=== PATIENT | female | born 1945 | race Caucasian/White ===

== ENCOUNTER 2018-01-10 09:17 | Emergency (ER) | payer MEDICARE, SELFPAY ==
[2018-01-10 09:27] VITALS: BP 146/83; PULSE 63; RESP 10; TEMP 36.9; O2SAT 99
--- NOTE | 2018-01-10 09:51 | ED_ITS ---
HPI - Dizziness General Chief Complaint: Dizziness Stated Complaint: PAIN/NUMBNESS IN HEAD AND PAIN IN [place] Time Seen by Provider: 01/10/18 09:25 Source: patient Mode of arrival: ambulatory Limitations: no limitations History of Present Illness HPI Narrative: 72-year-old female with a history of rheumatoid arthritis, insomnia, and depression presents with left-sided facial laceration after a syncopal episode this morning. She had had 2 glasses of wine last night and was in the hot tub and later went to bed. She woke up around 6 and had to use the bathroom, but felt dizzy, sweaty, and then had a syncopal episode which was unwitnessed. She woke up and noted some pain on the side of her head. At this time she denies feeling dizzy, weak, nauseous, fevers, chills, having dysuria,, cough or any other symptoms. She went to the urgent care to have her laceration sutured and was sent here for further workup Related Data Home Medications Medication Instructions Recorded Confirmed Fish Oil (#FISH OIL) 1 iu PO QDAY #0 08/08/11 VITAMIN D (GROVE VITAMIN D) 2,000 iu PO Q DAY #0 08/08/11 [magnesium ] #0 05/14/17 Previous Rx's Medication Instructions Recorded estradiol [Estrace] 0 VAGINAL SEE INSTRUCTIONS #45 gm 03/21/16 fluticasone 0 INTRANASAL QDAY #16 gm 01/17/17 oxybutynin chloride [Ditropan XL] 10 mg PO QDAY #90 tab 05/14/17 trazodone 100 mg PO HS #90 tab 05/14/17 venlafaxine [Effexor XR] 0 PO QDAY #90 cap 05/14/17 omeprazole 40 mg PO QAM #90 cap 09/16/17 acyclovir 1 tab PO BID #180 tab 10/09/17 albuterol sulfate [Ventolin HFA] 2 puff INH Q4H PRN #1 ea 10/31/17 Allergies Allergy/AdvReac Type Severity Reaction Status Date / Time hydrocodone AdvReac Mild DIDN'T Verified 01/10/18 09:57 WORK WELL AND KEPT ME AWAKE Review of Systems Review of Systems All systems reviewed & are unremarkable except as noted in HPI and below Constitutional Denies chills, Denies fever(s), Denies lethargy and Denies weakness Eyes Denies change in vision, Denies eye discharge, Denies irritation and Denies loss of vision ENT Ears, Nose, Mouth, and Throat: Denies change in voice, Denies neck pain and Denies sore throat Cardiovascular Denies chest pain, Denies irregular heart rhythm, Denies lightheadedness, Denies palpitations, Denies dyspnea, Denies dyspnea on exertion and Denies orthopnea Respiratory Denies cough, Denies dyspnea, Denies dyspnea on exertion and Denies wheezing Gastrointestinal Gastrointestinal: Denies abdominal pain, Denies change in bowel habits, Denies diarrhea, Denies nausea and Denies vomiting Genitourinary Denies hematuria, Denies flank pain, Denies urinary incontinence and Denies urinary urgency Musculoskeletal Denies neck pain Integumentary/Breasts Denies pruritus, Denies erythema, Denies rash and Denies wounds Comments: Laceration over L eye Neurologic Denies confusion, Denies loss of vision and Denies weakness Psychiatric Denies anxiety, Denies confusion, Denies depression, Denies homicidal ideation and Denies suicidal ideation Endocrine Denies palpitations Hematologic/Lymphatic Denies easy bruising Allergic/Immunologic Denies wheezing PFSH Family History Father CAD (coronary artery disease) Grandfather Lung cancer Grandmother CAD (coronary artery disease) Mother CAD (coronary artery disease) Diabetes mellitus Parkinsons Grandfather CAD (coronary artery disease) Social History Smoking Status: Never smoker Exam Initial Vital Signs Initial Vital Signs: Vital Signs Temperature 98.5 F 01/10/18 09:27 Pulse Rate 63 01/10/18 09:27 Respiratory Rate 10 L 01/10/18 09:27 Blood Pressure 146/83 H 01/10/18 09:27 Pulse Oximetry 99 01/10/18 09:27 Const General: cooperative and well developed Nutritional Appearance: well nourished Orientation: alert, awake, oriented x3 and not confused HENMT Head: normocephalic and atraumatic Ears: external ears normal and TM's normal bilaterally Nose: external nose normal and No nasal discharge Face and sinus: sinuses nontender, face symmetric, no sinus tenderness and No dry mucous membranes Mouth: oral mucosae normal and moist mucous membranes Teeth and gingiva: dentition normal Throat: tonsils normal and uvula midline Eyes General: appearance normal, both eyes and all related structures Eyelids: eyelids normal Conjunctivae: conjunctivae normal Sclera: sclerae normal Pupils: PERRL EOM: EOM intact bilaterally Neck Neck: normal visual inspection, trachea midline, No lymphadenopathy, No midline deformity and No JVD Lymphatic: No lymphedema Chest Chest: normal inspection of the chest Resp Effort & Inspection: normal respiratory effort, able to speak in complete sentences, no respiratory distress and no use of accessory muscles Auscultation: clear to auscultation bilaterally, no rales, no rhonchi and no wheezes Cardio Rate: regular rate Rhythm: regular rhythm Heart Sounds: no click, no gallops, no murmurs and no rubs Pulses: normal peripheral pulses GI Inspection: non-distended Palpation: soft, no hepatosplenomegaly, No guarding, No pulsatile mass and No tender Auscultation: normal bowel sounds Back/Spine/Pelvis Back: No CVA tenderness Cervical Spine: cervical ROM normal and No pain with cervical ROM Thoracic/Lumbar Spine: thoracic and lumbar spine normal to inspection Skin General: no rashes or lesions noted, No jaundice and No petechiae Other: 2 cm laceration overlying left eyebrow, full-thickness. No periocular bruising. Neuro General: alert, oriented x3, gait normal and no focal motor deficits Cranial Nerves: CN's II-XI intact bilaterally Speech: speech normal Motor: strength 5/5 throughout Sensory Exam: no sensory deficits noted Extrem General: full ROM, no clubbing, cyanosis or edema, no pedal edema and no calf tenderness Psych Appearance: well kempt Mental Status: mental status grossly normal Attitude: cooperative Thought Content: normal and suicidality Judgment: judgment good Procedures Joint Aspiration/Injection Laceration 1: Site: face Side (If applicable): left Size (cm): 2 Description: linear Depth: simple, single layer Local Anesthetic: lidocaine 1% and with epi Amount of anesthesia used (mL): 2 Pre-repair: wound explored, irrigated extensively and deep structures intact Skin layer closed with: nylon Size (cm): 5-0 Number of sutures: 8 Technique: running Course Orders Ordered: ED Orders 01/10/18 09:26 EKG-12 Lead Routine 01/10/18 10:00 Complete Blood Count AUTO DIFF Stat Comprehensive Metabolic Panel Stat Ethanol (ETOH) Stat Magnesium Stat 01/10/18 10:13 CT head/brain wo con Stat Discontinued Medications Sodium Chloride (Normal Saline 0.9%) 1,000 mls @ 1,000 mls/hr IV BOLUS ONE Stop: 01/10/18 10:43 Last Infusion: 01/10/18 10:59 Dose: 0 mls/hr Admin: 01/10/18 09:57 Dose: 1,000 mls/hr Tetanus/Diphtheria Toxoids (Td) 0.5 ml IM .ONCE ONE Stop: 01/10/18 09:45 Last Admin: 01/10/18 09:58 Dose: 0.5 ml Vital Signs - 8 hr 01/10/18 09:27 01/10/18 10:50 Temperature 98.5 F Pulse Rate 63 62 Respiratory Rate 10 L 12 Blood Pressure 146/83 H Blood Pressure [Left Arm] 146/82 H Pulse Oximetry 99 98 MDM - Dizziness Differential Diagnosis Likely orthostatic hypotension Lab Data Result diagrams: 01/10/18 10:00 01/10/18 10:00 Lab Results 01/10/18 01/10/18 01/10/18 Range/Units 10:00 10:00 10:00 WBC 8.0 (4.5-11.0) X10^3/uL RBC 4.36 (4.0-5.2) X10^6/uL Hgb 13.7 (12.0-16.0) g/dL Hct 39.3 (36-46) % MCV 90.1 (80-100) fL MCH 31.5 (26-34) PG MCHC 34.9 (30-36) % RDW 13.5 (11.6-14.8) % Plt Count 261 (150-400) X10^3/uL Neut % (Auto) 60.8 (50-75) % Lymph % (Auto) 24.2 L (25-40) % [place] % (Auto) 11.6 (3-14) % Eos % (Auto) 2.4 (2-4) % Baso % (Auto) 1.0 (0-2) % Neut # (Auto) 4900 (9899-5780) /uL Sodium 138 (137-145) mmol/L Potassium 3.9 (3.4-5.1) mmol/L Chloride 102.0 (98-107) mmol/L Carbon Dioxide 28.0 (22-32) mmol/L BUN 20.0 H (7-17) mg/dL Creatinine 0.60 (0.52-1.04) mg/dL Estimated GFR > 60.0 (>60) mL/min BUN/Creatinine Ratio 33.3 H (6-22) Glucose 100 (80-110) mg/dL Calcium 9.2 (8.4-10.2) mg/dL Magnesium 2.0 (1.6-2.3) mg/dL Total Bilirubin 0.5 (0.2-1.3) mg/dL AST 35 (14-36) IU/L ALT 33 (9-52) IU/L Alkaline Phosphatase 93 (38-126) U/L Total Protein 7.1 (6.3-8.2) g/dL Albumin 4.0 (3.5-5.0) g/dL Globulin 3.1 (1.7-4.1) g/dL Albumin/Globulin Ratio 1.3 (1.0-2.8) Ethyl Alcohol < 10 mg/dL Imaging Data CT scan - head: Radiologist's impression: PROCEDURE: CT HEAD/BRAIN WO CON INDICATIONS: syncope, head injury, etoh TECHNIQUE: Noncontrast 4.5 mm thick angled axial sections acquired from the foramen magnum to the vertex, with coronal and sagittal reformats. For radiation dose reduction, the following was used: automated exposure control, adjustment of mA and/or kV according to patient size. COMPARISON: None. FINDINGS: Image quality: Excellent. CSF spaces: Basal cisterns are patent. No extra-axial fluid collections. The ventricles are symmetric in size and shape. Brain: No intracranial bleeds or masses. There is cerebral volume loss for age , with resultant ventricular and sulcal prominence. There are periventricular and deep white matter chronic small vessel ischemic changes. There is intracranial internal carotid artery atherosclerosis. Skull and face: Calvarium and visualized facial bones appear intact, without suspicious lesions. Sinuses: Visualized sinuses and mastoids are clear. IMPRESSION: No acute intracranial abnormality. Dictated by: Neda Otoole M.D. on 01/10/2018 at 10:39 Approved by: Neda Otoole M.D. on 01/10/2018 at 10:40 ECG Data Attestation: I personally reviewed and interpreted this ECG as follows: Prior ECG tracings: available for review Interpretation: EKG performed at 9:26 a.m. shows sinus rhythm with a rate of 61. Possible right atrial enlargement. Right bundle branch block. No acute ischemia. When compared with 06/21/2013 EKG is unchanged MDM Narrative Medical decision making narrative: 72-year-old female with a history of rheumatoid arthritis and depression presenting with syncopal episode this morning after drinking and spending part of the evening in the hot tub. Her EKG shows no acute abnormalities including ischemia or arrhythmias. Her gambling monitor has been unremarkable here. Her head CT shows no acute injury or abnormality. She had a laceration that was repaired as documented above. Advised to follow up in 5 days for suture removal. Lab work shows no acute abnormalities. Alcohol level is 0 this morning. Advised her to follow up with her primary care provider within 1 week for recheck. Return precautions given. Discharge Plan Departure Patient Disposition: Home, Self-Care Clinical Impression: Syncope, Facial laceration, Head injury Instructions: DI for Syncope in Adults (Fainting), DI for Closed Head Injury Activity Restrictions/Additional Instructions: Thank you for trusting is with your care today. No dangerous findings were identified in your workup. Please follow-up with your primary care provider within 1 week for re-evaluation. Return to the ER for new or worsening symptoms. Have your sutures removed in 5 days. Prescriptions: No Action Fish Oil (#FISH OIL) 1 iu PO QDAY Qty: 0 RF: 0 VITAMIN D (GROVE VITAMIN D) 2,000 iu PO Q DAY Qty: 0 RF: 0 estradiol [Estrace] 0.01 % cream Vaginal SEE INSTRUCTIONS Qty: 45 RF: 3 fluticasone 16 GM spray,suspension Intranasal QDAY Qty: 16 RF: 3 [magnesium ] Qty: 0 RF: 0 venlafaxine [Effexor XR] 75 MG capsule,extended release 24hr PO QDAY Qty: 90 RF: 3 oxybutynin chloride [Ditropan XL] 10 MG tablet extended release 24hr 10 mg PO QDAY Qty: 90 RF: 3 trazodone 100 MG tablet 100 mg PO HS Qty: 90 RF: 3 omeprazole 40 MG capsule,delayed release(DR/EC) 40 mg PO QAM Qty: 90 RF: 1 acyclovir 400 MG tablet 1 tab PO BID Qty: 180 RF: 0 albuterol sulfate [Ventolin HFA] 90 MCG/PUFF HFA aerosol inhaler 2 puff INH Q4H PRNQty: 1 RF: 2 Referrals: Susie Hayes ARNP [Primary Care Provider] -
[2018-01-10] MEDS: SODIUM CHLORIDE 0.9% 1,000 ML 1000 ML IV (09:57)
[2018-01-10] MEDS: TETANUS DIPHTHERIA TOXOIDS 0.5 ML VIAL IM (09:58)
[2018-01-10 10:09] LABS: Add Manual Diff / Slide Review NO; Eosinophils Percent Auto 2.4 % (2-4); Hematocrit 39.3 % (36-46); Hemoglobin 13.7 g/dL (12.0-16.0); Lymphocytes Percent Auto 24.2 % (25-40); Mean Corpuscular HGB Conc 34.9 % (30-36); Mean Corpuscular Hemoglobin 31.5 PG (26-34); Mean Corpuscular Volume 90.1 fL (80-100); Monocytes Percent Auto 11.6 % (3-14); Neutrophils Absolute Auto 4900 /uL (3000-5900); Neutrophils Percent Auto 60.8 % (50-75); Platelet Count 261 X10^3/uL (150-400); Red Blood Cell Count 4.36 X10^6/uL (4.0-5.2); Red Cell Distribution Width 13.5 % (11.6-14.8)
--- NOTE | 2018-01-10 10:13 | DI.CT.S_ITS ---
PROCEDURE: CT HEAD/BRAIN WO CON INDICATIONS: syncope, head injury, etoh TECHNIQUE: Noncontrast 4.5 mm thick angled axial sections acquired from the foramen magnum to the vertex, with coronal and sagittal reformats. For radiation dose reduction, the following was used: automated exposure control, adjustment of mA and/or kV according to patient size. COMPARISON: None. FINDINGS: Image quality: Excellent. CSF spaces: Basal cisterns are patent. No extra-axial fluid collections. The ventricles are symmetric in size and shape. Brain: No intracranial bleeds or masses. There is cerebral volume loss for age, with resultant ventricular and sulcal prominence. There are periventricular and deep white matter chronic small vessel ischemic changes. There is intracranial internal carotid artery atherosclerosis. Skull and face: Calvarium and visualized facial bones appear intact, without suspicious lesions. Sinuses: Visualized sinuses and mastoids are clear. IMPRESSION: No acute intracranial abnormality. Dictated by: Neda Otoole M.D. on 01/10/2018 at 10:39 Approved by: Neda Otoole M.D. on 01/10/2018 at 10:40
[2018-01-10 10:21] LABS: Alanine Aminotransferase 33 IU/L (9-52); Albumin Globulin Ratio 1.3 (1.0-2.8); Alkaline Phosphatase 93 U/L (38-126); Aspartate Aminotransferase 35 IU/L (14-36); BUN Creatinine Ratio 33.3 (6-22); Bilirubin Total 0.5 mg/dL (0.2-1.3); Calcium 9.2 mg/dL (8.4-10.2); Estimated Glomerular Filt Rate > 60.0 mL/min (>60); Ethanol (ETOH) < 10 mg/dL; Globulin 3.1 g/dL (1.7-4.1); Glucose 100 mg/dL (80-110); HEMOLYSIS < 15 (0-50); Potassium 3.9 mmol/L (3.4-5.1); Sodium 138 mmol/L (137-145); Total Protein 7.1 g/dL (6.3-8.2)
--- NOTE | 2018-01-10 10:25 | PC.NURSE ---
bacitracin applied to left eye brow.
[2018-01-10 10:50] VITALS: BP 146/82; PULSE 62; RESP 12; O2SAT 98
[2018-01-10 11:51] VITALS: BP 172/80; PULSE 67; RESP 18; O2SAT 98
== END 2018-01-10 11:50 | disposition home or self-care (01) ==
PROVIDERS: Emergency Provider Emergency Medicine; Family Provider Internal Medicine; PCP Internal Medicine
DX: R55 Syncope and collapse (principal); S09.90XA Unspecified injury of head, initial encounter; S01.81XA Laceration without foreign body of other part of head, initial encounter; W19.XXXA Unspecified fall, initial encounter
CPT/HCPCS: 12011; 36591; 70450; 80053; 80320; 83735; 85025; 90471; 90714; 93005; 96360; 99283; 99285

== ENCOUNTER → 2018-08-06 07:38 | Outpatient (CLI) | payer MEDICARE, SELFPAY ==
--- NOTE | 2018-08-06 | DI.MG.S_ITS ---
BILATERAL DIGITAL SCREENING MAMMOGRAM 3D/2D WITH CAD: 08/06/2018 CLINICAL: Routine screening. Comparison is made to exams dated: 06/23/2017 mammogram - [facility], 12/26/2015 mammogram, 12/29/2014 mammogram - [facility], 02/26/2013 mammogram, 03/29/2011 mammogram, and 02/20/2007 mammogram - [facility]. There are scattered fibroglandular elements in both breasts. Current study was also evaluated with a Computer Aided Detection (CAD) system. There are benign vascular calcifications in both breasts. No significant masses, calcifications, or other findings are seen in either breast. There has been no significant interval change. IMPRESSION: There is no mammographic evidence of malignancy. A 1 year screening mammogram is recommended. This exam was interpreted at Station ID: [id number]. NOTE: For mammograms, a report in lay terms will be sent to the patient. Approximately 15% of breast malignancies will not be visualized mammographically. In the management of a palpable breast mass, a negative mammogram must not discourage biopsy of a clinically suspicious lesion. Electronically Signed By: Melo nur/indira:08/06/2018 08:48:58 letter sent: Normal Exam ACR BI-RADS Category 2: Benign Finding(s) 3342F
== END ==
PROVIDERS: PCP Internal Medicine; Visit Provider Internal Medicine
DX: Z12.31 Encounter for screening mammogram for malignant neoplasm of breast (principal)
CPT/HCPCS: 77063; 77067

== ENCOUNTER → 2018-10-22 10:39 | Outpatient (CLI) | payer MEDICARE, SELFPAY ==
[2018-10-22 11:40] LABS: Erythrocyte Sedimentation Rate 5 MM/HR (0-20)
[2018-10-22 11:46] LABS: C-Reactive Protein Quant < 0.5 mg/dL (<1.0); Rheumatoid Factor < 8.6 IU/mL (<12.0)
[2018-10-22 12:16] LABS: Vitamin D 25 Hydroxy (D3) 34.5 ng/mL (30.0-100.0)
== END ==
PROVIDERS: PCP Student in an Organized Health Care Education/Training Program; Visit Provider Student in an Organized Health Care Education/Training Program
DX: M06.9 Rheumatoid arthritis, unspecified (principal); E55.9 Vitamin D deficiency, unspecified
CPT/HCPCS: 36415; 82306; 85651; 86140; 86430

== ENCOUNTER → 2019-01-14 10:04 | Outpatient (CLI) | payer MEDICARE, SELFPAY | PROVIDERS: PCP Student in an Organized Health Care Education/Training Program; Visit Provider Student in an Organized Health Care Education/Training Program | DX: Z13.820 Encounter for screening for osteoporosis (principal); Z78.0 Asymptomatic menopausal state; R29.890 Loss of height; Z87.891 Personal history of nicotine dependence | CPT/HCPCS: 77080 ==

== ENCOUNTER → 2020-04-28 10:22 | Outpatient (CLI) | payer MEDICARE, SELFPAY ==
--- NOTE | 2020-04-28 10:24 | DI.RAD.S_ITS ---
PROCEDURE: XR FOOT LT MIN 3V INDICATIONS: left foot pain/injury TECHNIQUE: 3 views of the foot were acquired. COMPARISON: [facility], CR, XR TOE LT MIN 2V, 04/28/2020, 10:20. FINDINGS: Bones: No jennyfer, acute fractures are seen. There is advanced prominent degenerative change seen involving the 1st metatarsophalangeal joint. Milder degenerative changes are seen elsewhere. Soft tissues: No tibiotalar joint effusion. Achilles tendon appears normal. IMPRESSION: Advanced focal degenerative changes seen of the 1st metatarsophalangeal joint, without an acute fracture identified. If there is point tenderness (or other clinical suspicion for a fracture not seen on these images) then a dedicated CT or a short-term followup plain film series could be considered for further evaluation, as clinically appropriate. Dictated by: Magno Rolon M.D. on 04/28/2020 at 9:56 Approved by: Magno Rolon M.D. on 04/28/2020 at 9:57
--- NOTE | 2020-04-28 10:24 | DI.RAD.S_ITS ---
PROCEDURE: XR TOE LT MIN 2V INDICATIONS: left foot pain/injury TECHNIQUE: 3 views of the left 2nd toe(s) acquired. COMPARISON: [facility], , XR FOOT LT MIN 3V, 04/28/2020, 10:20. FINDINGS: Bones: In this patient with this given history, scrutiny is given to 2nd toe. No fractures or dislocations are seen. Degenerative changes are seen of the 2nd toe, yet there are more prominent degenerative changes seen involving 1st metatarsophalangeal joint. Soft tissues: No suspicious soft tissue densities. IMPRESSION: No displaced 2nd toe fracture is seen. Dictated by: Magno Rolon M.D. on 04/28/2020 at 9:58 Approved by: Magno Rolon M.D. on 04/28/2020 at 9:59
== END ==
PROVIDERS: PCP Student in an Organized Health Care Education/Training Program; Referring Provider Registered Nurse; Visit Provider Registered Nurse
DX: S99.922A Unspecified injury of left foot, initial encounter (principal); M79.672 Pain in left foot; X58.XXXA Exposure to other specified factors, initial encounter
CPT/HCPCS: 73630; 73660

== ENCOUNTER → 2020-09-22 08:14 | Outpatient (CLI) | payer MEDICARE, SELFPAY ==
[2020-09-22] MEDS: COVID-19 VACC #1, MRNA(MOD) 100 MCG/0.5 ML VIAL IM (08:21)
== END ==
PROVIDERS: PCP Student in an Organized Health Care Education/Training Program; Visit Provider Internal Medicine
DX: Z23 Encounter for immunization (principal)
CPT/HCPCS: 0011A; 91301

== ENCOUNTER → 2020-10-20 08:02 | Outpatient (CLI) | payer MEDICARE, SELFPAY ==
[2020-10-20] MEDS: COVID-19 VACC #2, MRNA(MOD) 100 MCG/0.5 ML VIAL IM (08:08)
== END ==
PROVIDERS: PCP Student in an Organized Health Care Education/Training Program; Visit Provider Internal Medicine
DX: Z23 Encounter for immunization (principal)
CPT/HCPCS: 0012A; 91301

== ENCOUNTER → 2021-02-13 14:55 | Outpatient (CLI) | payer MEDICARE, SELFPAY ==
--- NOTE | 2021-02-13 | DI.MG.S_ITS ---
BILATERAL DIGITAL SCREENING MAMMOGRAM 3D/2D WITH CAD: 02/13/2021 CLINICAL: Routine screening. Comparison is made to exams dated: 08/06/2018 mammogram, 06/23/2017 mammogram - [facility], and 12/29/2014 mammogram - [facility]. There are scattered fibroglandular elements in both breasts. Current study was also evaluated with a Computer Aided Detection (CAD) system. There are benign vascular calcifications in both breasts. No significant masses, calcifications, or other findings are seen in either breast. There has been no significant interval change. IMPRESSION: BENIGN There is no mammographic evidence of malignancy. A 1 year screening mammogram is recommended. This exam was interpreted at Station ID: [id number]. NOTE: For mammograms, a report in lay terms will be sent to the patient. Approximately 15% of breast malignancies will not be visualized mammographically. In the management of a palpable breast mass, a negative mammogram must not discourage biopsy of a clinically suspicious lesion. Electronically Signed By: Zackery mayorga/indira:02/13/2021 15:40:07 letter sent: Normal Exam ACR BI-RADS Category 2: Benign Finding(s) 3342F
== END ==
PROVIDERS: PCP Student in an Organized Health Care Education/Training Program; Referring Provider Student in an Organized Health Care Education/Training Program; Visit Provider Student in an Organized Health Care Education/Training Program
DX: Z13.820 Encounter for screening for osteoporosis; Z12.31 Encounter for screening mammogram for malignant neoplasm of breast; Z78.0 Asymptomatic menopausal state; Z87.891 Personal history of nicotine dependence
CPT/HCPCS: 77063; 77067; 77080

== ENCOUNTER → 2021-07-11 12:17 | Outpatient (CLI) | payer MEDICARE, SELFPAY | PROVIDERS: PCP Student in an Organized Health Care Education/Training Program; Referring Provider Orthopaedic Surgery; Visit Provider Orthopaedic Surgery | DX: Z78.0 Asymptomatic menopausal state (principal); Z87.891 Personal history of nicotine dependence | CPT/HCPCS: 77080 ==

== ENCOUNTER → 2021-08-27 09:45 | Outpatient (CLI) | payer MEDICARE, SELFPAY ==
[2021-08-27 11:37] LABS: Add Manual Diff / Slide Review NO; Basophils Absolute Auto 100 /uL (0-100); Basophils Percent Auto 0.9 % (0-2); Eosinophils Absolute Auto 200 /uL (0-450); Eosinophils Percent Auto 2.3 % (2-4); Hematocrit 40.6 % (36-46); Hemoglobin 14.1 g/dL (12.0-16.0); Lymphocytes Absolute Auto 1400 /uL (1100-4500); Lymphocytes Percent Auto 20.4 % (25-40); Mean Corpuscular HGB Conc 34.8 % (30-36); Mean Corpuscular Hemoglobin 31.6 PG (26-34); Mean Corpuscular Volume 90.8 fL (80-100); Monocytes Absolute Auto 700 /uL (0-900); Monocytes Percent Auto 11.1 % (3-14); Neutrophils Absolute Auto 4300 /uL (1500-7000); Neutrophils Percent Auto 65.3 % (50-75); Platelet Count 278 X10^3/uL (150-400); Red Blood Cell Count 4.47 X10^6/uL (4.0-5.2); Red Cell Distribution Width 12.9 % (11.6-14.8); White Blood Cell Count 6.6 X10^3/uL (4.5-11.0)
[2021-08-27 12:00] LABS: Alanine Aminotransferase 30 IU/L (<35); Albumin 4.1 g/dL (3.5-5.0); Albumin Globulin Ratio 1.3 (1.0-2.8); Alkaline Phosphatase 87 U/L (38-126); Aspartate Aminotransferase 43 IU/L (14-36); BUN Creatinine Ratio 28.6 (6-22); Bilirubin Total 0.5 mg/dL (0.2-1.3); Blood Urea Nitrogen 16 mg/dL (7-17); Calcium 9.4 mg/dL (8.4-10.2); Carbon Dioxide 29 mmol/L (22-32); Chloride 105 mmol/L (98-107); Estimated Glomerular Filt Rate > 60.0 mL/min (>60); Globulin 3.2 g/dL (1.7-4.1); Glucose 92 mg/dL (80-110); HEMOLYSIS < 15 (0-50); Potassium 4.3 mmol/L (3.4-5.1); Sodium 136 mmol/L (137-145); Total Protein 7.3 g/dL (6.3-8.2)
== END ==
PROVIDERS: PCP Student in an Organized Health Care Education/Training Program; Referring Provider Student in an Organized Health Care Education/Training Program; Visit Provider Student in an Organized Health Care Education/Training Program
DX: Z01.810 Encounter for preprocedural cardiovascular examination (principal)
CPT/HCPCS: 36415; 80053; 85025

== ENCOUNTER → 2021-10-22 13:09 | Outpatient (CLI) | payer MEDICARE, SELFPAY ==
[2021-10-22 15:09] LABS: Add Manual Diff / Slide Review NO; Basophils Absolute Auto 100 /uL (0-100); Basophils Percent Auto 0.8 % (0-2); Eosinophils Absolute Auto 200 /uL (0-450); Hemoglobin 13.6 g/dL (12.0-16.0); Lymphocytes Absolute Auto 1800 /uL (1100-4500); Lymphocytes Percent Auto 21.7 % (25-40); Mean Corpuscular HGB Conc 33.9 % (30-36); Mean Corpuscular Volume 91.3 fL (80-100); Monocytes Absolute Auto 900 /uL (0-900); Monocytes Percent Auto 10.5 % (3-14); Neutrophils Absolute Auto 5200 /uL (1500-7000); Platelet Count 282 X10^3/uL (150-400); Red Blood Cell Count 4.38 X10^6/uL (4.0-5.2); Red Cell Distribution Width 13.1 % (11.6-14.8); White Blood Cell Count 8.1 X10^3/uL (4.5-11.0)
[2021-10-22 15:22] LABS: Hemoglobin A1C% w Est Avg Glu 5.2 % (4.0-6.0)
[2021-10-22 15:33] LABS: Prothrombin Time 11.8 SECONDS (10.1-12.7)
[2021-10-22 15:35] LABS: PTT Partial Thromboplastin Tim 30 SECONDS (26.4-36.2)
[2021-10-22 15:41] LABS: BUN Creatinine Ratio 25.4 (6-22); Blood Urea Nitrogen 15 mg/dL (7-17); Calcium 9.4 mg/dL (8.4-10.2); Carbon Dioxide 33 mmol/L (22-32); Chloride 102 mmol/L (98-107); Estimated Glomerular Filt Rate > 60.0 mL/min (>60); Glucose 84 mg/dL (80-110); HEMOLYSIS < 15 (0-50); Potassium 4.1 mmol/L (3.4-5.1); Sodium 139 mmol/L (137-145)
== END ==
PROVIDERS: PCP Student in an Organized Health Care Education/Training Program; Referring Provider Student in an Organized Health Care Education/Training Program; Visit Provider Student in an Organized Health Care Education/Training Program
DX: I45.10 Unspecified right bundle-branch block (principal); Z01.810 Encounter for preprocedural cardiovascular examination; R73.9 Hyperglycemia, unspecified
CPT/HCPCS: 36415; 80048; 83036; 85025; 85610; 85730

== ENCOUNTER 2022-03-15 14:22 | Inpatient (IN) | payer MEDICARE, SELFPAY ==
[2022-03-15] VITALS (96 sets, daily range): BP systolic 119–244; BP diastolic 58–131; PULSE 73–101; RESP 8–48; TEMP 36.7–37.2; O2SAT 91–99
--- NOTE | 2022-03-15 14:38 | ED_ITS ---
HPI - Nausea/Vomiting/Diarrhea <Ana Newberry [facility] - Last Filed: 03/16/22 21:02> General Chief complaint: Nausea/Vomiting/Diarrhea Stated complaint: throwing up all day, dry heaves, chills, sweats Time Seen by Provider: 03/15/22 14:29 History of Present Illness HPI Narrative: This is a 76-year-old female with history of GERD, asthma and lumbar spinal surgery with an anterior and posterior approach on November [address] Benitez from [facility]. Patient endorses history of multiple musculoskeletal surgeries including bilateral knee replacements. She presents to the emergency department today for nausea, vomiting, and diarrhea which started this morning at 0600 hours. She denies any fever but reports that she has not measured it, she reports that she has been dry heaving since she stopped vomiting. Patient denies any shortness of breath, chest pain, difficulty breathing, she endorses feeling shaky, and having urinary urgency with frequency. She reports having chills and sweats at home and all started today. She denies taking any medic ations prior to arrival because she was unable to keep them down. States that she is allergic to hydrocodone, denies any other medication allergies. She is not on any anticoagulants, denies any flank pain, denies any headache, vision changes, neck pain or weakness. She denies any blood in her stool, emesis, or her urine. She denies any other abdominal surgeries other than her spinal surgery which had an anterior approach as well as a posterior approach. She endorses still having all of her abdominal and reproductive organs. Related Data Home Medications Medication Instructions Recorded Confirmed VITAMIN D (GROVE VITAMIN D) 2,000 iu PO Q DAY ##0 08/08/11 03/19/22 [magnesium ] ##0 05/14/17 03/19/22 amlodipine 5 mg tablet 5 mg PO DAILY 03/19/22 03/19/22 aspirin 81 mg tablet,delayed 81 mg PO DAILY 03/19/22 03/19/22 release atorvastatin 80 mg tablet 80 mg PO BEDTIME 03/19/22 03/19/22 carvedilol 3.125 mg tablet 6.25 mg PO BID 03/19/22 03/19/22 Previous Rx's Medication Instructions Recorded omeprazole 40 mg capsule,delayed 40 mg PO QAM PRN Reflux #30 caps 10/22/18 release albuterol sulfate 90 mcg/actuation 2 puff inhalation Q4H PRN 08/09/19 aerosol inhaler (Ventolin HFA) shortness of breath or wheezing #18 grams oxybutynin chloride 10 mg 10 mg PO QDAY #90 tabs 03/14/21 tablet,extended release 24 hr (Ditropan XL) venlafaxine 75 mg tablet 75 mg PO DAILY #90 tabs 10/30/21 gabapentin 300 mg capsule 300 mg PO BID #180 caps 02/18/22 acyclovir 400 mg tablet 400 mg PO BID #60 tabs 03/26/22 trazodone 100 mg tablet 100 mg PO HS #90 tabs 03/26/22 Allergies Allergy/AdvReac Type Severity Reaction Status Date / Time hydrocodone AdvReac Mild DIDN'T Verified 03/19/22 08:44 WORK WELL AND KEPT ME AWAKE seasonal allergies Allergy Mild watery Uncoded 03/19/22 08:44 eyes, clear mucous, rarely inhaler Review of Systems <JENNIFER Hirsch - Last Filed: 03/16/22 21:02> Review of Systems Narrative: General: denies fever, endorses having chills, sweats, fatigue Head/Neck: denies headache, neck pain, dizziness Eyes: denies visual changes, eye pain Cardio: denies chest pain, palpitations, edema Respiratory: denies dyspnea, cough, orthopnea GI: Endorses generalized abdominal pain, with nausea, vomiting, and diarrhea : denies dysuria, hematuria, urinary retention, but endorses having frequency and urgency MSK: denies joint pain, muscle weakness Skin: denies rash, itching, skin lesions or other Neuro: denies numbness, tingling Patient History <JENNIFER Hirsch - Last Filed: 03/16/22 21:02> Medical History (Updated 03/19/22 @ 09:09 by Chepe Poon MD) Allergic rhinitis Anxiety GERD (gastroesophageal reflux disease) Hx of right bundle branch block Insomnia Postmenopausal Surgical History (Updated 03/19/22 @ 09:09 by Chepe Poon MD) History of arthroscopic knee surgery (2004) History of bilateral tubal ligation 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) Hx of spinal surgery Status post open reduction with internal fixation (ORIF) of fracture of ankle (01/2001) 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 General: cooperative, comfortable, in no acute distress, well groomed Head: atraumatic, symmetrical facial expressions Neck: supple Eyes: equal round and reactive, EOMI, conjunctiva normal Nose: nares patent, no rhinorrhea Mouth/Throat: moist mucus membranes Cardiovascular: regular rate and rhythm, no peripheral edema, warm extremities Respiratory: normal effort, able to speak in complete sentences, no audible wheezing, stridor, or rales. No retractions or tachypnea. GI: abdomen soft, vertical scar from cora umbilicus over suprapubic region fully healed without any erythema, masses, her abdomen is nontender to palpation, nondistended, no masses, no exquisite tenderness with exam, without guarding or rebound. MSK: moves all extremities, neurovascularly intact, no weakness, normal tone Skin: brisk capillary refill, no rash, no erythema Neuro: normal speech and cognition, A&O x3 Psych: mental status is grossly normal, congruent mood, normal affect, pleasant and cooperative Initial Vital Signs Initial Vital Signs: Vital Signs Temperature 98.1 F 03/15/22 14:22 Pulse Rate 98 H 03/15/22 14:22 Respiratory Rate 18 03/15/22 14:22 Blood Pressure 228/107 H 03/15/22 14:22 Pulse Oximetry 98 03/15/22 14:22 Oxygen Delivery Method 03/15/22 14:22 <Jaleel Worley MD - Last Filed: 03/31/22 07:02> Initial Vital Signs Initial Vital Signs: Vital Signs Temperature 98.1 F 03/15/22 14:22 Pulse Rate 98 H 03/15/22 14:22 Respiratory Rate 18 03/15/22 14:22 Blood Pressure 228/107 H 03/15/22 14:22 Pulse Oximetry 98 03/15/22 14:22 Oxygen Delivery Method 03/15/22 14:22 Course <JENNIFER Hirsch - Last Filed: 03/16/22 21:02> Orders Ordered: Discontinued Medications Acetaminophen (Acetaminophen 325 Mg Tablet) 650 mg PO Q6HR PRN PRN Reason: Fever/Mild Pain (1-3) Aspirin (Aspirin Ec 325 Mg Tablet) 325 mg PO NOW ONE Stop: 03/15/22 16:25 Last Admin: 03/15/22 21:04 Dose: Not Given Documented By: AMILCAR Atorvastatin Calcium (Atorvastatin 20 Mg Tablet) 40 mg PO BEDTIME [place] Last Admin: 03/15/22 23:16 Dose: 40 mg Documented By: AMILCAR Heparin Sodium (Porcine) (Heparin 5,000 Unit/Ml Vial) 4,000 unit IV NOW ONE Stop: 03/15/22 23:38 Last Admin: 03/15/22 23:50 Dose: 4,000 unit Documented By: AMILCAR Hydromorphone HCl (Hydromorphone 0.5 Mg Inj) 0.5 mg IV NOW ONE Stop: 03/15/22 15:45 Last Admin: 03/15/22 16:00 Dose: 0.5 mg Documented By: RAINA Hydromorphone HCl (Hydromorphone 0.5 Mg Inj) 0.5 mg IV Q1H PRN PRN Reason: pain Sodium Chloride (Normal Saline 0.9%) 1,000 mls @ 1,000 mls/hr IV BOLUS ONE Stop: 03/15/22 15:43 Last Infusion: 03/15/22 17:11 Dose: 0 mls/hr Documented By: Admin: 03/15/22 15:31 Dose: 1,000 mls/hr Documented By: RIANA Ceftriaxone Sodium 1,000 mg/ (Sodium Chloride) 100 mls @ 200 mls/hr IV NOW ONE Stop: 03/15/22 16:06 Last Infusion: 03/15/22 17:11 Dose: 0 mls/hr Documented By: Admin: 03/15/22 16:16 Dose: 200 mls/hr Documented By: RAINA Nicardipine HCl 25 mg/ Sodium (Chloride) 250 mls @ 50 mls/hr IV TITRATE [place]; Protocol Last Titration: 03/15/22 23:35 Dose: 0 mg/hr, 0 mls/hr Documented By: Titration: 03/15/22 19:45 Dose: 3 mg/hr, 30 mls/hr Documented By: RAINA(2) Titration: 03/15/22 19:07 Dose: 3 mg/hr, 30 mls/hr Documented By: RAINA(2) Titration: 03/15/22 18:44 Dose: 10 mg/hr, 100 mls/hr Documented By: RAINA(2) Titration: 03/15/22 18:23 Dose: 7.5 mg/hr, 75 mls/hr Documented By: RAINA(2) Admin: 03/15/22 17:57 Dose: 5 mg/hr, 50 mls/hr Documented By: RAINA(2) Magnesium Sulfate (Magnesium Sulfate) 2 gm in 50 mls @ 25 mls/hr IV NOW ONE Stop: 03/15/22 19:35 Last Infusion: 03/15/22 19:14 Dose: 0 mls/hr Documented By: RAINA(2) Co-signed By: LEONOR Admin: 03/15/22 17:58 Dose: 25 mls/hr Documented By: RAINA(2) Co-signed By: TRIPP Heparin Sodium/Dextrose (Heparin Drip) 25,000 unit in 500 mls @ 13.56 mls/hr IV CONT [place]; Protocol Last Admin: 03/15/22 23:50 Dose: 12 units/kg/hr, 13.56 mls/hr Documented By: AMILCAR Lorazepam (Lorazepam 2 Mg/Ml Inj) 0.5 mg IV NOW ONE Stop: 03/15/22 16:05 Last Admin: 03/15/22 16:18 Dose: Not Given Documented By: RAINA Lorazepam (Lorazepam 0.5 Mg Tablet) 1 mg PO NOW ONE Stop: 03/15/22 16:20 Last Admin: 03/15/22 16:25 Dose: Not Given Documented By: RAINA Lorazepam (Lorazepam 0.5 Mg Tablet) 0.5 mg PO NOW ONE Stop: 03/15/22 16:48 Last Admin: 03/15/22 16:49 Dose: 0.5 mg Documented By: RAINA Metoprolol Succinate (Metoprolol Er 25 Mg Tablet) 25 mg PO BID [facility] Last Admin: 03/15/22 23:17 Dose: 25 mg Documented By: AMILCAR Metoprolol Tartrate (Metoprolol Tartrate 5 Mg/5 Ml Inj) 5 mg IV NOW ONE Stop: 03/15/22 15:18 Last Admin: 03/15/22 15:30 Dose: 5 mg Documented By: RAINA Metoprolol Tartrate (Metoprolol Tartrate 5 Mg/5 Ml Inj) 5 mg IV NOW ONE Stop: 03/15/22 16:28 Last Admin: 03/15/22 16:53 Dose: 5 mg Documented By: RAINA Metoprolol Tartrate (Metoprolol Tartrate 5 Mg/5 Ml Inj) 5 mg IV NOW ONE Stop: 03/15/22 17:24 Last Admin: 03/15/22 17:30 Dose: 5 mg Documented By: RAINA(2) Ondansetron HCl (Ondansetron 4 Mg/2 Ml Inj) 4 mg IV NOW ONE Stop: 03/15/22 14:32 Last Admin: 03/15/22 15:00 Dose: 4 mg Documented By: RAINA Ondansetron HCl (Ondansetron 4 Mg/2 Ml Inj) 4 mg IV Q4HR PRN PRN Reason: Nausea And Vomiting Last Admin: 03/15/22 16:00 Dose: 4 mg Documented By: RAINA Pantoprazole Sodium (Pantoprazole 40 Mg Vial) 20 mg IV NOW ONE Stop: 03/15/22 16:49 Last Admin: 03/15/22 16:53 Dose: 20 mg Documented By: RAINA Pantoprazole Sodium (Pantoprazole 40 Mg Vial) 40 mg IV DAILY [facility] Last Admin: 03/15/22 21:22 Dose: Not Given Documented By: AMILCAR Prochlorperazine (Prochlorperazine 10 Mg/2 Ml Vial) 5 mg IV Q6HR PRN PRN Reason: Nausea Vital Signs Vital signs: Vital Signs - 8 hr 03/15/22 14:22 03/15/22 14:30 03/15/22 14:30 Temperature 98.1 F Pulse Rate 98 H 89 Respiratory Rate 18 Blood Pressure 228/107 H 228/107 H Pulse Oximetry 98 97 Oxygen Delivery Method Room Air 03/15/22 15:00 03/15/22 15:00 03/15/22 15:36 Temperature Pulse Rate 84 98 H Respiratory Rate 11 L Blood Pressure 204/131 H Pulse Oximetry 97 97 Oxygen Delivery Method 03/15/22 15:38 03/15/22 15:38 03/15/22 15:41 Temperature Pulse Rate 86 85 Respiratory Rate 14 8 L Blood Pressure 226/106 H Pulse Oximetry 97 98 Oxygen Delivery Method 03/15/22 15:41 03/15/22 16:00 03/15/22 16:00 Temperature Pulse Rate 79 Respiratory Rate 20 Blood Pressure 244/110 H 219/109 H Pulse Oximetry 97 Oxygen Delivery Method 03/15/22 16:20 03/15/22 16:20 03/15/22 16:40 Temperature Pulse Rate 78 90 Respiratory Rate 20 20 Blood Pressure 230/108 H Pulse Oximetry 98 98 Oxygen Delivery Method 03/15/22 16:44 03/15/22 16:44 03/15/22 17:00 Temperature Pulse Rate 82 79 Respiratory Rate 20 Blood Pressure 233/102 H Pulse Oximetry 99 Oxygen Delivery Method 03/15/22 17:01 03/15/22 17:01 03/15/22 17:20 Temperature Pulse Rate 79 Respiratory Rate 20 Blood Pressure 223/108 H 220/105 H Pulse Oximetry 98 Oxygen Delivery Method 03/15/22 17:20 Temperature Pulse Rate 75 Respiratory Rate Blood Pressure Pulse Oximetry 96 Oxygen Delivery Method <Jaleel Worley MD - Last Filed: 03/31/22 07:02> Orders Ordered: Discontinued Medications Acetaminophen (Acetaminophen 325 Mg Tablet) 650 mg PO Q6HR PRN PRN Reason: Fever/Mild Pain (1-3) Aspirin (Aspirin Ec 325 Mg Tablet) 325 mg PO NOW ONE Stop: 03/15/22 16:25 Last Admin: 03/15/22 21:04 Dose: Not Given Documented By: AMILCAR Atorvastatin Calcium (Atorvastatin 20 Mg Tablet) 40 mg PO BEDTIME [place] Last Admin: 03/15/22 23:16 Dose: 40 mg Documented By: AMILCAR Heparin Sodium (Porcine) (Heparin 5,000 Unit/Ml Vial) 4,000 unit IV NOW ONE Stop: 03/15/22 23:38 Last Admin: 03/15/22 23:50 Dose: 4,000 unit Documented By: AMILCAR Hydromorphone HCl (Hydromorphone 0.5 Mg Inj) 0.5 mg IV NOW ONE Stop: 03/15/22 15:45 Last Admin: 03/15/22 16:00 Dose: 0.5 mg Documented By: RAINA Hydromorphone HCl (Hydromorphone 0.5 Mg Inj) 0.5 mg IV Q1H PRN PRN Reason: pain Sodium Chloride (Normal Saline 0.9%) 1,000 mls @ 1,000 mls/hr IV BOLUS ONE Stop: 03/15/22 15:43 Last Infusion: 03/15/22 17:11 Dose: 0 mls/hr Documented By: Admin: 03/15/22 15:31 Dose: 1,000 mls/hr Documented By: RAINA Ceftriaxone Sodium 1,000 mg/ (Sodium Chloride) 100 mls @ 200 mls/hr IV NOW ONE Stop: 03/15/22 16:06 Last Infusion: 03/15/22 17:11 Dose: 0 mls/hr Documented By: Admin: 03/15/22 16:16 Dose: 200 mls/hr Documented By: RAINA Nicardipine HCl 25 mg/ Sodium (Chloride) 250 mls @ 50 mls/hr IV TITRATE [place]; Protocol Last Titration: 03/15/22 23:35 Dose: 0 mg/hr, 0 mls/hr Documented By: Titration: 03/15/22 19:45 Dose: 3 mg/hr, 30 mls/hr Documented By: RAINA(2) Titration: 03/15/22 19:07 Dose: 3 mg/hr, 30 mls/hr Documented By: RAINA(2) Titration: 03/15/22 18:44 Dose: 10 mg/hr, 100 mls/hr Documented By: RAINA(2) Titration: 03/15/22 18:23 Dose: 7.5 mg/hr, 75 mls/hr Documented By: RAINA(2) Admin: 03/15/22 17:57 Dose: 5 mg/hr, 50 mls/hr Documented By: RAINA(2) Magnesium Sulfate (Magnesium Sulfate) 2 gm in 50 mls @ 25 mls/hr IV NOW ONE Stop: 03/15/22 19:35 Last Infusion: 03/15/22 19:14 Dose: 0 mls/hr Documented By: RAINA(2) Co-signed By: LEONOR Admin: 03/15/22 17:58 Dose: 25 mls/hr Documented By: RAINA(2) Co-signed By: TRIPP Heparin Sodium/Dextrose (Heparin Drip) 25,000 unit in 500 mls @ 13.56 mls/hr IV CONT [facility]; Protocol Last Admin: 03/15/22 23:50 Dose: 12 units/kg/hr, 13.56 mls/hr Documented By: AMILCAR Lorazepam (Lorazepam 2 Mg/Ml Inj) 0.5 mg IV NOW ONE Stop: 03/15/22 16:05 Last Admin: 03/15/22 16:18 Dose: Not Given Documented By: RAINA Lorazepam (Lorazepam 0.5 Mg Tablet) 1 mg PO NOW ONE Stop: 03/15/22 16:20 Last Admin: 03/15/22 16:25 Dose: Not Given Documented By: RAINA Lorazepam (Lorazepam 0.5 Mg Tablet) 0.5 mg PO NOW ONE Stop: 03/15/22 16:48 Last Admin: 03/15/22 16:49 Dose: 0.5 mg Documented By: RAINA Metoprolol Succinate (Metoprolol Er 25 Mg Tablet) 25 mg PO BID [facility] Last Admin: 03/15/22 23:17 Dose: 25 mg Documented By: AMILCAR Metoprolol Tartrate (Metoprolol Tartrate 5 Mg/5 Ml Inj) 5 mg IV NOW ONE Stop: 03/15/22 15:18 Last Admin: 03/15/22 15:30 Dose: 5 mg Documented By: RAINA Metoprolol Tartrate (Metoprolol Tartrate 5 Mg/5 Ml Inj) 5 mg IV NOW ONE Stop: 03/15/22 16:28 Last Admin: 03/15/22 16:53 Dose: 5 mg Documented By: RAINA Metoprolol Tartrate (Metoprolol Tartrate 5 Mg/5 Ml Inj) 5 mg IV NOW ONE Stop: 03/15/22 17:24 Last Admin: 03/15/22 17:30 Dose: 5 mg Documented By: RAINA(2) Ondansetron HCl (Ondansetron 4 Mg/2 Ml Inj) 4 mg IV NOW ONE Stop: 03/15/22 14:32 Last Admin: 03/15/22 15:00 Dose: 4 mg Documented By: RAINA Ondansetron HCl (Ondansetron 4 Mg/2 Ml Inj) 4 mg IV Q4HR PRN PRN Reason: Nausea And Vomiting Last Admin: 03/15/22 16:00 Dose: 4 mg Documented By: RAINA Pantoprazole Sodium (Pantoprazole 40 Mg Vial) 20 mg IV NOW ONE Stop: 03/15/22 16:49 Last Admin: 03/15/22 16:53 Dose: 20 mg Documented By: RAINA Pantoprazole Sodium (Pantoprazole 40 Mg Vial) 40 mg IV DAILY [place] Last Admin: 03/15/22 21:22 Dose: Not Given Documented By: AMILCAR Prochlorperazine (Prochlorperazine 10 Mg/2 Ml Vial) 5 mg IV Q6HR PRN PRN Reason: Nausea Vital Signs Vital signs: Vital Signs - 8 hr 03/15/22 14:22 03/15/22 14:30 03/15/22 14:30 Temperature 98.1 F Pulse Rate 98 H 89 Respiratory Rate 18 Blood Pressure 228/107 H 228/107 H Pulse Oximetry 98 97 Oxygen Delivery Method Room Air 03/15/22 15:00 03/15/22 15:00 03/15/22 15:36 Temperature Pulse Rate 84 98 H Respiratory Rate 11 L Blood Pressure 204/131 H Pulse Oximetry 97 97 Oxygen Delivery Method 03/15/22 15:38 03/15/22 15:38 03/15/22 15:41 Temperature Pulse Rate 86 85 Respiratory Rate 14 8 L Blood Pressure 226/106 H Pulse Oximetry 97 98 Oxygen Delivery Method 03/15/22 15:41 03/15/22 16:00 03/15/22 16:00 Temperature Pulse Rate 79 Respiratory Rate 20 Blood Pressure 244/110 H 219/109 H Pulse Oximetry 97 Oxygen Delivery Method 03/15/22 16:20 03/15/22 16:20 03/15/22 16:40 Temperature Pulse Rate 78 90 Respiratory Rate 20 20 Blood Pressure 230/108 H Pulse Oximetry 98 98 Oxygen Delivery Method 03/15/22 16:44 03/15/22 16:44 03/15/22 17:00 Temperature Pulse Rate 82 79 Respiratory Rate 20 Blood Pressure 233/102 H Pulse Oximetry 99 Oxygen Delivery Method 03/15/22 17:01 03/15/22 17:01 03/15/22 17:20 Temperature Pulse Rate 79 Respiratory Rate 20 Blood Pressure 223/108 H 220/105 H Pulse Oximetry 98 Oxygen Delivery Method 03/15/22 17:20 Temperature Pulse Rate 75 Respiratory Rate Blood Pressure Pulse Oximetry 96 Oxygen Delivery Method MDM - Nausea/Vomiting/Diarrhea <BRAEDEN HirschP - Last Filed: 03/16/22 21:02> Lab Data Result diagrams: 03/15/22 14:30 03/15/22 14:30 Labs: Lab Results 03/15/22 03/15/22 03/15/22 Range/Units 14:30 14:30 14:30 WBC 12.1 H (4.5-11.0) X10^3/uL RBC 5.42 H (4.0-5.2) X10^6/uL Hgb 15.3 (12.0-16.0) g/dL Hct 45.7 (36-46) % MCV 84.4 (80-100) fL MCH 28.3 (26-34) PG MCHC 33.6 (30-36) % RDW 15.0 H (11.6-14.8) % Plt Count 329 (150-400) X10^3/uL Neut % (Auto) 88.7 H (50-75) % Lymph % (Auto) 6.3 L (25-40) % Mccracken % (Auto) 4.4 (3-14) % Eos % (Auto) 0.0 L (2-4) % Baso % (Auto) 0.6 (0-2) % Neut # (Auto) 82898 H (4942-6201) /uL Lymph # (Auto) 800 L (0286-3186) /uL M[place]racken # (Auto) 500 (0-900) /uL Eos # (Auto) 0 (0-450) /uL Baso # (Auto) 100 (0-100) /uL PT (10.1-12.7) SECONDS INR (0.9-1.3) Sodium 137 (137-145) mmol/L Potassium 3.4 (3.4-5.1) mmol/L Chloride 98 (98-107) mmol/L Carbon Dioxide 27 (22-32) mmol/L BUN 10 (7-17) mg/dL Creatinine 0.49 L (0.52-1.04) mg/dL Estimated GFR > 60 (>60) mL/min BUN/Creatinine Ratio 20.4 (6-22) Glucose 157 H (80-110) mg/dL Hemoglobin A1c (4.0-6.0) % Lactate (0.7-2.1) mmol/L Calcium 9.8 (8.4-10.2) mg/dL Magnesium 1.6 (1.6-2.3) mg/dL Total Bilirubin 0.6 (0.2-1.3) mg/dL AST 53 H (14-36) IU/L ALT 31 (<35) IU/L Alkaline Phosphatase 154 H (38-126) U/L Total Creatine Kinase (30-135) U/L CK-MB (CK-2) (<2.37) ng/mL CK-MB (CK-2) Rel Index (1.5-5.0) % Troponin I (0.01-0.034) ng/mL C-Reactive Protein (<1.0) mg/dL Total Protein 8.8 H (6.3-8.2) g/dL Albumin 5.1 H (3.5-5.0) g/dL Globulin 3.7 (1.7-4.1) g/dL Albumin/Globulin Ratio 1.4 (1.0-2.8) Lipase 95 (23-300) U/L Procalcitonin (<0.5) ng/mL TSH (0.47-4.68) uIU/mL Urine RBC (0-5/HPF) Urine WBC (0-5/HPF) Ur Squamous Epith Cells (0-5/HPF) Urine Bacteria (None) Ur Culture Indicated? SARS-CoV-2 (PCR) Negative (Negative) Influenza A (RT-PCR) Flu a negative (NEGATIVE) Influenza B (RT-PCR) Flu b negative (NEGATIVE) 03/15/22 03/15/22 03/15/22 Range/Units 14:30 14:30 14:30 WBC (4.5-11.0) X10^3/uL RBC (4.0-5.2) X10^6/uL Hgb (12.0-16.0) g/dL Hct (36-46) % MCV (80-100) fL MCH (26-34) PG MCHC (30-36) % RDW (11.6-14.8) % Plt Count (150-400) X10^3/uL Neut % (Auto) (50-75) % Lymph % (Auto) (25-40) % Mccracken % (Auto) (3-14) % Eos % (Auto) (2-4) % Baso % (Auto) (0-2) % Neut # (Auto) (2886-9639) /uL Lymph # (Auto) (6480-9539) /uL Mccracken # (Auto) (0-900) /uL Eos # (Auto) (0-450) /uL Baso # (Auto) (0-100) /uL PT (10.1-12.7) SECONDS INR (0.9-1.3) Sodium (137-145) mmol/L Potassium (3.4-5.1) mmol/L Chloride (98-107) mmol/L Carbon Dioxide (22-32) mmol/L BUN (7-17) mg/dL Creatinine (0.52-1.04) mg/dL Estimated GFR (>60) mL/min BUN/Creatinine Ratio (6-22) Glucose (80-110) mg/dL Hemoglobin A1c (4.0-6.0) % Lactate 2.0 (0.7-2.1) mmol/L Calcium (8.4-10.2) mg/dL Magnesium (1.6-2.3) mg/dL Total Bilirubin (0.2-1.3) mg/dL AST (14-36) IU/L ALT (<35) IU/L Alkaline Phosphatase (38-126) U/L Total Creatine Kinase 496 H (30-135) U/L CK-MB (CK-2) 37.30 H (<2.37) ng/mL CK-MB (CK-2) Rel Index 7.5 H* (1.5-5.0) % Troponin I 0.888 H* (0.01-0.034) ng/mL C-Reactive Protein < 0.5 (<1.0) mg/dL Total Protein (6.3-8.2) g/dL Albumin (3.5-5.0) g/dL Globulin (1.7-4.1) g/dL Albumin/Globulin Ratio (1.0-2.8) Lipase (23-300) U/L Procalcitonin 0.05 (<0.5) ng/mL TSH (0.47-4.68) uIU/mL Urine RBC (0-5/HPF) Urine WBC (0-5/HPF) Ur Squamous Epith Cells (0-5/HPF) Urine Bacteria (None) Ur Culture Indicated? SARS-CoV-2 (PCR) (Negative) Influenza A (RT-PCR) (NEGATIVE) Influenza B (RT-PCR) (NEGATIVE) 03/15/22 03/15/22 03/15/22 Range/Units 14:30 14:30 15:58 WBC (4.5-11.0) X10^3/uL RBC (4.0-5.2) X10^6/uL Hgb (12.0-16.0) g/dL Hct (36-46) % MCV (80-100) fL MCH (26-34) PG MCHC (30-36) % RDW (11.6-14.8) % Plt Count (150-400) X10^3/uL Neut % (Auto) (50-75) % Lymph % (Auto) (25-40) % Mccracken % (Auto) (3-14) % Eos % (Auto) (2-4) % Baso % (Auto) (0-2) % Neut # (Auto) (3143-6162) /uL Lymph # (Auto) (8120-8829) /uL Mccracken # (Auto) (0-900) /uL Eos # (Auto) (0-450) /uL Baso # (Auto) (0-100) /uL PT 12.1 (10.1-12.7) SECONDS INR 1.1 (0.9-1.3) Sodium (137-145) mmol/L Potassium (3.4-5.1) mmol/L Chloride (98-107) mmol/L Carbon Dioxide (22-32) mmol/L BUN (7-17) mg/dL Creatinine (0.52-1.04) mg/dL Estimated GFR (>60) mL/min BUN/Creatinine Ratio (6-22) Glucose (80-110) mg/dL Hemoglobin A1c 5.5 (4.0-6.0) % Lactate (0.7-2.1) mmol/L Calcium (8.4-10.2) mg/dL Magnesium (1.6-2.3) mg/dL Total Bilirubin (0.2-1.3) mg/dL AST (14-36) IU/L ALT (<35) IU/L Alkaline Phosphatase (38-126) U/L Total Creatine Kinase (30-135) U/L CK-MB (CK-2) (<2.37) ng/mL CK-MB (CK-2) Rel Index (1.5-5.0) % Troponin I (0.01-0.034) ng/mL C-Reactive Protein (<1.0) mg/dL Total Protein (6.3-8.2) g/dL Albumin (3.5-5.0) g/dL Globulin (1.7-4.1) g/dL Albumin/Globulin Ratio (1.0-2.8) Lipase (23-300) U/L Procalcitonin (<0.5) ng/mL TSH (0.47-4.68) uIU/mL Urine RBC 1-5/hpf (0-5/HPF) Urine WBC 1-5/hpf (0-5/HPF) Ur Squamous Epith Cells 0-1 /hpf (0-5/HPF) Urine Bacteria None seen (None) Ur Culture Indicated? Culture not indicate SARS-CoV-2 (PCR) (Negative) Influenza A (RT-PCR) (NEGATIVE) Influenza B (RT-PCR) (NEGATIVE) 03/15/22 03/15/22 Range/Units 16:33 16:33 WBC (4.5-11.0) X10^3/uL RBC (4.0-5.2) X10^6/uL Hgb (12.0-16.0) g/dL Hct (36-46) % MCV (80-100) fL MCH (26-34) PG MCHC (30-36) % RDW (11.6-14.8) % Plt Count (150-400) X10^3/uL Neut % (Auto) (50-75) % Lymph % (Auto) (25-40) % [place] % (Auto) (3-14) % Eos % (Auto) (2-4) % Baso % (Auto) (0-2) % Neut # (Auto) (6305-5176) /uL Lymph # (Auto) (5112-8998) /uL [place] # (Auto) (0-900) /uL Eos # (Auto) (0-450) /uL Baso # (Auto) (0-100) /uL PT (10.1-12.7) SECONDS INR (0.9-1.3) Sodium (137-145) mmol/L Potassium (3.4-5.1) mmol/L Chloride (98-107) mmol/L Carbon Dioxide (22-32) mmol/L BUN (7-17) mg/dL Creatinine (0.52-1.04) mg/dL Estimated GFR (>60) mL/min BUN/Creatinine Ratio (6-22) Glucose (80-110) mg/dL Hemoglobin A1c (4.0-6.0) % Lactate (0.7-2.1) mmol/L Calcium (8.4-10.2) mg/dL Magnesium (1.6-2.3) mg/dL Total Bilirubin (0.2-1.3) mg/dL AST (14-36) IU/L ALT (<35) IU/L Alkaline Phosphatase (38-126) U/L Total Creatine Kinase (30-135) U/L CK-MB (CK-2) (<2.37) ng/mL CK-MB (CK-2) Rel Index (1.5-5.0) % Troponin I 1.340 H* (0.01-0.034) ng/mL C-Reactive Protein (<1.0) mg/dL Total Protein (6.3-8.2) g/dL Albumin (3.5-5.0) g/dL Globulin (1.7-4.1) g/dL Albumin/Globulin Ratio (1.0-2.8) Lipase (23-300) U/L Procalcitonin (<0.5) ng/mL TSH 3.35 (0.47-4.68) uIU/mL Urine RBC (0-5/HPF) Urine WBC (0-5/HPF) Ur Squamous Epith Cells (0-5/HPF) Urine Bacteria (None) Ur Culture Indicated? SARS-CoV-2 (PCR) (Negative) Influenza A (RT-PCR) (NEGATIVE) Influenza B (RT-PCR) (NEGATIVE) Urine Dip Bedside Urine Glucose Negative Bedside Urine Bilirubin - Negative Bedside Urine Ketone + 15 Urine Specific [place] 1.010 Bedside Urine Occult Blood ++ Bedside Urine pH 7.5 Bedside Urine Protein ++ 100 Bedside Urine Urobilinogen - Negative Bedside Urine Nitrite - Negative Bedside Urine Leukocytes - Negative Esterase Imaging Data CT scan - abdomen/pelvis: Radiologist's Impression: PROCEDURE:? CT ABDOMEN PELVIS W CON ? INDICATIONS:? abd pain, vomiting/diarrhea ? TECHNIQUE:? After the administration of intravenous contrast, axial sections acquired from the lung bases to the pubic symphysis.? Coronal and sagittal reformats were performed.? For radiation dose reduction, the following was used:? automated exposure control, adjustment of mA and/or kV according to patient size.? ? COMPARISON:? [facility], CT, CT LUMBAR SPINE WITHOUT CONTRAST, 06/28/2021, 13:56.? [facility], CT, ABDOMEN/PELVIS WITH CONTRAST, 06/28/2010, 14:19. ? FINDINGS:? Image quality:? Study limited by significant beam hardening and streak artifact from surgical hardware thoracolumbar fusion.? ? Lung bases:? Redemonstration of medial right lower lobe pulmonary cysts.? Lung bases are otherwise clear.? Small hiatal hernia. Heart:? No significant findings. ? ABDOMEN: Liver:? Unremarkable.? ? Gallbladder:? Gallbladder is mildly distended. Biliary ducts: No intrahepatic or extrahepatic biliary ductal dilatation identified. ? Pancreas: Homogeneous enhancement without focal lesions or pancreatic ductal dilatation.? No peripancreatic inflammation or organized fluid collections. Spleen: The spleen is normal in size and appearance. Adrenal Glands:? Unremarkable.? ? Kidneys and Ureters: Kidneys are symmetric in size and enhancement, and there is no obstructive uropathy.? No perinephric inflammatory changes. Ureters are normal in course and caliber.? ? Stomach and Bowel:? Stomach, small bowel loops, and colon are unremarkable.? Scattered colonic diverticulosis without evidence for acute diverticulitis.? Multiple flu id-filled loops of small bowel seen throughout the abdomen.? No evidence for obstruction.? No pneumatosis. Peritoneum:? No abnormal intraperitoneal fluid.? No free air.? ? Ventral Wall: ? No hernias.? Abdominal Nodes:? No retroperitoneal or mesenteric adenopathy by size criteria.? Vessels:? Scattered atherosclerotic calcifications of the abdominal aorta and iliac vessels without aneurysmal dilatation.? The inferior vena cava appears patent. ? PELVIS: Pelvic Organs:? Unremarkable.? ? Bladder: There is mild circumferential urinary bladder wall thickening which may be related to incomplete distention; however, cystitis may have a similiar appearance.? Pelvic Nodes: No enlarged lymph nodes.? Miscellaneous: No hernias are seen. ? ? ? Bones:? Interval long segment posterior spinal fusion visualized from T10 through S1.? The more proximal aspect of the fusion hardware excluded off the [id number].? No evidence for acute hardware failure. ? ? IMPRESSION:? ? 1. Circumferential urinary bladder wall thickening greater than expected for degree of distension.? Findings may represent sequela of cystitis.? Recommend clinical and laboratory correlation. ? 2. Multiple nondilated loops of fluid-filled small bowel without acute inflammatory changes.? Findings are nonspecific but may represent infectious/inflammatory enteritis. ? 3. Scattered colonic diverticulosis without evidence for acute diverticulitis. ? 4. Postsurgical changes from interval long segment posterior spinal fusion of the thoracic and lumbar spine.? No gross abnormalities identified.? Significant beam hardening and streak artifact of fusion hardware limits evaluation of surrounding structures. ? 5. Small hiatal hernia. ? 6. Atherosclerosis.? ? ? Dictated by: Andrew Castillo M.D. on 03/15/2022 at 15:51 ? ? Approved by: Andrew Castillo M.D. on 03/15/2022 at 16:05 ? CT scan - head: Radiologist's Impression: PROCEDURE:? CT HEAD/BRAIN WO CON ? INDICATIONS:? hypertensive emergency ? TECHNIQUE:? Noncontrast 4.5 mm thick angled axial sections acquired from the foramen magnum to the vertex, with coronal and sagittal reformats.? For radiation dose reduction, the following was used:? automated exposure control, adjustment of mA and/or kV according to patient size.? ? COMPARISON:? [facility], CT, CT HEAD/BRAIN WO CON, 01/10/2018, 10:15. ? FINDINGS:? Image quality:? Excellent.? ? CSF spaces:? Basal cisterns are patent.? No extra-axial fluid collections.? The ventricles are symmetric in size and shape.? ? Brain:? No intracranial bleeds or masses.? There is cerebral volume loss for age, with resultant ventricular and sulcal prominence.? There are periventricular and deep white matter chronic small vessel ischemic changes.? There is intracranial internal carotid artery atherosclerosis.? ? Skull and face:? Calvarium and visualized facial bones appear intact, without suspicious lesions.? ? Sinuses:? Visualized sinuses and mastoids are clear.? ? IMPRESSION:? ? 1. No CT evidence of acute intracranial process.? ? 2. Age-appropriate exam.? ? ? Dictated by: Jen Werner M.D. on 03/15/2022 at 18:01 ? ? Approved by: Jen Werner M.D. on 03/15/2022 at 18:03 ? ECG Data Interpretation: EKG independently reviewed by Dr. Worley at 1516 and reveals sinus rhythm at 72 bpm with leftward axis and right bundle-branch block, normal WI interval and QT interval with QRS of 124 milliseconds. No STEMI, ST segment changes, arrhythmia, or acute ischemic changes. EKG independently reviewed by Dr. Worley at 1628 reveals sinus rhythm at 78 bpm with leftward axis and right bundle-branch block without any changes compared with prior. No STEMI, ST segment changes, arrhythmia, or acute isch emic changes. MDM Narrative Medical decision making narrative: This is a 76-year-old female with history of Shukla rods placed in her lumbar spine November 08, 2021 who presents to the emergency department with nausea, vomiting, and diarrhea which started this morning associated with chills and dry heaving. Patient's COVID PCR is negative, as well as her influenza a and B today, her procalcitonin is 0.05, lipase is 95, total CK is elevated at 496, alkaline phosphatase is elevated at 154 with an AST of 53 up from 43 at her last visit. Total bilirubin is 0.6, glucose is 157, creatinine is 0.49, potassium is 3.4, magnesium is 1.6, and sodium is normal at 137. Mild leukocytosis of 12.1 without anemia, suspect hemo concentration and mild dehydration due to vomiting today. She was given 1 L of normal saline, 4 mg of Zofran IV and reported improvement from her nausea and vomiting but reported still feeling nauseated afterwards so she was given an additional 4 mg of Zofran IV. Urine dip shows blood and protein, sent to lab for microscopy and urine culture was ordered. Microscopy shows occasional white blood cell without bacteria or RBCs. CT abdomen pelvis obtained due to significant abdominal history, elevated blood pressure with systolic over 200 and concern for aneurysm. CT imaging was obscured due to Shukla rods, CT imaging shows bladder distention with bladder wall thickening, might represent sequela of cystitis, multiple nondilated loops of fluid-filled small bowel without acute inflammatory changes, radiologist reports that there nonspecific but may represent infectious/inflammatory enteritis. Scattered colonic diverticulosis without evidence for acute diverticulitis. Postsurgical changes from the interval long segment posterior spinal fusion of the thoracic and lumbar spine without gross abnormalities. Small hiatal hernia, atherosclerosis. No obstructive uropathy or perinephric inflammatory stranding, no intraperitoneal free fluid or air. Patient had a distended bladder and complaint of urinary frequency, she had voided 3 times in the emergency department, postvoid residual was measured to assess for urinary retention: With less than 10 mL. Patient denies any history of hypertension, denies taking any antihypertensives in the past. She was given 5 mg of metoprolol IV with decrease of her blood pressure from 240/100s down to 230 low 100s. She was given anxiolytics and pain medication which helped as well but then her blood pressure was back up into the 230s to 240 systolic range. She was given an additional 5 mg of IV metoprolol, consultation with Dr. Meyers from cardiology regarding patient's NSTEMI with hypertension who recommends admit via hospitalist, treat hypertension, patient is without any chest pain currently so no need for current anticoagulation. She was given 325 mg of aspirin, pain was treated with hydromorphone IV and patient reports that she feels much better about her abdominal pain. Initial troponin at 1430 came back at 0.888, CK-MB relative index is 7.5. Total CK initially was 496 with a CK-MB of 37.3. Repeat troponin and EKG after 2 hours were completed, repeat troponin was: 1.34 this was communicated to the hospitalist as well. Repeat EKG without any interval changes. Patient's pain is improved after her Dilaudid, her nausea is improved after two doses of Zofran, consultation with Dr. Joseph/hospitalist for admission. Dr. Joseph understands the patient has now had three IV doses of 5 mg of Lopressor without significant improvement in her hypertension, 5 minutes after latest dose, patient has a systolic blood pressure of 220/110. She does not have any chest pain at this time (1740), no shortness of breath, no weakness, no mental status changes, no bradycardia or any other change. Patient was accepted by Dr. Joseph for admission to the ICU for hypertensive crisis with end-organ damage and NSTEMI. <Jaleel Worley MD - Last Filed: 03/31/22 07:02> Lab Data Labs: Lab Results 03/15/22 03/15/22 03/15/22 Range/Units 14:30 14:30 14:30 WBC 12.1 H (4.5-11.0) X10^3/uL RBC 5.42 H (4.0-5.2) X10^6/uL Hgb 15.3 (12.0-16.0) g/dL Hct 45.7 (36-46) % MCV 84.4 (80-100) fL MCH 28.3 (26-34) PG MCHC 33.6 (30-36) % RDW 15.0 H (11.6-14.8) % Plt Count 329 (150-400) X10^3/uL Neut % (Auto) 88.7 H (50-75) % Lymph % (Auto) 6.3 L (25-40) % Mccracken % (Auto) 4.4 (3-14) % Eos % (Auto) 0.0 L (2-4) % Baso % (Auto) 0.6 (0-2) % Neut # (Auto) 35406 H (4987-7060) /uL Lymph # (Auto) 800 L (9412-5762) /uL [place]rack[place] # (Auto) 500 (0-900) /uL Eos # (Auto) 0 (0-450) /uL Baso # (Auto) 100 (0-100) /uL PT (10.1-12.7) SECONDS INR (0.9-1.3) Sodium 137 (137-145) mmol/L Potassium 3.4 (3.4-5.1) mmol/L Chloride 98 (98-107) mmol/L Carbon Dioxide 27 (22-32) mmol/L BUN 10 (7-17) mg/dL Creatinine 0.49 L (0.52-1.04) mg/dL Estimated GFR > 60 (>60) mL/min BUN/Creatinine Ratio 20.4 (6-22) Glucose 157 H (80-110) mg/dL Hemoglobin A1c (4.0-6.0) % Lactate (0.7-2.1) mmol/L Calcium 9.8 (8.4-10.2) mg/dL Magnesium 1.6 (1.6-2.3) mg/dL Total Bilirubin 0.6 (0.2-1.3) mg/dL AST 53 H (14-36) IU/L ALT 31 (<35) IU/L Alkaline Phosphatase 154 H (38-126) U/L Total Creatine Kinase (30-135) U/L CK-MB (CK-2) (<2.37) ng/mL CK-MB (CK-2) Rel Index (1.5-5.0) % Troponin I (0.01-0.034) ng/mL C-Reactive Protein (<1.0) mg/dL Total Protein 8.8 H (6.3-8.2) g/dL Albumin 5.1 H (3.5-5.0) g/dL Globulin 3.7 (1.7-4.1) g/dL Albumin/Globulin Ratio 1.4 (1.0-2.8) Lipase 95 (23-300) U/L Procalcitonin (<0.5) ng/mL TSH (0.47-4.68) uIU/mL Urine RBC (0-5/HPF) Urine WBC (0-5/HPF) Ur Squamous Epith Cells (0-5/HPF) Urine Bacteria (None) Ur Culture Indicated? SARS-CoV-2 (PCR) Negative (Negative) Influenza A (RT-PCR) Flu a negative (NEGATIVE) Influenza B (RT-PCR) Flu b negative (NEGATIVE) 03/15/22 03/15/22 03/15/22 Range/Units 14:30 14:30 14:30 WBC (4.5-11.0) X10^3/uL RBC (4.0-5.2) X10^6/uL Hgb (12.0-16.0) g/dL Hct (36-46) % MCV (80-100) fL MCH (26-34) PG MCHC (30-36) % RDW (11.6-14.8) % Plt Count (150-400) X10^3/uL Neut % (Auto) (50-75) % Lymph % (Auto) (25-40) % Mccracken % (Auto) (3-14) % Eos % (Auto) (2-4) % Baso % (Auto) (0-2) % Neut # (Auto) (9707-8880) /uL Lymph # (Auto) (8709-3587) /uL M[place]racken # (Auto) (0-900) /uL Eos # (Auto) (0-450) /uL Baso # (Auto) (0-100) /uL PT (10.1-12.7) SECONDS INR (0.9-1.3) Sodium (137-145) mmol/L Potassium (3.4-5.1) mmol/L Chloride (98-107) mmol/L Carbon Dioxide (22-32) mmol/L BUN (7-17) mg/dL Creatinine (0.52-1.04) mg/dL Estimated GFR (>60) mL/min BUN/Creatinine Ratio (6-22) Glucose (80-110) mg/dL Hemoglobin A1c (4.0-6.0) % Lactate 2.0 (0.7-2.1) mmol/L Calcium (8.4-10.2) mg/dL Magnesium (1.6-2.3) mg/dL Total Bilirubin (0.2-1.3) mg/dL AST (14-36) IU/L ALT (<35) IU/L Alkaline Phosphatase (38-126) U/L Total Creatine Kinase 496 H (30-135) U/L CK-MB (CK-2) 37.30 H (<2.37) ng/mL CK-MB (CK-2) Rel Index 7.5 H* (1.5-5.0) % Troponin I 0.888 H* (0.01-0.034) ng/mL C-Reactive Protein < 0.5 (<1.0) mg/dL Total Protein (6.3-8.2) g/dL Albumin (3.5-5.0) g/dL Globulin (1.7-4.1) g/dL Albumin/Globulin Ratio (1.0-2.8) Lipase (23-300) U/L Procalcitonin 0.05 (<0.5) ng/mL TSH (0.47-4.68) uIU/mL Urine RBC (0-5/HPF) Urine WBC (0-5/HPF) Ur Squamous Epith Cells (0-5/HPF) Urine Bacteria (None) Ur Culture Indicated? SARS-CoV-2 (PCR) (Negative) Influenza A (RT-PCR) (NEGATIVE) Influenza B (RT-PCR) (NEGATIVE) 03/15/22 03/15/22 03/15/22 Range/Units 14:30 14:30 15:58 WBC (4.5-11.0) X10^3/uL RBC (4.0-5.2) X10^6/uL Hgb (12.0-16.0) g/dL Hct (36-46) % MCV (80-100) fL MCH (26-34) PG MCHC (30-36) % RDW (11.6-14.8) % Plt Count (150-400) X10^3/uL Neut % (Auto) (50-75) % Lymph % (Auto) (25-40) % Mccracken % (Auto) (3-14) % Eos % (Auto) (2-4) % Baso % (Auto) (0-2) % Neut # (Auto) (7260-6802) /uL Lymph # (Auto) (7770-5417) /uL M[place]racken # (Auto) (0-900) /uL Eos # (Auto) (0-450) /uL Baso # (Auto) (0-100) /uL PT 12.1 (10.1-12.7) SECONDS INR 1.1 (0.9-1.3) Sodium (137-145) mmol/L Potassium (3.4-5.1) mmol/L Chloride (98-107) mmol/L Carbon Dioxide (22-32) mmol/L BUN (7-17) mg/dL Creatinine (0.52-1.04) mg/dL Estimated GFR (>60) mL/min BUN/Creatinine Ratio (6-22) Glucose (80-110) mg/dL Hemoglobin A1c 5.5 (4.0-6.0) % Lactate (0.7-2.1) mmol/L Calcium (8.4-10.2) mg/dL Magnesium (1.6-2.3) mg/dL Total Bilirubin (0.2-1.3) mg/dL AST (14-36) IU/L ALT (<35) IU/L Alkaline Phosphatase (38-126) U/L Total Creatine Kinase (30-135) U/L CK-MB (CK-2) (<2.37) ng/mL CK-MB (CK-2) Rel Index (1.5-5.0) % Troponin I (0.01-0.034) ng/mL C-Reactive Protein (<1.0) mg/dL Total Protein (6.3-8.2) g/dL Albumin (3.5-5.0) g/dL Globulin (1.7-4.1) g/dL Albumin/Globulin Ratio (1.0-2.8) Lipase (23-300) U/L Procalcitonin (<0.5) ng/mL TSH (0.47-4.68) uIU/mL Urine RBC 1-5/hpf (0-5/HPF) Urine WBC 1-5/hpf (0-5/HPF) Ur Squamous Epith Cells 0-1 /hpf (0-5/HPF) Urine Bacteria None seen (None) Ur Culture Indicated? Culture not indicate SARS-CoV-2 (PCR) (Negative) Influenza A (RT-PCR) (NEGATIVE) Influenza B (RT-PCR) (NEGATIVE) 03/15/22 03/15/22 Range/Units 16:33 16:33 WBC (4.5-11.0) X10^3/uL RBC (4.0-5.2) X10^6/uL Hgb (12.0-16.0) g/dL Hct (36-46) % MCV (80-100) fL MCH (26-34) PG MCHC (30-36) % RDW (11.6-14.8) % Plt Count (150-400) X10^3/uL Neut % (Auto) (50-75) % Lymph % (Auto) (25-40) % Mccracken % (Auto) (3-14) % Eos % (Auto) (2-4) % Baso % (Auto) (0-2) % Neut # (Auto) (5844-2446) /uL Lymph # (Auto) (8020-4329) /uL M[place]racken # (Auto) (0-900) /uL Eos # (Auto) (0-450) /uL Baso # (Auto) (0-100) /uL PT (10.1-12.7) SECONDS INR (0.9-1.3) Sodium (137-145) mmol/L Potassium (3.4-5.1) mmol/L Chloride (98-107) mmol/L Carbon Dioxide (22-32) mmol/L BUN (7-17) mg/dL Creatinine (0.52-1.04) mg/dL Estimated GFR (>60) mL/min BUN/Creatinine Ratio (6-22) Glucose (80-110) mg/dL Hemoglobin A1c (4.0-6.0) % Lactate (0.7-2.1) mmol/L Calcium (8.4-10.2) mg/dL Magnesium (1.6-2.3) mg/dL Total Bilirubin (0.2-1.3) mg/dL AST (14-36) IU/L ALT (<35) IU/L Alkaline Phosphatase (38-126) U/L Total Creatine Kinase (30-135) U/L CK-MB (CK-2) (<2.37) ng/mL CK-MB (CK-2) Rel Index (1.5-5.0) % Troponin I 1.340 H* (0.01-0.034) ng/mL C-Reactive Protein (<1.0) mg/dL Total Protein (6.3-8.2) g/dL Albumin (3.5-5.0) g/dL Globulin (1.7-4.1) g/dL Albumin/Globulin Ratio (1.0-2.8) Lipase (23-300) U/L Procalcitonin (<0.5) ng/mL TSH 3.35 (0.47-4.68) uIU/mL Urine RBC (0-5/HPF) Urine WBC (0-5/HPF) Ur Squamous Epith Cells (0-5/HPF) Urine Bacteria (None) Ur Culture Indicated? SARS-CoV-2 (PCR) (Negative) Influenza A (RT-PCR) (NEGATIVE) Influenza B (RT-PCR) (NEGATIVE) Urine Dip Bedside Urine Glucose Negative Bedside Urine Bilirubin - Negative Bedside Urine Ketone + 15 Urine Specific [place] 1.010 Bedside Urine Occult Blood ++ Bedside Urine pH 7.5 Bedside Urine Protein ++ 100 Bedside Urine Urobilinogen - Negative Bedside Urine Nitrite - Negative Bedside Urine Leukocytes - Negative Esterase Discharge Plan Departure Patient Disposition: Admitted As Inpatient Clinical Impression: Hypertensive crisis, Non-ST elevation AR (NSTEMI), Abdominal pain, vomiting, and diarrhea, Gastroenteritis Admit Date/Time: 03/15/22 17:34 Admit Provider: Jamie Joseph <Jaleel Worley MD - Last Filed: 03/31/22 07:02> Cosign ED Attending Cosignature Attestation: I was immediately available for consultation of this patient was seen and evaluated by the APC in the department.
[2022-03-15] MEDS: ONDANSETRON 4 MG/2 ML INJ IV ×2 (15:00→16:00)
[2022-03-15 15:05] LABS: Add Manual Diff / Slide Review NO; Basophils Absolute Auto 100 /uL (0-100); Basophils Percent Auto 0.6 % (0-2); Eosinophils Absolute Auto 0 /uL (0-450); Hematocrit 45.7 % (36-46); Hemoglobin 15.3 g/dL (12.0-16.0); Lymphocytes Absolute Auto 800 /uL (1100-4500); Lymphocytes Percent Auto 6.3 % (25-40); Mean Corpuscular HGB Conc 33.6 % (30-36); Mean Corpuscular Hemoglobin 28.3 PG (26-34); Mean Corpuscular Volume 84.4 fL (80-100); Monocytes Absolute Auto 500 /uL (0-900); Monocytes Percent Auto 4.4 % (3-14); Neutrophils Absolute Auto 10700 /uL (1500-7000); Neutrophils Percent Auto 88.7 % (50-75); Platelet Count 329 X10^3/uL (150-400); Red Blood Cell Count 5.42 X10^6/uL (4.0-5.2); White Blood Cell Count 12.1 X10^3/uL (4.5-11.0)
[2022-03-15 15:10] LABS: Alanine Aminotransferase 31 IU/L (<35); Albumin 5.1 g/dL (3.5-5.0); Albumin Globulin Ratio 1.4 (1.0-2.8); Alkaline Phosphatase 154 U/L (38-126); Aspartate Aminotransferase 53 IU/L (14-36); BUN Creatinine Ratio 20.4 (6-22); Bilirubin Total 0.6 mg/dL (0.2-1.3); Blood Urea Nitrogen 10 mg/dL (7-17); Calcium 9.8 mg/dL (8.4-10.2); Carbon Dioxide 27 mmol/L (22-32); Chloride 98 mmol/L (98-107); Estimated Glomerular Filt Rate > 60 mL/min (>60); Globulin 3.7 g/dL (1.7-4.1); Glucose 157 mg/dL (80-110); HEMOLYSIS < 15 (0-50); Lipase 95 U/L (23-300); Magnesium 1.6 mg/dL (1.6-2.3); Potassium 3.4 mmol/L (3.4-5.1); Sodium 137 mmol/L (137-145); Total Protein 8.8 g/dL (6.3-8.2)
[2022-03-15 15:12] LABS: C-Reactive Protein Quant < 0.5 mg/dL (<1.0)
--- NOTE | 2022-03-15 15:18 | DI.CT.S_ITS ---
PROCEDURE: CT ABDOMEN PELVIS W CON INDICATIONS: abd pain, vomiting/diarrhea TECHNIQUE: After the administration of intravenous contrast, axial sections acquired from the lung bases to the pubic symphysis. Coronal and sagittal reformats were performed. For radiation dose reduction, the following was used: automated exposure control, adjustment of mA and/or kV according to patient size. COMPARISON: [facility], CT, CT LUMBAR SPINE WITHOUT CONTRAST, 06/28/2021, 13:56. [facility], CT, ABDOMEN/PELVIS WITH CONTRAST, 06/28/2010, 14:19. FINDINGS: Image quality: Study limited by significant beam hardening and streak artifact from surgical hardware thoracolumbar fusion. Lung bases: Redemonstration of medial right lower lobe pulmonary cysts. Lung bases are otherwise clear. Small hiatal hernia. Heart: No significant findings. ABDOMEN: Liver: Unremarkable. Gallbladder: Gallbladder is mildly distended. Biliary ducts: No intrahepatic or extrahepatic biliary ductal dilatation identified. Pancreas: Homogeneous enhancement without focal lesions or pancreatic ductal dilatation. No peripancreatic inflammation or organized fluid collections. Spleen: The spleen is normal in size and appearance. Adrenal Glands: Unremarkable. Kidneys and Ureters: Kidneys are symmetric in size and enhancement, and there is no obstructive uropathy. No perinephric inflammatory changes. Ureters are normal in course and caliber. Stomach and Bowel: Stomach, small bowel loops, and colon are unremarkable. Scattered colonic diverticulosis without evidence for acute diverticulitis. Multiple fluid-filled loops of small bowel seen throughout the abdomen. No evidence for obstruction. No pneumatosis. Peritoneum: No abnormal intraperitoneal fluid. No free air. Ventral Wall: No hernias. Abdominal Nodes: No retroperitoneal or mesenteric adenopathy by size criteria. Vessels: Scattered atherosclerotic calcifications of the abdominal aorta and iliac vessels without aneurysmal dilatation. The inferior vena cava appears patent. PELVIS: Pelvic Organs: Unremarkable. Bladder: There is mild circumferential urinary bladder wall thickening which may be related to incomplete distention; however, cystitis may have a similiar appearance. Pelvic Nodes: No enlarged lymph nodes. Miscellaneous: No hernias are seen. Bones: Interval long segment posterior spinal fusion visualized from T10 through S1. The more proximal aspect of the fusion hardware excluded off the [id number]. No evidence for acute hardware failure. IMPRESSION: 1. Circumferential urinary bladder wall thickening greater than expected for degree of distension. Findings may represent sequela of cystitis. Recommend clinical and laboratory correlation. 2. Multiple nondilated loops of fluid-filled small bowel without acute inflammatory changes. Findings are nonspecific but may represent infectious/inflammatory enteritis. 3. Scattered colonic diverticulosis without evidence for acute diverticulitis. 4. Postsurgical changes from interval long segment posterior spinal fusion of the thoracic and lumbar spine. No gross abnormalities identified. Significant beam hardening and streak artifact of fusion hardware limits evaluation of surrounding structures. 5. Small hiatal hernia. 6. Atherosclerosis. Dictated by: Andrew Castillo M.D. on 03/15/2022 at 15:51 Approved by: Andrew Castillo M.D. on 03/15/2022 at 16:05
[2022-03-15 15:26] LABS: Procalcitonin 0.05 ng/mL (<0.5)
[2022-03-15 15:28] LABS: Influenza A - CEPHEID Flu A NEGATIVE (NEGATIVE); Influenza B - CEPHEID Flu B NEGATIVE (NEGATIVE)
[2022-03-15 15:30] LABS: COVID-19 CEPHEID PCR (VTM/NP) Negative (Negative)
[2022-03-15] MEDS: METOPROLOL TARTRATE 5 MG/5 ML INJ IV ×3 (15:30→17:30)
[2022-03-15] MEDS: SODIUM CHLORIDE 0.9% 1,000 ML 1000 ML IV (15:31)
[2022-03-15 15:38] LABS: Creatine Kinase 496 U/L (30-135)
[2022-03-15] MEDS: HYDROMORPHONE 0.5 MG INJ IV (16:00)
[2022-03-15 16:06] LABS: INR 1.1 (0.9-1.3); Prothrombin Time 12.1 SECONDS (10.1-12.7)
[2022-03-15] MEDS: cefTRIAXone 1,000 MG in SODIUM CHLORIDE 0.9% 100 ML 200 MG IV (16:16)
[2022-03-15 16:21] LABS: Troponin I 0.888 ng/mL (0.01-0.034)
[2022-03-15 16:22] LABS: CKMB % Relative Index 7.5 % (1.5-5.0)
[2022-03-15 16:26] LABS: Bacteria Urine None Seen; RBC Urine 1-5/HPF (0-5/HPF); Squamous Epithelial Cell Urine 0-1 /HPF (0-5/HPF); WBC Urine 1-5/HPF (0-5/HPF)
[2022-03-15] MEDS: LORazepam 0.5 MG TABLET PO (16:49)
[2022-03-15] MEDS: PANTOPRAZOLE 40 MG VIAL 20 MG IV (16:53)
--- NOTE | 2022-03-15 17:30 | DI.CT.S_ITS ---
PROCEDURE: CT HEAD/BRAIN WO CON INDICATIONS: hypertensive emergency TECHNIQUE: Noncontrast 4.5 mm thick angled axial sections acquired from the foramen magnum to the vertex, with coronal and sagittal reformats. For radiation dose reduction, the following was used: automated exposure control, adjustment of mA and/or kV according to patient size. COMPARISON: [facility], CT, CT HEAD/BRAIN WO CON, 01/10/2018, 10:15. FINDINGS: Image quality: Excellent. CSF spaces: Basal cisterns are patent. No extra-axial fluid collections. The ventricles are symmetric in size and shape. Brain: No intracranial bleeds or masses. There is cerebral volume loss for age, with resultant ventricular and sulcal prominence. There are periventricular and deep white matter chronic small vessel ischemic changes. There is intracranial internal carotid artery atherosclerosis. Skull and face: Calvarium and visualized facial bones appear intact, without suspicious lesions. Sinuses: Visualized sinuses and mastoids are clear. IMPRESSION: 1. No CT evidence of acute intracranial process. 2. Age-appropriate exam. Dictated by: Jen Werner M.D. on 03/15/2022 at 18:01 Approved by: Jen Werner M.D. on 03/15/2022 at 18:03
[2022-03-15] MEDS: NICARDIPINE 25 MG in SODIUM CHLORIDE 0.9% 240 ML 50 MG IV (17:57)
[2022-03-15] MEDS: MAGNESIUM SULFATE 2 GM/50 ML PIGGYBACK IV (17:58)
--- NOTE | 2022-03-15 19:13 | PC.NURSE ---
Pts bp has decreased to 150/80. Decreased nicardipine to 30ml/hr. Karely Guardado aware of bp. No new orders at this time.
--- NOTE | 2022-03-15 20:19 | P.TELICUCN_ITS ---
History of Present Illness Consult details Chief complaint: throwing up all day, dry heaves, chills, sweats Narrative: Patient is a 76 year old female with history of asthma, GERD, and lumbar spinal surgery who presenta with intractable N/V and diarrhea. Symptoms started earlier this morning. Associated with epigastric region. Denies fever/chills, chest pain, sick contact, or new onset weakness. In ER, CT head negative for acute abnormality. She was found ot be hypertensive and started on cardene infusion. O ther labs notable for troponin 1.34. 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) Status post right knee replacement (10/09/12) Family History Father CAD (coronary artery disease) Grandfather Lung cancer Grandmother CAD (coronary artery disease) Mother CAD (coronary artery disease) Diabetes mellitus Parkinson's disease Grandfather CAD (coronary artery disease) Social History Smoking Status: Former smoker Current Medications Current Medications Medications: Home Medications VITAMIN D (GROVE VITAMIN D) 2,000 iu PO Q DAY ##0 08/08/11 [History Confirmed 10/22/21] estradiol 0.01% (0.1 mg/gram) vaginal cream (Estrace) 0 vaginal SEE INSTRUCTIONS ##45 03/21/16 [Rx Confirmed 10/22/21] [magnesium ] ##0 05/14/17 [History Confirmed 10/22/21] fluticasone propionate 50 mcg/actuation nasal spray,suspension 0 intranasal QDAY ##16 09/21/18 [Rx Confirmed 10/22/21] omeprazole 40 mg capsule,delayed release 40 mg PO QAM PRN Reflux #30 caps 10/22/18 [Rx Confirmed 10/22/21] albuterol sulfate 90 mcg/actuation aerosol inhaler (Ventolin HFA) 2 puff inhalation Q4H PRN shortness of breath or wheezing #18 grams 08/09/19 [Rx Conf irmed 10/22/21] acyclovir 400 mg tablet 400 mg PO BID #60 tabs 11/02/20 [Rx Confirmed 10/22/21] oxybutynin chloride 10 mg tablet,extended release 24 hr (Ditropan XL) 10 mg PO QDAY #90 tabs 03/14/21 [Rx Confirmed 10/22/21] trazodone 100 mg tablet 100 mg PO HS #90 tabs 10/22/21 [Rx] venlafaxine 75 mg tablet 75 mg PO DAILY #90 tabs 10/30/21 [Rx] oxycodone 5 mg tablet 5 mg PO Q6H PRN 11/15/21 [History] gabapentin 300 mg capsule 300 mg PO BID #180 caps 02/18/22 [Rx] ondansetron 4 mg disintegrating tablet 4 mg PO Q8H #14 tabs 03/15/22 [Rx] Visit Medications (administered) Generic Name Dose Route Start Last Admin Trade Name Freq PRN Reason Stop Dose Admin Nicardipine HCl 25 mg/ Sodium 250 mls @ 50 mls/hr 03/15/22 17:45 03/15/22 19:45 Chloride IV 3 mg/hr TITRATE [place] 30 mls/hr Titration Protocol 5 MG/HR Exam Vital Signs (past 8 hours): - 03/15/22 14:22 03/15/22 14:30 03/15/22 14:30 Temperature 98.1 F Pulse Rate 98 H 89 Respiratory Rate 18 Blood Pressure 228/107 H 228/107 H Pulse Oximetry 98 97 Oxygen Delivery Method Room Air 03/15/22 15:00 03/15/22 15:00 03/15/22 15:36 Temperature Pulse Rate 84 98 H Respiratory Rate 11 L Blood Pressure 204/131 H Pulse Oximetry 97 97 Oxygen Delivery Method 03/15/22 15:38 03/15/22 15:38 03/15/22 15:41 Temperature Pulse Rate 86 85 Respiratory Rate 14 8 L Blood Pressure 226/106 H Pulse Oximetry 97 98 Oxygen Delivery Method 03/15/22 15:41 03/15/22 16:00 03/15/22 16:00 Temperature Pulse Rate 79 Respiratory Rate 20 Blood Pressure 244/110 H 219/109 H Pulse Oximetry 97 Oxygen Delivery Method 03/15/22 16:20 03/15/22 16:20 03/15/22 16:40 Temperature Pulse Rate 78 90 Respiratory Rate 20 20 Blood Pressure 230/108 H Pulse Oximetry 98 98 Oxygen Delivery Method 03/15/22 16:44 03/15/22 16:44 03/15/22 17:00 Temperature Pulse Rate 82 79 Respiratory Rate 20 Blood Pressure 233/102 H Pulse Oximetry 99 Oxygen Delivery Method 03/15/22 17:01 03/15/22 17:01 03/15/22 17:20 Temperature Pulse Rate 79 Respiratory Rate 20 Blood Pressure 223/108 H 220/105 H Pulse Oximetry 98 Oxygen Delivery Method 03/15/22 17:20 03/15/22 17:38 03/15/22 17:38 Temperature Pulse Rate 75 75 Respiratory Rate Blood Pressure 207/98 H Pulse Oximetry 96 98 Oxygen Delivery Method 03/15/22 17:49 03/15/22 17:53 03/15/22 17:53 Temperature Pulse Rate 76 73 Respiratory Rate 18 Blood Pressure 214/102 H Pulse Oximetry 98 98 Oxygen Delivery Method 03/15/22 17:57 03/15/22 17:57 03/15/22 17:58 Temperature Pulse Rate 75 74 Respiratory Rate 15 10 L Blood Pressure 205/104 H Pulse Oximetry 98 98 Oxygen Delivery Method 03/15/22 18:00 03/15/22 18:00 03/15/22 18:02 Temperature Pulse Rate 76 75 Respiratory Rate 8 L 9 L Blood Pressure 215/116 H Pulse Oximetry 97 99 Oxygen Delivery Method 03/15/22 18:03 03/15/22 18:03 03/15/22 18:04 Temperature Pulse Rate 75 74 Respiratory Rate 8 L 12 Blood Pressure 219/97 H Pulse Oximetry 98 98 Oxygen Delivery Method 03/15/22 18:06 03/15/22 18:06 03/15/22 18:08 Temperature Pulse Rate 76 Respiratory Rate 24 Blood Pressure 197/95 H 207/96 H Pulse Oximetry 98 Oxygen Delivery Method 03/15/22 18:08 03/15/22 18:10 03/15/22 18:10 Temperature Pulse Rate 77 79 Respiratory Rate 26 H 32 H Blood Pressure 216/102 H Pulse Oximetry 98 98 Oxygen Delivery Method 03/15/22 18:12 03/15/22 18:13 03/15/22 18:13 Temperature Pulse Rate 79 80 Respiratory Rate 31 H 25 H Blood Pressure 208/92 H Pulse Oximetry 98 98 Oxygen Delivery Method 03/15/22 18:14 03/15/22 18:15 03/15/22 18:15 Temperature Pulse Rate 82 80 Respiratory Rate 28 H 27 H Blood Pressure 187/94 H Pulse Oximetry 98 98 Oxygen Delivery Method 03/15/22 18:16 03/15/22 18:18 03/15/22 18:18 Temperature Pulse Rate 83 87 Respiratory Rate 36 H Blood Pressure 193/95 H Pulse Oximetry 98 92 Oxygen Delivery Method 03/15/22 18:20 03/15/22 18:20 03/15/22 18:22 Temperature Pulse Rate 89 85 Respiratory Rate 18 Blood Pressure 210/98 H Pulse Oximetry 98 Oxygen Delivery Method 03/15/22 18:23 03/15/22 18:23 03/15/22 18:24 Temperature Pulse Rate 84 83 Respiratory Rate 17 15 Blood Pressure 192/92 H Pulse Oximetry 99 99 Oxygen Delivery Method 03/15/22 18:25 03/15/22 18:25 03/15/22 18:26 Temperature Pulse Rate 81 83 Respiratory Rate 21 Blood Pressure 187/92 H Pulse Oximetry 98 98 Oxygen Delivery Method 03/15/22 18:28 03/15/22 18:28 03/15/22 18:30 Temperature Pulse Rate 85 Respiratory Rate Blood Pressure 198/92 H 186/91 H Pulse Oximetry 98 Oxygen Delivery Method 03/15/22 18:30 03/15/22 18:32 03/15/22 18:33 Temperature Pulse Rate 83 84 83 Respiratory Rate Blood Pressure Pulse Oximetry 97 98 97 Oxygen Delivery Method 03/15/22 18:33 03/15/22 18:34 03/15/22 18:35 Temperature Pulse Rate 83 83 Respiratory Rate Blood Pressure 199/92 H Pulse Oximetry 96 95 Oxygen Delivery Method 03/15/22 18:35 03/15/22 18:36 03/15/22 18:38 Temperature Pulse Rate 82 Respiratory Rate Blood Pressure 189/95 H 184/94 H Pulse Oximetry 95 Oxygen Delivery Method 03/15/22 18:38 03/15/22 18:40 03/15/22 18:40 Temperature Pulse Rate 81 82 Respiratory Rate Blood Pressure 191/95 H Pulse Oximetry 94 93 Oxygen Delivery Method 03/15/22 18:42 03/15/22 18:43 03/15/22 18:43 Temperature Pulse Rate 81 80 Respiratory Rate Blood Pressure 185/95 H Pulse Oximetry 94 94 Oxygen Delivery Method 03/15/22 18:44 03/15/22 18:45 03/15/22 18:45 Temperature Pulse Rate 81 82 Respiratory Rate Blood Pressure 187/99 H Pulse Oximetry 93 96 Oxygen Delivery Method 03/15/22 18:46 03/15/22 18:48 03/15/22 18:48 Temperature Pulse Rate 82 84 Respiratory Rate Blood Pressure 171/89 H Pulse Oximetry 95 95 Oxygen Delivery Method 03/15/22 18:50 03/15/22 18:50 03/15/22 18:52 Temperature Pulse Rate 85 87 Respiratory Rate Blood Pressure 166/84 H Pulse Oximetry 93 92 Oxygen Delivery Method 03/15/22 18:53 03/15/22 18:53 03/15/22 18:54 Temperature Pulse Rate 86 87 Respiratory Rate Blood Pressure 164/81 H Pulse Oximetry 94 93 Oxygen Delivery Method 03/15/22 18:55 03/15/22 18:55 03/15/22 18:56 Temperature Pulse Rate 87 87 Respiratory Rate Blood Pressure 160/75 H Pulse Oximetry 94 94 Oxygen Delivery Method 03/15/22 18:58 03/15/22 18:58 03/15/22 19:00 Temperature Pulse Rate 86 88 Respiratory Rate Blood Pressure 169/79 H Pulse Oximetry 94 93 Oxygen Delivery Method 03/15/22 19:00 03/15/22 19:02 03/15/22 19:03 Temperature Pulse Rate 85 84 Respiratory Rate 27 H 29 H Blood Pressure 153/59 H Pulse Oximetry 97 97 Oxygen Delivery Method 03/15/22 19:03 03/15/22 19:04 03/15/22 19:05 Temperature Pulse Rate 85 Respiratory Rate 34 H Blood Pressure 150/69 H 147/69 H Pulse Oximetry 97 Oxygen Delivery Method 03/15/22 19:05 03/15/22 19:06 03/15/22 19:08 Temperature Pulse Rate 84 85 93 H Respiratory Rate 48 H 39 H 34 H Blood Pressure Pulse Oximetry 96 96 96 Oxygen Delivery Method 03/15/22 19:08 03/15/22 19:10 03/15/22 19:10 Temperature Pulse Rate 90 Respiratory Rate 26 H Blood Pressure 126/61 138/62 Pulse Oximetry 96 Oxygen Delivery Method 03/15/22 19:12 03/15/22 19:13 03/15/22 19:13 Temperature Pulse Rate 94 H 89 Respiratory Rate 37 H 30 H Blood Pressure 150/80 H Pulse Oximetry 97 97 Oxygen Delivery Method 03/15/22 19:14 03/15/22 19:16 03/15/22 19:18 Temperature Pulse Rate 91 H 89 91 H Respiratory Rate 35 H 20 21 Blood Pressure Pulse Oximetry 96 97 97 Oxygen Delivery Method 03/15/22 19:20 03/15/22 19:20 03/15/22 19:22 Temperature Pulse Rate 91 H 97 H Respiratory Rate 29 H 42 H Blood Pressure 152/89 H Pulse Oximetry 97 96 Oxygen Delivery Method 03/15/22 19:24 03/15/22 19:26 03/15/22 19:28 Temperature Pulse Rate 99 H 101 H 90 Respiratory Rate Blood Pressure Pulse Oximetry 97 97 96 Oxygen Delivery Method 03/15/22 19:30 03/15/22 19:30 03/15/22 19:32 Temperature Pulse Rate 85 87 Respiratory Rate 9 L 11 L Blood Pressure 171/81 H Pulse Oximetry 97 98 Oxygen Delivery Method 03/15/22 19:34 03/15/22 20:00 Temperature 99.0 F Pulse Rate 85 89 Respiratory Rate 14 16 Blood Pressure 180/87 H Pulse Oximetry 97 96 Oxygen Delivery Method Oxygen Delivery Method Room Air Objective Labs Result Diagrams: 03/15/22 14:30 03/15/22 14:30 Labs: Laboratory Results - last 24 hr 03/15/22 03/15/22 03/15/22 14:30 14:30 14:30 WBC 12.1 H RBC 5.42 H Hgb 15.3 Hct 45.7 MCV 84.4 MCH 28.3 MCHC 33.6 RDW 15.0 H Plt Count 329 Neut % (Auto) 88.7 H Lymph % (Auto) 6.3 L [place] % (Auto) 4.4 Eos % (Auto) 0.0 L Baso % (Auto) 0.6 Neut # (Auto) 06785 H Lymph # (Auto) 800 L [place] # (Auto) 500 Eos # (Auto) 0 Baso # (Auto) 100 PT INR Sodium 137 Potassium 3.4 Chloride 98 Carbon Dioxide 27 BUN 10 Creatinine 0.49 L Estimated GFR > 60 BUN/Creatinine Ratio 20.4 Glucose 157 H Lactate Calcium 9.8 Magnesium 1.6 Total Bilirubin 0.6 AST 53 H ALT 31 Alkaline Phosphatase 154 H Total Creatine Kinase CK-MB (CK-2) CK-MB (CK-2) Rel Index Troponin I C-Reactive Protein Total Protein 8.8 H Albumin 5.1 H Globulin 3.7 Albumin/Globulin Ratio 1.4 Lipase 95 Procalcitonin Urine RBC Urine WBC Ur Squamous Epith Cells Urine Bacteria Ur Culture Indicated? SARS-CoV-2 (PCR) Negative Influenza A (RT-PCR) Flu a negative Influenza B (RT-PCR) Flu b negative 03/15/22 03/15/22 03/15/22 14:30 14:30 14:30 WBC RBC Hgb Hct MCV MCH MCHC RDW Plt Count Neut % (Auto) Lymph % (Auto) [place] % (Auto) Eos % (Auto) Baso % (Auto) Neut # (Auto) Lymph # (Auto) [place] # (Auto) Eos # (Auto) Baso # (Auto) PT INR Sodium Potassium Chloride Carbon Dioxide BUN Creatinine Estimated GFR BUN/Creatinine Ratio Glucose Lactate 2.0 Calcium Magnesium Total Bilirubin AST ALT Alkaline Phosphatase Total Creatine Kinase 496 H CK-MB (CK-2) 37.30 H CK-MB (CK-2) Rel Index 7.5 H* Troponin I 0.888 H* C-Reactive Protein < 0.5 Total Protein Albumin Globulin Albumin/Globulin Ratio Lipase Procalcitonin 0.05 Urine RBC Urine WBC Ur Squamous Epith Cells Urine Bacteria Ur Culture Indicated? SARS-CoV-2 (PCR) Influenza A (RT-PCR) Influenza B (RT-PCR) 03/15/22 03/15/22 03/15/22 14:30 15:58 16:33 WBC RBC Hgb Hct MCV MCH MCHC RDW Plt Count Neut % (Auto) Lymph % (Auto) [place] % (Auto) Eos % (Auto) Baso % (Auto) Neut # (Auto) Lymph # (Auto) [place] # (Auto) Eos # (Auto) Baso # (Auto) PT 12.1 INR 1.1 Sodium Potassium Chloride Carbon Dioxide BUN Creatinine Estimated GFR BUN/Creatinine Ratio Glucose Lactate Calcium Magnesium Total Bilirubin AST ALT Alkaline Phosphatase Total Creatine Kinase CK-MB (CK-2) CK-MB (CK-2) Rel Index Troponin I 1.340 H* C-Reactive Protein Total Protein Albumin Globulin Albumin/Globulin Ratio Lipase Procalcitonin Urine RBC 1-5/hpf Urine WBC 1-5/hpf Ur Squamous Epith Cells 0-1 /hpf Urine Bacteria None seen Ur Culture Indicated? Culture not indicate SARS-CoV-2 (PCR) Influenza A (RT-PCR) Influenza B (RT-PCR) Assessment & Plan Assessment & Plan narrative: # Decondition -- Seek early mobility -- Recommend PT/OT consultation # Hypertensive crisis -- On cardene infusion -- Goal SBP <160 -- Recommend restarting home BP meds # Elevated troponin -- Secondary to demand ischemia -- Trend troponin X 3 -- Recommend ASA and lipitor -- If troponin continues to rise then recommend starting heparin infusion per ACS protocol -- Pending TTE # Enteritis -- Cont IVF -- Zofran as needed for N/V -- Recommend checking viral panel ENDO: -- Goal BS < 180 D/w [employer], RN, and patient at bedside. Time Spent With Patient Critical Care time: I spent a total of [] minutes of critical care time on this patient's care today; this time is exclusive of procedural time.
--- NOTE | 2022-03-15 20:40 | P.HP_ITS ---
History of Present Illness History of Present Illness Date Patient Seen: 03/15/22 Time Patient Seen: 20:40 Chief complaint: throwing up all day, dry heaves, chills, sweats Narrative: Jodie Rodriguez is a 76-year-old female with a history of complex spinal surgery L5 3rd S1, neurogenic claudication presented today after being awoken at 3:00 a.m. feeling nauseous and then vomiting she stated that she was very sweaty but did not have a fever. Then she started vomiting bile Um and finally ending with dry heaving. She stated that she was coughing and had diarrhea as a result has abdominal tenderness she believes from vomiting. She had spinal surgery at [facility] 4 months ago and is been recovering from that in attending physical therapy twice a week. She states since the surgery she has lost 40 lb. She has chronic right leg weakness and apparently previously had a right foot drop per the notes that are in her chart. In the emergency department she was found to have a very elevated blood pressure of 228/107, elevated troponins initially 0.888 followed by an increased to 1.340 in a 2 hour troponin, ST segment changes on EKG reported to us by the emergency department provider. They started her on a nicardipine drip. Head CT was negative for a acute intracranial process, CT of the chest and abdomen noted medial right lower lobe pulmonary cysts, fluid-filled small bowel without inflammatory changes concerning for infectious versus inflammatory enteritis, small hiatal hernia, atherosclerosis, and postsurgical changes from ?interval long segment posterior spinal fusion of the thoracic and lumbar spine ?. She is mildly febrile at 99, blood pressure 180/87, heart rate 89, respiratory rate 16, oxygen saturation 96% on room air she weighs 56.5 kg. She has a mildly elevated white count of 12.1, with a mild left shift of 10,700, creatinine is 0.049, glucose 157, A1c is pending, her lactate was normal at 2.0, AST 53, alk-phos 154, total creatinine kinase was 496, CK-MB was 37.3, CK MB relative index was 7.5 and troponin was 1.340 3rd troponin is pending at 10:00 p.m., albumin was 5.1, procalcitonin normal, TSH is pending, UA is negative for UTI and COVID-19 and influenza A and B PCRs are negative. Patient's medical and social history have been reviewed and noted below. 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) Hx of spinal surgery Status post open reduction with internal fixation (ORIF) of fracture of ankle (01/2001) 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) Status post right knee replacement (10/09/12) Family & Social History Family History Father CAD (coronary artery disease) Grandfather Lung cancer Grandmother CAD (coronary artery disease) Mother CAD (coronary artery disease) Diabetes mellitus Parkinson's disease Grandfather CAD (coronary artery disease) Tobacco & Substance use: Smoking Status Former smoker alcohol intake frequency 3 or more drinks per day Substance Use Type marijuana Meds Home Medications and Allergies Home Medications Medication Instructions Recorded Confirmed Type VITAMIN D (GROVE VITAMIN D) 2,000 iu PO Q DAY ##0 08/08/11 10/22/21 History estradiol 0.01% (0.1 mg/gram) 0 vaginal SEE INSTRUCTIONS ##45 03/21/16 10/22/21 Rx vaginal cream (Estrace) [magnesium ] ##0 05/14/17 10/22/21 History fluticasone propionate 50 0 intranasal QDAY ##16 09/21/18 10/22/21 Rx mcg/actuation nasal spray,suspension omeprazole 40 mg capsule,delayed 40 mg PO QAM PRN Reflux #30 caps 10/22/18 10/22/21 Rx release albuterol sulfate 90 mcg/actuation 2 puff inhalation Q4H PRN 08/09/19 10/22/21 Rx aerosol inhaler (Ventolin HFA) shortness of breath or wheezing #18 grams acyclovir 400 mg tablet 400 mg PO BID #60 tabs 11/02/20 10/22/21 Rx oxybutynin chloride 10 mg 10 mg PO QDAY #90 tabs 03/14/21 10/22/21 Rx tablet,extended release 24 hr (Ditropan XL) trazodone 100 mg tablet 100 mg PO HS #90 tabs 10/22/21 Rx venlafaxine 75 mg tablet 75 mg PO DAILY #90 tabs 10/30/21 Rx oxycodone 5 mg tablet 5 mg PO Q6H PRN 11/15/21 History gabapentin 300 mg capsule 300 mg PO BID #180 caps 02/18/22 Rx ondansetron 4 mg disintegrating 4 mg PO Q8H #14 tabs 03/15/22 Rx tablet Allergies Allergy/AdvReac Type Severity Reaction Status Date / Time hydrocodone AdvReac Mild DIDN'T Verified 10/22/21 11:02 WORK WELL AND KEPT ME AWAKE seasonal allergies Allergy Mild watery Uncoded 10/22/21 11:02 eyes, clear mucous, rarely inhaler Review of Systems Review of Systems ROS: Yes All systems reviewed with the patient and are negative except as otherwise documented Exam Vital Signs (past 8 hours): - 03/15/22 14:22 03/15/22 14:30 03/15/22 14:30 Temperature 98.1 F Pulse Rate 98 H 89 Respiratory Rate 18 Blood Pressure 228/107 H 228/107 H Pulse Oximetry 98 97 Oxygen Delivery Method Room Air 03/15/22 15:00 03/15/22 15:00 03/15/22 15:36 Temperature Pulse Rate 84 98 H Respiratory Rate 11 L Blood Pressure 204/131 H Pulse Oximetry 97 97 Oxygen Delivery Method 03/15/22 15:38 03/15/22 15:38 03/15/22 15:41 Temperature Pulse Rate 86 85 Respiratory Rate 14 8 L Blood Pressure 226/106 H Pulse Oximetry 97 98 Oxygen Delivery Method 03/15/22 15:41 03/15/22 16:00 03/15/22 16:00 Temperature Pulse Rate 79 Respiratory Rate 20 Blood Pressure 244/110 H 219/109 H Pulse Oximetry 97 Oxygen Delivery Method 03/15/22 16:20 03/15/22 16:20 03/15/22 16:40 Temperature Pulse Rate 78 90 Respiratory Rate 20 20 Blood Pressure 230/108 H Pulse Oximetry 98 98 Oxygen Delivery Method 03/15/22 16:44 03/15/22 16:44 03/15/22 17:00 Temperature Pulse Rate 82 79 Respiratory Rate 20 Blood Pressure 233/102 H Pulse Oximetry 99 Oxygen Delivery Method 03/15/22 17:01 03/15/22 17:01 03/15/22 17:20 Temperature Pulse Rate 79 Respiratory Rate 20 Blood Pressure 223/108 H 220/105 H Pulse Oximetry 98 Oxygen Delivery Method 03/15/22 17:20 03/15/22 17:38 03/15/22 17:38 Temperature Pulse Rate 75 75 Respiratory Rate Blood Pressure 207/98 H Pulse Oximetry 96 98 Oxygen Delivery Method 03/15/22 17:49 03/15/22 17:53 03/15/22 17:53 Temperature Pulse Rate 76 73 Respiratory Rate 18 Blood Pressure 214/102 H Pulse Oximetry 98 98 Oxygen Delivery Method 03/15/22 17:57 03/15/22 17:57 03/15/22 17:58 Temperature Pulse Rate 75 74 Respiratory Rate 15 10 L Blood Pressure 205/104 H Pulse Oximetry 98 98 Oxygen Delivery Method 03/15/22 18:00 03/15/22 18:00 03/15/22 18:02 Temperature Pulse Rate 76 75 Respiratory Rate 8 L 9 L Blood Pressure 215/116 H Pulse Oximetry 97 99 Oxygen Delivery Method 03/15/22 18:03 03/15/22 18:03 03/15/22 18:04 Temperature Pulse Rate 75 74 Respiratory Rate 8 L 12 Blood Pressure 219/97 H Pulse Oximetry 98 98 Oxygen Delivery Method 03/15/22 18:06 03/15/22 18:06 03/15/22 18:08 Temperature Pulse Rate 76 Respiratory Rate 24 Blood Pressure 197/95 H 207/96 H Pulse Oximetry 98 Oxygen Delivery Method 03/15/22 18:08 03/15/22 18:10 03/15/22 18:10 Temperature Pulse Rate 77 79 Respiratory Rate 26 H 32 H Blood Pressure 216/102 H Pulse Oximetry 98 98 Oxygen Delivery Method 03/15/22 18:12 03/15/22 18:13 03/15/22 18:13 Temperature Pulse Rate 79 80 Respiratory Rate 31 H 25 H Blood Pressure 208/92 H Pulse Oximetry 98 98 Oxygen Delivery Method 03/15/22 18:14 03/15/22 18:15 03/15/22 18:15 Temperature Pulse Rate 82 80 Respiratory Rate 28 H 27 H Blood Pressure 187/94 H Pulse Oximetry 98 98 Oxygen Delivery Method 03/15/22 18:16 03/15/22 18:18 03/15/22 18:18 Temperature Pulse Rate 83 87 Respiratory Rate 36 H Blood Pressure 193/95 H Pulse Oximetry 98 92 Oxygen Delivery Method 03/15/22 18:20 03/15/22 18:20 03/15/22 18:22 Temperature Pulse Rate 89 85 Respiratory Rate 18 Blood Pressure 210/98 H Pulse Oximetry 98 Oxygen Delivery Method 03/15/22 18:23 03/15/22 18:23 03/15/22 18:24 Temperature Pulse Rate 84 83 Respiratory Rate 17 15 Blood Pressure 192/92 H Pulse Oximetry 99 99 Oxygen Delivery Method 03/15/22 18:25 03/15/22 18:25 03/15/22 18:26 Temperature Pulse Rate 81 83 Respiratory Rate 21 Blood Pressure 187/92 H Pulse Oximetry 98 98 Oxygen Delivery Method 03/15/22 18:28 03/15/22 18:28 03/15/22 18:30 Temperature Pulse Rate 85 Respiratory Rate Blood Pressure 198/92 H 186/91 H Pulse Oximetry 98 Oxygen Delivery Method 03/15/22 18:30 03/15/22 18:32 03/15/22 18:33 Temperature Pulse Rate 83 84 83 Respiratory Rate Blood Pressure Pulse Oximetry 97 98 97 Oxygen Delivery Method 03/15/22 18:33 03/15/22 18:34 03/15/22 18:35 Temperature Pulse Rate 83 83 Respiratory Rate Blood Pressure 199/92 H Pulse Oximetry 96 95 Oxygen Delivery Method 03/15/22 18:35 03/15/22 18:36 03/15/22 18:38 Temperature Pulse Rate 82 Respiratory Rate Blood Pressure 189/95 H 184/94 H Pulse Oximetry 95 Oxygen Delivery Method 03/15/22 18:38 03/15/22 18:40 03/15/22 18:40 Temperature Pulse Rate 81 82 Respiratory Rate Blood Pressure 191/95 H Pulse Oximetry 94 93 Oxygen Delivery Method 03/15/22 18:42 03/15/22 18:43 03/15/22 18:43 Temperature Pulse Rate 81 80 Respiratory Rate Blood Pressure 185/95 H Pulse Oximetry 94 94 Oxygen Delivery Method 03/15/22 18:44 03/15/22 18:45 03/15/22 18:45 Temperature Pulse Rate 81 82 Respiratory Rate Blood Pressure 187/99 H Pulse Oximetry 93 96 Oxygen Delivery Method 03/15/22 18:46 03/15/22 18:48 03/15/22 18:48 Temperature Pulse Rate 82 84 Respiratory Rate Blood Pressure 171/89 H Pulse Oximetry 95 95 Oxygen Delivery Method 03/15/22 18:50 03/15/22 18:50 03/15/22 18:52 Temperature Pulse Rate 85 87 Respiratory Rate Blood Pressure 166/84 H Pulse Oximetry 93 92 Oxygen Delivery Method 03/15/22 18:53 03/15/22 18:53 03/15/22 18:54 Temperature Pulse Rate 86 87 Respiratory Rate Blood Pressure 164/81 H Pulse Oximetry 94 93 Oxygen Delivery Method 03/15/22 18:55 03/15/22 18:55 03/15/22 18:56 Temperature Pulse Rate 87 87 Respiratory Rate Blood Pressure 160/75 H Pulse Oximetry 94 94 Oxygen Delivery Method 03/15/22 18:58 03/15/22 18:58 03/15/22 19:00 Temperature Pulse Rate 86 88 Respiratory Rate Blood Pressure 169/79 H Pulse Oximetry 94 93 Oxygen Delivery Method 03/15/22 19:00 03/15/22 19:02 03/15/22 19:03 Temperature Pulse Rate 85 84 Respiratory Rate 27 H 29 H Blood Pressure 153/59 H Pulse Oximetry 97 97 Oxygen Delivery Method 03/15/22 19:03 03/15/22 19:04 03/15/22 19:05 Temperature Pulse Rate 85 Respiratory Rate 34 H Blood Pressure 150/69 H 147/69 H Pulse Oximetry 97 Oxygen Delivery Method 03/15/22 19:05 03/15/22 19:06 03/15/22 19:08 Temperature Pulse Rate 84 85 93 H Respiratory Rate 48 H 39 H 34 H Blood Pressure Pulse Oximetry 96 96 96 Oxygen Delivery Method 03/15/22 19:08 03/15/22 19:10 03/15/22 19:10 Temperature Pulse Rate 90 Respiratory Rate 26 H Blood Pressure 126/61 138/62 Pulse Oximetry 96 Oxygen Delivery Method 03/15/22 19:12 03/15/22 19:13 03/15/22 19:13 Temperature Pulse Rate 94 H 89 Respiratory Rate 37 H 30 H Blood Pressure 150/80 H Pulse Oximetry 97 97 Oxygen Delivery Method 03/15/22 19:14 03/15/22 19:16 03/15/22 19:18 Temperature Pulse Rate 91 H 89 91 H Respiratory Rate 35 H 20 21 Blood Pressure Pulse Oximetry 96 97 97 Oxygen Delivery Method 03/15/22 19:20 03/15/22 19:20 03/15/22 19:22 Temperature Pulse Rate 91 H 97 H Respiratory Rate 29 H 42 H Blood Pressure 152/89 H Pulse Oximetry 97 96 Oxygen Delivery Method 03/15/22 19:24 03/15/22 19:26 03/15/22 19:28 Temperature Pulse Rate 99 H 101 H 90 Respiratory Rate Blood Pressure Pulse Oximetry 97 97 96 Oxygen Delivery Method 03/15/22 19:30 03/15/22 19:30 03/15/22 19:32 Temperature Pulse Rate 85 87 Respiratory Rate 9 L 11 L Blood Pressure 171/81 H Pulse Oximetry 97 98 Oxygen Delivery Method 03/15/22 19:34 03/15/22 20:00 03/15/22 19:36 Temperature 99.0 F Pulse Rate 85 89 86 Respiratory Rate 14 16 11 L Blood Pressure 180/87 H Pulse Oximetry 97 96 96 Oxygen Delivery Method 03/15/22 19:38 03/15/22 19:40 03/15/22 19:40 Temperature Pulse Rate 85 85 Respiratory Rate 21 24 Blood Pressure 168/85 H Pulse Oximetry 97 96 Oxygen Delivery Method 03/15/22 19:42 Temperature Pulse Rate 87 Respiratory Rate 37 H Blood Pressure Pulse Oximetry 98 Oxygen Delivery Method Oxygen Delivery Method Room Air Narrative Exam Narrative: Gen: Alert, oriented, thin 76 y.o. female, states feeling much better HEENT: normocephalic, atraumatic, conjunctiva clear, sclera non-icteric, oral mucosa dry Neck: supple, full ROM, no JVD, trachea is midline Resp: Lungs CTA, non-labored breathing CV: hypertensive, RRR, no murmur or rubs Abd: soft, non-tender, normoactive BTs Skin: no lesions or rashes, dry and intact Neuro: Alert and oriented X 4 w/no focal deficits. Speech clear and coherent. Extremities: moves all 4 extremities, is ambulatory, negative Alana?s sign Psyche: normal mood and affect. Objective ECG Impression: Right bundle branch block seen in 3 leads and prior. Labs Result Diagrams: 03/15/22 14:30 03/15/22 14:30 Labs: Laboratory Results - last 24 hr 03/15/22 03/15/22 03/15/22 14:30 14:30 14:30 WBC 12.1 H RBC 5.42 H Hgb 15.3 Hct 45.7 MCV 84.4 MCH 28.3 MCHC 33.6 RDW 15.0 H Plt Count 329 Neut % (Auto) 88.7 H Lymph % (Auto) 6.3 L [place] % (Auto) 4.4 Eos % (Auto) 0.0 L Baso % (Auto) 0.6 Neut # (Auto) 10438 H Lymph # (Auto) 800 L [place] # (Auto) 500 Eos # (Auto) 0 Baso # (Auto) 100 PT INR Sodium 137 Potassium 3.4 Chloride 98 Carbon Dioxide 27 BUN 10 Creatinine 0.49 L Estimated GFR > 60 BUN/Creatinine Ratio 20.4 Glucose 157 H Lactate Calcium 9.8 Magnesium 1.6 Total Bilirubin 0.6 AST 53 H ALT 31 Alkaline Phosphatase 154 H Total Creatine Kinase CK-MB (CK-2) CK-MB (CK-2) Rel Index Troponin I C-Reactive Protein Total Protein 8.8 H Albumin 5.1 H Globulin 3.7 Albumin/Globulin Ratio 1.4 Lipase 95 Procalcitonin Urine RBC Urine WBC Ur Squamous Epith Cells Urine Bacteria Ur Culture Indicated? SARS-CoV-2 (PCR) Negative Influenza A (RT-PCR) Flu a negative Influenza B (RT-PCR) Flu b negative 03/15/22 03/15/22 03/15/22 14:30 14:30 14:30 WBC RBC Hgb Hct MCV MCH MCHC RDW Plt Count Neut % (Auto) Lymph % (Auto) [place] % (Auto) Eos % (Auto) Baso % (Auto) Neut # (Auto) Lymph # (Auto) [place] # (Auto) Eos # (Auto) Baso # (Auto) PT INR Sodium Potassium Chloride Carbon Dioxide BUN Creatinine Estimated GFR BUN/Creatinine Ratio Glucose Lactate 2.0 Calcium Magnesium Total Bilirubin AST ALT Alkaline Phosphatase Total Creatine Kinase 496 H CK-MB (CK-2) 37.30 H CK-MB (CK-2) Rel Index 7.5 H* Troponin I 0.888 H* C-Reactive Protein < 0.5 Total Protein Albumin Globulin Albumin/Globulin Ratio Lipase Procalcitonin 0.05 Urine RBC Urine WBC Ur Squamous Epith Cells Urine Bacteria Ur Culture Indicated? SARS-CoV-2 (PCR) Influenza A (RT-PCR) Influenza B (RT-PCR) 03/15/22 03/15/22 03/15/22 14:30 15:58 16:33 WBC RBC Hgb Hct MCV MCH MCHC RDW Plt Count Neut % (Auto) Lymph % (Auto) [place] % (Auto) Eos % (Auto) Baso % (Auto) Neut # (Auto) Lymph # (Auto) [place] # (Auto) Eos # (Auto) Baso # (Auto) PT 12.1 INR 1.1 Sodium Potassium Chloride Carbon Dioxide BUN Creatinine Estimated GFR BUN/Creatinine Ratio Glucose Lactate Calcium Magnesium Total Bilirubin AST ALT Alkaline Phosphatase Total Creatine Kinase CK-MB (CK-2) CK-MB (CK-2) Rel Index Troponin I 1.340 H* C-Reactive Protein Total Protein Albumin Globulin Albumin/Globulin Ratio Lipase Procalcitonin Urine RBC 1-5/hpf Urine WBC 1-5/hpf Ur Squamous Epith Cells 0-1 /hpf Urine Bacteria None seen Ur Culture Indicated? Culture not indicate SARS-CoV-2 (PCR) Influenza A (RT-PCR) Influenza B (RT-PCR) Assessment & Plan Assessment & Plan narrative: Deb Rodriguez is admitted to the ICU for a hypertensive urgency initially thought to be a NSTEMI based on her elevated troponin. She is admitted for management of the hypertension and will be risk stratified. Hypertensive urgency, acute, present on admission * Initial BP on admission was 228/107 and trended as high as 244/110. * She was started on a nicardipine drip which will be titrated to keep her blood pressure goal to between a systolic of 140-150. * Echo in the am * Continue trending troponins until they downtrend, if doubles will contact cardiology Risk stratification * Lipid panel in the morning * Her A1c is 5.5 she had so she is not diabetic Chronic continuous opioid use likely secondary to her back pain * Her oral medications have been held and will provide IV pain medications as needed VTE Prophylaxis: Wells risk score Enoxaparin 40 mg subQ once daily Bilateral SCDs Patient is admitted to the inpatient intensive care service due to the severity of disease, risks of further disease progression and this stay is expected to exceed 2 midnights. FEN: IV fluids: nicardipine drip, diet: advance as tolerated to heart healthy, labs: CBC, C/BMP, liver enzymes, Mag, PT/INR Consultants Intercept ICU, assistance and care appreciated. Dispo: unknown at this time Code status: Full code as discussed with the patient who identifies her Arnaldo Rodríguez her surrogate and POA. [X] I have utilized all available immediate resources to obtain, update, or review of the patient's current medications COVID-19 COVID-19 status: Negative Result date/Date tested (Pos, Neg/Pending): 03/15/22 Scores Wells' Criteria for PE Clinical signs and symptoms of DVT: No PE is #1 Dx or equally likely: No Heart rate > 100: No Immobilization at least 3 days or surg in previous 4 weeks: No History of PE or DVT: No Hemoptysis: No Malignancy w/Treatment within 6 months or palliative: No Wells' PE Score total: 0 Quality VTE Deep Vein Thrombosis/Pulmonary Embolism Present on Admission: No MIPS - Admit I confirm the patient?s Advance Care Plan is present, Code status is documented, Surrogate decision maker is in patient?s record [If Yes, STOP here]: Yes MIPS - DC The patient has current or prior documentation of left ventricular ejection f raction (LVEF) less than 40%, or moderate or severely depressed left ventricular systolic function.: No
[2022-03-15 20:59] LABS: Hemoglobin A1C% w Est Avg Glu 5.5 % (4.0-6.0)
--- NOTE | 2022-03-15 22:46 | PC.NURSE ---
Addendum entered by Francesca Holloway R.N. 03/16/22 03:52: 0330- Patient discharged to higher level of care. Evolving IA. Patient vitals stable at time of discharge. Heparin continued with transport team. Report called to Jennifer LUNA at [facility]. DI CD sent with patient in transfer packet. Addendum entered by Francesca Holloway R.N. 03/16/22 02:43: 0230- Patient to transfer to [facility]. Patient called and room number given to him with an explanation of the plan. Patient will transport on Heparin. No chest pain or hemodynamic compromise. Patient off Nicardipine gtt since 0. Stable. Addendum entered by Francesca Holloway R.N. 03/16/22 00:09: 0000- Heparin gtt started per coronary protocol. Patient remains pain free. Nicardipine gtt on hold as BP is at target. Next Ptt at 0600. Original Note: 0- Third triponin report shows 2.070 an increase from 1.3. Patient is asymptomatic. Nicardipine infusion going at 50ml/hr BP at target. Patient is not c/o chest pain, nausea or vomiting. Will monitor.
[2022-03-15 22:49] LABS: TSH w/ Reflex to FT4 3.35 uIU/mL (0.47-4.68)
[2022-03-15] MEDS: ATORVASTATIN 20 MG TABLET 40 MG PO (23:16)
[2022-03-15] MEDS: METOPROLOL ER 25 MG TABLET PO (23:17)
[2022-03-15 23:31] LABS: PTT Partial Thromboplastin Tim 30 SECONDS (26.4-36.2)
[2022-03-15] MEDS: HEPARIN DRIP 25,000 UNIT/500 ML IV.SOLN 13.56 UNIT IV (23:50)
[2022-03-15] MEDS: HEPARIN 5,000 UNIT/ML VIAL 4000 UNIT IV (23:50)
[2022-03-16] VITALS (8 sets, daily range): BP systolic 120–162; BP diastolic 58–79; PULSE 77–96; RESP 11–25; O2SAT 93–97
--- NOTE | 2022-03-16 01:16 | P.DS_ITS ---
History of Present Illness History of Present Illness Date Patient Seen: 03/16/22 Time Patient Seen: 00:05 Chief complaint: throwing up all day, dry heaves, chills, sweats Narrative: Jodie Rodriguez is a 76-year-old female with a history of complex spinal surgery L5 3rd S1, neurogenic claudication presented today after being awoken at 3:00 a.m. feeling nauseous and then vomiting she stated that she was very sweaty but did not have a fever. Then she started vomiting bile Um and finally ending with dry heaving. She stated that she was coughing and had diarrhea as a result has abdominal tenderness she believes from vomiting. She had spinal surgery at [facility] 4 months ago and is been recovering from that in attending physical therapy twice a week. She states since the surgery she has lost 40 lb. She has chronic right leg weakness and apparently previously had a right foot drop per the notes that are in her chart. In the emergency department she was found to have a very elevated blood pressure of 228/107, elevated troponins initially 0.888 followed by an increased to 1.340 in a 2 hour troponin, ST segment changes on EKG reported to us by the emergency department provider. They started her on a nicardipine drip. Head CT was negative for a acute intracranial process, CT of the chest and abdomen noted medial right lower lobe pulmonary cysts, fluid-filled small bowel without inflammatory changes concerning for infectious versus inflammatory enteritis, small hiatal hernia, atherosclerosis, and postsurgical changes from ?interval long segment posterior spinal fusion of the thoracic and lumbar spine ?. She is mildly febrile at 99, blood pressure 180/87, heart rate 89, respiratory rate 16, oxygen saturation 96% on room air she weighs 56.5 kg. She has a mildly elevated white count of 12.1, with a mild left shift of 10,700, creatinine is 0.049, glucose 157, A1c is pending, her lactate was normal at 2.0, AST 53, alk-phos 154, total creatinine kinase was 496, CK-MB was 37.3, CK MB relative index was 7.5 and troponin was 1.340 3rd troponin is pending at 10:00 p.m., albumin was 5.1, procalcitonin normal, TSH is pending, UA is negative for UTI and COVID-19 and influenza A and B PCRs are negative. Patient's medical and social history have been reviewed and noted below. Discharge Providers Provider Date of admission: 03/15/22 17:34 Discharge Date: 03/16/22 Primary care physician: Chepe Poon MD Consults: 03/15/22 16:24 Consult to Cardiology Stat Comment: Consulting Provider: Prisca Meyers Reason for consultation: NSTEMI Has provider been notified: Yes 03/15/22 21:57 Consult to Dietitian, Adult Routine Comment: Reason For Exam: weight loss Discharge provider: JENNIFER Blunt Summary Hospital Course Discharge Diagnosis: NSTEMI Hospital Course: Jodie Rodriguez is a 76 y.o. female with no chronic cardiac medications but with a remote history of a right bundle branch block, was admitted for treatment of a hypertensive urgency, initially thought to be triggered by nausea and vomiting. She was admitted due to a high troponin, also thought to be demand ischemia. Initial troponin was 0.888 and she was started on a nicardipine drip. Her 2 hour troponin was 1.34 and a 6 hour troponin is 2.070. Discussion was held with cardiology who agreed with plan to start a heparin drip and who felt the patient should be transferred for a cardiac catheterization. Patient was administered full strength aspirin, started on metoprolol and atorvastatin, plan was initially to have her have an echocardiogram. Patient is stable and the nicardipine drip was stopped. Discussed case with Dr. Shaw, Structural Designer at [facility] and he recommended transfer to their cardiac stepdown floor. Dr. Albaro Lowe,, hospitalist accepting. Patient has been informed of need for transfer and is agreeable to such. Status at Discharge Cognitive/behavioral status at discharge: at baseline, oriented Functional status at discharge: independent ambulation Overall status at discharge: patient is progressing back to baseline Time Spent with Patient Time spent discussing smoking cessation with patient: more than 10 minutes Exam Vital Signs (past 8 hours): - 03/15/22 17:20 03/15/22 17:20 03/15/22 17:38 Temperature Pulse Rate 75 75 Respiratory Rate Blood Pressure 220/105 H Pulse Oximetry 96 98 Oxygen Delivery Method 03/15/22 17:38 03/15/22 17:49 03/15/22 17:53 Temperature Pulse Rate 76 Respiratory Rate 18 Blood Pressure 207/98 H 214/102 H Pulse Oximetry 98 Oxygen Delivery Method 03/15/22 17:53 03/15/22 17:57 03/15/22 17:57 Temperature Pulse Rate 73 75 Respiratory Rate 15 Blood Pressure 205/104 H Pulse Oximetry 98 98 Oxygen Delivery Method 03/15/22 17:58 03/15/22 18:00 03/15/22 18:00 Temperature Pulse Rate 74 76 Respiratory Rate 10 L 8 L Blood Pressure 215/116 H Pulse Oximetry 98 97 Oxygen Delivery Method 03/15/22 18:02 03/15/22 18:03 03/15/22 18:03 Temperature Pulse Rate 75 75 Respiratory Rate 9 L 8 L Blood Pressure 219/97 H Pulse Oximetry 99 98 Oxygen Delivery Method 03/15/22 18:04 03/15/22 18:06 03/15/22 18:06 Temperature Pulse Rate 74 76 Respiratory Rate 12 24 Blood Pressure 197/95 H Pulse Oximetry 98 98 Oxygen Delivery Method 03/15/22 18:08 03/15/22 18:08 03/15/22 18:10 Temperature Pulse Rate 77 Respiratory Rate 26 H Blood Pressure 207/96 H 216/102 H Pulse Oximetry 98 Oxygen Delivery Method 03/15/22 18:10 03/15/22 18:12 03/15/22 18:13 Temperature Pulse Rate 79 79 80 Respiratory Rate 32 H 31 H 25 H Blood Pressure Pulse Oximetry 98 98 98 Oxygen Delivery Method 03/15/22 18:13 03/15/22 18:14 03/15/22 18:15 Temperature Pulse Rate 82 Respiratory Rate 28 H Blood Pressure 208/92 H 187/94 H Pulse Oximetry 98 Oxygen Delivery Method 03/15/22 18:15 03/15/22 18:16 03/15/22 18:18 Temperature Pulse Rate 80 83 Respiratory Rate 27 H 36 H Blood Pressure 193/95 H Pulse Oximetry 98 98 Oxygen Delivery Method 03/15/22 18:18 03/15/22 18:20 03/15/22 18:20 Temperature Pulse Rate 87 89 Respiratory Rate Blood Pressure 210/98 H Pulse Oximetry 92 Oxygen Delivery Method 03/15/22 18:22 03/15/22 18:23 03/15/22 18:23 Temperature Pulse Rate 85 84 Respiratory Rate 18 17 Blood Pressure 192/92 H Pulse Oximetry 98 99 Oxygen Delivery Method 03/15/22 18:24 03/15/22 18:25 07/22/22 18:25 Temperature Pulse Rate 83 81 Respiratory Rate 15 Blood Pressure 187/92 H Pulse Oximetry 99 98 Oxygen Delivery Method 03/15/22 18:26 03/15/22 18:28 03/15/22 18:28 Temperature Pulse Rate 83 85 Respiratory Rate 21 Blood Pressure 198/92 H Pulse Oximetry 98 98 Oxygen Delivery Method 03/15/22 18:30 03/15/22 18:30 03/15/22 18:32 Temperature Pulse Rate 83 84 Respiratory Rate Blood Pressure 186/91 H Pulse Oximetry 97 98 Oxygen Delivery Method 03/15/22 18:33 03/15/22 18:33 03/15/22 18:34 Temperature Pulse Rate 83 83 Respiratory Rate Blood Pressure 199/92 H Pulse Oximetry 97 96 Oxygen Delivery Method 03/15/22 18:35 03/15/22 18:35 03/15/22 18:36 Temperature Pulse Rate 83 82 Respiratory Rate Blood Pressure 189/95 H Pulse Oximetry 95 95 Oxygen Delivery Method 03/15/22 18:38 03/15/22 18:38 03/15/22 18:40 Temperature Pulse Rate 81 Respiratory Rate Blood Pressure 184/94 H 191/95 H Pulse Oximetry 94 Oxygen Delivery Method 03/15/22 18:40 03/15/22 18:42 03/15/22 18:43 Temperature Pulse Rate 82 81 80 Respiratory Rate Blood Pressure Pulse Oximetry 93 94 94 Oxygen Delivery Method 03/15/22 18:43 03/15/22 18:44 03/15/22 18:45 Temperature Pulse Rate 81 Respiratory Rate Blood Pressure 185/95 H 187/99 H Pulse Oximetry 93 Oxygen Delivery Method 03/15/22 18:45 03/15/22 18:46 03/15/22 18:48 Temperature Pulse Rate 82 82 Respiratory Rate Blood Pressure 171/89 H Pulse Oximetry 96 95 Oxygen Delivery Method 03/15/22 18:48 03/15/22 18:50 03/15/22 18:50 Temperature Pulse Rate 84 85 Respiratory Rate Blood Pressure 166/84 H Pulse Oximetry 95 93 Oxygen Delivery Method 03/15/22 18:52 03/15/22 18:53 03/15/22 18:53 Temperature Pulse Rate 87 86 Respiratory Rate Blood Pressure 164/81 H Pulse Oximetry 92 94 Oxygen Delivery Method 03/15/22 18:54 03/15/22 18:55 03/15/22 18:55 Temperature Pulse Rate 87 87 Respiratory Rate Blood Pressure 160/75 H Pulse Oximetry 93 94 Oxygen Delivery Method 03/15/22 18:56 03/15/22 18:58 03/15/22 18:58 Temperature Pulse Rate 87 86 Respiratory Rate Blood Pressure 169/79 H Pulse Oximetry 94 94 Oxygen Delivery Method 03/15/22 19:00 03/15/22 19:00 03/15/22 19:02 Temperature Pulse Rate 88 85 Respiratory Rate 27 H Blood Pressure 153/59 H Pulse Oximetry 93 97 Oxygen Delivery Method 03/15/22 19:03 03/15/22 19:03 03/15/22 19:04 Temperature Pulse Rate 84 85 Respiratory Rate 29 H 34 H Blood Pressure 150/69 H Pulse Oximetry 97 97 Oxygen Delivery Method 03/15/22 19:05 03/15/22 19:05 03/15/22 19:06 Temperature Pulse Rate 84 85 Respiratory Rate 48 H 39 H Blood Pressure 147/69 H Pulse Oximetry 96 96 Oxygen Delivery Method 03/15/22 19:08 03/15/22 19:08 03/15/22 19:10 Temperature Pulse Rate 93 H Respiratory Rate 34 H Blood Pressure 126/61 138/62 Pulse Oximetry 96 Oxygen Delivery Method 03/15/22 19:10 03/15/22 19:12 03/15/22 19:13 Temperature Pulse Rate 90 94 H 89 Respiratory Rate 26 H 37 H 30 H Blood Pressure Pulse Oximetry 96 97 97 Oxygen Delivery Method 03/15/22 19:13 03/15/22 19:14 03/15/22 19:16 Temperature Pulse Rate 91 H 89 Respiratory Rate 35 H 20 Blood Pressure 150/80 H Pulse Oximetry 96 97 Oxygen Delivery Method 03/15/22 19:18 03/15/22 19:20 03/15/22 19:20 Temperature Pulse Rate 91 H 91 H Respiratory Rate 21 29 H Blood Pressure 152/89 H Pulse Oximetry 97 97 Oxygen Delivery Method 03/15/22 19:22 03/15/22 19:24 03/15/22 19:26 Temperature Pulse Rate 97 H 99 H 101 H Respiratory Rate 42 H Blood Pressure Pulse Oximetry 96 97 97 Oxygen Delivery Method 03/15/22 19:28 03/15/22 19:30 03/15/22 19:30 Temperature Pulse Rate 90 85 Respiratory Rate 9 L Blood Pressure 171/81 H Pulse Oximetry 96 97 Oxygen Delivery Method 03/15/22 19:32 03/15/22 19:34 03/15/22 20:00 Temperature 99.0 F Pulse Rate 87 85 89 Respiratory Rate 11 L 14 16 Blood Pressure 180/87 H Pulse Oximetry 98 97 96 Oxygen Delivery Method 03/15/22 19:36 03/15/22 19:38 03/15/22 19:40 Temperature Pulse Rate 86 85 Respiratory Rate 11 L 21 Blood Pressure 168/85 H Pulse Oximetry 96 97 Oxygen Delivery Method 03/15/22 19:40 03/15/22 19:42 03/15/22 21:16 Temperature Pulse Rate 85 87 88 Respiratory Rate 24 37 H 12 Blood Pressure Pulse Oximetry 96 98 91 Oxygen Delivery Method 03/15/22 21:18 03/15/22 21:58 03/15/22 21:30 Temperature Pulse Rate 87 Respiratory Rate 15 Blood Pressure 165/75 H Pulse Oximetry 92 Oxygen Delivery Method Room Air 03/15/22 21:30 03/15/22 22:00 03/15/22 22:00 Temperature Pulse Rate 90 99 H Respiratory Rate 18 21 Blood Pressure 148/73 H Pulse Oximetry 96 97 Oxygen Delivery Method 03/15/22 22:30 03/15/22 22:30 03/15/22 22:59 Temperature Pulse Rate 98 H 90 Respiratory Rate 20 15 Blood Pressure 156/77 H Pulse Oximetry 94 92 Oxygen Delivery Method 03/15/22 23:00 03/15/22 23:17 03/15/22 23:00 Temperature Pulse Rate 90 Respiratory Rate 16 Blood Pressure 119/58 L 119/58 L Pulse Oximetry 92 Oxygen Delivery Method 03/15/22 23:30 03/15/22 23:34 03/15/22 23:34 Temperature Pulse Rate 87 87 Respiratory Rate 16 17 Blood Pressure 130/67 Pulse Oximetry 94 96 Oxygen Delivery Method 03/15/22 23:52 03/15/22 23:52 03/16/22 00:00 Temperature Pulse Rate 94 H Respiratory Rate 18 Blood Pressure 162/79 H 141/63 H Pulse Oximetry 97 Oxygen Delivery Method 03/16/22 00:00 03/16/22 00:08 03/16/22 00:30 Temperature Pulse Rate 96 H Respiratory Rate 18 Blood Pressure 162/79 H 121/60 Pulse Oximetry 97 Oxygen Delivery Method 03/16/22 00:30 03/16/22 01:00 03/16/22 01:00 Temperature Pulse Rate 82 78 Respiratory Rate 12 17 Blood Pressure 123/58 L Pulse Oximetry 95 93 Oxygen Delivery Method Oxygen Delivery Method Room Air Narrative Exam Narrative: See exam in today's H and P Objective Labs Result Diagrams: 03/15/22 14:30 03/15/22 14:30 Labs: Laboratory Results - last 24 hr 03/15/22 03/15/22 03/15/22 14:30 14:30 14:30 WBC 12.1 H RBC 5.42 H Hgb 15.3 Hct 45.7 MCV 84.4 MCH 28.3 MCHC 33.6 RDW 15.0 H Plt Count 329 Neut % (Auto) 88.7 H Lymph % (Auto) 6.3 L [place] % (Auto) 4.4 Eos % (Auto) 0.0 L Baso % (Auto) 0.6 Neut # (Auto) 46006 H Lymph # (Auto) 800 L [place] # (Auto) 500 Eos # (Auto) 0 Baso # (Auto) 100 PT INR APTT Sodium 137 Potassium 3.4 Chloride 98 Carbon Dioxide 27 BUN 10 Creatinine 0.49 L Estimated GFR > 60 BUN/Creatinine Ratio 20.4 Glucose 157 H Hemoglobin A1c Lactate Calcium 9.8 Magnesium 1.6 Total Bilirubin 0.6 AST 53 H ALT 31 Alkaline Phosphatase 154 H Total Creatine Kinase CK-MB (CK-2) CK-MB (CK-2) Rel Index Troponin I C-Reactive Protein Total Protein 8.8 H Albumin 5.1 H Globulin 3.7 Albumin/Globulin Ratio 1.4 Lipase 95 Procalcitonin TSH Urine RBC Urine WBC Ur Squamous Epith Cells Urine Bacteria Ur Culture Indicated? SARS-CoV-2 (PCR) Negative Influenza A (RT-PCR) Flu a negative Influenza B (RT-PCR) Flu b negative 03/15/22 03/15/22 03/15/22 14:30 14:30 14:30 WBC RBC Hgb Hct MCV MCH MCHC RDW Plt Count Neut % (Auto) Lymph % (Auto) [place] % (Auto) Eos % (Auto) Baso % (Auto) Neut # (Auto) Lymph # (Auto) [place] # (Auto) Eos # (Auto) Baso # (Auto) PT INR APTT Sodium Potassium Chloride Carbon Dioxide BUN Creatinine Estimated GFR BUN/Creatinine Ratio Glucose Hemoglobin A1c Lactate 2.0 Calcium Magnesium Total Bilirubin AST ALT Alkaline Phosphatase Total Creatine Kinase 496 H CK-MB (CK-2) 37.30 H CK-MB (CK-2) Rel Index 7.5 H* Troponin I 0.888 H* C-Reactive Protein < 0.5 Total Protein Albumin Globulin Albumin/Globulin Ratio Lipase Procalcitonin 0.05 TSH Urine RBC Urine WBC Ur Squamous Epith Cells Urine Bacteria Ur Culture Indicated? SARS-CoV-2 (PCR) Influenza A (RT-PCR) Influenza B (RT-PCR) 03/15/22 03/15/22 03/15/22 14:30 14:30 15:58 WBC RBC Hgb Hct MCV MCH MCHC RDW Plt Count Neut % (Auto) Lymph % (Auto) [place] % (Auto) Eos % (Auto) Baso % (Auto) Neut # (Auto) Lymph # (Auto) [place] # (Auto) Eos # (Auto) Baso # (Auto) PT 12.1 INR 1.1 APTT Sodium Potassium Chloride Carbon Dioxide BUN Creatinine Estimated GFR BUN/Creatinine Ratio Glucose Hemoglobin A1c 5.5 Lactate Calcium Magnesium Total Bilirubin AST ALT Alkaline Phosphatase Total Creatine Kinase CK-MB (CK-2) CK-MB (CK-2) Rel Index Troponin I C-Reactive Protein Total Protein Albumin Globulin Albumin/Globulin Ratio Lipase Procalcitonin TSH Urine RBC 1-5/hpf Urine WBC 1-5/hpf Ur Squamous Epith Cells 0-1 /hpf Urine Bacteria None seen Ur Culture Indicated? Culture not indicate SARS-CoV-2 (PCR) Influenza A (RT-PCR) Influenza B (RT-PCR) 03/15/22 03/15/22 03/15/22 16:33 16:33 22:10 WBC RBC Hgb Hct MCV MCH MCHC RDW Plt Count Neut % (Auto) Lymph % (Auto) [place] % (Auto) Eos % (Auto) Baso % (Auto) Neut # (Auto) Lymph # (Auto) [place] # (Auto) Eos # (Auto) Baso # (Auto) PT INR APTT Sodium Potassium Chloride Carbon Dioxide BUN Creatinine Estimated GFR BUN/Creatinine Ratio Glucose Hemoglobin A1c Lactate Calcium Magnesium Total Bilirubin AST ALT Alkaline Phosphatase Total Creatine Kinase CK-MB (CK-2) CK-MB (CK-2) Rel Index Troponin I 1.340 H* 2.070 H* C-Reactive Protein Total Protein Albumin Globulin Albumin/Globulin Ratio Lipase Procalcitonin TSH 3.35 Urine RBC Urine WBC Ur Squamous Epith Cells Urine Bacteria Ur Culture Indicated? SARS-CoV-2 (PCR) Influenza A (RT-PCR) Influenza B (RT-PCR) 03/15/22 23:15 WBC RBC Hgb Hct MCV MCH MCHC RDW Plt Count Neut % (Auto) Lymph % (Auto) [place] % (Auto) Eos % (Auto) Baso % (Auto) Neut # (Auto) Lymph # (Auto) [place] # (Auto) Eos # (Auto) Baso # (Auto) PT INR APTT 30 Sodium Potassium Chloride Carbon Dioxide BUN Creatinine Estimated GFR BUN/Creatinine Ratio Glucose Hemoglobin A1c Lactate Calcium Magnesium Total Bilirubin AST ALT Alkaline Phosphatase Total Creatine Kinase CK-MB (CK-2) CK-MB (CK-2) Rel Index Troponin I C-Reactive Protein Total Protein Albumin Globulin Albumin/Globulin Ratio Lipase Procalcitonin TSH Urine RBC Urine WBC Ur Squamous Epith Cells Urine Bacteria Ur Culture Indicated? 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) Hx of spinal surgery Status post open reduction with internal fixation (ORIF) of fracture of ankle (01/2001) 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) Status post right knee replacement (10/09/12) Family History Father CAD (coronary artery disease) Grandfather Lung cancer Grandmother CAD (coronary artery disease) Mother CAD (coronary artery disease) Diabetes mellitus Parkinson's disease Grandfather CAD (coronary artery disease) Social History household members: spouse Smoking Status: Former smoker alcohol intake: current Discharge Assessment & Plan Assessment and Plan Assessment: NSTEMI Plan of Treatment: Transfer to tertiary facility for cardiac catheterization. Discharge Plan Discharge Plan Disposition: [facility] Discharge orders & Medications Medication counseling provided by Pharmacist: No Discharge Health Status Multidrug resistant organism: No MDRO Diet/Activity/Treatments Diet: Nothing by Mouth Visit Report/Discharge Packet Instructions: DI for Dehydration -- Adult, DI for Urinary Tract Infection (UTI), DI for Vomiting -- Adult Discharge Data Primary Care Provider: Chepe Poon VTE Deep Vein Thrombosis/Pulmonary Embolism Present on Admission: No MIPS - Admit I confirm the patient?s Advance Care Plan is present, Code status is documented, Surrogate decision maker is in patient?s record [If Yes, STOP here]: Yes MIPS - DC The patient has current or prior documentation of left ventricular ejection fraction (LVEF) less than 40%, or moderate or severely depressed left ventricular systolic function.: No
== END 2022-03-16 03:30 | disposition short-term general hospital (02) | DRG 281 ==
LOC: ED 16:54 → AC 17:35 → ICU 03-16 01:30
PROVIDERS: Nurse Practitioner Family; Admitting Provider Student in an Organized Health Care Education/Training Program; Emergency Provider Nurse Practitioner Critical Care Medicine; PCP Student in an Organized Health Care Education/Training Program; Referring Provider Nurse Practitioner Critical Care Medicine; Visit Provider Student in an Organized Health Care Education/Training Program
DX: I21.4 Non-ST elevation (NSTEMI) myocardial infarction (principal); I16.9 Hypertensive crisis, unspecified; F41.9 Anxiety disorder, unspecified; K21.9 Gastro-esophageal reflux disease without esophagitis; J45.909 Unspecified asthma, uncomplicated; Z87.891 Personal history of nicotine dependence; Z20.822 Contact with and (suspected) exposure to COVID-19
CPT/HCPCS: 36415; 51798; 70450; 74177; 80053; 81003; 81015; 82550; 82553; 83036; 83605; 83690; 83735; 84145; 84443; 84484; 85025; 85610; 85730; 86140; 87086; 87635; 93005; 93010; 96361; 96365; 96366; 96367; 96375; 96376; 99284; C9803; C9113; J0696; J1170; J1644; J2405; J3475; Q9967

== ENCOUNTER → 2022-03-22 16:27 | Outpatient (CLI) | payer MEDICARE, SELFPAY ==
--- NOTE | 2022-03-22 16:29 | DI.RAD.S_ITS ---
PROCEDURE: XR FOOT LT MIN 3V INDICATIONS: Left foot pain TECHNIQUE: 3 views of the foot were acquired. COMPARISON: [facility], , XR FOOT LT MIN 3V, 04/28/2020, 10:20. FINDINGS: Bones: No fractures or dislocations. No suspicious bony lesions. Mild hallux valgus metatarsus prima varus alignment and medial bunion. Severe 1st MTP and mild diffuse interphalangeal joint space narrowing with periarticular osteophyte formation. Calcaneal enthesopathy. Soft tissues: No tibiotalar joint effusion. Achilles tendon appears normal. IMPRESSION: 1. Hallux valgus alignment and medial bunion. 2. 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 3. Calcaneal enthesopathy. Dictated by: Eric Anthony [facility] Interpreted: Mae Alonso MD on 03/22/2022 at 16:56 Transcribed by: STEPHANIE on 03/22/2022 at 16:56 Approved by: Mae Alonso M.D. on 03/22/2022 at 17:28
== END ==
PROVIDERS: PCP Student in an Organized Health Care Education/Training Program; Referring Provider Nurse Practitioner Family; Visit Provider Nurse Practitioner Family
DX: M20.12 Hallux valgus (acquired), left foot (principal); M21.612 Bunion of left foot; M19.072 Primary osteoarthritis, left ankle and foot; M79.672 Pain in left foot; M77.32 Calcaneal spur, left foot
CPT/HCPCS: 73630

== ENCOUNTER 2022-06-10 08:46 | Inpatient (IN) | payer MEDICARE, SELFPAY ==
[2022-06-10] VITALS (52 sets, daily range): BP systolic 115–231; BP diastolic 59–113; PULSE 63–106; RESP 7–66; TEMP 36.4–37.7; O2SAT 90–99; BMI 21.6; BMI 21.7
--- NOTE | 2022-06-10 08:54 | DI.RAD.S_ITS ---
PROCEDURE: XR CHEST 1V INDICATIONS: chest pain TECHNIQUE: One view of the chest was acquired. COMPARISON: [facility], , CHEST 2 VIEW, 10/31/2017, 10:02. FINDINGS: Surgical changes and devices: Right shoulder arthroplasty. Thoracolumbar Shukla rods in the spine. Lungs and pleura: Lungs are clear. No pleural effusions or pneumothorax. Mediastinum: Mediastinal contours appear normal. Heart size is normal. Bones and chest wall: No suspicious bony lesions. Degenerative changes in the left glenohumeral joint. Overlying soft tissues appear unremarkable. IMPRESSION: 1. No acute cardiopulmonary disease. 2. Surgical hardware in the spine and right shoulder as described. Dictated by: Jen Werner M.D. on 06/10/2022 at 9:30 Approved by: Jen Werner M.D. on 06/10/2022 at 9:31
[2022-06-10 09:09] LABS: Add Manual Diff / Slide Review NO; Basophils Absolute Auto 100 /uL (0-100); Basophils Percent Auto 0.7 % (0-2); Eosinophils Absolute Auto 300 /uL (0-450); Eosinophils Percent Auto 2.9 % (2-4); Hematocrit 43.2 % (36-46); Hemoglobin 14.6 g/dL (12.0-16.0); Lymphocytes Absolute Auto 1400 /uL (1100-4500); Lymphocytes Percent Auto 14.2 % (25-40); Mean Corpuscular HGB Conc 33.8 % (30-36); Mean Corpuscular Hemoglobin 30.1 PG (26-34); Mean Corpuscular Volume 89.3 fL (80-100); Monocytes Absolute Auto 1000 /uL (0-900); Monocytes Percent Auto 10.5 % (3-14); Neutrophils Absolute Auto 6900 /uL (1500-7000); Neutrophils Percent Auto 71.7 % (50-75); Platelet Count 305 X10^3/uL (150-400); Red Blood Cell Count 4.84 X10^6/uL (4.0-5.2); White Blood Cell Count 9.6 X10^3/uL (4.5-11.0)
--- NOTE | 2022-06-10 09:11 | ED_ITS ---
HPI - Chest Pain General Chief Complaint: Chest Pain Stated Complaint: bp is high xtory of hear attack vomiting Time Seen by Provider: 06/10/22 09:11 Source: patient Mode of arrival: Family Vehicle Limitations: no limitations History of Present Illness HPI narrative: This is 76-year-old female with history of spinal surgery T1 through L1, neurogenic claudication and hypertensive emergency with NSTEMI in March patient states she was admitted and then later transferred she states she had a heart catheterization but no stents placed and was told medical management for her lesion in her heart. Patient states she started having nausea and vomiting after drinking her coffee this 40 she states she took her blood pressure medications but after she started vomiting and vomited afterwards. She denies chest pain or pressure, no shortness of breath. She denies headache, no vision changes. Denies any constipation she states she started having diarrhea when she started having vomiting. She states that happened last time as well. She denies any urinary symptoms. No new back or flank pain. She states she is been averaging 130/80 for her blood pressure is but has been quite high in the systolics greater than 200 before. Patient states she is on Coreg 6.25 mg twice daily but is told to double that amount if her blood pressures greater than 140, atorvastatin, magnesium and baby aspirin. She states she is had spinal surgery at [facility] T1 through L1 in October of 2021, she had reported heart cath eterization but no stents placed or angioplasty. She states she is allergic to pain color, no tobacco drinks 2 beers daily, no illicit other than marijuana. Dr. Davis is her primary care she seeing in [facility] [place] [facility]. Patient states symptoms feel similar to when she had her heart attack last time. Related Data Home Medications Medication Instructions Recorded Confirmed amlodipine 5 mg tablet 2.5 mg PO DAILY 03/19/22 06/10/22 aspirin 81 mg tablet,delayed 81 mg PO DAILY 03/19/22 06/10/22 release atorvastatin 80 mg tablet 80 mg PO BEDTIME 03/19/22 06/10/22 carvedilol 3.125 mg tablet 6.25 mg PO BID 03/19/22 06/10/22 magnesium oxide 400 mg PO DAILY 06/10/22 06/10/22 Previous Rx's Medication Instructions Recorded omeprazole 40 mg capsule,delayed 40 mg PO QAM PRN Reflux #30 caps 10/22/18 release venlafaxine 75 mg tablet 75 mg PO DAILY #90 tabs 10/30/21 gabapentin 300 mg capsule 300 mg PO BID #180 caps 02/18/22 acyclovir 400 mg tablet 400 mg PO BID #60 tabs 03/26/22 trazodone 100 mg tablet 100 mg PO HS #90 tabs 03/26/22 oxybutynin chloride 10 mg 10 mg PO QDAY #90 tabs 04/08/22 tablet,extended release 24 hr (Ditropan XL) albuterol sulfate 90 mcg/actuation 2 puff inhalation Q4H PRN 05/06/22 aerosol inhaler (Ventolin HFA) shortness of breath or wheezing #18 grams Allergies Allergy/AdvReac Type Severity Reaction Status Date / Time hydrocodone AdvReac Mild DIDN'T Verified 06/10/22 08:58 WORK WELL AND KEPT ME AWAKE seasonal allergies Allergy Mild watery Uncoded 06/10/22 08:58 eyes, clear mucous, rarely inhaler Review of Systems Review of Systems ROS Unobtainable: All systems reviewed & are unremarkable except as noted in HPI and below 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) Hx of spinal surgery Status post open reduction with internal fixation (ORIF) of fracture of ankle (01/2001) 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) Status post right knee replacement (10/09/12) Family History Father CAD (coronary artery disease) Grandfather Lung cancer Grandmother CAD (coronary artery disease) Mother CAD (coronary artery disease) Diabetes mellitus Parkinson's disease Grandfather CAD (coronary artery disease) Social History household members: spouse Smoking Status: Former smoker alcohol intake: current Smoking Status: Former smoker alcohol intake frequency: 0-2 drinks per day Alcohol type: beer Substance Use Type: marijuana Exam Narrative Exam Narrative: GENERAL: Alert and oriented x three, female in to moderate distress HEENT: Head normocephalic, atraumatic, EOMI, pupils reactive, face symmetric, moist mucous membranes NECK: Supple, full range of motion CARDIOVASCULAR: Regular rate and rhythm without murmurs, rubs or gallops. No JVD. No swelling bilateral lower extremities. RESPIRATORY: Breath sounds equal bilaterally, no wheezes rales or rhonchi. No tachypnea accessory muscle use. ABDOMEN: Soft, nontender. Normoactive bowel sounds all 4 quadrants. No guarding or rebound, rigidity, no mass, no pulsatile mass or bruit. : No CVA tenderness EXTREMITIES: Normal range of motion, no clubbing or edema. Neurovascularly intact NEUROLOGICAL: Cranial nerves II through XII grossly intact. Moving all extremities SKIN: Warm, dry, no petechiae, no rashes or lesions. Initial Vital Signs Initial Vital Signs: Vital Signs Pulse Oximetry 97 06/10/22 08:53 Course Orders Ordered: ED Orders 06/10/22 11:08 CT angio chest abdomen pelvis Stat 06/10/22 11:49 Trop I [Troponin I] Stat Acetaminophen (Acetaminophen 325 Mg Tablet) 650 mg PO Q6HR PRN PRN Reason: Fever/Mild Pain (1-3) Amlodipine Besylate (Amlodipine 5 Mg Tablet) 5 mg PO DAILY [facility] Last Admin: 06/10/22 14:02 Dose: 5 mg Documented By: GILSON Aspirin (Aspirin Ec 81 Mg Tablet) 81 mg PO DAILY [facility] Atorvastatin Calcium (Atorvastatin 20 Mg Tablet) 80 mg PO BEDTIME [facility] Last Admin: 06/10/22 14:03 Dose: Not Given Documented By: GILSON Carvedilol (Carvedilol 3.125 Mg Tablet) 12.5 mg PO BID [facility] Last Admin: 06/10/22 14:02 Dose: 12.5 mg Documented By: GILSON Enoxaparin Sodium (Enoxaparin 40 Mg/0.4 Ml Syringe) 40 mg SUBCUT DAILY [facility] Nicardipine HCl 25 mg/ Sodium (Chloride) 250 mls @ 50 mls/hr IV TITRATE [place]; Protocol Last Titration: 06/10/22 16:18 Dose: 0 mg/hr, 0 mls/hr Documented By: Titration: 06/10/22 14:23 Dose: 3 mg/hr, 30 mls/hr Documented By: Admin: 06/10/22 12:01 Dose: 5 mg/hr, 50 mls/hr Documented By: FRANCHESCA Lorazepam (Lorazepam 2 Mg/Ml Inj) 0.5 mg IV Q6HR PRN PRN Reason: Nausea Last Admin: 06/10/22 17:00 Dose: 0.5 mg Documented By: GILSON Ondansetron HCl (Ondansetron 4 Mg/2 Ml Inj) 4 mg IV Q8HR PRN PRN Reason: Nausea And Vomiting Last Admin: 06/10/22 15:55 Dose: 4 mg Documented By: GILSON Discontinued Medications Aspirin (Aspirin 81 Mg Chew Tab) 324 mg PO NOW ONE Stop: 06/10/22 09:12 Last Admin: 06/10/22 09:18 Dose: 324 mg Documented By: DAYNA Sodium Chloride (Normal Saline 0.9%) 1,000 mls @ 1,000 mls/hr IV BOLUS ONE Stop: 06/10/22 11:08 Last Infusion: 06/10/22 16:48 Dose: 0 mls/hr Documented By: Admin: 06/10/22 10:44 Dose: 1,000 mls/hr Documented By: DAYNA Lorazepam (Lorazepam 2 Mg/Ml Inj) 0.5 mg IV NOW ONE Stop: 06/10/22 09:46 Last Admin: 06/10/22 09:51 Dose: 0.5 mg Documented By: DAYNA Metoclopramide HCl (Metoclopramide 10 Mg/2 Ml Inj) 10 mg IV NOW ONE Stop: 06/10/22 12:25 Last Admin: 06/10/22 12:45 Dose: 10 mg Documented By: FRANCHESCA Nitroglycerin (Nitroglycerin 0.4 Mg Sl Tab) 0.4 mg SL [id number] PRN PRN Reason: Chest Pain Last Admin: 06/10/22 09:51 Dose: 0.4 mg Documented By: Admin: 06/10/22 09:18 Dose: 0.4 mg Documented By: DAYNA Nitroglycerin (Nitroglycerin Oint 1 Inch/Gm Oint...G.) 1 inch TOP NOW ONE Stop: 06/10/22 10:04 Last Admin: 06/10/22 10:45 Dose: 1 inch Documented By: DAYNA Ondansetron HCl (Ondansetron 4 Mg/2 Ml Inj) 4 mg IV NOW ONE Stop: 06/10/22 09:12 Last Admin: 06/10/22 09:18 Dose: 4 mg Documented By: BT Vital Signs Vital signs: Vital Signs - 8 hr 06/10/22 11:10 06/10/22 11:10 06/10/22 11:27 Pulse Rate 81 Respiratory Rate 9 L Blood Pressure 202/91 H 228/102 H Pulse Oximetry 97 06/10/22 11:27 06/10/22 11:30 06/10/22 11:30 Pulse Rate 85 84 Respiratory Rate 10 L 10 L Blood Pressure 217/101 H Pulse Oximetry 97 98 06/10/22 11:50 06/10/22 11:50 06/10/22 12:00 Pulse Rate 91 H Respiratory Rate 16 Blood Pressure 185/113 H 223/104 H Pulse Oximetry 97 06/10/22 12:00 06/10/22 12:05 06/10/22 12:05 Pulse Rate 88 84 Respiratory Rate 31 H 29 H Blood Pressure 212/105 H Pulse Oximetry 95 98 06/10/22 12:10 06/10/22 12:10 06/10/22 12:15 Pulse Rate 89 Respiratory Rate 29 H Blood Pressure 201/97 H 197/95 H Pulse Oximetry 97 06/10/22 12:15 06/10/22 12:20 06/10/22 12:20 Pulse Rate 96 H 96 H Respiratory Rate 11 L 15 Blood Pressure 180/87 H Pulse Oximetry 96 98 06/10/22 12:30 06/10/22 12:30 Pulse Rate 101 H Respiratory Rate 17 Blood Pressure 172/79 H Pulse Oximetry 96 MDM - Chest Pain Lab Data Result diagrams: 06/10/22 08:54 06/10/22 08:54 Labs: Lab Results 06/10/22 06/10/22 06/10/22 Range/Units 08:54 08:54 09:17 WBC 9.6 (4.5-11.0) X10^3/uL RBC 4.84 (4.0-5.2) X10^6/uL Hgb 14.6 (12.0-16.0) g/dL Hct 43.2 (36-46) % MCV 89.3 (80-100) fL MCH 30.1 (26-34) PG MCHC 33.8 (30-36) % RDW 14.0 (11.6-14.8) % Plt Count 305 (150-400) X10^3/uL Neut % (Auto) 71.7 (50-75) % Lymph % (Auto) 14.2 L (25-40) % Davis % (Auto) 10.5 (3-14) % Eos % (Auto) 2.9 (2-4) % Baso % (Auto) 0.7 (0-2) % Neut # (Auto) 6900 (1797-2081) /uL Lymph # (Auto) 1400 (9447-6310) /uL Davis # (Auto) 1000 H (0-900) /uL Eos # (Auto) 300 (0-450) /uL Baso # (Auto) 100 (0-100) /uL Sodium 138 (137-145) mmol/L Potassium 3.9 (3.4-5.1) mmol/L Chloride 102 (98-107) mmol/L Carbon Dioxide 28 (22-32) mmol/L BUN 13 (7-17) mg/dL Creatinine 0.54 (0.52-1.04) mg/dL Estimated GFR > 60 (>60) mL/min BUN/Creatinine Ratio 24.1 H (6-22) Glucose 112 H (80-110) mg/dL Calcium 9.2 (8.4-10.2) mg/dL Magnesium 1.9 (1.6-2.3) mg/dL Total Bilirubin 0.6 (0.2-1.3) mg/dL AST 49 H (14-36) IU/L ALT 35 H (<35) IU/L Alkaline Phosphatase 147 H (38-126) U/L Total Creatine Kinase 433 H (30-135) U/L CK-MB (CK-2) 35.90 H (<2.37) ng/mL CK-MB (CK-2) Rel Index 8.3 H* (1.5-5.0) % Troponin I < 0.012 (0.01-0.034) ng/mL NT-Pro-B Natriuret Pep (<450) pg/mL Total Protein 8.4 H (6.3-8.2) g/dL Albumin 4.6 (3.5-5.0) g/dL Globulin 3.8 (1.7-4.1) g/dL Albumin/Globulin Ratio 1.2 (1.0-2.8) Lipase 71 (23-300) U/L Urine Color Urine Appearance Urine pH (4.5-8.0) Ur Specific Dulce (1.000-1.035) Urine Protein (Negative) Urine Glucose (UA) (Negative) g/dL Urine Ketones (NEGATIVE) Urine Occult Blood (Negative) Urine Nitrate (Negative) Urine Bilirubin (NEGATIVE) Urine Urobilinogen (0.2) E.U./dL Ur Leukocyte Esterase (NEGATIVE) Urine RBC (0-5/HPF) Urine WBC (0-5/HPF) Ur Squamous Epith Cells (0-5/HPF) Amorphous Sediment Urine Bacteria (None) Ur Culture Indicated? SARS-CoV-2 (PCR) Negative (Negative) 06/10/22 06/10/22 06/10/22 Range/Units 09:30 09:45 11:49 WBC (4.5-11.0) X10^3/uL RBC (4.0-5.2) X10^6/uL Hgb (12.0-16.0) g/dL Hct (36-46) % MCV (80-100) fL MCH (26-34) PG MCHC (30-36) % RDW (11.6-14.8) % Plt Count (150-400) X10^3/uL Neut % (Auto) (50-75) % Lymph % (Auto) (25-40) % Davis % (Auto) (3-14) % Eos % (Auto) (2-4) % Baso % (Auto) (0-2) % Neut # (Auto) (5912-5488) /uL Lymph # (Auto) (7146-9228) /uL Davis # (Auto) (0-900) /uL Eos # (Auto) (0-450) /uL Baso # (Auto) (0-100) /uL Sodium (137-145) mmol/L Potassium (3.4-5.1) mmol/L Chloride (98-107) mmol/L Carbon Dioxide (22-32) mmol/L BUN (7-17) mg/dL Creatinine (0.52-1.04) mg/dL Estimated GFR (>60) mL/min BUN/Creatinine Ratio (6-22) Glucose (80-110) mg/dL Calcium (8.4-10.2) mg/dL Magnesium (1.6-2.3) mg/dL Total Bilirubin (0.2-1.3) mg/dL AST (14-36) IU/L ALT (<35) IU/L Alkaline Phosphatase (38-126) U/L Total Creatine Kinase (30-135) U/L CK-MB (CK-2) (<2.37) ng/mL CK-MB (CK-2) Rel Index (1.5-5.0) % Troponin I < 0.012 (0.01-0.034) ng/mL NT-Pro-B Natriuret Pep 416 (<450) pg/mL Total Protein (6.3-8.2) g/dL Albumin (3.5-5.0) g/dL Globulin (1.7-4.1) g/dL Albumin/Globulin Ratio (1.0-2.8) Lipase (23-300) U/L Urine Color Yellow Urine Appearance Sl cloudy Urine pH 7.5 (4.5-8.0) Ur Specific [place] 1.015 (1.000-1.035) Urine Protein 1+ H (Negative) Urine Glucose (UA) Negative (Negative) g/dL Urine Ketones 1+ H (NEGATIVE) Urine Occult Blood Trace-lysed (Negative) Urine Nitrate Negative (Negative) Urine Bilirubin Negative (NEGATIVE) Urine Urobilinogen 0.2 (0.2) E.U./dL Ur Leukocyte Esterase Negative (NEGATIVE) Urine RBC 0-1/hpf (0-5/HPF) Urine WBC None seen (0-5/HPF) Ur Squamous Epith Cells 0-1 /hpf (0-5/HPF) Amorphous Sediment 3+ Urine Bacteria Few (2-10) H (None) Ur Culture Indicated? Cult not indicated SARS-CoV-2 (PCR) (Negative) ECG Data Attestation: I personally reviewed and interpreted this ECG as follows: Prior ECG tracings: available for review Interpretation: EKG 1. Sinus rhythm with incomplete right bundle left anterior fascicular rate of 73 IN 140 QRS of 118 and QTC of 451. Patient does not have acute ST changes appreciated, patient had depression in 1 beat likely a PVC in lead 2 and 3 but not in prior subsequent be of leads. EKG 2 shows sinus rhythm with sinus arrhythmia incomplete right bundle, left anterior fascicular, rate of 70 5p are 150 QRS of 116 QTC of 462. No dynamic changes appreciated. MDM Narrative Medical decision making narrative: 76-year-old female with sudden onset of nausea, vomiting and diarrhea who states this is similar to her presentation for hypertensive emergency and NSTEMI in February. Patient does have dynamic changes on EKG initially, chest x-ray, head CT and lab work including troponin were included. Aspirin, Zofran and nitro SL which helped blood pressure briefly patient continued to have vomiting. Was giv en additional antinausea medication, nitro paste which is also helpful intermittently but then blood pressure virginie again. Patient was started on nicardipine, head CT as well as CT angio chest abdomen pelvis were obtained negative head CT for bleed or other change, angio does not show any dissection, no signs of bowel obstruction, there is some possible wall thickening of the cecum, some patchy pulmonary micro nodularity and diverticulosis but no diverticulitis. Patient has mild elevation in LFTs, total CK is 430 with a CK- MB of 35 troponin negative x2 and no dynamic EKG changes and no chest pain or shortness of breath. Patient is not complaining of abdominal pain she does have persistent vomiting and some small amounts of diarrhea this could possibly be viral gastroenteritis with hypertension secondary to persistent vomiting and unable to keep down her medications but she notes that her symptoms were very similar so continue to trend troponins which are negative. Discussed with Dr. Ramon hazel who accepts for ICU. Critical Care Time Critical Care Time Critical Care Time: Yes Total Critical Care Time: 47 Attestation: The high probability of a clinically significant, sudden or life threatening deterioration of the [cardiac] system(s) required my full and direct attention, intervention and personal management. The aggregate critical care time was [] minutes. This time is in addition to time spent performing reported procedures but includes the following: [x] Data Review and interpretation [x] Patient assessment and monitoring of vital signs [x] Documentation [x] Medication orders and management Discharge Plan Departure Patient Disposition: Admitted As Inpatient Clinical Impression: Vomiting, Hypertensive emergency Admit Date/Time: 06/10/22 12:56 Admit Provider: Jeffrey Navarro
[2022-06-10] MEDS: NITROGLYCERIN 0.4 MG SL TAB SL ×2 (09:18→09:51)
[2022-06-10] MEDS: ASPIRIN 81 MG CHEW TAB 324 MG PO (09:18)
[2022-06-10] MEDS: ONDANSETRON 4 MG/2 ML INJ IV ×2 (09:18→15:55)
[2022-06-10 09:24] LABS: Alanine Aminotransferase 35 IU/L (<35); Albumin 4.6 g/dL (3.5-5.0); Albumin Globulin Ratio 1.2 (1.0-2.8); Alkaline Phosphatase 147 U/L (38-126); Aspartate Aminotransferase 49 IU/L (14-36); BUN Creatinine Ratio 24.1 (6-22); Bilirubin Total 0.6 mg/dL (0.2-1.3); Blood Urea Nitrogen 13 mg/dL (7-17); Calcium 9.2 mg/dL (8.4-10.2); Carbon Dioxide 28 mmol/L (22-32); Chloride 102 mmol/L (98-107); Creatine Kinase 433 U/L (30-135); Estimated Glomerular Filt Rate > 60 mL/min (>60); Globulin 3.8 g/dL (1.7-4.1); Glucose 112 mg/dL (80-110); HEMOLYSIS 19 (0-50); Lipase 71 U/L (23-300); Magnesium 1.9 mg/dL (1.6-2.3); Potassium 3.9 mmol/L (3.4-5.1); Sodium 138 mmol/L (137-145); Total Protein 8.4 g/dL (6.3-8.2)
--- NOTE | 2022-06-10 09:28 | DI.CT.S_ITS ---
PROCEDURE: CT HEAD/BRAIN WO CON INDICATIONS: high blood pressure, vomiting TECHNIQUE: Noncontrast 4.5 mm thick angled axial sections acquired from the foramen magnum to the vertex, with coronal and sagittal reformats. For radiation dose reduction, the following was used: automated exposure control, adjustment of mA and/or kV according to patient size. COMPARISON: [facility], CT, CT HEAD/BRAIN WO CON, 01/10/2018, 10:15. [facility], CT, CT HEAD/BRAIN WO CON, 03/15/2022, 17:35. FINDINGS: Image quality: Excellent. CSF spaces: Basal cisterns are patent. No extra-axial fluid collections. The ventricles are symmetric in size and shape. Brain: No intracranial bleeds or masses. There is cerebral volume loss for age, with resultant ventricular and sulcal prominence. There are periventricular and deep white matter chronic small vessel ischemic changes. There is intracranial internal carotid artery atherosclerosis. Skull and face: Calvarium and visualized facial bones appear intact, without suspicious lesions. Sinuses: Visualized sinuses and mastoids are clear. IMPRESSION: No acute intracranial hemorrhage is seen. No acute intracranial process is seen. Dictated by: Magno Rolon M.D. on 06/10/2022 at 9:34 Approved by: Magno Rolon M.D. on 06/10/2022 at 9:34
[2022-06-10 09:33] LABS: Troponin I < 0.012 ng/mL (0.01-0.034)
[2022-06-10 09:41] LABS: CKMB % Relative Index 8.3 % (1.5-5.0)
[2022-06-10 09:42] LABS: COVID19 -Nasal RAPID Negative (Negative)
[2022-06-10 09:51] LABS: Appearance Urine UA SL CLOUDY; Bilirubin Urine UA NEGATIVE (NEGATIVE); Color Urine UA YELLOW; Glucose Urine UA NEGATIVE (Negative); Ketones Urine UA 1+ (NEGATIVE); Leukocyte Esterase Urine UA NEGATIVE (NEGATIVE); Nitrite Urine UA NEGATIVE (Negative); Occult Blood Urine UA TRACE-LYSED (Negative); Protein Urine UA 1+ (Negative); Specific Gravity Urine UA 1.015 (1.000-1.035); Urobilinogen Urine UA 0.2 E.U./dL (0.2)
[2022-06-10] MEDS: LORazepam 2 MG/ML INJ 0.5 MG IV ×2 (09:51→17:00)
[2022-06-10 10:01] LABS: pH Urine UA 7.5 (4.5-8.0)
[2022-06-10 10:07] LABS: Amorphous Sediment Urine 3+; Bacteria Urine Few (2-10); Culture Indicated Urine Cult Not Indicated; RBC Urine 0-1/HPF (0-5/HPF); Squamous Epithelial Cell Urine 0-1 /HPF (0-5/HPF); WBC Urine None Seen (0-5/HPF)
[2022-06-10 10:11] LABS: NT-proBNP (BNP-Adult 18+) 416 pg/mL (<450)
[2022-06-10] MEDS: SODIUM CHLORIDE 0.9% 1,000 ML 1000 ML IV (10:44)
[2022-06-10] MEDS: NITROGLYCERIN OINT 1 INCH/GM OINT...G. TOP (10:45)
--- NOTE | 2022-06-10 11:08 | DI.CT.S_ITS ---
PROCEDURE: CT ANGIO CHEST ABDOMEN PELVIS INDICATIONS: htn, persistent vomiting TECHNIQUE: Precontrast 5 mm thick sections acquired from the lung apices to the iliac crests. After the administration of intravenous contrast, 2.5 mm thick sections again acquired from the lung apices to the iliac crests. Maximum intensity projection (MIP) oblique sagittal and coronal reformats were then acquired. For radiation dose reduction, the following was used: automated exposure control. COMPARISON: [facility], CT, CT ABDOMEN PELVIS W CON, 03/15/2022, 15:25. FINDINGS: Image quality: Suboptimal due to streak artifact from spinal fusion hardware. AORTA: No aortic aneurysm or dissection. Multifocal atherosclerosis. CHEST: Lungs and pleura: No consolidation, pleural effusion, pneumothorax. Redemonstrated right buys letter pneumatocele. Multifocal patchy regions of micro nodularity present, upper lobe predominant. Mediastinum: Heart size is normal. No pericardial effusion. No mediastinal or hilar adenopathy by size criteria. Central pulmonary arteries are normal in size, no large/central pulmonary embolism identified. Bones and chest wall: No axillary adenopathy by size criteria. Right shoulder arthroplasty. ABDOMEN: Vasculature: Celiac trunk and mesenteric arteries are patent. Renal arteries are also patent. Solid organs: Similar hyperenhancement anterior lower liver, possibly perfusion anomaly. Gallbladder is unremarkable . Biliary system is non dilated. Pancreas enhances normally. Spleen is normal in size and enhancement. No adrenal nodules. Both kidneys are normal in size and enhancement, without hydronephrosis. Peritoneum and bowel: No free fluid or air. Small hiatal hernia. No bowel obstruction. Severe predominantly sigmoid colonic diverticulosis without evidence of acute diverticulitis. Possible cecal wall thickening versus artifact from underdistention. Nodes and vessels: No retroperitoneal or mesenteric adenopathy by size criteria. Inferior vena cava is normal in morphology. PELVIS: Genitourinary: Bladder wall thickness is normal. Miscellaneous: No adenopathy. Bones: Lower thoracic -sacral fusion. IMPRESSION: 1. No aortic dissection demonstrated. 2. No evidence of mechanical small bowel obstruction. 3. Possible wall thickening of the cecum versus artifact from underdistention. Correlation for a colitis may be helpful. 4. Patchy areas of pulmonary micronodularity present, likely infectious/inflammatory. 5. Severe colonic diverticulosis, no evidence of acute diverticulitis. Dictated by: Zackery Hare M.D. on 06/10/2022 at 11:55 Approved by: Zackery Hare M.D. on 06/10/2022 at 12:20
[2022-06-10] MEDS: NICARDIPINE 25 MG in SODIUM CHLORIDE 0.9% 240 ML 50 MG IV (12:01)
[2022-06-10 12:27] LABS: Troponin I < 0.012 ng/mL (0.01-0.034)
[2022-06-10] MEDS: METOCLOPRAMIDE 10 MG/2 ML INJ IV (12:45)
--- NOTE | 2022-06-10 13:44 | P.TELICUCN_ITS ---
History of Present Illness Consult details IF CAMERA ACTIVATED, patient seen via real-time interactive audiovisual communication: Camera activated Chief complaint: bp is high xtory of hear attack vomiting Consent obtained for tele-therapist physical care: Yes Patient Location: ICU Provider location (State): [place] Other participants/roles: Hospitalist, RN Narrative: CC: HPI: 76 yo W with PMH of Spinal surgeyr T1-L1,neurogenic claudication, CAD, and HTN who reported developing nausea and vomitting after drinking her coffee. She stated that her BP usually is around 130/80 but her SBP has been in the 200s. Patient denies any chest pain, SOB, headache, or visual changes. She states that her symptoms are similar to back in March when she had an NSTEMI, underwent cardiac cath, but had no stents placed or angioplasty done. ROS: Patient denies any abdominal pain, fever/chills, dizziness, vertigo, lightheadedness, focal weakness and numbness. She does report coughing and diarrhea when she was vomitting today. She had headache yesterday but none currently IN ER BP as high as 123/110. PT. given her home amlodipine and coreg and started on nicardipine drip. Her BP now down to 180s-160s/80s. Labs are unremarkable including tropin neg x2. Head CT neg for any acute pathology. Abd CT showed diverticulosis but no diverticulitis and possible cecal thickening but no evidence of any other acute pathology such as aortic dissection or bowel obstruction. 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) Hx of spinal surgery Status post open reduction with internal fixation (ORIF) of fracture of ankle (01/2001) 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) Status post right knee replacement (10/09/12) Family History Father CAD (coronary artery disease) Grandfather Lung cancer Grandmother CAD (coronary artery disease) Mother CAD (coronary artery disease) Diabetes mellitus Parkinson's disease Grandfather CAD (coronary artery disease) Social History household members: spouse Smoking Status: Former smoker alcohol intake: current Current Medications Current Medications Medications: Home Medications VITAMIN D (GROVE VITAMIN D) 2,000 iu PO Q DAY ##0 08/08/11 [History Confirmed 04/16/22] [magnesium ] ##0 05/14/17 [History Confirmed 04/16/22] omeprazole 40 mg capsule,delayed release 40 mg PO QAM PRN Reflux #30 caps 10/22/18 [Rx Confirmed 04/16/22] venlafaxine 75 mg tablet 75 mg PO DAILY #90 tabs 10/30/21 [Rx Confirmed 04/16/22] gabapentin 300 mg capsule 300 mg PO BID #180 caps 02/18/22 [Rx Confirmed 2] amlodipine 5 mg tablet 5 mg PO DAILY 03/19/22 [History Confirmed 04/16/22] aspirin 81 mg tablet,delayed release 81 mg PO DAILY 03/19/22 [History Confirmed 04/16/22] atorvastatin 80 mg tablet 80 mg PO BEDTIME 03/19/22 [History Confirmed 04/16/22] carvedilol 3.125 mg tablet 6.25 mg PO BID 03/19/22 [History Confirmed 04/16/22] acyclovir 400 mg tablet 400 mg PO BID #60 tabs 03/26/22 [Rx Confirmed 04/16/22] trazodone 100 mg tablet 100 mg PO HS #90 tabs 03/26/22 [Rx Confirmed 04/16/22] oxybutynin chloride 10 mg tablet,extended release 24 hr (Ditropan XL) 10 mg PO QDAY #90 tabs 04/08/22 [Rx Confirmed 04/16/22] albuterol sulfate 90 mcg/actuation aerosol inhaler (Ventolin HFA) 2 puff inhalation Q4H PRN shortness of breath or wheezing #18 grams 05/06/22 [Rx] Visit Medications (administered) Generic Name Dose Route Start Last Admin Trade Name Freq PRN Reason Stop Dose Admin Nicardipine HCl 25 mg/ Sodium 250 mls @ 50 mls/hr 06/10/22 11:30 06/10/22 12:01 Chloride IV 5 mg/hr TITRATE [place] 50 mls/hr Administration Protocol 5 MG/HR Nitroglycerin 0.4 mg 06/10/22 09:11 06/10/22 09:51 Nitroglycerin 0.4 Mg Sl Tab SL 0.4 mg [id number] PRN Administration Chest Pain Exam Vital Signs (past 8 hours): - 06/10/22 08:55 06/10/22 09:18 06/10/22 08:53 Temperature 97.6 F Pulse Rate 74 74 Respiratory Rate 16 Blood Pressure 231/110 H 228/105 H Pulse Oximetry 98 97 Oxygen Delivery Method Room Air 06/10/22 08:54 06/10/22 08:54 06/10/22 09:00 Temperature Pulse Rate 81 Respiratory Rate Blood Pressure 231/110 H 220/109 H Pulse Oximetry 97 Oxygen Delivery Method 06/10/22 09:00 06/10/22 09:15 06/10/22 09:15 Temperature Pulse Rate 74 73 Respiratory Rate 22 Blood Pressure 228/105 H Pulse Oximetry 98 98 Oxygen Delivery Method 06/10/22 09:26 06/10/22 09:26 06/10/22 09:30 Temperature Pulse Rate 78 Respiratory Rate 22 Blood Pressure 184/85 H 174/89 H Pulse Oximetry 97 Oxygen Delivery Method 06/10/22 09:30 06/10/22 09:51 06/10/22 09:49 Temperature Pulse Rate 78 Respiratory Rate 27 H Blood Pressure 190/100 H 190/100 H Pulse Oximetry 98 Oxygen Delivery Method 06/10/22 09:49 06/10/22 09:52 06/10/22 09:53 Temperature Pulse Rate 78 80 Respiratory Rate 13 7 L Blood Pressure 150/78 H Pulse Oximetry 98 99 Oxygen Delivery Method 06/10/22 09:53 06/10/22 10:08 06/10/22 10:10 Temperature Pulse Rate 83 96 H Respiratory Rate 10 L 20 Blood Pressure 200/97 H Pulse Oximetry 98 Oxygen Delivery Method 06/10/22 10:10 06/10/22 10:45 06/10/22 10:20 Temperature Pulse Rate 84 87 Respiratory Rate 11 L Blood Pressure 212/105 H 159/84 H Pulse Oximetry 95 Oxygen Delivery Method 06/10/22 10:20 06/10/22 10:30 06/10/22 10:30 Temperature Pulse Rate 71 63 Respiratory Rate 12 17 Blood Pressure 208/95 H Pulse Oximetry 98 99 Oxygen Delivery Method 06/10/22 10:46 06/10/22 10:46 06/10/22 10:51 Temperature Pulse Rate 76 Respiratory Rate 23 Blood Pressure 212/105 H 225/94 H Pulse Oximetry 99 Oxygen Delivery Method 06/10/22 10:51 06/10/22 11:00 06/10/22 11:10 Temperature Pulse Rate 92 H 82 Respiratory Rate 17 33 H Blood Pressure 202/91 H Pulse Oximetry 99 Oxygen Delivery Method 06/10/22 11:10 06/10/22 11:27 06/10/22 11:27 Temperature Pulse Rate 81 85 Respiratory Rate 9 L 10 L Blood Pressure 228/102 H Pulse Oximetry 97 97 Oxygen Delivery Method 06/10/22 11:30 06/10/22 11:30 06/10/22 11:50 Temperature Pulse Rate 84 91 H Respiratory Rate 10 L 16 Blood Pressure 217/101 H Pulse Oximetry 98 97 Oxygen Delivery Method 06/10/22 11:50 06/10/22 12:00 06/10/22 12:00 Temperature Pulse Rate 88 Respiratory Rate 31 H Blood Pressure 185/113 H 223/104 H Pulse Oximetry 95 Oxygen Delivery Method 06/10/22 12:05 06/10/22 12:05 06/10/22 12:10 Temperature Pulse Rate 84 Respiratory Rate 29 H Blood Pressure 212/105 H 201/97 H Pulse Oximetry 98 Oxygen Delivery Method 06/10/22 12:10 06/10/22 12:15 06/10/22 12:15 Temperature Pulse Rate 89 96 H Respiratory Rate 29 H 11 L Blood Pressure 197/95 H Pulse Oximetry 97 96 Oxygen Delivery Method 06/10/22 12:20 06/10/22 12:20 06/10/22 12:30 Temperature Pulse Rate 96 H Respiratory Rate 15 Blood Pressure 180/87 H 172/79 H Pulse Oximetry 98 Oxygen Delivery Method 06/10/22 12:30 Temperature Pulse Rate 101 H Respiratory Rate 17 Blood Pressure Pulse Oximetry 96 Oxygen Delivery Method Oxygen Delivery Method Room Air Narrative Exam Narrative: Patient seen over [address] way audio visual system. Pt. is alert, conversant, and in NAD Objective Labs Result Diagrams: 06/10/22 08:54 06/10/22 08:54 Labs: Laboratory Results - last 24 hr 06/10/22 06/10/22 06/10/22 08:54 08:54 09:17 WBC 9.6 RBC 4.84 Hgb 14.6 Hct 43.2 MCV 89.3 MCH 30.1 MCHC 33.8 RDW 14.0 Plt Count 305 Neut % (Auto) 71.7 Lymph % (Auto) 14.2 L [place] % (Auto) 10.5 Eos % (Auto) 2.9 Baso % (Auto) 0.7 Neut # (Auto) 6900 Lymph # (Auto) 1400 [place] # (Auto) 1000 H Eos # (Auto) 300 Baso # (Auto) 100 Sodium 138 Potassium 3.9 Chloride 102 Carbon Dioxide 28 BUN 13 Creatinine 0.54 Estimated GFR > 60 BUN/Creatinine Ratio 24.1 H Glucose 112 H Calcium 9.2 Magnesium 1.9 Total Bilirubin 0.6 AST 49 H ALT 35 H Alkaline Phosphatase 147 H Total Creatine Kinase 433 H CK-MB (CK-2) 35.90 H CK-MB (CK-2) Rel Index 8.3 H* Troponin I < 0.012 NT-Pro-B Natriuret Pep Total Protein 8.4 H Albumin 4.6 Globulin 3.8 Albumin/Globulin Ratio 1.2 Lipase 71 Urine Color Urine Appearance Urine pH Ur Specific [place] Urine Protein Urine Glucose (UA) Urine Ketones Urine Occult Blood Urine Nitrate Urine Bilirubin Urine Urobilinogen Ur Leukocyte Esterase Urine RBC Urine WBC Ur Squamous Epith Cells Amorphous Sediment Urine Bacteria Ur Culture Indicated? SARS-CoV-2 (PCR) Negative 06/10/22 06/10/22 06/10/22 09:30 09:45 11:49 WBC RBC Hgb Hct MCV MCH MCHC RDW Plt Count Neut % (Auto) Lymph % (Auto) [place] % (Auto) Eos % (Auto) Baso % (Auto) Neut # (Auto) Lymph # (Auto) [place] # (Auto) Eos # (Auto) Baso # (Auto) Sodium Potassium Chloride Carbon Dioxide BUN Creatinine Estimated GFR BUN/Creatinine Ratio Glucose Calcium Magnesium Total Bilirubin AST ALT Alkaline Phosphatase Total Creatine Kinase CK-MB (CK-2) CK-MB (CK-2) Rel Index Troponin I < 0.012 NT-Pro-B Natriuret Pep 416 Total Protein Albumin Globulin Albumin/Globulin Ratio Lipase Urine Color Yellow Urine Appearance Sl cloudy Urine pH 7.5 Ur Specific [place] 1.015 Urine Protein 1+ H Urine Glucose (UA) Negative Urine Ketones 1+ H Urine Occult Blood Trace-lysed Urine Nitrate Negative Urine Bilirubin Negative Urine Urobilinogen 0.2 Ur Leukocyte Esterase Negative Urine RBC 0-1/hpf Urine WBC None seen Ur Squamous Epith Cells 0-1 /hpf Amorphous Sediment 3+ Urine Bacteria Few (2-10) H Ur Culture Indicated? Cult not indicated SARS-CoV-2 (PCR) Assessment & Plan Assessment & Plan narrative: Assessment HTN Urgency nausea and vomitting slightly elevated LFTS CAD Plan -continue amlodipine and coreg -titrate nicardipine drip for goal SBP of 160-180 today and then further over the course of next few days -if patient's nausea and vomitting does not resolve despite controlling for BP, consider MRI to rule out posterior stroke or bleed -check coags -trend LFTs, if it contnues to rise consider abd U/S or Hida scan -f/u on third troponin CCT spent 45 min Time Spent With Patient Critical Care time: I spent a total of [] minutes of critical care time on this patient's care today; this time is exclusive of procedural time.
[2022-06-10] MEDS: AMLODIPINE 5 MG TABLET PO (14:02)
[2022-06-10] MEDS: carvediloL 3.125 MG TABLET 12.5 MG PO ×2 (14:02→21:05)
--- NOTE | 2022-06-10 14:25 | PC.NURSE ---
Addendum entered by Anabella Kwok R.N. 06/10/22 18:53: MRI completed. Addendum entered by Anabella Kwok R.N. 06/10/22 17:23: Nicardipine gtt off at 1618, SBP in the 140-150s since turning off. Pt's nausea persists despite zofran administration. Dr. Navarro notified and orders received for Ativan 0.5 mg IV which was given and for head MRI. Original Note: Admit Note Patient to room 1345 via stretcher, pivot transferred to bed. Slightly unsteady on feet. Alert and oriented x3. Reports nausea but states it is improved from this morning. On nicardipine gtt 5 mg/hr (50 ml/hr), SBP in the 150-160s. BP down to 146/71 and nicardipine decreased to 3 mg/hr (30 ml/hr) per Dr. Bang. Stated parameters for gtt per Dr. Bang is SBP between 150-180s. Pt denies chest pain. All belongings in room closet including purse, shoes, and clothing. Denies need to lock up any valuables. Call light within reach, instructed on use of call light/bed/tv controls. Bed alarm on for safety.
--- NOTE | 2022-06-10 15:43 | PM.HP.1 ---
History of Present Illness History of Present Illness Date Patient Seen: 06/10/22 Time Patient Seen: 13:00 Chief complaint: bp is high xtory of hear attack vomiting Narrative: Ms. Rodriguez is a 76W with PMH recent NSTEMI suspected secondary to hypertensive emergency who presents to the hospital with nausea, vomiting, and a headache. She states she had symptoms starting earlier today with a mild headache, she drank coffee and began having nausea, and vomiting, and also had episodes of diarrhea. She did not have chest pain or shortness of breath. No vision changes. No abdominal pain. Her blood pressure prior to coming in was very elevated. She has been checking her blood pressure regularly and it is ~140s/80s. She was admitted a couple months ago with similar symptoms and with elevated blood pressure. She was found to have elevated troponins and was transferred and underwent cardiac cath which showed mild disease and did not require intervention. She had blood pressures >200 systolic and was thought to have had NSTEMI secondary to hypertension. She was discharged on coreg and amlodipine. She states she has not missed any medication. In the ED workup was done, vitals notable for BP 231/110. Labs notable for WBC 9.6, hgb 14.6. Creatinine 0.54. AST/ALT 49/35. Alk phos 147. CK 433. Trop negative x2. Chest xray was negative for acute process. Head CT negative for acute process. CT chest, abd/pelvis with question of thickened cecum and patchy pulmonary micronodularity. She was started on IV nicardapine and felt improved and was admitted for further treatment. 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) Hx of spinal surgery Status post open reduction with internal fixation (ORIF) of fracture of ankle (01/2001) 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) Status post right knee replacement (10/09/12) Family & Social History Family History Father CAD (coronary artery disease) Grandfather Lung cancer Grandmother CAD (coronary artery disease) Mother CAD (coronary artery disease) Diabetes mellitus Parkinson's disease Grandfather CAD (coronary artery disease) Social History: household members spouse Prior Living Arrangements House Safety & Behavioral: Feels Safe in Current Yes Environment Been Physically Hurt or No Threatened By a Person Tobacco & Substance use: Smoking Status Former smoker alcohol intake current alcohol intake frequency 0-2 drinks per day Substance Use Type marijuana Meds Home Medications and Allergies Home Medications Medication Instructions Recorded Confirmed Type omeprazole 40 mg capsule,delayed 40 mg PO QAM PRN Reflux #30 caps 10/22/18 06/10/22 Rx release venlafaxine 75 mg tablet 75 mg PO DAILY #90 tabs 10/30/21 06/10/22 Rx gabapentin 300 mg capsule 300 mg PO BID #180 caps 02/18/22 06/10/22 Rx amlodipine 5 mg tablet 2.5 mg PO DAILY 03/19/22 06/10/22 History aspirin 81 mg tablet,delayed 81 mg PO DAILY 03/19/22 06/10/22 History release atorvastatin 80 mg tablet 80 mg PO BEDTIME 03/19/22 06/10/22 History carvedilol 3.125 mg tablet 6.25 mg PO BID 03/19/22 06/10/22 History acyclovir 400 mg tablet 400 mg PO BID #60 tabs 03/26/22 06/10/22 Rx trazodone 100 mg tablet 100 mg PO HS #90 tabs 03/26/22 06/10/22 Rx oxybutynin chloride 10 mg 10 mg PO QDAY #90 tabs 04/08/22 06/10/22 Rx tablet,extended release 24 hr (Ditropan XL) albuterol sulfate 90 mcg/actuation 2 puff inhalation Q4H PRN 05/06/22 06/10/22 Rx aerosol inhaler (Ventolin HFA) shortness of breath or wheezing #18 grams magnesium oxide 400 mg PO DAILY 06/10/22 06/10/22 History Allergies Allergy/AdvReac Type Severity Reaction Status Date / Time hydrocodone AdvReac Mild DIDN'T Verified 06/10/22 08:58 WORK WELL AND KEPT ME AWAKE seasonal allergies Allergy Mild watery Uncoded 06/10/22 08:58 eyes, clear mucous, rarely inhaler Review of Systems Review of Systems Narrative: 14 systems reviewed and negative aside from what is noted in HPI Exam Vital Signs (past 8 hours): - 06/10/22 08:55 06/10/22 09:18 06/10/22 08:53 Temperature 97.6 F Pulse Rate 74 74 Respiratory Rate 16 Blood Pressure 231/110 H 228/105 H Pulse Oximetry 98 97 Oxygen Delivery Method Room Air Oxygen Flow Rate 06/10/22 08:54 06/10/22 08:54 06/10/22 09:00 Temperature Pulse Rate 81 Respiratory Rate Blood Pressure 231/110 H 220/109 H Pulse Oximetry 97 Oxygen Delivery Method Oxygen Flow Rate 06/10/22 09:00 06/10/22 09:15 06/10/22 09:15 Temperature Pulse Rate 74 73 Respiratory Rate 22 Blood Pressure 228/105 H Pulse Oximetry 98 98 Oxygen Delivery Method Oxygen Flow Rate 06/10/22 09:26 06/10/22 09:26 06/10/22 09:30 Temperature Pulse Rate 78 Respiratory Rate 22 Blood Pressure 184/85 H 174/89 H Pulse Oximetry 97 Oxygen Delivery Method Oxygen Flow Rate 06/10/22 09:30 06/10/22 09:51 06/10/22 09:49 Temperature Pulse Rate 78 Respiratory Rate 27 H Blood Pressure 190/100 H 190/100 H Pulse Oximetry 98 Oxygen Delivery Method Oxygen Flow Rate 06/10/22 09:49 06/10/22 09:52 06/10/22 09:53 Temperature Pulse Rate 78 80 Respiratory Rate 13 7 L Blood Pressure 150/78 H Pulse Oximetry 98 99 Oxygen Delivery Method Oxygen Flow Rate 06/10/22 09:53 06/10/22 10:08 06/10/22 10:10 Temperature Pulse Rate 83 96 H Respiratory Rate 10 L 20 Blood Pressure 200/97 H Pulse Oximetry 98 Oxygen Delivery Method Oxygen Flow Rate 06/10/22 10:10 06/10/22 10:45 06/10/22 10:20 Temperature Pulse Rate 84 87 Respiratory Rate 11 L Blood Pressure 212/105 H 159/84 H Pulse Oximetry 95 Oxygen Delivery Method Oxygen Flow Rate 06/10/22 10:20 06/10/22 10:30 06/10/22 10:30 Temperature Pulse Rate 71 63 Respiratory Rate 12 17 Blood Pressure 208/95 H Pulse Oximetry 98 99 Oxygen Delivery Method Oxygen Flow Rate 06/10/22 10:46 06/10/22 10:46 06/10/22 10:51 Temperature Pulse Rate 76 Respiratory Rate 23 Blood Pressure 212/105 H 225/94 H Pulse Oximetry 99 Oxygen Delivery Method Oxygen Flow Rate 06/10/22 10:51 06/10/22 11:00 06/10/22 11:10 Temperature Pulse Rate 92 H 82 Respiratory Rate 17 33 H Blood Pressure 202/91 H Pulse Oximetry 99 Oxygen Delivery Method Oxygen Flow Rate 06/10/22 11:10 06/10/22 11:27 06/10/22 11:27 Temperature Pulse Rate 81 85 Respiratory Rate 9 L 10 L Blood Pressure 228/102 H Pulse Oximetry 97 97 Oxygen Delivery Method Oxygen Flow Rate 06/10/22 11:30 06/10/22 11:30 06/10/22 11:50 Temperature Pulse Rate 84 91 H Respiratory Rate 10 L 16 Blood Pressure 217/101 H Pulse Oximetry 98 97 Oxygen Delivery Method Oxygen Flow Rate 06/10/22 11:50 06/10/22 12:00 06/10/22 12:00 Temperature Pulse Rate 88 Respiratory Rate 31 H Blood Pressure 185/113 H 223/104 H Pulse Oximetry 95 Oxygen Delivery Method Oxygen Flow Rate 06/10/22 12:05 06/10/22 12:05 06/10/22 12:10 Temperature Pulse Rate 84 Respiratory Rate 29 H Blood Pressure 212/105 H 201/97 H Pulse Oximetry 98 Oxygen Delivery Method Oxygen Flow Rate 06/10/22 12:10 06/10/22 12:15 06/10/22 12:15 Temperature Pulse Rate 89 96 H Respiratory Rate 29 H 11 L Blood Pressure 197/95 H Pulse Oximetry 97 96 Oxygen Delivery Method Oxygen Flow Rate 06/10/22 12:20 06/10/22 12:20 06/10/22 12:30 Temperature Pulse Rate 96 H Respiratory Rate 15 Blood Pressure 180/87 H 172/79 H Pulse Oximetry 98 Oxygen Delivery Method Oxygen Flow Rate 06/10/22 12:30 06/10/22 14:00 06/10/22 14:07 Temperature 97.8 F Pulse Rate 101 H 106 H Respiratory Rate 17 16 Blood Pressure 161/80 H Pulse Oximetry 96 95 Oxygen Delivery Method Room Air Oxygen Flow Rate 0 06/10/22 15:00 06/10/22 15:15 06/10/22 15:30 Temperature Pulse Rate 100 H 96 H Respiratory Rate 18 19 Blood Pressure 152/83 H 153/77 H 155/76 H Pulse Oximetry 96 96 Oxygen Delivery Method Oxygen Flow Rate 06/10/22 15:30 Temperature Pulse Rate 97 H Respiratory Rate 10 L Blood Pressure Pulse Oximetry 95 Oxygen Delivery Method Oxygen Flow Rate Oxygen Delivery Method Room Air Oxygen Flow Rate 0 Narrative Exam Narrative: GEN: distress from vomiting HEENT: moist mucous membranes, PERRL NECK: trachea midline, no JVD PULM: clear bilaterally, no wheezes, rhonchi, rales CV: tachycardic with no murmurs ABD: soft, nontender, nondistended, no organomegaly, normal bowel sounds EXT: warm and well perfused with no edema NEURO: awake, alert oriented with no focal deficits Objective Labs Result Diagrams: 06/10/22 08:54 06/10/22 08:54 Labs: Laboratory Results - last 24 hr 06/10/22 06/10/22 06/10/22 08:54 08:54 09:17 WBC 9.6 RBC 4.84 Hgb 14.6 Hct 43.2 MCV 89.3 MCH 30.1 MCHC 33.8 RDW 14.0 Plt Count 305 Neut % (Auto) 71.7 Lymph % (Auto) 14.2 L [place] % (Auto) 10.5 Eos % (Auto) 2.9 Baso % (Auto) 0.7 Neut # (Auto) 6900 Lymph # (Auto) 1400 [place] # (Auto) 1000 H Eos # (Auto) 300 Baso # (Auto) 100 Sodium 138 Potassium 3.9 Chloride 102 Carbon Dioxide 28 BUN 13 Creatinine 0.54 Estimated GFR > 60 BUN/Creatinine Ratio 24.1 H Glucose 112 H Calcium 9.2 Magnesium 1.9 Total Bilirubin 0.6 AST 49 H ALT 35 H Alkaline Phosphatase 147 H Total Creatine Kinase 433 H CK-MB (CK-2) 35.90 H CK-MB (CK-2) Rel Index 8.3 H* Troponin I < 0.012 NT-Pro-B Natriuret Pep Total Protein 8.4 H Albumin 4.6 Globulin 3.8 Albumin/Globulin Ratio 1.2 Lipase 71 Urine Color Urine Appearance Urine pH Ur Specific [place] Urine Protein Urine Glucose (UA) Urine Ketones Urine Occult Blood Urine Nitrate Urine Bilirubin Urine Urobilinogen Ur Leukocyte Esterase Urine RBC Urine WBC Ur Squamous Epith Cells Amorphous Sediment Urine Bacteria Ur Culture Indicated? SARS-CoV-2 (PCR) Negative 06/10/22 06/10/22 06/10/22 09:30 09:45 11:49 WBC RBC Hgb Hct MCV MCH MCHC RDW Plt Count Neut % (Auto) Lymph % (Auto) [place] % (Auto) Eos % (Auto) Baso % (Auto) Neut # (Auto) Lymph # (Auto) [place] # (Auto) Eos # (Auto) Baso # (Auto) Sodium Potassium Chloride Carbon Dioxide BUN Creatinine Estimated GFR BUN/Creatinine Ratio Glucose Calcium Magnesium Total Bilirubin AST ALT Alkaline Phosphatase Total Creatine Kinase CK-MB (CK-2) CK-MB (CK-2) Rel Index Troponin I < 0.012 NT-Pro-B Natriuret Pep 416 Total Protein Albumin Globulin Albumin/Globulin Ratio Lipase Urine Color Yellow Urine Appearance Sl cloudy Urine pH 7.5 Ur Specific [place] 1.015 Urine Protein 1+ H Urine Glucose (UA) Negative Urine Ketones 1+ H Urine Occult Blood Trace-lysed Urine Nitrate Negative Urine Bilirubin Negative Urine Urobilinogen 0.2 Ur Leukocyte Esterase Negative Urine RBC 0-1/hpf Urine WBC None seen Ur Squamous Epith Cells 0-1 /hpf Amorphous Sediment 3+ Urine Bacteria Few (2-10) H Ur Culture Indicated? Cult not indicated SARS-CoV-2 (PCR) Assessment & Plan Assessment & Plan narrative: 1. Hypertensive emergency -patient presented with BP 230s/110s, with symptoms with nausea, vomiting, headache -workup shows normal troponin, will trend one additional -no renal dysfunction -CT head with no acute process -continue with IV nicardapine, but start coreg and amlodipine and titrate down nicardapine -if symptoms of nausea vomiting continue despite controlled BP will plan MRI head and possible IV antibiotics but currently think infection less likely 2. CAD -continue aspirin, statin 3. GERD -continue PPI 4. Transaminitis -mild -trend daily, if rising will order hepatitis serologies CODE: Full Proxy: Arnaldo Vasquesman, I have utilized all available resources to reconcile the patient's home medications Time Spent With Patient Critical Care time: I spent a total of [] minutes of critical care time on this patient's care today; this time is exclusive of procedural time. Quality VTE Deep Vein Thrombosis/Pulmonary Embolism Present on Admission: No
--- NOTE | 2022-06-10 16:52 | DI.MRI.S_ITS ---
PROCEDURE: MR HEAD/BRAIN WO CON INDICATIONS: htn emergency, intractable vomiting, cva? TECHNIQUE: Non-contrast axial T1 spin echo, axial T2 fast spin echo, sagittal and axial FLAIR, coronal T2 fast spin echo, axial gradient echo, axial diffusion and ADC through the brain. COMPARISON: [facility], CT, CT HEAD/BRAIN WO CON, 01/10/2018, 10:15. [facility], CT, CT HEAD/BRAIN WO CON, 03/15/2022, 17:35. [facility], CT, CT HEAD/BRAIN WO CON, 06/10/2022, 10:09. FINDINGS: Image quality: Excellent. CSF spaces: Ventricles appear symmetric in size and shape. Basal cisterns are patent. No extra-axial fluid collections. Brain: No intracranial bleeds or mass effects. There is advanced cerebral volume loss for age. There are advanced periventricular and deep white matter chronic small vessel ischemic changes. Brainstem appears normal. Diffusion-weighted images show no acute ischemic insults. No chronic ischemic insults. Normal intravascular flow voids are present. Skull and face: Calvarial bone marrow is normal in signal. Orbits are normal. Sinuses: Sinuses and mastoids are clear. IMPRESSION: No findings of acute infarct or other acute intracranial process. Severe chronic microvascular ischemic changes and global cerebral volume loss similar to prior studies. Dictated by: Alexsander Gallegos M.D. on 06/10/2022 at 19:35 Approved by: Alexsander Gallegos M.D. on 06/10/2022 at 19:36
[2022-06-10 20:21] LABS: Troponin I 0.022 ng/mL (0.01-0.034)
--- NOTE | 2022-06-10 21:03 | PM.ICURNDS ---
- :: This patient was seen via real time interactive two-way audiovisual telecommunication. Patients off cardene gtt since this eening. Currently BP trending higher, will receive coreg and additional 5mg opf amlodipine ordered. will n eed to restart ignacia if bp continues to trend higher
[2022-06-10] MEDS: GABAPENTIN 600 MG TABLET PO (21:06)
[2022-06-10] MEDS: ATORVASTATIN 20 MG TABLET 80 MG PO (21:06)
[2022-06-11] VITALS (23 sets, daily range): BP systolic 106–188; BP diastolic 56–94; PULSE 70–82; RESP 8–49; TEMP 36.9–37.6; O2SAT 92–98
[2022-06-11 05:16] LABS: Add Manual Diff / Slide Review NO; Basophils Absolute Auto 100 /uL (0-100); Basophils Percent Auto 0.8 % (0-2); Eosinophils Absolute Auto 0 /uL (0-450); Eosinophils Percent Auto 0.2 % (2-4); Hematocrit 40.3 % (36-46); Hemoglobin 13.3 g/dL (12.0-16.0); Lymphocytes Absolute Auto 1800 /uL (1100-4500); Lymphocytes Percent Auto 17.5 % (25-40); Mean Corpuscular Hemoglobin 29.4 PG (26-34); Monocytes Absolute Auto 1700 /uL (0-900); Neutrophils Absolute Auto 6800 /uL (1500-7000); Neutrophils Percent Auto 65.5 % (50-75); Platelet Count 301 X10^3/uL (150-400); Red Blood Cell Count 4.53 X10^6/uL (4.0-5.2); Red Cell Distribution Width 14.2 % (11.6-14.8); White Blood Cell Count 10.4 X10^3/uL (4.5-11.0)
[2022-06-11 05:26] LABS: BUN Creatinine Ratio 22.4 (6-22); Blood Urea Nitrogen 13 mg/dL (7-17); Carbon Dioxide 26 mmol/L (22-32); Chloride 101 mmol/L (98-107); Estimated Glomerular Filt Rate > 60 mL/min (>60); Glucose 111 mg/dL (80-110); HEMOLYSIS < 15 (0-50); Sodium 137 mmol/L (137-145)
[2022-06-11 05:27] LABS: Alanine Aminotransferase 34 IU/L (<35); Albumin Globulin Ratio 1.2 (1.0-2.8); Alkaline Phosphatase 106 U/L (38-126); Aspartate Aminotransferase 45 IU/L (14-36); Bilirubin Total 0.6 mg/dL (0.2-1.3); Bilirubin Unconjugated 0.5 mg/dL (0.0-1.1); Globulin 3.3 g/dL (1.7-4.1); HEMOLYSIS < 15 (0-50); Total Protein 7.3 g/dL (6.3-8.2)
[2022-06-11] MEDS: ACETAMINOPHEN 325 MG TABLET 650 MG PO (06:12)
[2022-06-11] MEDS: POTASSIUM CHLORIDE 20 MEQ TAB 40 MEQ PO (06:12)
--- NOTE | 2022-06-11 06:23 | PC.NURSE ---
End of shift note. Patient AAOX4, slept well during the night. At beginning of shift had dry heaves, resolved by this am. Has been NSR 70s. Held evening one time dose of Norvasc 5mg for low BP 115/60, JENNIFER Graham notified. This am BP 147/70. Patient states I feel much better. Tolerated eating jello, sips of clears.
[2022-06-11 06:26] LABS: Troponin I 0.031 ng/mL (0.01-0.034)
--- NOTE | 2022-06-11 08:05 | PM.PN.1 ---
Subjective Subjective Interval history: Patient is feeling well. No headache, no nausea and vomiting. No chest pain or palpitations. No SOB. Exam Vital Signs (past 8 hours): - 06/11/22 00:30 06/11/22 01:00 06/11/22 01:00 Temperature Pulse Rate 79 79 Respiratory Rate 28 H 35 H Blood Pressure 124/66 Pulse Oximetry 94 93 Oxygen Delivery Method 06/11/22 01:30 06/11/22 02:00 06/11/22 02:00 Temperature Pulse Rate 78 74 Respiratory Rate 19 19 Blood Pressure 125/60 Pulse Oximetry 95 94 Oxygen Delivery Method 06/11/22 02:30 06/11/22 03:00 06/11/22 03:00 Temperature Pulse Rate 74 75 Respiratory Rate 22 19 Blood Pressure 124/63 Pulse Oximetry 92 93 Oxygen Delivery Method 06/11/22 03:30 06/11/22 04:00 06/11/22 04:00 Temperature Pulse Rate 74 74 Respiratory Rate 16 15 Blood Pressure 135/67 Pulse Oximetry 94 93 Oxygen Delivery Method 06/11/22 04:18 06/11/22 04:30 06/11/22 05:00 Temperature 99.7 F H Pulse Rate 77 Respiratory Rate 49 H Blood Pressure 150/72 H Pulse Oximetry 97 Oxygen Delivery Method 06/11/22 05:00 06/11/22 04:00 06/11/22 05:30 Temperature Pulse Rate 71 71 Respiratory Rate 15 22 Blood Pressure Pulse Oximetry 93 92 Oxygen Delivery Method Room Air 06/11/22 06:00 06/11/22 06:00 06/11/22 06:12 Temperature 99.7 F H Pulse Rate 70 Respiratory Rate 19 Blood Pressure 147/70 H Pulse Oximetry 92 Oxygen Delivery Method 06/11/22 06:30 06/11/22 07:00 06/11/22 07:00 Temperature Pulse Rate 72 82 Respiratory Rate 8 L 22 Blood Pressure 133/64 Pulse Oximetry 94 92 Oxygen Delivery Method Oxygen Delivery Method Room Air Oxygen Flow Rate 0 Narrative Exam Narrative: GEN: in no apparent distress. HEENT: moist mucous membranes, PERRL NECK: trachea midline, no JVD PULM: clear bilaterally, no wheezes, rhonchi, rales CV: normal rate, with no murmurs ABD: soft, nontender, nondistended, no organomegaly, normal bowel sounds EXT: warm and well perfused with no edema NEURO: awake, alert oriented with no focal deficits Objective Labs Result Diagrams: 06/11/22 04:06 06/11/22 04:06 Labs: Laboratory Results - last 24 hr 06/10/22 06/10/22 06/10/22 08:54 08:54 09:17 WBC 9.6 RBC 4.84 Hgb 14.6 Hct 43.2 MCV 89.3 MCH 30.1 MCHC 33.8 RDW 14.0 Plt Count 305 Neut % (Auto) 71.7 Lymph % (Auto) 14.2 L [place] % (Auto) 10.5 Eos % (Auto) 2.9 Baso % (Auto) 0.7 Neut # (Auto) 6900 Lymph # (Auto) 1400 [place] # (Auto) 1000 H Eos # (Auto) 300 Baso # (Auto) 100 Sodium 138 Potassium 3.9 Chloride 102 Carbon Dioxide 28 BUN 13 Creatinine 0.54 Estimated GFR > 60 BUN/Creatinine Ratio 24.1 H Glucose 112 H Calcium 9.2 Magnesium 1.9 Total Bilirubin 0.6 Conjugated Bilirubin Unconjugated Bilirubin AST 49 H ALT 35 H Alkaline Phosphatase 147 H Total Creatine Kinase 433 H CK-MB (CK-2) 35.90 H CK-MB (CK-2) Rel Index 8.3 H* Troponin I < 0.012 NT-Pro-B Natriuret Pep Total Protein 8.4 H Albumin 4.6 Globulin 3.8 Albumin/Globulin Ratio 1.2 Lipase 71 Urine Color Urine Appearance Urine pH Ur Specific Wheeler Urine Protein Urine Glucose (UA) Urine Ketones Urine Occult Blood Urine Nitrate Urine Bilirubin Urine Urobilinogen Ur Leukocyte Esterase Urine RBC Urine WBC Ur Squamous Epith Cells Amorphous Sediment Urine Bacteria Ur Culture Indicated? Nasal Screen MRSA (PCR) SARS-CoV-2 (PCR) Negative 06/10/22 06/10/22 06/10/22 09:30 09:45 11:49 WBC RBC Hgb Hct MCV MCH MCHC RDW Plt Count Neut % (Auto) Lymph % (Auto) [place] % (Auto) Eos % (Auto) Baso % (Auto) Neut # (Auto) Lymph # (Auto) [place] # (Auto) Eos # (Auto) Baso # (Auto) Sodium Potassium Chloride Carbon Dioxide BUN Creatinine Estimated GFR BUN/Creatinine Ratio Glucose Calcium Magnesium Total Bilirubin Conjugated Bilirubin Unconjugated Bilirubin AST ALT Alkaline Phosphatase Total Creatine Kinase CK-MB (CK-2) CK-MB (CK-2) Rel Index Troponin I < 0.012 NT-Pro-B Natriuret Pep 416 Total Protein Albumin Globulin Albumin/Globulin Ratio Lipase Urine Color Yellow Urine Appearance Sl cloudy Urine pH 7.5 Ur Specific [place] 1.015 Urine Protein 1+ H Urine Glucose (UA) Negative Urine Ketones 1+ H Urine Occult Blood Trace-lysed Urine Nitrate Negative Urine Bilirubin Negative Urine Urobilinogen 0.2 Ur Leukocyte Esterase Negative Urine RBC 0-1/hpf Urine WBC None seen Ur Squamous Epith Cells 0-1 /hpf Amorphous Sediment 3+ Urine Bacteria Few (2-10) H Ur Culture Indicated? Cult not indicated Nasal Screen MRSA (PCR) SARS-CoV-2 (PCR) 06/10/22 06/10/22 06/11/22 13:51 19:50 04:06 WBC 10.4 RBC 4.53 Hgb 13.3 Hct 40.3 MCV 89.0 MCH 29.4 MCHC 33.0 RDW 14.2 Plt Count 301 Neut % (Auto) 65.5 Lymph % (Auto) 17.5 L [place] % (Auto) 16.0 H Eos % (Auto) 0.2 L Baso % (Auto) 0.8 Neut # (Auto) 6800 Lymph # (Auto) 1800 [place] # (Auto) 1700 H Eos # (Auto) 0 Baso # (Auto) 100 Sodium Potassium Chloride Carbon Dioxide BUN Creatinine Estimated GFR BUN/Creatinine Ratio Glucose Calcium Magnesium Total Bilirubin Conjugated Bilirubin Unconjugated Bilirubin AST ALT Alkaline Phosphatase Total Creatine Kinase CK-MB (CK-2) CK-MB (CK-2) Rel Index Troponin I 0.022 NT-Pro-B Natriuret Pep Total Protein Albumin Globulin Albumin/Globulin Ratio Lipase Urine Color Urine Appearance Urine pH Ur Specific [place] Urine Protein Urine Glucose (UA) Urine Ketones Urine Occult Blood Urine Nitrate Urine Bilirubin Urine Urobilinogen Ur Leukocyte Esterase Urine RBC Urine WBC Ur Squamous Epith Cells Amorphous Sediment Urine Bacteria Ur Culture Indicated? Nasal Screen MRSA (PCR) Negative for mrsa SARS-CoV-2 (PCR) 06/11/22 06/11/22 06/11/22 04:06 04:06 06:21 WBC RBC Hgb Hct MCV MCH MCHC RDW Plt Count Neut % (Auto) Lymph % (Auto) [place] % (Auto) Eos % (Auto) Baso % (Auto) Neut # (Auto) Lymph # (Auto) [place] # (Auto) Eos # (Auto) Baso # (Auto) Sodium 137 Potassium 3.0 L Chloride 101 Carbon Dioxide 26 BUN 13 Creatinine 0.58 Estimated GFR > 60 BUN/Creatinine Ratio 22.4 H Glucose 111 H Calcium 9.0 Magnesium Total Bilirubin 0.6 Conjugated Bilirubin 0.0 Unconjugated Bilirubin 0.5 AST 45 H ALT 34 Alkaline Phosphatase 106 Total Creatine Kinase CK-MB (CK-2) CK-MB (CK-2) Rel Index Troponin I 0.031 NT-Pro-B Natriuret Pep Total Protein 7.3 Albumin 4.0 Globulin 3.3 Albumin/Globulin Ratio 1.2 Lipase Urine Color Urine Appearance Urine pH Ur Specific [place] Urine Protein Urine Glucose (UA) Urine Ketones Urine Occult Blood Urine Nitrate Urine Bilirubin Urine Urobilinogen Ur Leukocyte Esterase Urine RBC Urine WBC Ur Squamous Epith Cells Amorphous Sediment Urine Bacteria Ur Culture Indicated? 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 Hypertensive emergency -patient presented with BP 230s/110s, with symptoms with nausea, vomiting, headache -workup shows normal troponin,and trend is stable -no renal dysfunction -CT head with no acute process -IV nicardapine has been discontinued as of yesterday, coreg has been increased from baseline dose of patient's regular dose and amlodipine ongoing -MRI has no acute findings 2. CAD -continue aspirin, statin 3. GERD -continue PPI 4. Transaminitis -mild, trending down, AST remains elevated 5. Hypokalemia, replace orally. Follow labs. Transfer out of ICU. Continue to evaluate as to when discharge is appropriate. CODE: Full Proxy: Arnaldo Rodríguez, Time Spent With Patient Critical Care time: I spent a total of [] minutes of critical care time on this patient's care today; this time is exclusive of procedural time. Quality VTE Deep Vein Thrombosis/Pulmonary Embolism Present on Admission: No
[2022-06-11] MEDS: ENOXAPARIN 40 MG/0.4 ML SYRINGE SUBCUT (09:39)
[2022-06-11] MEDS: AMLODIPINE 5 MG TABLET 10 MG PO (09:40)
[2022-06-11] MEDS: carvediloL 3.125 MG TABLET 12.5 MG PO (09:40)
[2022-06-11] MEDS: ASPIRIN EC 81 MG TABLET PO (09:40)
[2022-06-11] MEDS: POTASSIUM CHLORIDE 20 MEQ/15 ML UDC 40 MEQ PO (12:06)
--- NOTE | 2022-06-11 14:01 | CM.DANOTE ---
Patient is a 76 yo female who was admitted on 06/10/22 for BP. Pt has [facility] and [employer] for insurance and her PCP is Dr. Chepe Poon. EMR was reviewed. Per MD, pt with hx of recent NSTEMI and cardiac cath and admitted for hypertensive emergency. Per MD, will get labs for electrolytes around 1500 and if normal can likely d/c home this afternoon. SW met bedside with pt and explained role and she confirms she lives in [place] with her spouse and is active and independent and drives and does not use DME at baseline but had extensive back surgery this year and has slowly been improving and now ambulatory with a walker at times and working with outpt PT and has made significant progress. Spouse/DPOA currently provides transportation while still recovering from back surgery and is retired and available for assist. Pt was last admitted in February and transferred to [facility] in [facility] for cardiology and struggled with insurance covering the recommended bp medication and finally has been resolved and getting the prescribed medication needed finally. Pt denies any hx of HH or SNF and is established with outpt PT. Pt does not anticipate any needs at d/c and states she is feeling much better and spouse plans to provide transport at d/c. Plan: SW to follow for plan of d/c to home via spouse POV this evening if labs are normal range. SW to follow for any further identified needs. GINGER Rsos Discharge Planning/Care Management CM Discharge Assessment Start: 06/11/22 13:59 Freq: Status: Active Protocol: Document 06/11/22 13:59 BF (Rec: 06/11/22 14:01 [id number]) Discharge Planning Assessment Assigned Junior Loan Processor GINGER Max DPOA/Assigned Designee Name spouse Arnaldo Contact Information [phone] Advance Directives? No Advance Directives on File No History Provided By Patient,Family Member,Medical Record Has Patient been admitted in last 30 No days? Prior Living Arrangements House Household Members spouse Type of transporation used prior to Drives own vehicle admit Independent with ADL's Yes Is patient alert and oriented? Yes Needs Assistance With Home Chores / Shopping Comment recent back surgery Caregiver for Another No Community Services used prior to Physical Therapy admission: DME Already Rented / Owned FWW / Walker,Cane Barriers to Discharge No Discharge Plan Home Transportation Arrangement Spouse to provide transport at d/c Referrals Initiated None needed Whiteboard Updated in Patient Room with Yes name and ext. # of Junior Loan Processor Review Status In Process Please Provide Date Initial DC 06/11/22 Assessment Was Performed Next Review Type Continued Stay Review
[2022-06-11 16:22] LABS: BUN Creatinine Ratio 19.2 (6-22); Blood Urea Nitrogen 10 mg/dL (7-17); Calcium 9.2 mg/dL (8.4-10.2); Carbon Dioxide 29 mmol/L (22-32); Chloride 101 mmol/L (98-107); Estimated Glomerular Filt Rate > 60 mL/min (>60); Glucose 94 mg/dL (80-110); HEMOLYSIS < 15 (0-50); Potassium 4.4 mmol/L (3.4-5.1); Sodium 138 mmol/L (137-145)
--- NOTE | 2022-06-11 16:48 | PM.DS.1 ---
History of Present Illness History of Present Illness Date Patient Seen: 06/11/22 Chief complaint: bp is high amd history of heart attack, vomiting Discharge Providers Provider Date of admission: 06/10/22 12:56 Discharge Date: 06/11/22 Primary care physician: Chepe Poon MD Consults: 06/10/22 13:49 Consult to Tele-senior assistant manager Routine Comment: Consulting Provider: [employer] Reason for consultation: Progressive Care Manager services Has provider been notified: Yes Discharge provider: Mayra Mitchell MD Summary Hospital Course Discharge Diagnosis: Diagnosis responsible for length of stay: Hypertensive emergency Pre admit diagnosis: Hypertensive emergency Nausea Vomiting Headache Diarrhea Post admit diagnoses: None Secondary diagnoses: Allergic rhinitis Anxiety Arthritis of first MTP joint GERD (gastroesophageal reflux disease) Heel spur Hx of right bundle branch block Insomnia Postmenopausal History of arthroscopic knee surgery (2004) History of bilateral tubal ligation 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 Rodriguez is a 76W with PMH recent NSTEMI suspected secondary to hypertensive emergency who presents to the hospital with nausea, vomiting, and a headache. She states she had symptoms starting earlier today with a mild headache, she drank coffee and began having nausea, and vomiting, and also had episodes of diarrhea. Patient's blood pressure was?231/110. ?She was started on IV nicardapine and felt improved and was admitted for further treatment. Once weaned off nicardipine with an increased dose of carvedilol, the patient's blood pressure remained stable however she was hypokalemic. With with past replacement orally, the potassium level stabilized as well. Patient was discharged in a stable condition. Status at Discharge Cognitive/behavioral status at discharge: at baseline, oriented Functional status at discharge: independent ambulation Overall status at discharge: patient is back to baseline Time Spent with Patient Time spent: Greater than 30 minutes Exam Vital Signs (past 8 hours): - 06/11/22 09:40 06/11/22 09:00 06/11/22 10:00 Temperature Pulse Rate 75 74 82 Respiratory Rate 41 H 17 Blood Pressure 174/86 H 174/86 H 188/94 H Pulse Oximetry 97 95 Oxygen Flow Rate 0 0 06/11/22 11:00 06/11/22 12:00 Temperature 98.4 F Pulse Rate 75 72 Respiratory Rate 26 H 20 Blood Pressure 188/84 H 149/69 H Pulse Oximetry 98 96 Oxygen Flow Rate 0 0 Oxygen Delivery Method Room Air Oxygen Flow Rate 0 Narrative Exam Narrative: GEN: in no apparent distress. HEENT: moist mucous membranes, PERRL NECK: trachea midline, no JVD PULM: clear bilaterally, no wheezes, rhonchi, rales CV: normal rate, with no murmurs ABD: soft, nontender, nondistended, no organomegaly, normal bowel sounds EXT: warm and well perfused with no edema NEURO: awake, alert oriented with no focal deficits Objective Labs Result Diagrams: 06/11/22 04:06 06/11/22 15:25 Labs: Laboratory Results - last 24 hr 06/10/22 06/11/22 06/11/22 19:50 04:06 04:06 WBC 10.4 RBC 4.53 Hgb 13.3 Hct 40.3 MCV 89.0 MCH 29.4 MCHC 33.0 RDW 14.2 Plt Count 301 Neut % (Auto) 65.5 Lymph % (Auto) 17.5 L [place] % (Auto) 16.0 H Eos % (Auto) 0.2 L Baso % (Auto) 0.8 Neut # (Auto) 6800 Lymph # (Auto) 1800 [place] # (Auto) 1700 H Eos # (Auto) 0 Baso # (Auto) 100 Sodium 137 Potassium 3.0 L Chloride 101 Carbon Dioxide 26 BUN 13 Creatinine 0.58 Estimated GFR > 60 BUN/Creatinine Ratio 22.4 H Glucose 111 H Calcium 9.0 Total Bilirubin Conjugated Bilirubin Unconjugated Bilirubin AST ALT Alkaline Phosphatase Troponin I 0.022 Total Protein Albumin Globulin Albumin/Globulin Ratio 06/11/22 06/11/22 06/11/22 04:06 06:21 15:25 WBC RBC Hgb Hct MCV MCH MCHC RDW Plt Count Neut % (Auto) Lymph % (Auto) [place] % (Auto) Eos % (Auto) Baso % (Auto) Neut # (Auto) Lymph # (Auto) [place] # (Auto) Eos # (Auto) Baso # (Auto) Sodium 138 Potassium 4.4 D Chloride 101 Carbon Dioxide 29 BUN 10 Creatinine 0.52 Estimated GFR > 60 BUN/Creatinine Ratio 19.2 Glucose 94 Calcium 9.2 Total Bilirubin 0.6 Conjugated Bilirubin 0.0 Unconjugated Bilirubin 0.5 AST 45 H ALT 34 Alkaline Phosphatase 106 Troponin I 0.031 Total Protein 7.3 Albumin 4.0 Globulin 3.3 Albumin/Globulin Ratio 1.2 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) Hx of spinal surgery Status post open reduction with internal fixation (ORIF) of fracture of ankle (01/2001) 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) Status post right knee replacement (10/09/12) Family History Father CAD (coronary artery disease) Grandfather Lung cancer Grandmother CAD (coronary artery disease) Mother CAD (coronary artery disease) Diabetes mellitus Parkinson's disease Grandfather CAD (coronary artery disease) Social History household members: spouse Smoking Status: Former smoker alcohol intake: current Discharge Plan Discharge Plan Patient Disposition: Home Discharge orders & Medications Prescriptions: New gabapentin [Neurontin] 600 mg Tablet 600 mg PO BEDTIME Qty: 30 0RF amlodipine [Norvasc] 5 mg Tablet 10 mg PO DAILY Qty: 30 0RF carvedilol [Coreg] 3.125 mg Tablet 12.5 mg PO BID Qty: 60 0RF Continued venlafaxine 75 mg tablet 75 mg PO DAILY Qty: 90 2RF gabapentin 300 mg capsule 300 mg PO BID Qty: 180 5RF Rx Instructions: Take on capsule at bedtime acyclovir 400 mg tablet 400 mg PO BID Qty: 60 5RF trazodone 100 mg tablet 100 mg PO HS Qty: 90 3RF oxybutynin chloride [Ditropan XL] 10 mg tablet extended release 24hr 10 mg PO QDAY Qty: 90 3RF albuterol sulfate [Ventolin HFA] 90 mcg/actuation HFA aerosol inhaler 2 puff Inhalation Q4H PRN (Reason: shortness of breath or wheezing) Qty: 18 11RF omeprazole 40 mg capsule,delayed release(DR/EC) 40 mg PO QAM PRN (Reason: Reflux) Qty: 30 3RF aspirin 81 mg tablet,delayed release (DR/EC) 81 mg PO DAILY atorvastatin 80 mg tablet 80 mg PO BEDTIME magnesium oxide 400 mg magnesium Tablet 400 mg PO DAILY Discontinued amlodipine 5 mg tablet 2.5 mg PO DAILY carvedilol 3.125 mg tablet 6.25 mg PO BID Rx Instructions: must administer with a meal/food if BP over 160 systolic take 12.5 mg Follow up/Referrals: Chepe Poon MD [Primary Care Provider] - Discharge Data Primary Care Provider: Chepe Poon Quality VTE Deep Vein Thrombosis/Pulmonary Embolism Present on Admission: No
== END 2022-06-11 17:05 | disposition home or self-care (01) | DRG 305 ==
LOC: ED 12:52 → ICU 13:00
PROVIDERS: Neuromusculoskeletal Medicine, Sports Medicine; Nurse Practitioner Family; Admitting Provider Internal Medicine; Emergency Provider Emergency Medicine; PCP Student in an Organized Health Care Education/Training Program; Referring Provider Emergency Medicine; Visit Provider Internal Medicine
DX: I16.1 Hypertensive emergency (principal); I25.10 Atherosclerotic heart disease of native coronary artery without angina pectoris; K21.9 Gastro-esophageal reflux disease without esophagitis; E87.6 Hypokalemia; F41.9 Anxiety disorder, unspecified; I10 Essential (primary) hypertension; Z20.822 Contact with and (suspected) exposure to COVID-19; Z87.891 Personal history of nicotine dependence
CPT/HCPCS: 36415; 70450; 70551; 71045; 71275; 74174; 80048; 80053; 80076; 81001; 82550; 82553; 83690; 83735; 83880; 84484; 85025; 87635; 87797; 93005; 93010; 96365; 96366; 96375; 99285; 99291; C9803; J1650; J2060; J2405; J2765; Q9967

== ENCOUNTER → 2022-07-19 07:12 | Outpatient (CLI) | payer MEDICARE, SELFPAY ==
[2022-06-14 11:31] VITALS: BMI 21.7
[2022-07-19 10:14] LABS: Alanine Aminotransferase 39 IU/L (<35); Albumin 4.2 g/dL (3.5-5.0); Albumin Globulin Ratio 1.3 (1.0-2.8); Alkaline Phosphatase 112 U/L (38-126); Aspartate Aminotransferase 48 IU/L (14-36); Bilirubin Total 0.5 mg/dL (0.2-1.3); Blood Urea Nitrogen 14 mg/dL (7-17); Calcium 9.2 mg/dL (8.4-10.2); Carbon Dioxide 28 mmol/L (22-32); Chloride 103 mmol/L (98-107); Cholesterol 124 mg/dL (140-199); Estimated Glomerular Filt Rate > 60 mL/min (>60); Globulin 3.2 g/dL (1.7-4.1); Glucose 92 mg/dL (80-110); HDL Cholesterol 79 mg/dL (40-60); HEMOLYSIS < 15 (0-50); LDL Cholesterol Calculated 34 mg/dL (<100); Potassium 4.3 mmol/L (3.4-5.1); Sodium 138 mmol/L (137-145); Total Protein 7.4 g/dL (6.3-8.2); Triglycerides 56 mg/dL (35-150)
== END ==
PROVIDERS: PCP Student in an Organized Health Care Education/Training Program; Referring Provider Nurse Practitioner; Visit Provider Nurse Practitioner
DX: I21.4 Non-ST elevation (NSTEMI) myocardial infarction (principal)
CPT/HCPCS: 36415; 80053; 80061

== ENCOUNTER 2022-12-08 08:14 | Inpatient (IN) | payer MEDICARE, SELFPAY ==
[2022-06-14 11:31] VITALS: BMI 21.7
[2022-12-08] VITALS (109 sets, daily range): BP systolic 120–224; BP diastolic 56–137; PULSE 73–119; RESP 0–48; TEMP 36.8–38.3; O2SAT 90–100; BMI 21.8
--- NOTE | 2022-12-08 08:16 | DI.RAD.S_ITS ---
PROCEDURE: XR CHEST 1V INDICATIONS: chest pain TECHNIQUE: One view of the chest was acquired. COMPARISON: [facility], CR, XR CHEST 1V, 06/10/2022, 9:04. FINDINGS: Surgical changes and devices: Shukla rods are seen in the lower lumbar spine. Right shoulder replacement Lungs and pleura: Lungs are clear. No pleural effusions or pneumothorax. Mediastinum: Mediastinal contours appear normal. Heart size is normal. Bones and chest wall: No suspicious bony lesions. Overlying soft tissues appear unremarkable. IMPRESSION: No acute cardiopulmonary abnormality Dictated by: Syed Escudero M.D. on 12/08/2022 at 8:54 Approved by: Syed Escudero M.D. on 12/08/2022 at 8:55
--- NOTE | 2022-12-08 08:16 | DI.RAD.S_ITS ---
PROCEDURE: XR ABDOMEN 1V INDICATIONS: vomiting and ABD pain TECHNIQUE: One view of the abdomen acquired. COMPARISON: None. FINDINGS: Surgical changes and devices: Shukla fixation rods of the thoracic spine are seen. Bowel: Bowel gas pattern is normal. Soft tissues: No suspicious abdominal calcifications. Visualized solid organ contours appear normal in size. Bones: Both hips have degenerative changes with osteoarthritis worst on right. IMPRESSION: No acute bowel gas pattern no evidence of obstruction. No free air. Dictated by: Syed Escudero M.D. on 12/08/2022 at 8:53 Approved by: Syed Escudero M.D. on 12/08/2022 at 8:54
[2022-12-08 08:29] LABS: Add Manual Diff / Slide Review NO; Basophils Absolute Auto 100 /uL (0-100); Basophils Percent Auto 0.5 % (0-2); Eosinophils Absolute Auto 200 /uL (0-450); Hematocrit 44.7 % (36-46); Hemoglobin 15.1 g/dL (12.0-16.0); Lymphocytes Absolute Auto 800 /uL (1100-4500); Lymphocytes Percent Auto 6.9 % (25-40); Mean Corpuscular HGB Conc 33.8 % (30-36); Mean Corpuscular Hemoglobin 29.8 PG (26-34); Mean Corpuscular Volume 88.4 fL (80-100); Monocytes Absolute Auto 1100 /uL (0-900); Monocytes Percent Auto 8.8 % (3-14); Neutrophils Absolute Auto 9900 /uL (1500-7000); Neutrophils Percent Auto 81.8 % (50-75); Platelet Count 248 X10^3/uL (150-400); Red Blood Cell Count 5.06 X10^6/uL (4.0-5.2); Red Cell Distribution Width 13.5 % (11.6-14.8)
[2022-12-08] MEDS: ONDANSETRON 4 MG/2 ML INJ IV ×3 (08:29→20:26)
[2022-12-08] MEDS: ASPIRIN 81 MG CHEW TAB 324 MG PO (08:29)
--- NOTE | 2022-12-08 08:29 | ED.GENADULT ---
HPI - General Adult General Chief complaint: Chest Pain Stated complaint: possible heart attack, constipation, throwing up Time Seen by Provider: 12/08/22 08:15 Source: patient and old records reviewed Mode of arrival: Ambulatory Limitations: no limitations History of Present Illness HPI narrative: Patient is a 77-year-old female. I known history of hypertension and coronary artery disease. She states she woke up this morning feeling constipated. She was sitting on the toilet trying to have a bowel movement which she did have a very small bowel movement then she started having vomiting. She is not having chest pain. No shortness of breath. No lower extremity swelling. She states this is very similar to presentation in February and again in May of last year where she states she was diagnosed with a heart attack. The 1st episode she was sent to [facility] in [place] and the 2nd time she was kept here at this facility. She has seen her primary doctor since then. She is had some adjustments to her blood pressure medications. She is been feeling at her normal state of health until this morning. She is having vomiting. No abdominal pain but does feel like she is constipated. No fevers. She did not take her blood pressure medication this morning because she was throwing up. Related Data Home Medications Medication Instructions Recorded Confirmed aspirin 81 mg tablet,delayed 81 mg PO DAILY 03/19/22 12/08/22 release atorvastatin 80 mg tablet 80 mg PO BEDTIME 03/19/22 12/08/22 magnesium oxide 400 mg PO DAILY 06/10/22 12/08/22 carvedilol 6.25 mg tablet 6.25 mg PO BID 08/05/22 12/08/22 Previous Rx's Medication Instructions Recorded omeprazole 40 mg capsule,delayed 40 mg PO QAM PRN Reflux #30 caps 10/22/18 release acyclovir 400 mg tablet 400 mg PO BID #60 tabs 03/26/22 trazodone 100 mg tablet 100 mg PO HS #90 tabs 03/26/22 oxybutynin chloride 10 mg 10 mg PO QDAY #90 tabs 04/08/22 tablet,extended release 24 hr (Ditropan XL) albuterol sulfate 90 mcg/actuation 2 puff inhalation Q4H PRN 05/06/22 aerosol inhaler (Ventolin HFA) shortness of breath or wheezing #18 grams amlodipine 5 mg tablet (Norvasc) 10 mg PO DAILY #30 tabs 06/11/22 gabapentin 300 mg capsule 300 mg PO BID #180 caps 08/05/22 venlafaxine 75 mg tablet 75 mg PO DAILY #90 tabs 08/22/22 Allergies Allergy/AdvReac Type Severity Reaction Status Date / Time hydrocodone AdvReac Mild DIDN'T Verified 11/27/22 10:19 WORK WELL AND KEPT ME AWAKE Review of Systems Review of Systems ROS Unobtainable: All systems reviewed & are unremarkable except as noted in HPI and below 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) Hx of spinal surgery Status post open reduction with internal fixation (ORIF) of fracture of ankle (01/2001) 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) Status post right knee replacement (10/09/12) Family History Father CAD (coronary artery disease) Grandfather Lung cancer Grandmother CAD (coronary artery disease) Mother CAD (coronary artery disease) Diabetes mellitus Parkinson's disease Grandfather CAD (coronary artery disease) Social History household members: spouse Smoking Status: Former smoker alcohol intake: current Smoking Status: Former smoker alcohol intake frequency: 0-2 drinks per day Alcohol type: beer Substance Use Type: marijuana Exam Initial Vital Signs Initial Vital Signs: Vital Signs Temperature 98.7 F 12/08/22 08:27 Pulse Rate 78 12/08/22 08:27 Respiratory Rate 20 12/08/22 08:27 Blood Pressure 221/112 H 12/08/22 08:27 Pulse Oximetry 97 12/08/22 08:27 Oxygen Delivery Method Room Air 12/08/22 08:27 Const General: cooperative, comfortable and No ill appearing HENMT Head: normal to inspection and normocephalic Resp Effort & Inspection: normal respiratory effort Auscultation: clear to auscultation bilaterally Cardio Rate: regular rate Rhythm: regular rhythm GI Inspection: normal to inspection and non-distended Palpation: soft Skin General: no rashes or lesions noted Neuro General: patient alert, patient awake, patient oriented x3 and moves all extremities Extrem General: No edema Course Orders Ordered: ED Orders 12/08/22 08:56 Urine Microscopic Stat 12/08/22 08:58 EKG-12 Lead Stat 12/08/22 10:30 Troponin & CK Cardiac Panel Stat 12/08/22 14:55 Troponin & CK Cardiac Panel Stat 12/08/22 15:09 EC echo doppler complete Urgent 12/09/22 05:00 BMP [Basic Metabolic Panel] DAILY CBC Auto Diff [Complete Blood Count AUTO DIFF] DAILY 12/10/22 05:00 BMP [Basic Metabolic Panel] DAILY CBC Auto Diff [Complete Blood Count AUTO DIFF] DAILY 12/11/22 05:00 BMP [Basic Metabolic Panel] DAILY CBC Auto Diff [Complete Blood Count AUTO DIFF] DAILY Acetaminophen (Acetaminophen 325 Mg Tablet) 650 mg PO Q6H PRN PRN Reason: Fever/Mild Pain (1-3) Amlodipine Besylate (Amlodipine 5 Mg Tablet) 10 mg PO DAILY [facility] Aspirin (Aspirin Ec 81 Mg Tablet) 81 mg PO DAILY [facility] Atorvastatin Calcium (Atorvastatin 20 Mg Tablet) 80 mg PO BEDTIME [place] Carvedilol (Carvedilol 12.5 Mg Tablet) 12.5 mg PO BID [facility] Enoxaparin Sodium (Enoxaparin 40 Mg/0.4 Ml Syringe) 40 mg SUBCUT DAILY [facility] Gabapentin (Gabapentin 300 Mg Capsule) 300 mg PO BID [facility] Nicardipine HCl 25 mg/ Sodium (Chloride) 250 mls @ 50 mls/hr IV TITRATE [place]; Protocol Last Titration: 12/08/22 16:35 Dose: 5 mg/hr, 50 mls/hr Documented By: Titration: 12/08/22 14:47 Dose: 5 mg/hr, 50 mls/hr Documented By: Titration: 12/08/22 10:32 Dose: 0 mg/hr, 0 mls/hr Documented By: Admin: 12/08/22 08:39 Dose: 5 mg/hr, 50 mls/hr Documented By: JANET Losartan Potassium (Losartan 25 Mg Tablet) 25 mg PO BID [place] Magnesium Oxide (Magnesium Oxide 400 Mg Tablet) 400 mg PO DAILY [place] Melatonin (Melatonin 3 Mg Tablet) 6 mg PO BEDTIME PRN PRN Reason: Insomnia Metoclopramide HCl (Metoclopramide 10 Mg/2 Ml Inj) 10 mg IV Q6HR PRN PRN Reason: Nausea And Vomiting Last Admin: 12/08/22 17:18 Dose: 10 mg Documented By: LEIGHTON Naloxone HCl (Naloxone 0.4 Mg/Ml Vial) 0.2 mg IV Q2MIN PRN PRN Reason: Opiate Reversal Ondansetron HCl (Ondansetron 4 Mg/2 Ml Inj) 4 mg IV Q4HR PRN PRN Reason: Nausea And Vomiting Oxybutynin Chloride (Oxybutynin 5 Mg Er Tab) 10 mg PO DAILY [facility] Pantoprazole Sodium (Pantoprazole Dr 40 Mg Tablet) 40 mg PO 0600 [facility] Polyethylene Glycol (Polyethylene Glycol 3350 17 Gm Powd.Pack) 17 gm PO DAILY PRN PRN Reason: Constipation Sennosides (Sennosides 8.6 Mg Tablet) 8.6 mg PO BID PRN PRN Reason: Constipation Spironolactone (Spironolactone 25 Mg Tablet) 25 mg PO DAILY [facility] Trazodone HCl (Trazodone 50 Mg Tablet) 100 mg PO BEDTIME [place] Venlafaxine HCl (Venlafaxine 37.5 Mg Tablet) 75 mg PO DAILY [facility] Discontinued Medications Aspirin (Aspirin 81 Mg Chew Tab) 324 mg PO NOW ONE Stop: 12/08/22 08:21 Last Admin: 12/08/22 08:29 Dose: 324 mg Documented By: JANET Carvedilol (Carvedilol 12.5 Mg Tablet) 12.5 mg PO NOW ONE Stop: 12/08/22 13:13 Last Admin: 12/08/22 13:27 Dose: 12.5 mg Documented By: TEZ Lorazepam (Lorazepam 2 Mg/Ml Inj) 1 mg IV NOW ONE Stop: 12/08/22 10:34 Last Admin: 12/08/22 10:48 Dose: 1 mg Documented By: JANET Losartan Potassium (Losartan 25 Mg Tablet) 12.5 mg PO NOW ONE Stop: 12/08/22 13:13 Last Admin: 12/08/22 13:26 Dose: 12.5 mg Documented By: TEZ Metoclopramide HCl (Metoclopramide 10 Mg/2 Ml Inj) 10 mg IV NOW ONE Stop: 12/08/22 09:30 Last Admin: 12/08/22 09:44 Dose: 10 mg Documented By: JANET Ondansetron HCl (Ondansetron 4 Mg/2 Ml Inj) 4 mg IV NOW ONE Stop: 12/08/22 08:16 Last Admin: 12/08/22 08:29 Dose: 4 mg Documented By: JANET Ondansetron HCl (Ondansetron 4 Mg/2 Ml Inj) 4 mg IV NOW ONE Stop: 12/08/22 08:56 Last Admin: 12/08/22 09:08 Dose: 4 mg Documented By: JANET Spironolactone (Spironolactone 25 Mg Tablet) 12.5 mg PO NOW ONE Stop: 12/08/22 13:13 Last Admin: 12/08/22 13:28 Dose: 12.5 mg Documented By: TEZ Vital Signs Vital signs: Vital Signs - 8 hr 12/08/22 09:29 12/08/22 09:29 12/08/22 09:30 Pulse Rate 88 92 H Respiratory Rate 25 H 36 H Blood Pressure 162/85 H Pulse Oximetry 98 97 12/08/22 09:43 12/08/22 09:43 12/08/22 09:44 Pulse Rate 81 Respiratory Rate 12 Blood Pressure 173/79 H 166/79 H Pulse Oximetry 99 12/08/22 09:44 12/08/22 09:48 12/08/22 09:48 Pulse Rate 85 88 Respiratory Rate 18 20 Blood Pressure 164/81 H Pulse Oximetry 100 99 12/08/22 10:00 12/08/22 10:00 12/08/22 10:04 Pulse Rate 100 H Respiratory Rate Blood Pressure 166/98 H 173/92 H Pulse Oximetry 97 12/08/22 10:04 12/08/22 10:09 12/08/22 10:09 Pulse Rate 98 H 97 H Respiratory Rate 9 L 14 Blood Pressure 170/91 H Pulse Oximetry 97 97 12/08/22 10:16 12/08/22 10:16 12/08/22 10:26 Pulse Rate 101 H Respiratory Rate 34 H Blood Pressure 136/92 H 132/90 Pulse Oximetry 95 12/08/22 10:26 12/08/22 10:28 12/08/22 10:28 Pulse Rate 103 H 100 H Respiratory Rate 38 H Blood Pressure 146/89 H Pulse Oximetry 90 L 95 12/08/22 10:30 12/08/22 10:32 12/08/22 10:36 Pulse Rate 96 H 93 H Respiratory Rate 14 Blood Pressure 160/89 H Pulse Oximetry 97 98 12/08/22 10:36 12/08/22 10:40 12/08/22 10:40 Pulse Rate 97 H 92 H Respiratory Rate 11 L Blood Pressure 159/91 H Pulse Oximetry 97 97 12/08/22 10:44 12/08/22 10:44 12/08/22 10:48 Pulse Rate 92 H Respiratory Rate 10 L Blood Pressure 161/89 H 162/89 H Pulse Oximetry 95 12/08/22 10:48 12/08/22 10:52 12/08/22 10:52 Pulse Rate 92 H 89 Respiratory Rate 16 12 Blood Pressure 163/89 H Pulse Oximetry 97 97 12/08/22 10:56 12/08/22 10:56 12/08/22 11:00 Pulse Rate 89 Respiratory Rate 19 Blood Pressure 169/85 H 159/86 H Pulse Oximetry 91 12/08/22 11:00 12/08/22 11:04 12/08/22 11:04 Pulse Rate 89 87 Respiratory Rate 25 H 22 Blood Pressure 153/81 H Pulse Oximetry 92 94 12/08/22 11:08 12/08/22 11:08 12/08/22 11:12 Pulse Rate 87 Respiratory Rate 31 H Blood Pressure 159/82 H 152/75 H Pulse Oximetry 93 12/08/22 11:12 12/08/22 11:16 12/08/22 11:16 Pulse Rate 89 87 Respiratory Rate 30 H 21 Blood Pressure 162/79 H Pulse Oximetry 94 95 12/08/22 11:20 12/08/22 11:20 12/08/22 11:24 Pulse Rate 87 Respiratory Rate 25 H Blood Pressure 161/79 H 154/77 H Pulse Oximetry 95 12/08/22 11:24 12/08/22 11:28 12/08/22 11:28 Pulse Rate 85 87 Respiratory Rate 20 31 H Blood Pressure 128/70 Pulse Oximetry 96 95 12/08/22 11:30 12/08/22 11:32 12/08/22 11:32 Pulse Rate 86 86 Respiratory Rate 20 13 Blood Pressure 161/82 H Pulse Oximetry 96 96 12/08/22 11:36 12/08/22 11:36 12/08/22 11:40 Pulse Rate 87 Respiratory Rate 23 Blood Pressure 163/84 H 163/91 H Pulse Oximetry 94 12/08/22 11:40 12/08/22 11:44 12/08/22 11:44 Pulse Rate 87 86 Respiratory Rate 22 22 Blood Pressure 160/90 H Pulse Oximetry 96 95 12/08/22 11:48 12/08/22 11:48 12/08/22 11:52 Pulse Rate 87 87 Respiratory Rate 26 H 20 Blood Pressure 164/90 H Pulse Oximetry 95 97 12/08/22 11:52 12/08/22 11:56 12/08/22 11:56 Pulse Rate 87 Respiratory Rate 34 H Blood Pressure 160/91 H 180/86 H Pulse Oximetry 93 12/08/22 12:00 12/08/22 12:00 12/08/22 12:04 Pulse Rate 84 86 Respiratory Rate 19 Blood Pressure 170/78 H Pulse Oximetry 94 95 12/08/22 12:04 12/08/22 12:08 12/08/22 12:08 Pulse Rate 87 Respiratory Rate 38 H Blood Pressure 169/82 H 171/84 H Pulse Oximetry 94 12/08/22 12:12 12/08/22 12:12 12/08/22 12:16 Pulse Rate 86 87 Respiratory Rate 30 H 27 H Blood Pressure 170/83 H Pulse Oximetry 95 96 12/08/22 12:16 12/08/22 12:25 12/08/22 12:25 Pulse Rate 90 Respiratory Rate 13 Blood Pressure 172/87 H 182/86 H Pulse Oximetry 96 12/08/22 12:30 12/08/22 12:35 12/08/22 12:35 Pulse Rate 87 88 Respiratory Rate 24 12 Blood Pressure 174/82 H Pulse Oximetry 93 96 12/08/22 12:40 12/08/22 12:40 12/08/22 13:26 Pulse Rate 88 89 Respiratory Rate 15 Blood Pressure 182/86 H 171/83 H Pulse Oximetry 96 12/08/22 13:27 12/08/22 13:00 12/08/22 13:00 Pulse Rate 89 87 Respiratory Rate 15 Blood Pressure 171/83 H 181/86 H Pulse Oximetry 95 12/08/22 13:20 12/08/22 13:20 12/08/22 13:30 Pulse Rate 86 91 H Respiratory Rate 24 19 Blood Pressure 171/83 H Pulse Oximetry 92 95 12/08/22 13:41 12/08/22 13:41 12/08/22 14:00 Pulse Rate 93 H Respiratory Rate 20 Blood Pressure 224/112 H 178/81 H Pulse Oximetry 96 12/08/22 14:00 12/08/22 14:20 12/08/22 14:20 Pulse Rate 93 H 97 H Respiratory Rate 18 16 Blood Pressure 184/85 H Pulse Oximetry 94 95 12/08/22 14:30 12/08/22 14:40 12/08/22 14:40 Pulse Rate 92 H 91 H Respiratory Rate 14 27 H Blood Pressure 186/137 H Pulse Oximetry 93 96 12/08/22 14:51 12/08/22 14:51 12/08/22 14:55 Pulse Rate 87 Respiratory Rate 11 L Blood Pressure 200/119 H 204/101 H Pulse Oximetry 96 12/08/22 14:55 12/08/22 15:00 12/08/22 15:00 Pulse Rate 88 92 H Respiratory Rate 16 26 H Blood Pressure 204/101 H Pulse Oximetry 96 92 12/08/22 15:05 12/08/22 15:05 Pulse Rate 94 H Respiratory Rate 17 Blood Pressure 190/91 H Pulse Oximetry 94 Medical Decision Making Medical Records Medical records reviewed: Yes I reviewed the patient's medical records. Lab Data Lab results reviewed: Yes I reviewed the patient's lab results. 12/08/22 08:22 12/08/22 08:22 Labs: Lab Results 12/08/22 12/08/22 12/08/22 Range/Units 08:22 08:22 08:22 WBC 12.0 H (4.5-11.0) X10^3/uL RBC 5.06 (4.0-5.2) X10^6/uL Hgb 15.1 (12.0-16.0) g/dL Hct 44.7 (36-46) % MCV 88.4 (80-100) fL MCH 29.8 (26-34) PG MCHC 33.8 (30-36) % RDW 13.5 (11.6-14.8) % Plt Count 248 (150-400) X10^3/uL Neut % (Auto) 81.8 H (50-75) % Lymph % (Auto) 6.9 L (25-40) % Wirt % (Auto) 8.8 (3-14) % Eos % (Auto) 2.0 (2-4) % Baso % (Auto) 0.5 (0-2) % Neut # (Auto) 9900 H (9968-2324) /uL Lymph # (Auto) 800 L (7524-9952) /uL Wirt # (Auto) 1100 H (0-900) /uL Eos # (Auto) 200 (0-450) /uL Baso # (Auto) 100 (0-100) /uL Sodium 138 (137-145) mmol/L Potassium 3.7 (3.4-5.1) mmol/L Chloride 102 (98-107) mmol/L Carbon Dioxide 31 (22-32) mmol/L BUN 13 (7-17) mg/dL Creatinine 0.53 (0.52-1.04) mg/dL Estimated GFR > 60 (>60) mL/min BUN/Creatinine Ratio 24.5 H (6-22) Glucose 120 H (80-110) mg/dL Calcium 9.1 (8.4-10.2) mg/dL Magnesium 1.9 (1.6-2.3) mg/dL Total Bilirubin 0.8 (0.2-1.3) mg/dL AST 46 H (14-36) IU/L ALT 43 H (<35) IU/L Alkaline Phosphatase 133 H (38-126) U/L Total Creatine Kinase 342 H (30-135) U/L CK-MB (CK-2) 20.80 H (<2.37) ng/mL CK-MB (CK-2) Rel Index 6.1 H* (1.5-5.0) % Troponin I < 0.012 (0.01-0.034) ng/mL Total Protein 8.2 (6.3-8.2) g/dL Albumin 4.5 (3.5-5.0) g/dL Globulin 3.7 (1.7-4.1) g/dL Albumin/Globulin Ratio 1.2 (1.0-2.8) Lipase 101 (23-300) U/L TSH 3.29 (0.47-4.68) uIU/mL Urine RBC (0-5/HPF) Urine WBC (0-5/HPF) Ur Squamous Epith Cells (0-5/HPF) Amorphous Sediment Urine Bacteria (None) Ur Culture Indicated? SARS-CoV-2 (PCR) (Negative) 12/08/22 12/08/22 12/08/22 Range/Units 08:25 08:56 10:30 WBC (4.5-11.0) X10^3/uL RBC (4.0-5.2) X10^6/uL Hgb (12.0-16.0) g/dL Hct (36-46) % MCV (80-100) fL MCH (26-34) PG MCHC (30-36) % RDW (11.6-14.8) % Plt Count (150-400) X10^3/uL Neut % (Auto) (50-75) % Lymph % (Auto) (25-40) % Wirt % (Auto) (3-14) % Eos % (Auto) (2-4) % Baso % (Auto) (0-2) % Neut # (Auto) (7736-9308) /uL Lymph # (Auto) (2528-7045) /uL Wirt # (Auto) (0-900) /uL Eos # (Auto) (0-450) /uL Baso # (Auto) (0-100) /uL Sodium (137-145) mmol/L Potassium (3.4-5.1) mmol/L Chloride (98-107) mmol/L Carbon Dioxide (22-32) mmol/L BUN (7-17) mg/dL Creatinine (0.52-1.04) mg/dL Estimated GFR (>60) mL/min BUN/Creatinine Ratio (6-22) Glucose (80-110) mg/dL Calcium (8.4-10.2) mg/dL Magnesium (1.6-2.3) mg/dL Total Bilirubin (0.2-1.3) mg/dL AST (14-36) IU/L ALT (<35) IU/L Alkaline Phosphatase (38-126) U/L Total Creatine Kinase 340 H (30-135) U/L CK-MB (CK-2) 19.90 H (<2.37) ng/mL CK-MB (CK-2) Rel Index 5.9 H (1.5-5.0) % Troponin I < 0.012 (0.01-0.034) ng/mL Total Protein (6.3-8.2) g/dL Albumin (3.5-5.0) g/dL Globulin (1.7-4.1) g/dL Albumin/Globulin Ratio (1.0-2.8) Lipase (23-300) U/L TSH (0.47-4.68) uIU/mL Urine RBC 0-1/hpf (0-5/HPF) Urine WBC 0-1/hpf (0-5/HPF) Ur Squamous Epith Cells 0-1 /hpf (0-5/HPF) Amorphous Sediment 2+ Urine Bacteria None seen (None) Ur Culture Indicated? Cult not indicated SARS-CoV-2 (PCR) Negative (Negative) 12/08/22 Range/Units 14:55 WBC (4.5-11.0) X10^3/uL RBC (4.0-5.2) X10^6/uL Hgb (12.0-16.0) g/dL Hct (36-46) % MCV (80-100) fL MCH (26-34) PG MCHC (30-36) % RDW (11.6-14.8) % Plt Count (150-400) X10^3/uL Neut % (Auto) (50-75) % Lymph % (Auto) (25-40) % Wirt % (Auto) (3-14) % Eos % (Auto) (2-4) % Baso % (Auto) (0-2) % Neut # (Auto) (0544-8893) /uL Lymph # (Auto) (9750-9087) /uL Wirt # (Auto) (0-900) /uL Eos # (Auto) (0-450) /uL Baso # (Auto) (0-100) /uL Sodium (137-145) mmol/L Potassium (3.4-5.1) mmol/L Chloride (98-107) mmol/L Carbon Dioxide (22-32) mmol/L BUN (7-17) mg/dL Creatinine (0.52-1.04) mg/dL Estimated GFR (>60) mL/min BUN/Creatinine Ratio (6-22) Glucose (80-110) mg/dL Calcium (8.4-10.2) mg/dL Magnesium (1.6-2.3) mg/dL Total Bilirubin (0.2-1.3) mg/dL AST (14-36) IU/L ALT (<35) IU/L Alkaline Phosphatase (38-126) U/L Total Creatine Kinase 255 H (30-135) U/L CK-MB (CK-2) 13.40 H (<2.37) ng/mL CK-MB (CK-2) Rel Index 5.3 H (1.5-5.0) % Troponin I < 0.012 (0.01-0.034) ng/mL Total Protein (6.3-8.2) g/dL Albumin (3.5-5.0) g/dL Globulin (1.7-4.1) g/dL Albumin/Globulin Ratio (1.0-2.8) Lipase (23-300) U/L TSH (0.47-4.68) uIU/mL Urine RBC (0-5/HPF) Urine WBC (0-5/HPF) Ur Squamous Epith Cells (0-5/HPF) Amorphous Sediment Urine Bacteria (None) Ur Culture Indicated? SARS-CoV-2 (PCR) (Negative) Urine Dip Bedside Urine Glucose Negative Bedside Urine Bilirubin - Negative Urine Specific [place] 1.015 Bedside Urine Occult Blood +/- Bedside Urine pH 7.5 Bedside Urine Protein +/- 15 Bedside Urine Urobilinogen - Negative Bedside Urine Nitrite - Negative Bedside Urine Leukocytes - Negative Esterase Point of care testing: Urine Dip Bedside Urine Glucose Negative Bedside Urine Bilirubin - Negative Urine Specific [place] 1.015 Bedside Urine Occult Blood +/- Bedside Urine pH 7.5 Bedside Urine Protein +/- 15 Bedside Urine Urobilinogen - Negative Bedside Urine Nitrite - Negative Bedside Urine Leukocytes - Negative Esterase Imaging Data Abdominal x-ray: Radiologist's Impression: PROCEDURE:? XR ABDOMEN 1V ? INDICATIONS:? vomiting and ABD pain ? TECHNIQUE:? One view of the abdomen acquired.? ? COMPARISON:? None. ? FINDINGS:? ? Surgical changes and devices:? Shukla fixation rods of the thoracic spine are seen. ? Bowel:? Bowel gas pattern is normal.? ? Soft tissues:? No suspicious abdominal calcifications.? Visualized solid organ contours appear normal in size.? ? Bones:? Both hips have degenerative changes with osteoarthritis worst on right. ? IMPRESSION:? No acute bowel gas pattern no evidence of obstruction.? No free air. Chest x-ray: Radiologist's Impression: PROCEDURE:? XR CHEST 1V ? INDICATIONS:? chest pain ? TECHNIQUE:? One view of the chest was acquired.? ? COMPARISON:? [facility], CR, XR CHEST 1V, 06/10/2022, 9:04. ? FINDINGS:? ? Surgical changes and devices:? Shukla rods are seen in the lower lumbar spine.? Right shoulder replacement ? Lungs and pleura:? Lungs are clear.? No pleural effusions or pneumothorax.? ? Mediastinum:? Mediastinal contours appear normal.? Heart size is normal.? ? Bones and chest wall:? No suspicious bony lesions.? Overlying soft tissues appear unremarkable.? ? IMPRESSION:? No acute cardiopulmonary abnormality ? ECG Data Attestation: I personally reviewed and interpreted this ECG as follows: Prior ECG tracings: available for review Interpretation: Sinus rhythm Ventricular rate is 70 Incomplete right bundle-branch block QRS 112 milliseconds Left anterior fascicular block Inverted T-waves V2 No ST elevations Very similar to EKG performed in May of 2022 although the inverted T-wave in V2 today is new. The incomplete right bundle-branch block in the left anterior fascicular block are not new. MDM Narrative Medical decision making narrative: Medical record review shows that the patient had a coronary angiography on March 16, 2022. Has 70% focal mid RCA and a 30% proximal OM1 stenosis was found. No intervention made at that time. No stents placed. Medical management was recommended by Cardiology. She also had an echocardiogram on that same day which showed an ejection fraction of 60-65% with mild inferior hypokinesis otherwise relatively unremarkable Patient presents today very similar to her last 2 episodes of what turned out to be hypertensive emergency. Patient's blood pressure did improve with a nicardipine drip and this improved her vomiting. She also received Ativan which probably helped as well. She is not had any chest pain or shortness of breath. I did discuss the case with Dr. Shaikh who is on-call for the patient's cardiology group. He recommended increasing her carvedilol in adding 12.5 mg of spironolactone in the morning and 12.5 mg of losartan twice a day. We did give the patient these medications orally. She did vomit afterwards but did not appear to vomit these medications up. She then became hypertensive again and started vomiting once again. She was started back on a nicardipine drip. Because of this patient does require admission to the hospital. Discussed the case with Dr. Joseph on-call for hospitalist Medicine who will admit for further evaluation treatment. Discussed the need for admission with the family. They expressed understanding and agreement. Discharge Plan Departure Patient Disposition: Admitted As Inpatient Clinical Impression: Hypertensive emergency Admit Date/Time: 12/08/22 15:06 Admit Provider: Jamie Joseph
[2022-12-08] MEDS: NICARDIPINE 25 MG in SODIUM CHLORIDE 0.9% 240 ML 50 MG IV ×2 (08:39→18:16)
[2022-12-08 08:40] LABS: Alanine Aminotransferase 43 IU/L (<35); Albumin 4.5 g/dL (3.5-5.0); Albumin Globulin Ratio 1.2 (1.0-2.8); Alkaline Phosphatase 133 U/L (38-126); Aspartate Aminotransferase 46 IU/L (14-36); BUN Creatinine Ratio 24.5 (6-22); Bilirubin Total 0.8 mg/dL (0.2-1.3); Blood Urea Nitrogen 13 mg/dL (7-17); Calcium 9.1 mg/dL (8.4-10.2); Carbon Dioxide 31 mmol/L (22-32); Chloride 102 mmol/L (98-107); Creatine Kinase 342 U/L (30-135); Estimated Glomerular Filt Rate > 60 mL/min (>60); Globulin 3.7 g/dL (1.7-4.1); Glucose 120 mg/dL (80-110); HEMOLYSIS < 15 (0-50); Lipase 101 U/L (23-300); Magnesium 1.9 mg/dL (1.6-2.3); Potassium 3.7 mmol/L (3.4-5.1); Sodium 138 mmol/L (137-145); Total Protein 8.2 g/dL (6.3-8.2)
[2022-12-08 08:52] LABS: Troponin I < 0.012 ng/mL (0.01-0.034)
[2022-12-08 09:00] LABS: CKMB % Relative Index 6.1 % (1.5-5.0)
[2022-12-08 09:17] LABS: COVID19 -Nasal RAPID Negative (Negative)
[2022-12-08] MEDS: METOCLOPRAMIDE 10 MG/2 ML INJ IV ×2 (09:44→17:18)
[2022-12-08 09:49] LABS: Amorphous Sediment Urine 2+; Bacteria Urine None Seen; Culture Indicated Urine Cult Not Indicated; RBC Urine 0-1/HPF (0-5/HPF); Squamous Epithelial Cell Urine 0-1 /HPF (0-5/HPF); WBC Urine 0-1/HPF (0-5/HPF)
[2022-12-08] MEDS: LORazepam 2 MG/ML INJ 1 MG IV (10:48)
[2022-12-08 10:52] LABS: Creatine Kinase 340 U/L (30-135)
[2022-12-08 11:03] LABS: Troponin I < 0.012 ng/mL (0.01-0.034)
[2022-12-08 11:07] LABS: CKMB % Relative Index 5.9 % (1.5-5.0)
[2022-12-08] MEDS: LOSARTAN 25 MG TABLET 12.5 MG PO (13:26)
[2022-12-08] MEDS: carvediloL 12.5 MG TABLET PO (13:27)
[2022-12-08] MEDS: SPIRONOLACTONE 25 MG TABLET 12.5 MG PO (13:28)
[2022-12-08 15:12] LABS: Creatine Kinase 255 U/L (30-135)
--- NOTE | 2022-12-08 15:13 | P.HP_ITS ---
History of Present Illness History of Present Illness Date Patient Seen: 12/08/22 Time Patient Seen: 17:45 Chief complaint: possible heart attack, constipation, throwing up Narrative: Jodie Rodriguez is a 77yo F with PMH of CAD, GERD, HTN, depression and insomnia who presents with hypertensive emergency. Patient states she was feeling fine until this morning when she woke up with constant NV and dry-heaving. Says she felt this way during her last 2 prior heart attacks in February and May 2022. She had a cath after her first heart attack which showed non-occlusive CAD and medical management alone recommended. She also feels constipated and her last BM was today but small and hard. Notes some lower quadrant belly pain due to the wretching. No CP. In the ED found to have BP of 221/112. Nicardipine drip started. Cardiology called who recommended addition of losartan and aldactone to her home BP meds. Trops were neg x2. EKG without ST changes. 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) Hx of spinal surgery Status post open reduction with internal fixation (ORIF) of fracture of ankle (01/2001) 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) Status post right knee replacement (10/09/12) Family History Father CAD (coronary artery disease) Grandfather Lung cancer Grandmother CAD (coronary artery disease) Mother CAD (coronary artery disease) Diabetes mellitus Parkinson's disease Grandfather CAD (coronary artery disease) Social History household members: spouse Smoking Status: Former smoker alcohol intake: current Meds Home Medications and Allergies Home Medications Medication Instructions Recorded Confirmed Type omeprazole 40 mg capsule,delayed 40 mg PO QAM PRN Reflux #30 caps 10/22/18 12/08/22 Rx release aspirin 81 mg tablet,delayed 81 mg PO DAILY 03/19/22 12/08/22 History release atorvastatin 80 mg tablet 80 mg PO BEDTIME 03/19/22 12/08/22 History acyclovir 400 mg tablet 400 mg PO BID #60 tabs 03/26/22 12/08/22 Rx trazodone 100 mg tablet 100 mg PO HS #90 tabs 03/26/22 12/08/22 Rx oxybutynin chloride 10 mg 10 mg PO QDAY #90 tabs 04/08/22 12/08/22 Rx tablet,extended release 24 hr (Ditropan XL) albuterol sulfate 90 mcg/actuation 2 puff inhalation Q4H PRN 05/06/22 12/08/22 Rx aerosol inhaler (Ventolin HFA) shortness of breath or wheezing #18 grams magnesium oxide 400 mg PO DAILY 06/10/22 12/08/22 History amlodipine 5 mg tablet (Norvasc) 10 mg PO DAILY #30 tabs 06/11/22 12/08/22 Rx carvedilol 6.25 mg tablet 6.25 mg PO BID 08/05/22 12/08/22 History gabapentin 300 mg capsule 300 mg PO BID #180 caps 08/05/22 12/08/22 Rx venlafaxine 75 mg tablet 75 mg PO DAILY #90 tabs 08/22/22 12/08/22 Rx Allergies Allergy/AdvReac Type Severity Reaction Status Date / Time hydrocodone AdvReac Mild DIDN'T Verified 11/27/22 10:19 WORK WELL AND KEPT ME AWAKE Review of Systems Review of Systems Narrative: All other systems reviewed with the patient and are negative unless otherwise stated. Exam Vital Signs (past 8 hours): - 12/08/22 08:27 12/08/22 08:40 12/08/22 08:43 Temperature 98.7 F Pulse Rate 78 81 74 Respiratory Rate 20 20 17 Blood Pressure 221/112 H Pulse Oximetry 97 98 97 Oxygen Delivery Method Room Air 12/08/22 08:44 12/08/22 08:44 12/08/22 08:46 Temperature Pulse Rate 73 Respiratory Rate 21 Blood Pressure 190/94 H 190/94 H Pulse Oximetry 97 Oxygen Delivery Method 12/08/22 08:46 12/08/22 08:48 12/08/22 08:48 Temperature Pulse Rate 74 77 Respiratory Rate 15 15 Blood Pressure 186/99 H Pulse Oximetry 98 99 Oxygen Delivery Method 12/08/22 08:59 12/08/22 08:59 12/08/22 09:00 Temperature Pulse Rate 83 Respiratory Rate 9 L Blood Pressure 195/92 H 194/88 H Pulse Oximetry 96 Oxygen Delivery Method 12/08/22 09:00 12/08/22 09:04 12/08/22 09:04 Temperature Pulse Rate 82 81 Respiratory Rate 9 L 9 L Blood Pressure 176/82 H Pulse Oximetry 97 98 Oxygen Delivery Method 12/08/22 09:08 12/08/22 09:08 12/08/22 09:12 Temperature Pulse Rate 78 87 Respiratory Rate 16 22 Blood Pressure 181/91 H Pulse Oximetry 99 98 Oxygen Delivery Method 12/08/22 09:12 12/08/22 09:16 12/08/22 09:16 Temperature Pulse Rate 91 H Respiratory Rate 35 H Blood Pressure 175/80 H 173/82 H Pulse Oximetry 99 Oxygen Delivery Method 12/08/22 09:20 12/08/22 09:20 12/08/22 09:24 Temperature Pulse Rate 85 Respiratory Rate 31 H Blood Pressure 169/81 H 161/73 H Pulse Oximetry 99 Oxygen Delivery Method 12/08/22 09:24 12/08/22 09:29 12/08/22 09:29 Temperature Pulse Rate 81 88 Respiratory Rate 11 L 25 H Blood Pressure 162/85 H Pulse Oximetry 99 98 Oxygen Delivery Method 12/08/22 09:30 12/08/22 09:43 12/08/22 09:43 Temperature Pulse Rate 92 H 81 Respiratory Rate 36 H 12 Blood Pressure 173/79 H Pulse Oximetry 97 99 Oxygen Delivery Method 12/08/22 09:44 12/08/22 09:44 12/08/22 09:48 Temperature Pulse Rate 85 Respiratory Rate 18 Blood Pressure 166/79 H 164/81 H Pulse Oximetry 100 Oxygen Delivery Method 12/08/22 09:48 12/08/22 10:00 12/08/22 10:00 Temperature Pulse Rate 88 100 H Respiratory Rate 20 Blood Pressure 166/98 H Pulse Oximetry 99 97 Oxygen Delivery Method 12/08/22 10:04 12/08/22 10:04 12/08/22 10:09 Temperature Pulse Rate 98 H Respiratory Rate 9 L Blood Pressure 173/92 H 170/91 H Pulse Oximetry 97 Oxygen Delivery Method 12/08/22 10:09 12/08/22 10:16 12/08/22 10:16 Temperature Pulse Rate 97 H 101 H Respiratory Rate 14 34 H Blood Pressure 136/92 H Pulse Oximetry 97 95 Oxygen Delivery Method 12/08/22 10:26 12/08/22 10:26 12/08/22 10:28 Temperature Pulse Rate 103 H Respiratory Rate 38 H Blood Pressure 132/90 146/89 H Pulse Oximetry 90 L Oxygen Delivery Method 12/08/22 10:28 12/08/22 10:30 12/08/22 10:32 Temperature Pulse Rate 100 H 96 H 93 H Respiratory Rate 14 Blood Pressure Pulse Oximetry 95 97 98 Oxygen Delivery Method 12/08/22 10:36 12/08/22 10:36 12/08/22 10:40 Temperature Pulse Rate 97 H Respiratory Rate Blood Pressure 160/89 H 159/91 H Pulse Oximetry 97 Oxygen Delivery Method 12/08/22 10:40 12/08/22 10:44 12/08/22 10:44 Temperature Pulse Rate 92 H 92 H Respiratory Rate 11 L 10 L Blood Pressure 161/89 H Pulse Oximetry 97 95 Oxygen Delivery Method 12/08/22 10:48 12/08/22 10:48 12/08/22 10:52 Temperature Pulse Rate 92 H 89 Respiratory Rate 16 12 Blood Pressure 162/89 H Pulse Oximetry 97 97 Oxygen Delivery Method 12/08/22 10:52 12/08/22 10:56 12/08/22 10:56 Temperature Pulse Rate 89 Respiratory Rate 19 Blood Pressure 163/89 H 169/85 H Pulse Oximetry 91 Oxygen Delivery Method 12/08/22 11:00 12/08/22 11:00 12/08/22 11:04 Temperature Pulse Rate 89 Respiratory Rate 25 H Blood Pressure 159/86 H 153/81 H Pulse Oximetry 92 Oxygen Delivery Method 12/08/22 11:04 12/08/22 11:08 12/08/22 11:08 Temperature Pulse Rate 87 87 Respiratory Rate 22 31 H Blood Pressure 159/82 H Pulse Oximetry 94 93 Oxygen Delivery Method 12/08/22 11:12 12/08/22 11:12 12/08/22 11:16 Temperature Pulse Rate 89 87 Respiratory Rate 30 H 21 Blood Pressure 152/75 H Pulse Oximetry 94 95 Oxygen Delivery Method 12/08/22 11:16 12/08/22 11:20 12/08/22 11:20 Temperature Pulse Rate 87 Respiratory Rate 25 H Blood Pressure 162/79 H 161/79 H Pulse Oximetry 95 Oxygen Delivery Method 12/08/22 11:24 12/08/22 11:24 12/08/22 11:28 Temperature Pulse Rate 85 87 Respiratory Rate 20 31 H Blood Pressure 154/77 H Pulse Oximetry 96 95 Oxygen Delivery Method 12/08/22 11:28 12/08/22 11:30 12/08/22 11:32 Temperature Pulse Rate 86 Respiratory Rate 20 Blood Pressure 128/70 161/82 H Pulse Oximetry 96 Oxygen Delivery Method 12/08/22 11:32 12/08/22 11:36 12/08/22 11:36 Temperature Pulse Rate 86 87 Respiratory Rate 13 23 Blood Pressure 163/84 H Pulse Oximetry 96 94 Oxygen Delivery Method 12/08/22 11:40 12/08/22 11:40 12/08/22 11:44 Temperature Pulse Rate 87 Respiratory Rate 22 Blood Pressure 163/91 H 160/90 H Pulse Oximetry 96 Oxygen Delivery Method 12/08/22 11:44 12/08/22 11:48 12/08/22 11:48 Temperature Pulse Rate 86 87 Respiratory Rate 22 26 H Blood Pressure 164/90 H Pulse Oximetry 95 95 Oxygen Delivery Method 12/08/22 11:52 12/08/22 11:52 12/08/22 11:56 Temperature Pulse Rate 87 Respiratory Rate 20 Blood Pressure 160/91 H 180/86 H Pulse Oximetry 97 Oxygen Delivery Method 12/08/22 11:56 12/08/22 12:00 12/08/22 12:00 Temperature Pulse Rate 87 84 Respiratory Rate 34 H Blood Pressure 170/78 H Pulse Oximetry 93 94 Oxygen Delivery Method 12/08/22 12:04 12/08/22 12:04 12/08/22 12:08 Temperature Pulse Rate 86 Respiratory Rate 19 Blood Pressure 169/82 H 171/84 H Pulse Oximetry 95 Oxygen Delivery Method 12/08/22 12:08 12/08/22 12:12 12/08/22 12:12 Temperature Pulse Rate 87 86 Respiratory Rate 38 H 30 H Blood Pressure 170/83 H Pulse Oximetry 94 95 Oxygen Delivery Method 12/08/22 12:16 12/08/22 12:16 12/08/22 12:25 Temperature Pulse Rate 87 Respiratory Rate 27 H Blood Pressure 172/87 H 182/86 H Pulse Oximetry 96 Oxygen Delivery Method 12/08/22 12:25 12/08/22 12:30 12/08/22 12:35 Temperature Pulse Rate 90 87 88 Respiratory Rate 13 24 12 Blood Pressure Pulse Oximetry 96 93 96 Oxygen Delivery Method 12/08/22 12:35 12/08/22 12:40 12/08/22 12:40 Temperature Pulse Rate 88 Respiratory Rate 15 Blood Pressure 174/82 H 182/86 H Pulse Oximetry 96 Oxygen Delivery Method 12/08/22 13:26 12/08/22 13:27 12/08/22 13:00 Temperature Pulse Rate 89 89 Respiratory Rate Blood Pressure 171/83 H 171/83 H 181/86 H Pulse Oximetry Oxygen Delivery Method 12/08/22 13:00 12/08/22 13:20 12/08/22 13:20 Temperature Pulse Rate 87 86 Respiratory Rate 15 24 Blood Pressure 171/83 H Pulse Oximetry 95 92 Oxygen Delivery Method 12/08/22 13:30 12/08/22 13:41 12/08/22 13:41 Temperature Pulse Rate 91 H 93 H Respiratory Rate 19 20 Blood Pressure 224/112 H Pulse Oximetry 95 96 Oxygen Delivery Method 12/08/22 14:00 12/08/22 14:00 12/08/22 14:20 Temperature Pulse Rate 93 H Respiratory Rate 18 Blood Pressure 178/81 H 184/85 H Pulse Oximetry 94 Oxygen Delivery Method 12/08/22 14:20 12/08/22 14:30 12/08/22 14:40 Temperature Pulse Rate 97 H 92 H 91 H Respiratory Rate 16 14 27 H Blood Pressure Pulse Oximetry 95 93 96 Oxygen Delivery Method 12/08/22 14:40 12/08/22 14:51 12/08/22 14:51 Temperature Pulse Rate 87 Respiratory Rate 11 L Blood Pressure 186/137 H 200/119 H Pulse Oximetry 96 Oxygen Delivery Method 12/08/22 14:55 12/08/22 14:55 12/08/22 15:00 Temperature Pulse Rate 88 Respiratory Rate 16 Blood Pressure 204/101 H 204/101 H Pulse Oximetry 96 Oxygen Delivery Method 12/08/22 15:00 12/08/22 15:05 12/08/22 15:05 Temperature Pulse Rate 92 H 94 H Respiratory Rate 26 H 17 Blood Pressure 190/91 H Pulse Oximetry 92 94 Oxygen Delivery Method 12/08/22 15:09 12/08/22 15:10 Temperature Pulse Rate 94 H Respiratory Rate 21 Blood Pressure 183/82 H Pulse Oximetry 92 Oxygen Delivery Method Oxygen Delivery Method Room Air Narrative Exam Narrative: GEN: ill-appearing female, nauseous HEENT: moist mucous membranes, PERRL NECK: trachea midline, no JVD CV: tachycardic, regular rhythm, no murmurs PULM: clear bilaterally ABD: soft, mild epigastric tenderness, nondistended, no organomegaly EXT: warm and well perfused with no edema NEURO: awake, alert, oriented, no focal deficits Objective Labs 12/08/22 08:22 12/08/22 08:22 Labs: Laboratory Results - last 24 hr 12/08/22 12/08/22 12/08/22 08:22 08:22 08:25 WBC 12.0 H RBC 5.06 Hgb 15.1 Hct 44.7 MCV 88.4 MCH 29.8 MCHC 33.8 RDW 13.5 Plt Count 248 Neut % (Auto) 81.8 H Lymph % (Auto) 6.9 L [place] % (Auto) 8.8 Eos % (Auto) 2.0 Baso % (Auto) 0.5 Neut # (Auto) 9900 H Lymph # (Auto) 800 L [place] # (Auto) 1100 H Eos # (Auto) 200 Baso # (Auto) 100 Sodium 138 Potassium 3.7 Chloride 102 Carbon Dioxide 31 BUN 13 Creatinine 0.53 Estimated GFR > 60 BUN/Creatinine Ratio 24.5 H Glucose 120 H Calcium 9.1 Magnesium 1.9 Total Bilirubin 0.8 AST 46 H ALT 43 H Alkaline Phosphatase 133 H Total Creatine Kinase 342 H CK-MB (CK-2) 20.80 H CK-MB (CK-2) Rel Index 6.1 H* Troponin I < 0.012 Total Protein 8.2 Albumin 4.5 Globulin 3.7 Albumin/Globulin Ratio 1.2 Lipase 101 Urine RBC Urine WBC Ur Squamous Epith Cells Amorphous Sediment Urine Bacteria Ur Culture Indicated? SARS-CoV-2 (PCR) Negative 12/08/22 12/08/22 08:56 10:30 WBC RBC Hgb Hct MCV MCH MCHC RDW Plt Count Neut % (Auto) Lymph % (Auto) [place] % (Auto) Eos % (Auto) Baso % (Auto) Neut # (Auto) Lymph # (Auto) [place] # (Auto) Eos # (Auto) Baso # (Auto) Sodium Potassium Chloride Carbon Dioxide BUN Creatinine Estimated GFR BUN/Creatinine Ratio Glucose Calcium Magnesium Total Bilirubin AST ALT Alkaline Phosphatase Total Creatine Kinase 340 H CK-MB (CK-2) 19.90 H CK-MB (CK-2) Rel Index 5.9 H Troponin I < 0.012 Total Protein Albumin Globulin Albumin/Globulin Ratio Lipase Urine RBC 0-1/hpf Urine WBC 0-1/hpf Ur Squamous Epith Cells 0-1 /hpf Amorphous Sediment 2+ Urine Bacteria None seen Ur Culture Indicated? Cult not indicated SARS-CoV-2 (PCR) Assessment & Plan Assessment & Plan narrative: # hypertensive emergency -blood pressure 221/112 and with intractable nausea vomiting -continue nicardipine drip -per cardiology raise home Coreg to 12.5 mg b.i.d., start losartan and spir onolactone -continue home amlodipine -echo ordered -troponins negative x3 # intractable nausea vomiting, constipation -likely secondary to hypertensive emergency, however LFTs and alk-phos elevated -abdominal ultrasound to rule out gallbladder pathology -no evidence of bowel obstruction on abdominal x-ray -Dulcolax suppository as needed due to constipation # CAD -no history of stents, per patient had 2 heart attacks in 2021 -continue home aspirin and statin # depression -continue home venlafaxine # insomnia -continue home trazodone # GERD -continue home PPI Code status is full code. COVID negative. DVT prophylaxis with Lovenox. Proxy is . I have reviewed home meds and used all available resources to reconcile the home meds. I spent a total of 35 minutes of critical care time on this patient's care today; this time is exclusive of procedural time. This patient will be admitted as inpatient and will require greater than 2 midnights of hospital time to treat hypertensive emergency.
[2022-12-08 15:25] LABS: Troponin I < 0.012 ng/mL (0.01-0.034)
[2022-12-08 15:27] LABS: CKMB % Relative Index 5.3 % (1.5-5.0)
[2022-12-08 16:21] LABS: TSH w/ Reflex to FT4 3.29 uIU/mL (0.47-4.68)
--- NOTE | 2022-12-08 19:16 | DI.CT.S_ITS ---
PROCEDURE: CT ABDOMEN PELVIS W CON INDICATIONS: NV, fever TECHNIQUE: After the administration of intravenous contrast, axial sections acquired from the lung bases to the pubic symphysis. Coronal and sagittal reformats were performed. For radiation dose reduction, the following was used: automated exposure control, adjustment of mA and/or kV according to patient size. COMPARISON: [facility], CT, CT ABDOMEN PELVIS W CON, 03/15/2022, 15:25. FINDINGS: Image quality: Excellent. Lung bases: Prominent bullous lesion, right lung base. Lung bases are clear.. Heart: No significant findings. ABDOMEN: Liver: Unremarkable. Gallbladder: Gallbladder is less distended than previously. Mild prominence of gallbladder wall, unchanged. Biliary ducts: Unremarkable. Pancreas: Unremarkable. Spleen: Unremarkable. Adrenal Glands: Unremarkable. Kidneys and Ureters: Unremarkable. Stomach and Bowel: Diverticulosis without evidence of diverticulitis. Moderately large fecal load. Peritoneum: No abnormal intraperitoneal fluid. No free air. Ventral Wall: No hernias. Abdominal Nodes: No retroperitoneal or mesenteric adenopathy by size criteria. Vessels: Aorta and inferior vena cava are normal in size. PELVIS: Pelvic Organs: Unremarkable. Bladder: There is less bladder wall thickening than previously. The bladder is somewhat decompressed. Pelvic Nodes: No enlarged lymph nodes. Miscellaneous: No hernias are seen. Bones: Extensive metallic artifact from thoracolumbar soham and pedicle screw fixation spanning from at least T9 a through S1, with bilateral SI joint screws, as well. All vertebral bodies except for L1 have pedicle screws. IMPRESSION: 1. Bladder wall thickening has improved. 2. Diverticulosis without evidence of diverticulitis. 3. Moderately large fecal load. 4. No evidence of acute abdominal process. Dictated by: Jamison Costa M.D. on 12/09/2022 at 8:28 Approved by: Jamison Costa M.D. on 12/09/2022 at 8:34
[2022-12-08 19:27] LABS: MRSA (Nasal) PCR Not Detected (Not Detect)
[2022-12-08] MEDS: LOSARTAN 25 MG TABLET PO (21:07)
[2022-12-08] MEDS: TRAZODONE 50 MG TABLET 100 MG PO (21:08)
--- NOTE | 2022-12-08 21:54 | PC.NURSE ---
Addendum entered by Yesenia Cuenca R.N. 12/09/22 06:29: Patient awakening at 0400 for lab draw. No more nausea vomiting. States feeling much better Original Note: Pt. with constant nausea/vomiting. medicated on previous shift for same, but not feeling any better. Medicated with zofran and awaiting results. Patient refusing CT for tonight, due to nausea/vomiting. CT informed. Patient able to take losartan and trazadone without difficulty. Other medications held due to previous nausea/vomting
[2022-12-09] VITALS (15 sets, daily range): BP systolic 123–164; BP diastolic 57–87; PULSE 63–80; RESP 11–25; TEMP 36.7–37.6; O2SAT 91–96
[2022-12-09 04:28] LABS: Add Manual Diff / Slide Review NO; Basophils Absolute Auto 100 /uL (0-100); Basophils Percent Auto 0.6 % (0-2); Eosinophils Absolute Auto 0 /uL (0-450); Eosinophils Percent Auto 0.1 % (2-4); Hematocrit 40.5 % (36-46); Hemoglobin 14.1 g/dL (12.0-16.0); Lymphocytes Absolute Auto 1700 /uL (1100-4500); Lymphocytes Percent Auto 14.9 % (25-40); Mean Corpuscular HGB Conc 34.7 % (30-36); Mean Corpuscular Hemoglobin 30.4 PG (26-34); Mean Corpuscular Volume 87.7 fL (80-100); Monocytes Absolute Auto 1500 /uL (0-900); Monocytes Percent Auto 13.5 % (3-14); Neutrophils Absolute Auto 8200 /uL (1500-7000); Neutrophils Percent Auto 70.9 % (50-75); Platelet Count 246 X10^3/uL (150-400); Red Blood Cell Count 4.62 X10^6/uL (4.0-5.2); Red Cell Distribution Width 13.6 % (11.6-14.8); White Blood Cell Count 11.5 X10^3/uL (4.5-11.0)
[2022-12-09 04:44] LABS: Blood Urea Nitrogen 12 mg/dL (7-17); Carbon Dioxide 28 mmol/L (22-32); Chloride 103 mmol/L (98-107); Estimated Glomerular Filt Rate > 60 mL/min (>60); Glucose 111 mg/dL (80-110); HEMOLYSIS < 15 (0-50); Potassium 3.2 mmol/L (3.4-5.1); Sodium 139 mmol/L (137-145)
[2022-12-09] MEDS: PANTOPRAZOLE DR 40 MG TABLET PO (06:06)
--- NOTE | 2022-12-09 07:00 | DI.US.S_ITS ---
PROCEDURE: US ABDOMEN LIMITED INDICATIONS: elevated LFT's, alk phos TECHNIQUE: Real-time scanning was performed of the abdominal and retroperitoneal organs, with image documentation. COMPARISON: [facility], CT, CT ABDOMEN PELVIS W CON, 03/15/2022, 15:25. FINDINGS: Liver: Liver is normal in size and homogeneous in echotexture. Gallbladder: No gallstones. No gallbladder wall thickening, pericholecystic fluid or sonographic Orozco's sign. Biliary ducts: Intrahepatic bile ducts are non-dilated. Extrahepatic bile duct caliber measures 3 mm. Normal is 6-7 mm or less in diameter, or 10 mm or less post-cholecystectomy. Pancreas: Visualized portions of the pancreas are sonographically normal. Miscellaneous: No free abdominal fluid. IMPRESSION: Normal limited abdominal ultrasound exam. Dictated by: Arelis Kearney M.D. on 12/09/2022 at 7:50 Approved by: Arelis Kearney M.D. on 12/09/2022 at 7:52
[2022-12-09] MEDS: ONDANSETRON 4 MG/2 ML INJ IV (08:24)
[2022-12-09] MEDS: carvediloL 12.5 MG TABLET PO (08:27)
[2022-12-09] MEDS: GABAPENTIN 300 MG CAPSULE PO (08:27)
[2022-12-09] MEDS: AMLODIPINE 5 MG TABLET 10 MG PO (08:27)
[2022-12-09] MEDS: LOSARTAN 25 MG TABLET PO (08:27)
[2022-12-09] MEDS: MAGNESIUM OXIDE 400 MG TABLET PO (08:27)
[2022-12-09] MEDS: VENLAFAXINE 37.5 MG TABLET 75 MG PO (08:28)
[2022-12-09] MEDS: ENOXAPARIN 40 MG/0.4 ML SYRINGE SUBCUT (08:28)
[2022-12-09] MEDS: ASPIRIN EC 81 MG TABLET PO (08:28)
[2022-12-09] MEDS: SPIRONOLACTONE 25 MG TABLET PO (08:28)
[2022-12-09] MEDS: OXYBUTYNIN 5 MG ER TAB 10 MG PO (09:48)
[2022-12-09] MEDS: POTASSIUM CHLORIDE 20 MEQ TAB 40 MEQ PO (09:49)
--- NOTE | 2022-12-09 10:56 | CM.DANOTE ---
DCP: Case received, EMR reviewed and met with patient. Introduced self and role. Was able to obtain information regarding he baseline activity at home prior to hospitalization. DCP assessment completed with information currently available. Patient is a 77 year old female who admitted yesterday afternoon to the care of the hospitalist team. PCP: Dr. Poon. Payer: confirmed: Medicare/[employer]. Patient came to the hospital via private vehicle secondary to having some vomiting after complaints of feeling constipated. Notes indicate that patient had been feeling fine until this morning when she woke up with nausea and vomiting. Patient has history of PMH, CAD, HTN. Patient had a heart cath after her first [place] in February and May, had gone to [facility]. Patient concerned, this felt like her last heart attack. Patient was noted to have a BP of 221/112, was in hypertensive crisis. Patient had not taken her morning meds, secondary to nausea and vomiting. Patient was placed on Nicardipine drip. She will have additional cardiac work up today. Met with patient in her room. She is alert and oriented, pleasant. She was sitting up in her bed. Confirmed that she resides here in [place] with her spouse, Arnaldo Rodríguez. She indicated, they have known each other for 17 years, and have been for 18 years. At her baseline, she is independent. She had a recent appointment with her provider, Dr. Poon. P: DCP to continue to follow. Plan is home when deemed medically stable. Renetta Lockhart RN/Retail Operations Manager Discharge Planning/Care Management Advanced directive, confirm from FAMILY Start: 12/08/22 16:43 Freq: Q24H Status: Complete Protocol: Document 12/08/22 16:43 EM (Rec: 12/08/22 16:44 EM [id number]) Advance Directive, confirm on record Time 16:44 Person contacted Patient Copy received No Document 12/09/22 08:06 GILSON (Rec: 12/09/22 08:06 GILSON [id number]) Advance Directive, confirm on record Time 16:44 Person contacted Patient Copy received No Time 08:06 Person contacted patient Copy received No Advanced directive available on record No CM Discharge Assessment Start: 12/09/22 10:55 Freq: Status: Active Protocol: Document 12/09/22 10:55 VM (Rec: 12/09/22 10:56 VM [id number]) Discharge Planning Assessment Assigned Meat 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 No Advance Directives on File No History Provided By Patient,Family Member,Medical Record Prior Living Arrangements House Household Members spouse Type of transporation used prior to Drives own vehicle admit Independent with ADL's Yes Is patient alert and oriented? Yes Caregiver for Another No Barriers to Discharge No Discharge Plan Home Transportation Arrangement Spouse to provide transport at d/c Referrals Initiated None needed Whiteboard Updated in Patient Room with Yes name and ext. # of Meat Counter Worker Review Status In Process Next Review Type Continued Stay Review
--- NOTE | 2022-12-09 13:36 | P.DS_ITS ---
History of Present Illness History of Present Illness Chief complaint: possible heart attack, constipation, throwing up Narrative: Jodie Rodriguez is a 77yo F with PMH of CAD, GERD, HTN, depression and insomnia who presents with hypertensive emergency. Patient states she was feeling fine until this morning when she woke up with constant NV and dry-heaving. Says she felt this way during her last 2 prior heart attacks in February and May 2022. She had a cath after her first heart attack which showed non-occlusive CAD and medical management alone recommended. She also feels constipated and her last BM was today but small and hard. Notes some lower quadrant belly pain due to the wretching. No CP. In the ED found to have BP of 221/112. Nicardipine drip started. Cardiology called who recommended addition of losartan and aldactone to her home BP meds. Trops were neg x2. EKG without ST changes. Discharge Providers Provider Date of admission: 12/08/22 15:06 Discharge Date: 12/09/22 Primary care physician: Chepe Poon MD Discharge provider: Jamie Joseph DO Summary Hospital Course Discharge Diagnosis: # hypertensive emergency -blood pressure 221/112 and with intractable nausea vomiting -placed on nicardipine drip which was weaned off after several hours -per cardiology raise home Coreg to 12.5 mg b.i.d., start losartan and spironolactone -continue home amlodipine -patient will obtain outpatient echo with PCP -troponins negative x3 # intractable nausea vomiting, constipation -likely secondary to hypertensive emergency, however LFTs and alk-phos elevated -abdominal ultrasound negative for biliary pathology -no evidence of bowel obstruction on abdominal x-ray -Dulcolax suppository as needed due to constipation # CAD -no history of stents but had nonocclusive disease per cath last year, per patient had 2 heart attacks in 2021 -continue home aspirin and statin # depression -continue home venlafaxine # insomnia -continue home trazodone # GERD -continue home PPI Hospital Course: Admitted for intractable NV and BP to 221/112. Abd CT and US negative. Required nicardipine drip which was weaned off and patient's coreg increased plus losartan and spirinolactone were added. Her NV improved significantly quicker than expected the next day and she was discharged home to obtain an echo with her PCP. Time Spent with Patient Time spent: Greater than 30 minutes Exam Vital Signs (past 8 hours): - 12/09/22 06:00 12/09/22 06:00 12/09/22 08:07 Temperature Pulse Rate 71 Respiratory Rate 25 H Blood Pressure 130/74 Pulse Oximetry Oxygen Delivery Method Room Air Oxygen Flow Rate 12/09/22 08:20 12/09/22 11:29 Temperature 99.6 F 98.0 F Pulse Rate 77 63 Respiratory Rate 23 18 Blood Pressure 152/67 H 164/87 H Pulse Oximetry 96 96 Oxygen Delivery Method Oxygen Flow Rate 0 0 Oxygen Delivery Method Room Air Oxygen Flow Rate 0 Narrative Exam Narrative: GEN: NAD, feeling well today HEENT: moist mucous membranes, PERRL NECK: trachea midline, no JVD CV: tachycardic, regular rhythm, no murmurs PULM: clear bilaterally ABD: soft, mild epigastric tenderness, nondistended, no organomegaly EXT: warm and well perfused with no edema NEURO: awake, alert, oriented, no focal deficits Objective Labs 12/09/22 03:35 12/09/22 03:35 Labs: Laboratory Results - last 24 hr 12/08/22 12/08/22 12/08/22 08:22 14:55 16:40 WBC RBC Hgb Hct MCV MCH MCHC RDW Plt Count Neut % (Auto) Lymph % (Auto) [place] % (Auto) Eos % (Auto) Baso % (Auto) Neut # (Auto) Lymph # (Auto) [place] # (Auto) Eos # (Auto) Baso # (Auto) Sodium Potassium Chloride Carbon Dioxide BUN Creatinine Estimated GFR BUN/Creatinine Ratio Glucose Calcium Total Creatine Kinase 255 H CK-MB (CK-2) 13.40 H CK-MB (CK-2) Rel Index 5.3 H Troponin I < 0.012 TSH 3.29 Nasal Screen MRSA (PCR) Not detected 12/09/22 12/09/22 03:35 03:35 WBC 11.5 H RBC 4.62 Hgb 14.1 Hct 40.5 MCV 87.7 MCH 30.4 MCHC 34.7 RDW 13.6 Plt Count 246 Neut % (Auto) 70.9 Lymph % (Auto) 14.9 L [place] % (Auto) 13.5 Eos % (Auto) 0.1 L Baso % (Auto) 0.6 Neut # (Auto) 8200 H Lymph # (Auto) 1700 [place] # (Auto) 1500 H Eos # (Auto) 0 Baso # (Auto) 100 Sodium 139 Potassium 3.2 L Chloride 103 Carbon Dioxide 28 BUN 12 Creatinine 0.50 L Estimated GFR > 60 BUN/Creatinine Ratio 24.0 H Glucose 111 H Calcium 9.0 Total Creatine Kinase CK-MB (CK-2) CK-MB (CK-2) Rel Index Troponin I TSH Nasal Screen MRSA (PCR) 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) Hx of spinal surgery Status post open reduction with internal fixation (ORIF) of fracture of ankle (01/2001) 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) Status post right knee replacement (10/09/12) Family History Father CAD (coronary artery disease) Grandfather Lung cancer Grandmother CAD (coronary artery disease) Mother CAD (coronary artery disease) Diabetes mellitus Parkinson's disease Grandfather CAD (coronary artery disease) Social History household members: spouse Smoking Status: Former smoker alcohol intake: current Discharge Plan Discharge Plan Patient Disposition: Home Discharge orders & Medications Prescriptions: New carvedilol [Coreg] 12.5 mg Tablet 12.5 mg PO BID Qty: 60 0RF losartan 25 mg Tablet 12.5 mg PO BID Qty: 30 0RF spironolactone 25 mg Tablet 12.5 mg PO DAILY Qty: 30 0RF Continued acyclovir 400 mg tablet 400 mg PO BID Qty: 60 5RF trazodone 100 mg tablet 100 mg PO HS Qty: 90 3RF oxybutynin chloride [Ditropan XL] 10 mg tablet extended release 24hr 10 mg PO QDAY Qty: 90 3RF albuterol sulfate [Ventolin HFA] 90 mcg/actuation HFA aerosol inhaler 2 puff Inhalation Q4H PRN (Reason: shortness of breath or wheezing) Qty: 18 11RF venlafaxine 75 mg tablet 75 mg PO DAILY Qty: 90 2RF omeprazole 40 mg capsule,delayed release(DR/EC) 40 mg PO QAM PRN (Reason: Reflux) Qty: 30 3RF aspirin 81 mg tablet,delayed release (DR/EC) 81 mg PO DAILY atorvastatin 80 mg tablet 80 mg PO BEDTIME gabapentin 300 mg capsule 300 mg PO BID Qty: 180 3RF magnesium oxide 400 mg magnesium Tablet 400 mg PO DAILY amlodipine [Norvasc] 5 mg Tablet 10 mg PO DAILY Qty: 30 0RF Discontinued carvedilol 6.25 mg tablet 6.25 mg PO BID Rx Instructions: must administer with a meal/food Follow up/Referrals: Chepe Poon MD [Primary Care Provider] - 2 Weeks Visit Report/Discharge Packet Instructions: High Blood Pressure, Spironolactone, Losartan Stand Alone Forms: Patient Portal/API, Stroke Signs & Symptoms Discharge Data Primary Care Provider: Chepe Poon Discharges patient from system. Discharge Date/Time: 12/09/22 14:22
== END 2022-12-09 14:22 | disposition home or self-care (01) | DRG 305 ==
LOC: ED 08:29 → AC 15:07 → ICU 16:37
PROVIDERS: Admitting Provider Student in an Organized Health Care Education/Training Program; Emergency Provider Emergency Medicine; PCP Student in an Organized Health Care Education/Training Program; Referring Provider Emergency Medicine; Visit Provider Student in an Organized Health Care Education/Training Program
DX: I16.1 Hypertensive emergency (principal); K59.00 Constipation, unspecified; I25.10 Atherosclerotic heart disease of native coronary artery without angina pectoris; F32.A Depression, unspecified; G47.00 Insomnia, unspecified; K21.9 Gastro-esophageal reflux disease without esophagitis; R11.2 Nausea with vomiting, unspecified; F41.9 Anxiety disorder, unspecified; Z20.822 Contact with and (suspected) exposure to COVID-19; Z87.891 Personal history of nicotine dependence
CPT/HCPCS: 36415; 71045; 74018; 74177; 76705; 80048; 80053; 81003; 81015; 82550; 82553; 83690; 83735; 84443; 84484; 85025; 87635; 87797; 93005; 93010; 96365; 96366; 96375; 96376; 99284; C9803; J1650; J2060; J2405; J2765; Q9967

== ENCOUNTER → 2023-01-01 | Outpatient (CLI) | payer MEDICARE, SELFPAY ==
[2022-12-08 16:39] VITALS: BMI 21.8
--- NOTE | 2023-01-01 08:13 | DI.ECHO.S_ITS ---
[facility]---------+ [facility] +---------+ : : [address] : : : : [id number] : : : : Phone: [phone]+ Echocardiogram Report + + :Name: SUN GONZALEZ Study Date: 01/01/2023 Height: 66 in : :[facility] ReadingLocation: Weight: 129 lb : : Gender: Female BSA: 1.7 m2 : :: 1945 Age: 77 yrs BP: 118/79 mmHg: :Reason For Study: F/U HYPERTENSIVE EMERGENCY EPISODE : :Ordering Physician: TAMARA, : :KOMAL Performed By: Adriane Piper : :Referring: ERNESTINA WATKINS : + + Interpretation Summary The left ventricle is normal in size and wall thickness. The ejection fraction is estimated to be 60-65%. The right ventricle is normal in size and function. A bicuspid aortic valve cannot be excluded. The aortic valve opens well. There is no aortic valve stenosis. No aortic regurgitation is present. The tricuspid valve is normal. There is mild tricuspid regurgitation. The right ventricular systolic pressure is estimated to be at least 27 mmHg based on an estimated right atrial pressure of 8 mm Hg. There is mild luminal irregularity and echogenicity in the abdominal aorta, suggestive of aortic atherosclerotic disease. Mild atherosclerotic plaque(s) in the aortic arch. Procedure: A two-dimensional transthoracic echocardiogram with color flow and Doppler was performed. The study quality was technically adequate. There is no prior echocardiogram noted for this patient. The patient was in sinus bradycardia with heart rates between 51-60 bpm during the exam. The patient had a bundle branch block rhythm during the exam. Left Ventricle: The left ventricle is normal in size and wall thickness. There is no thrombus. A false chord is noted (normal variant). The ejection fraction is estimated to be 60-65%. There are no focal wall motion abnormalities. Diastolic parameters suggest a relaxation abnormality of the left ventricle, consistent with probable normal filling pressures. Right Ventricle: The right ventricle is normal in size and function. Atria: The left atrium is mildly dilated. Right atrial size is normal. A prominent eustachian valve is noted. There is no Doppler evidence for an interatrial shunt. Mitral Valve: The mitral valve leaflets are mildly calcified. The mitral valve leaflets appear mildly thickened, but open well. There is mild mitral regurgitation. Aortic Valve: The aortic valve opens well. A bicuspid aortic valve cannot be excluded. There is no aortic valve stenosis. No aortic regurgitation is present. Tricuspid Valve: The tricuspid valve is normal. There is mild tricuspid regurgitation. The right ventricular systolic pressure is estimated to be at least 27 mmHg based on an estimated right atrial pressure of 8 mm Hg. Pulmonic Valve: The pulmonic valve leaflets are thin and pliable; valve motion is normal. There is mild pulmonic regurgitation. Great Vessels: The aortic root is normal size. The dimensions of the ascending aorta are normal. There is mild luminal irregularity and echogenicity in the abdominal aorta, suggestive of aortic atherosclerotic disease. Mild atherosclerotic plaque(s) in the aortic arch. The IVC is dilated (diameter is greater than 2.1 cm) yet it collapses greater than 50% with a sniff. This suggests a right atrial pressure of 8 mm Hg. Pericardium/ Pleura There is no pericardial effusion. There is no pleural effusion. MMode/2D Measurements & Calculations LVIDd: 4.8 cm LVOT diam: 2.2 cm LVIDs: 3.3 cm Ao root diam: 2.9 cm FS: 30.7 % asc Aorta Diam: 3.3 cm EPSS: 0.51 cm Ao Arch Diam (Prox Trans): 2.3 cm IVSd: 0.80 cm LVPWd: 0.80 cm LV tenorio. diameter/BSA (cm/m^2): 2.9 LV sys. diameter/BSA (cm/m^2): 2.0 LA A2 area: 21.2 cm2 RA long axis: 4.8 cm LA A4 area: 19.5 cm2 RA area: 17.7 cm2 LA length (vol): 5.6 cm RA vol: 55.0 ml LA vol: 62.6 ml RA : 33.2 ml/m2 LA vol index: 37.7 ml/m2 IVC diam: 2.2 cm RVD1 (basal): 3.8 cm RVD2 (mid): 3.0 cm TAPSE: 1.9 cm Doppler Measurements & Calculations Ao V2 max: 167.3 cm/sec LVOT Max Jon: 107.9 cm/sec Ao V2 mean: 112.9 cm/sec LV V1 max P.7 mmHg Ao max P.2 mmHg LV V1 VTI: 21.5 cm Ao mean P.7 mmHg INGRID(I,D): 2.4 cm2 Ao V2 VTI: 33.5 cm INGRID(V,D): 2.4 cm2 sev ratio: 0.64 INGRID indexed to BSA (cm^2/m^2): 1.5 MV E max jon: 82.2 cm/sec TR max jon: 220.2 cm/sec MV A max jon: 96.6 cm/sec TR max P.4 mmHg MV E/A: 0.85 PA V2 max: 102.3 cm/sec Med Peak E' Jon: 7.0 cm/sec PA V2 mean: 70.1 cm/sec E/E' med: 11.7 PA mean P.2 mmHg Lat Peak E' Jon: 7.6 cm/sec PA pr(Accel): 17.3 mmHg E/E' lat: 10.8 E/e' average: 11.3 MV dec time: 0.26 sec SV(LVOT): 80.7 ml Reading Physician:10:43 AM
--- NOTE | 2023-01-01 09:01 | DI.DEXA.S_ITS ---
Bone Density Report Name: SUN GONZALEZ Age: 77 Sex: Female Ethnicity: White Date of : 1945 Indication: postmenopausal; screening for osteoporosis; Referring Provider: KOMAL MCDONALD Study: Bone densitometry was performed. Exam Date: January 01, 2023 Accession number: [id number] Bone Density: Region BMD T-score Z-score Classification Femoral Neck (Left) 0.910 0.6 2.7 Normal Total Hip (Left) 0.867 -0.6 1.2 Normal Femoral Neck (Right) 0.983 1.2 3.4 Normal Total Hip (Right) 0.925 -0.1 1.7 Normal Total Hip Mean 0.896 -0.4 1.5 Normal Total Forearm (Left) 0.542 -0.7 1.9 Normal 1/3 Forearm (Left) 0.650 -0.7 2.0 Normal UD Forearm (Left) 0.394 -0.8 1.1 Normal World Health Organization criteria for BMD impression classify patients as: Normal (T-score at or above -1.0), Osteopenia (T-score between -1.0 and -2.5), or Osteoporosis (T-score at or below -2.5). 10-year Fracture Risk: FRAX not reported because: All T-scores for Spine Total, Hip Total, Femoral Neck at or above -1.0 Previous Exams: -- Region Exam Age BMD T-score BMD Change BMD Change Date g/cm2 vs Baseline vs Previous -- Total Hip(Left) 01/01/2023 77 0.867 -0.6 -0.051 (-5.5%)# -0.051 (-5.5%)# 07/11/2021 75 0.917 -0.2 Total Hip(Right) 01/01/2023 77 0.925 -0.1 -0.024 (-2.6%)# -0.024 (-2.6%)# 07/11/2021 75 0.950 0.1 -- *Denotes significance at 95% confidence level, LSC for Total Hip = 0.027 g/cm2 # Denotes dissimilar scan types or analysis methods Impression: The patient has normal bone mass. No significant bone loss was observed. Discussion: BONE DENSITY IS ABOVE THE MINIMUM DESIRABLE LEVEL AT ALL SKELETAL SITES TESTED. This patient?s bone mineral density is above the minimum desirable level (T-score -1.0 or better) at all sites measured. The patient should follow a healthful lifestyle (good nutrition with adequate calcium and vitamin D, and appropriate weight-bearing exercise). Follow-Up: Consider repeating this study in 5 years or sooner if there is some new clinical indication. Reported by: LUIS E RASHID MD on 01/01/2023 9:11:00 AM.
== END ==
LOC: ECHO 08:13
PROVIDERS: PCP Student in an Organized Health Care Education/Training Program; Referring Provider Student in an Organized Health Care Education/Training Program; Visit Provider Student in an Organized Health Care Education/Training Program
DX: Z78.0 Asymptomatic menopausal state (principal); I08.1 Rheumatic disorders of both mitral and tricuspid valves; Z13.820 Encounter for screening for osteoporosis; I16.1 Hypertensive emergency
CPT/HCPCS: 77080; 77081; 93306

== ENCOUNTER 2023-08-03 07:56 | Observation (INO) | payer MEDICARE, SELFPAY ==
[2022-12-08 16:39] VITALS: BMI 21.8
[2023-08-03] VITALS (76 sets, daily range): BP systolic 85–192; BP diastolic 49–115; PULSE 58–100; RESP 12–28; TEMP 36.7–37.1; O2SAT 91–100; BMI 21.6
--- NOTE | 2023-08-03 08:07 | DI.RAD.S_ITS ---
PROCEDURE: XR CHEST 1V INDICATIONS: chest pain TECHNIQUE: One view of the chest was acquired. COMPARISON: Merged With [facility], CR, XR CHEST 1V, 12/08/2022, 8:24. Merged With [facility], CR, XR CHEST 1V, 06/10/2022, 9:04. FINDINGS: Surgical changes and devices: Right shoulder replacement. Gray rods are partially visualized. Lungs and pleura: Lungs are clear. No pleural effusions or pneumothorax. Mediastinum: Mediastinal contours appear normal. Heart size is normal. Bones and chest wall: No suspicious bony lesions. Overlying soft tissues appear unremarkable. IMPRESSION: No acute cardiopulmonary abnormality is seen. Dictated by: Asim Poon M.D. on 08/03/2023 at 8:43 Approved by: Asim Poon M.D. on 08/03/2023 at 8:44
--- NOTE | 2023-08-03 08:16 | ED_ITS ---
HPI - Abdominal Pain General Chief Complaint: Abdominal Pain Stated Complaint: V/N/D Time Seen by Provider: 08/03/23 08:11 Source: patient and family Mode of arrival: Wheelchair Limitations: no limitations History of Present Illness HPI narrative: 78-year-old female with history of spinal surgery T1 through L1 secondary to arthritis, neurogenic claudication, prior hypertensive emergency with NSTEMI in March of 2022, dyslipidemia on aspirin 81 mg daily with complaint of nausea vomiting and abdominal pain with the abrupt onset at about 4:00 a.m. this morning. Patient also noted some diarrhea like stool this morning at the same time. Patient states no black or bloody stools. No dysuria urgency or frequency. No vaginal bleeding or discharge. She denies chest pain or shortness of breath. She does feel little lightheaded. No syncope. No swelling in extremities. She states abdominal pain has much improved after her vomiting and diarrhea. Patient states a week ago she had similar symptoms thought it was food poisoning after having seafood and [place] restaurant. Patient states she did not have seafood again last night. She also notes that she is had similar symptoms when she is had her prior NSTEMI and hypertensive emergency. She knows she is on aspirin 81 mg daily, carvedilol, losartan, omeprazole, rosuvastatin does not recall her other medications she denies any diabetes or CKD. She states a year and a half ago she was sent had cardiac catheterization with no stents placed. Patient states she was medical management only. She notes she is also had knee surgery x2, shoulder replacement, multiple back surgeries including rods and disc surgery. States allergic to hydrocodone and ramps her up. Patient states occasional THC but no other recreational drugs no tobacco, quit any alcohol 6 weeks ago and was having 1 beer nightly prior to that. Patient's primary care physician is Dr. Munson, she follows with cardiology at [facility] but is seen in the [place] office. Related Data Home Medications Medication Instructions Recorded Confirmed aspirin 81 mg tablet,delayed 81 mg PO DAILY 03/19/22 08/03/23 release magnesium oxide 400 mg PO DAILY 06/10/22 08/03/23 rosuvastatin 5 mg tablet 2.5 mg PO QPM 05/19/23 08/03/23 Previous Rx's Medication Instructions Recorded omeprazole 40 mg capsule,delayed 40 mg PO QAM PRN Reflux #30 caps 10/22/18 release albuterol sulfate 90 mcg/actuation 2 puff inhalation Q4H PRN 05/06/22 aerosol inhaler (Ventolin HFA) shortness of breath or wheezing #18 grams amlodipine 5 mg tablet (Norvasc) 10 mg (2 x 5 mg) PO DAILY #30 tabs 06/11/22 carvedilol 12.5 mg tablet (Coreg) 12.5 mg PO BID #60 tabs 12/09/22 losartan 25 mg tablet 12.5 mg (1/2 x 25 mg) PO BID #30 12/09/22 tabs spironolactone 25 mg tablet 12.5 mg (1/2 x 25 mg) PO DAILY #30 12/09/22 tabs trazodone 100 mg tablet 100 mg PO HS #90 tabs 03/24/23 acyclovir 400 mg tablet 400 mg PO BID #60 tabs 05/19/23 gabapentin 300 mg capsule 600 mg (2 x 300 mg) PO BID #360 05/19/23 caps venlafaxine 75 mg tablet 75 mg PO DAILY #90 tabs 06/02/23 oxybutynin chloride 10 mg 10 mg PO QDAY #90 tabs 07/21/23 tablet,extended release 24 hr Allergies Allergy/AdvReac Type Severity Reaction Status Date / Time hydrocodone AdvReac Mild DIDN'T Verified 07/15/23 14:29 WORK WELL AND KEPT ME AWAKE Review of Systems Review of Systems ROS Unobtainable: All systems reviewed & are unremarkable except as noted in HPI and below Patient History Medical History Heel spur Arthritis of first MTP joint Hx of right bundle branch block Insomnia Allergic rhinitis Postmenopausal GERD (gastroesophageal reflux disease) Anxiety Surgical History Hx of spinal surgery 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) History of bilateral tubal ligation History of arthroscopic knee surgery (2004) Status post open reduction with internal fixation (ORIF) of fracture of ankle (01/2001) Status post right knee replacement (10/09/12) 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) Family History Father CAD (coronary artery disease) Grandfather Lung cancer Grandmother CAD (coronary artery disease) Mother CAD (coronary artery disease) Diabetes mellitus Parkinson's disease Grandfather CAD (coronary artery disease) Social History household members: spouse Smoking Status: Current some day smoker alcohol intake: current Smoking Status: Former smoker alcohol intake frequency: 0-2 drinks per day Alcohol type: beer Substance Use Type: marijuana Exam Narrative Exam Narrative: GENERAL: Alert and oriented x three, thin, well-appearing female in [id number] distress. No diaphoresis. HEENT: Head normocephalic, atraumatic, EOMI, pupils reactive, face symmetric, moist mucous membranes NECK: Supple, full range of motion CARDIOVASCULAR: Regular rate and rhythm without murmurs, rubs or gallops. No JVD. No swelling bilateral lower extremities. RESPIRATORY: Breath sounds equal bilaterally, no wheezes rales or rhonchi. ABDOMEN: Soft, very mild generalized tenderness. Normoactive bowel sounds all 4 quadrants. No guarding or rebound, rigidity, no mass, no pulsatile mass or bruit. : No CVA tenderness EXTREMITIES: Normal range of motion, no clubbing or edema. Pulses equal bilateral lower extremities. Neurovascularly intact NEUROLOGICAL: Cranial nerves II through XII grossly intact. Moving all extremities SKIN: Warm, dry, no petechiae, no rashes or lesions. Initial Vital Signs Initial Vital Signs: Vital Signs Temperature 98.8 F 08/03/23 08:04 Pulse Rate 70 08/03/23 08:04 Respiratory Rate 18 08/03/23 08:04 Blood Pressure 183/87 H 08/03/23 08:04 Pulse Oximetry 96 08/03/23 08:04 Oxygen Delivery Method Room Air 08/03/23 08:04 Course Orders Ordered: ED Orders 08/03/23 08:07 XR chest 1V Stat 08/03/23 08:15 Complete Blood Count AUTO DIFF Stat Comprehensive Metabolic Panel Stat Lipase Stat Magnesium Stat PTT Partial Thromboplastin Richy Stat Prothrombin Time INR Stat Troponin & CK Cardiac Panel Stat 08/03/23 08:42 CT angio chest abdomen pelvis Stat 08/03/23 10:45 CKMB [[facility] Creatine Kinase MB] Routine Trop I [Troponin I] Stat Acetaminophen (Acetaminophen 325 Mg Tablet) 650 mg PO Q6H PRN PRN Reason: Fever/Mild Pain (1-3) Enoxaparin Sodium (Enoxaparin 40 Mg/0.4 Ml Syringe) 40 mg SUBCUT DAILY [facility] Last Admin: 08/03/23 13:35 Dose: 40 mg Documented By: BLESSING Sodium Chloride (Normal Saline 0.9%) 1,000 mls @ 125 mls/hr IV CONT [place] Last Admin: 08/03/23 13:36 Dose: 125 mls/hr Documented By: Infusion: 08/03/23 13:36 Dose: Infused Documented By: Infusion: 08/03/23 12:46 Dose: 0 mls/hr Documented By: Admin: 08/03/23 12:15 Dose: 125 mls/hr Documented By: RAINA Piperacillin Sod/Tazobactam (Sod 3.375 gm/ Sodium Chloride) 100 mls @ 25 mls/hr IV Q8H [facility] Labetalol HCl (Labetalol 20 Mg/4 Ml Syringe) 10 mg IV Q5MIN PRN PRN Reason: SBP >180 or DBP >110 Melatonin (Melatonin 3 Mg Tablet) 6 mg PO BEDTIME PRN PRN Reason: Insomnia Metoclopramide HCl (Metoclopramide 10 Mg/2 Ml Inj) 10 mg IV Q6HR PRN PRN Reason: Nausea And Vomiting Naloxone HCl (Naloxone 0.4 Mg/Ml Vial) 0.2 mg IV Q2MIN PRN PRN Reason: Opiate Reversal Ondansetron HCl (Ondansetron 4 Mg Odt) 4 mg SL NOW PRN PRN Reason: Nausea And Vomiting Ondansetron HCl (Ondansetron 4 Mg/2 Ml Inj) 4 mg IV Q4HR PRN PRN Reason: NV Discontinued Medications Amoxicillin/Clavulanate Potassium (Amoxicillin/Clav 875/125 Mg) 1 tab PO NOW ONE Stop: 08/03/23 10:13 Last Admin: 08/03/23 10:20 Dose: 1 tab Documented By: RAINA Aspirin (Aspirin 81 Mg Chew Tab) 324 mg PO NOW ONE Stop: 08/03/23 08:08 Last Admin: 08/03/23 09:00 Dose: Not Given Documented By: RAINA Carvedilol (Carvedilol 12.5 Mg Tablet) 12.5 mg PO NOW ONE Stop: 08/03/23 10:13 Last Admin: 08/03/23 10:35 Dose: 12.5 mg Documented By: RAINA Sodium Chloride (Normal Saline 0.9%) 1,000 mls @ 1,000 mls/hr IV BOLUS ONE Stop: 08/03/23 09:35 Last Infusion: 08/03/23 09:37 Dose: Infused Documented By: Admin: 08/03/23 08:56 Dose: 1,000 mls/hr Documented By: RAINA Piperacillin Sod/Tazobactam (Sod 4.5 gm/ Sodium Chloride) 100 mls @ 200 mls/hr IV NOW ONE Stop: 08/03/23 11:30 Last Infusion: 08/03/23 12:46 Dose: Infused Documented By: Admin: 08/03/23 12:00 Dose: 200 mls/hr Documented By: RAINA Magnesium Sulfate (Magnesium Sulfate) 2 gm in 50 mls @ 25 mls/hr IV NOW ONE Stop: 08/03/23 15:05 Last Admin: 08/03/23 13:35 Dose: 25 mls/hr Documented By: BLESSING Co-signed By: Lorazepam (Lorazepam 2 Mg/Ml Inj) 0.5 mg IV NOW ONE Stop: 08/03/23 08:32 Last Admin: 08/03/23 08:44 Dose: 0.5 mg Documented By: RAINA Losartan Potassium (Losartan 25 Mg Tablet) 25 mg PO NOW ONE Stop: 08/03/23 10:13 Last Admin: 08/03/23 10:18 Dose: 25 mg Documented By: RAINA Metoprolol Tartrate (Metoprolol Tartrate 5 Mg/5 Ml Inj) 5 mg IV Q5M [place] Stop: 08/03/23 11:41 Last Admin: 08/03/23 12:15 Dose: 5 mg Documented By: Admin: 08/03/23 12:04 Dose: 5 mg Documented By: Admin: 08/03/23 11:49 Dose: 5 mg Documented By: RAINA Nitroglycerin (Nitroglycerin 0.4 Mg Sl Tab) 0.4 mg SL NOW ONE Stop: 08/03/23 08:32 Last Admin: 08/03/23 08:48 Dose: 0.4 mg Documented By: RAINA Ondansetron HCl (Ondansetron 4 Mg/2 Ml Inj) 4 mg IV NOW PRN PRN Reason: Nausea And Vomiting Last Admin: 08/03/23 13:05 Dose: 4 mg Documented By: Admin: 08/03/23 08:20 Dose: 4 mg Documented By: RAINA Ondansetron HCl (Ondansetron 4 Mg/2 Ml Inj) 4 mg IV NOW ONE Stop: 08/03/23 11:21 Last Admin: 08/03/23 11:33 Dose: 4 mg Documented By: RAINA Ondansetron HCl (Ondansetron 4 Mg/2 Ml Inj) 4 mg IV NOW ONE Stop: 08/03/23 11:28 Last Admin: 08/03/23 12:20 Dose: Not Given Documented By: RAINA Vital Signs Vital signs: Vital Signs - 8 hr 08/03/23 08:04 08/03/23 08:04 08/03/23 08:06 Temperature 98.8 F Pulse Rate 70 72 Respiratory Rate 18 Blood Pressure 183/87 H 174/76 H Pulse Oximetry 96 97 Oxygen Delivery Method Room Air 08/03/23 08:06 08/03/23 08:14 08/03/23 08:14 Temperature Pulse Rate 68 74 Respiratory Rate 19 17 Blood Pressure 163/93 H Pulse Oximetry 98 97 Oxygen Delivery Method 08/03/23 08:16 08/03/23 08:16 08/03/23 08:30 Temperature Pulse Rate 85 72 Respiratory Rate 24 22 Blood Pressure 160/76 H Pulse Oximetry 97 98 Oxygen Delivery Method 08/03/23 08:31 08/03/23 08:31 08/03/23 08:48 Temperature Pulse Rate 72 73 Respiratory Rate 16 Blood Pressure 135/97 H 186/97 H Pulse Oximetry 98 Oxygen Delivery Method 08/03/23 08:50 08/03/23 08:50 08/03/23 09:00 Temperature Pulse Rate 68 Respiratory Rate 12 Blood Pressure 186/84 H 85/49 L Pulse Oximetry 97 Oxygen Delivery Method 08/03/23 09:00 08/03/23 09:03 08/03/23 09:03 Temperature Pulse Rate 63 58 L Respiratory Rate 21 15 Blood Pressure 129/67 Pulse Oximetry 97 96 Oxygen Delivery Method 08/03/23 09:04 08/03/23 09:05 08/03/23 09:05 Temperature Pulse Rate 64 64 Respiratory Rate 13 14 Blood Pressure 140/71 Pulse Oximetry 96 96 Oxygen Delivery Method 08/03/23 09:24 08/03/23 09:24 08/03/23 09:25 Temperature Pulse Rate 71 Respiratory Rate Blood Pressure 165/79 H 163/79 H Pulse Oximetry Oxygen Delivery Method 08/03/23 09:25 08/03/23 09:30 08/03/23 09:30 Temperature Pulse Rate 72 72 Respiratory Rate 15 15 Blood Pressure 163/81 H Pulse Oximetry 98 92 Oxygen Delivery Method 08/03/23 09:35 08/03/23 09:40 08/03/23 09:45 Temperature Pulse Rate 76 75 Respiratory Rate 14 13 Blood Pressure 189/81 H Pulse Oximetry 92 92 Oxygen Delivery Method 08/03/23 09:45 08/03/23 09:50 08/03/23 09:55 Temperature Pulse Rate 77 78 79 Respiratory Rate 24 16 15 Blood Pressure Pulse Oximetry 92 92 93 Oxygen Delivery Method 08/03/23 10:00 08/03/23 10:00 08/03/23 10:05 Temperature Pulse Rate 78 78 Respiratory Rate 17 14 Blood Pressure 162/71 H Pulse Oximetry 93 94 Oxygen Delivery Method 08/03/23 10:10 08/03/23 10:15 08/03/23 10:15 Temperature Pulse Rate 77 81 Respiratory Rate 12 26 H Blood Pressure 178/78 H Pulse Oximetry 94 94 Oxygen Delivery Method 08/03/23 10:18 08/03/23 10:25 08/03/23 10:26 Temperature Pulse Rate 99 H 75 79 Respiratory Rate 20 24 Blood Pressure 178/78 H Pulse Oximetry 94 95 Oxygen Delivery Method 08/03/23 10:26 08/03/23 10:30 08/03/23 10:35 Temperature Pulse Rate 85 79 Respiratory Rate 23 Blood Pressure 158/71 H 170/78 H Pulse Oximetry 98 Oxygen Delivery Method 08/03/23 10:35 08/03/23 10:36 08/03/23 10:36 Temperature Pulse Rate 77 78 Respiratory Rate 17 15 Blood Pressure 170/78 H Pulse Oximetry 99 98 Oxygen Delivery Method 08/03/23 10:40 08/03/23 10:45 08/03/23 10:45 Temperature Pulse Rate 75 75 Respiratory Rate 27 H 18 Blood Pressure 192/87 H Pulse Oximetry 96 98 Oxygen Delivery Method 08/03/23 10:50 08/03/23 10:55 08/03/23 11:00 Temperature Pulse Rate 83 82 Respiratory Rate 19 14 Blood Pressure 183/82 H Pulse Oximetry 99 99 Oxygen Delivery Method 08/03/23 11:00 08/03/23 11:05 08/03/23 11:10 Temperature Pulse Rate 85 81 80 Respiratory Rate 23 21 14 Blood Pressure Pulse Oximetry 99 99 99 Oxygen Delivery Method 08/03/23 11:15 08/03/23 11:15 08/03/23 11:20 Temperature Pulse Rate 79 100 H Respiratory Rate 21 23 Blood Pressure 185/82 H Pulse Oximetry 98 95 Oxygen Delivery Method 08/03/23 11:25 08/03/23 11:30 08/03/23 11:30 Temperature Pulse Rate 82 81 Respiratory Rate 16 26 H Blood Pressure 178/82 H Pulse Oximetry 96 98 Oxygen Delivery Method 08/03/23 11:35 08/03/23 11:45 08/03/23 11:47 Temperature Pulse Rate 88 88 Respiratory Rate 24 Blood Pressure 187/94 H Pulse Oximetry 97 95 Oxygen Delivery Method 08/03/23 11:47 08/03/23 11:50 Temperature Pulse Rate 86 85 Respiratory Rate 14 18 Blood Pressure Pulse Oximetry 97 98 Oxygen Delivery Method MDM - Abdominal Pain Lab Data 08/03/23 08:15 08/03/23 08:15 Labs: Lab Results 08/03/23 08/03/23 Range/Units 08:15 10:45 WBC 13.0 H (4.5-11.0) X10^3/uL RBC 4.83 (4.0-5.2) X10^6/uL Hgb 14.7 (12.0-16.0) g/dL Hct 43.3 (36-46) % MCV 89.6 (80-100) fL MCH 30.4 (26-34) PG MCHC 34.0 (30-36) % RDW 12.9 (11.6-14.8) % Plt Count 271 (150-400) X10^3/uL Neut % (Auto) 85.0 H (50-75) % Lymph % (Auto) 7.5 L (25-40) % [place] % (Auto) 5.5 (3-14) % Eos % (Auto) 1.5 L (2-4) % Baso % (Auto) 0.5 (0-2) % Neut # (Auto) 25762 H (9207-5859) /uL Lymph # (Auto) 1000 L (9001-8363) /uL [place] # (Auto) 700 (0-900) /uL Eos # (Auto) 200 (0-450) /uL Baso # (Auto) 100 (0-100) /uL PT 11.9 (9.4-12.5) SECONDS INR 1.0 (0.9-1.3) APTT 29 (25.1-36.5) SECONDS Sodium 136 L (137-145) mmol/L Potassium 3.8 (3.4-5.1) mmol/L Chloride 102 (98-107) mmol/L Carbon Dioxide 27 (22-32) mmol/L BUN 12 (7-17) mg/dL Creatinine 0.48 L (0.52-1.04) mg/dL Estimated GFR > 60 (>60) mL/min BUN/Creatinine Ratio 25.0 H (6-22) Glucose 137 H (80-110) mg/dL Calcium 10.0 (8.4-10.2) mg/dL Magnesium 1.8 (1.6-2.3) mg/dL Total Bilirubin 0.6 (0.2-1.3) mg/dL AST 36 (14-36) IU/L ALT 26 (<35) IU/L Alkaline Phosphatase 112 (38-126) U/L Total Creatine Kinase 224 H (30-135) U/L Troponin I < 0.012 0.015 (0.01-0.034) ng/mL Total Protein 8.2 (6.3-8.2) g/dL Albumin 4.5 (3.5-5.0) g/dL Globulin 3.7 (1.7-4.1) g/dL Albumin/Globulin Ratio 1.2 (1.0-2.8) Lipase 76 (23-300) U/L Point of care testing: Urine Dip Bedside Urine Glucose Negative Bedside Urine Bilirubin - Negative Bedside Urine Ketone +/- 5 Urine Specific [place] 1.015 Bedside Urine Occult Blood - Negative Bedside Urine pH 7.0 Bedside Urine Protein - Negative Bedside Urine Urobilinogen - Negative Bedside Urine Nitrite - Negative Bedside Urine Leukocytes - Negative Esterase Imaging Data Chest x-ray: Radiologist's Impression: [address] [address] XRay Report Signed Patient: Jodie Rodriguez MR#: [id number] : 1945 Acct:[id number] Age/Sex: 78 / F Date of Service: 08/03/23 Loc: ED Accession Number: [id number] Procedure: XR chest 1V Ordering Provider: Bindu Ott D.O. PROCEDURE: XR CHEST 1V INDICATIONS: chest pain TECHNIQUE: One view of the chest was acquired. COMPARISON: [facility], CR, XR CHEST 1V, 12/08/2022, 8:24. [facility], CR, XR CHEST 1V, 06/10/2022, 9:04. FINDINGS: Surgical changes and devices: Right shoulder replacement. Marcella rods are partially visualized. Lungs and pleura: Lungs are clear. No pleural effusions or pneumothorax. Mediastinum: Mediastinal contours appear normal. Heart size is normal. Bones and chest wall: No suspicious bony lesions. Overlying soft tissues appear unremarkable. IMPRESSION: No acute cardiopulmonary abnormality is seen. Dictated by: Asim Poon M.D. on 08/03/2023 at 8:43 Approved by: Asim Poon M.D. on 08/03/2023 at 8:44 CTA chest/abd/pelvis: Radiologist's Impression: [place] [address] CT Scan Report Signed Patient: Jodie Rodriguez MR#: [id number] : 1945 Acct:[id number] Age/Sex: 78 / F Date of Service: 08/03/23 Loc: ED Accession Number: [id number] Procedure: CT angio chest abdomen pelvis Ordering Provider: Bindu Ott D.O. PROCEDURE: CT ANGIO CHEST ABDOMEN PELVIS INDICATIONS: htn, vomiting, nausea TECHNIQUE: Precontrast 5 mm thick sections acquired from the lung apices to the iliac crests. After the administration of intravenous contrast, 2.5 mm thick sections again acquired from the lung apices to the iliac crests. Maximum intensity projection (MIP) oblique sagittal and coronal reformats were then acquired. For radiation dose reduction, the following was used: automated exposure control. COMPARISON: [facility], CT, CT ANGIO CHEST ABDOMEN PELVIS, 06/10/2022, 11:21. FINDINGS: Image quality: Exam quality is degraded by numerous metallic prosthesis which cause significant metallic streak artifact. AORTA: Intramural hematoma: Absent Dissection: Absent CHEST: Lungs and pleura: Large bleb between the right lower and right middle lobe. No acute airspace opacities. No pleural effusions or pneumothorax. Central and peripheral airways are patent and normal in caliber. Mediastinum: Heart size is normal. No pericardial effusion. No mediastinal or hilar adenopathy by size criteria. Central pulmonary arteries are normal in size. Esophagus is normal in caliber. No hiatal hernias. Bones and chest wall: No axillary adenopathy by size criteria. Thyroid gland is unremarkable. Thoracolumbar and sacral posterior fixation with stable wedge deformity of T9. No suspicious bony lesions. No vertebral body compression fractures. ABDOMEN: Vasculature: Celiac trunk and mesenteric arteries are patent. Renal arteries are also patent. Solid organs: Liver is normal in size and enhancement. Gallbladder is unremarkable . Biliary system is non dilated. Pancreas enhances normally. Spleen is normal in size and enhancement. No adrenal nodules. Both kidneys are normal in size and enhancement, without hydronephrosis. Peritoneum and bowel: No free fluid or air. Bowel loops are normal in caliber and wall thickness. Numerous colonic diverticula most prominent in the sigmoid colon with a small amount of pericolonic edema of the sigmoid colon near the rectosigmoid junction. The appendix is normal Nodes and vessels: No retroperitoneal or mesenteric adenopathy by size criteria. Inferior vena cava is normal in morphology. Miscellaneous: No ventral hernias. PELVIS: Genitourinary: Bladder wall thickness is normal. Miscellaneous: No inguinal hernias or adenopathy. No ventral hernias. Bones: No suspicious bony lesions. No vertebral body compression fractures. IMPRESSION: No aortic dissection. Sigmoid inflammatory changes consistent with acute diverticulitis. Dictated by: Last Gallegos M.D. on 08/03/2023 at 8:47 Approved by: Last Gallegos M.D. on 08/03/2023 at 8:58 ECG Data Attestation: I personally reviewed and interpreted this ECG as follows: Prior ECG tracings: available for review Interpretation: Sinus rhythm left anterior fascicular block rate of 75 DE 146 QRS 124 QTC of 437. Patient's EKG does appear very similar to priors throughout several visits including most recently 12/08/2022 with no obvious acute ST elevation or depression today. MDM Narrative Medical decision making narrative: 78-year-old female presents with nausea vomiting and 1 episode of diarrhea with fairly abrupt onset this morning at 4:00 a.m.. Patient is slightly hypertensive but normal rate, O2 sat. EKG does not show any acute changes patient notes that she thinks this is more of a GI issue but states she is had prior heart attacks with this type of symptoms. She states she has had a heart catheterization about a year and a half ago for NSTEMI which she states did not require cardiac stent and she is been medically managed otherwise. Prior visit patient was 160s to 180s range the visit after that she was 200 systolic prior to admission. Patient has had 2 visits since February of 2022 on 06/10/2022 and 12/08/2022 where she was admitted for hypertensive emergency with negative troponins but elevated CK. Workup today shows white count of 13, neutrophils 85% normal hemoglobin and platelets of 271. No bandemia. Coags are negative, sodium is 136 potassium 3.8 with CO2 of 27 BUN 12 creatinine 0.48, glucose 137 with otherwise normal LFTs and lipase is total CK is 224. CK- MB is now a send out lab and not included in our panel. Initial troponin was negative. Repeat troponin is negative but 0.015 EKG appeared similar to prior. Repeat EKG shows no dynamic changes. CT angio chest abdomen and pelvis does show changes consistent with diverticulitis near the rectosigmoid junction and patient noted little bit of abdominal pain. Large bleb right lower/middle lobe. Stable wedge deformity at T9. Patient given oral antibiotic, her home carvedilol and losartan. Patient tolerated for some time but then started vomiting again. Patient given dose of Zofran, start IV antibiotic with Zosyn. Patient blood pressure has been 170s to 180s pretty persistently 190 most recently on recheck so we will give IV dose of metoprolol. Spoke with hospitalist, Dr. Joseph Discussed if continue with IV blood pressure medication in push form versus nicardipine gtt. We will hold off on drip and continue with metoprolol. CK-MB is pending but do not have to wait we will place in observation continue with blood pressure control, antibiotic and accepted by Dr. Joseph. Discharge Plan Departure Patient Disposition: Admitted as Observation Clinical Impression: Diverticulitis, Vomiting Admit Date/Time: 08/03/23 11:51 Admit Provider: Jamie Joseph
[2023-08-03] MEDS: ONDANSETRON 4 MG/2 ML INJ IV ×5 (08:20→23:44)
--- NOTE | 2023-08-03 08:42 | DI.CT.S_ITS ---
PROCEDURE: CT ANGIO CHEST ABDOMEN PELVIS INDICATIONS: htn, vomiting, nausea TECHNIQUE: Precontrast 5 mm thick sections acquired from the lung apices to the iliac crests. After the administration of intravenous contrast, 2.5 mm thick sections again acquired from the lung apices to the iliac crests. Maximum intensity projection (MIP) oblique sagittal and coronal reformats were then acquired. For radiation dose reduction, the following was used: automated exposure control. COMPARISON: [facility], CT, CT ANGIO CHEST ABDOMEN PELVIS, 06/10/2022, 11:21. FINDINGS: Image quality: Exam quality is degraded by numerous metallic prosthesis which cause significant metallic streak artifact. AORTA: Intramural hematoma: Absent Dissection: Absent CHEST: Lungs and pleura: Large bleb between the right lower and right middle lobe. No acute airspace opacities. No pleural effusions or pneumothorax. Central and peripheral airways are patent and normal in caliber. Mediastinum: Heart size is normal. No pericardial effusion. No mediastinal or hilar adenopathy by size criteria. Central pulmonary arteries are normal in size. Esophagus is normal in caliber. No hiatal hernias. Bones and chest wall: No axillary adenopathy by size criteria. Thyroid gland is unremarkable. Thoracolumbar and sacral posterior fixation with stable wedge deformity of T9. No suspicious bony lesions. No vertebral body compression fractures. ABDOMEN: Vasculature: Celiac trunk and mesenteric arteries are patent. Renal arteries are also patent. Solid organs: Liver is normal in size and enhancement. Gallbladder is unremarkable . Biliary system is non dilated. Pancreas enhances normally. Spleen is normal in size and enhancement. No adrenal nodules. Both kidneys are normal in size and enhancement, without hydronephrosis. Peritoneum and bowel: No free fluid or air. Bowel loops are normal in caliber and wall thickness. Numerous colonic diverticula most prominent in the sigmoid colon with a small amount of pericolonic edema of the sigmoid colon near the rectosigmoid junction. The appendix is normal Nodes and vessels: No retroperitoneal or mesenteric adenopathy by size criteria. Inferior vena cava is normal in morphology. Miscellaneous: No ventral hernias. PELVIS: Genitourinary: Bladder wall thickness is normal. Miscellaneous: No inguinal hernias or adenopathy. No ventral hernias. Bones: No suspicious bony lesions. No vertebral body compression fractures. IMPRESSION: No aortic dissection. Sigmoid inflammatory changes consistent with acute diverticulitis. Dictated by: Last Gallegos M.D. on 08/03/2023 at 8:47 Approved by: Last Gallegos M.D. on 08/03/2023 at 8:58
[2023-08-03] MEDS: LORazepam 2 MG/ML INJ 0.5 MG IV (08:44)
[2023-08-03] MEDS: NITROGLYCERIN 0.4 MG SL TAB SL (08:48)
[2023-08-03 08:51] LABS: Add Manual Diff / Slide Review NO; Basophils Absolute Auto 100 /uL (0-100); Basophils Percent Auto 0.5 % (0-2); Eosinophils Absolute Auto 200 /uL (0-450); Eosinophils Percent Auto 1.5 % (2-4); Hematocrit 43.3 % (36-46); Hemoglobin 14.7 g/dL (12.0-16.0); Lymphocytes Absolute Auto 1000 /uL (1100-4500); Lymphocytes Percent Auto 7.5 % (25-40); Mean Corpuscular Hemoglobin 30.4 PG (26-34); Mean Corpuscular Volume 89.6 fL (80-100); Monocytes Absolute Auto 700 /uL (0-900); Monocytes Percent Auto 5.5 % (3-14); Neutrophils Absolute Auto 11000 /uL (1500-7000); Platelet Count 271 X10^3/uL (150-400); Red Blood Cell Count 4.83 X10^6/uL (4.0-5.2); Red Cell Distribution Width 12.9 % (11.6-14.8)
[2023-08-03] MEDS: SODIUM CHLORIDE 0.9% 1,000 ML 1000 ML IV (08:56)
[2023-08-03 09:01] LABS: Prothrombin Time 11.9 SECONDS (9.4-12.5)
--- NOTE | 2023-08-03 09:03 | PC.NURSE ---
Pt given 1 dose nitro and 0.5 mg lorazepam. BP dropped to 85/49. Physician advised and at the bedside. Pt laid flat and moved to her side. BP now 140/71. No new orders.
[2023-08-03 09:04] LABS: PTT Partial Thromboplastin Tim 29 SECONDS (25.1-36.5)
[2023-08-03 09:05] LABS: Alanine Aminotransferase 26 IU/L (<35); Albumin 4.5 g/dL (3.5-5.0); Albumin Globulin Ratio 1.2 (1.0-2.8); Alkaline Phosphatase 112 U/L (38-126); Aspartate Aminotransferase 36 IU/L (14-36); Bilirubin Total 0.6 mg/dL (0.2-1.3); Blood Urea Nitrogen 12 mg/dL (7-17); Carbon Dioxide 27 mmol/L (22-32); Chloride 102 mmol/L (98-107); Creatine Kinase 224 U/L (30-135); Estimated Glomerular Filt Rate > 60 mL/min (>60); Globulin 3.7 g/dL (1.7-4.1); Glucose 137 mg/dL (80-110); HEMOLYSIS < 15 (0-50); Lipase 76 U/L (23-300); Magnesium 1.8 mg/dL (1.6-2.3); Potassium 3.8 mmol/L (3.4-5.1); Sodium 136 mmol/L (137-145); Total Protein 8.2 g/dL (6.3-8.2)
--- NOTE | 2023-08-03 09:11 | PC.NURSE ---
Per physician, holding ASA dose until N/V subsides.
[2023-08-03 09:16] LABS: Troponin I < 0.012 ng/mL (0.01-0.034)
[2023-08-03] MEDS: LOSARTAN 25 MG TABLET PO (10:18)
[2023-08-03] MEDS: AMOXICILLIN/CLAV 875/125 MG 1 TAB PO (10:20)
[2023-08-03] MEDS: carvediloL 12.5 MG TABLET PO ×2 (10:35→22:25)
--- NOTE | 2023-08-03 10:39 | PC.NURSE ---
TWISTER HAND note: assisted pt. ambulating to bathroom using a walker. pt. was able to urinate in specimen hat that was placed into the toilet, but also soiled her pants and onto her shoes. assisted pt. in clean up of pants and shoes and helped pt. put on new brief and paper scrub pants. helped pt. in ambulating back to pt. room, applied blankets to pt. and left call light within reach.
[2023-08-03 11:22] LABS: Troponin I 0.015 ng/mL (0.01-0.034)
[2023-08-03] MEDS: METOPROLOL TARTRATE 5 MG/5 ML INJ IV ×3 (11:49→12:15)
[2023-08-03] MEDS: PIPERACILLIN/TAZO 4.5 GM in SODIUM CHLORIDE 0.9% 100 ML IV (12:00)
[2023-08-03] MEDS: SODIUM CHLORIDE 0.9% 1,000 ML 125 ML IV ×3 (12:15→21:43)
--- NOTE | 2023-08-03 13:11 | PM.HP.1 ---
History of Present Illness History of Present Illness Date Patient Seen: 08/03/23 Chief complaint: V/N/D Narrative: Jodie Rodriguez is a 77yo F with PMH of CAD, GERD, HTN, depression and insomnia who presents with abd pain and NV. Found to have acute diverticulitis in ED. BP very high because she couldn't take her home meds. She states she has crampy lower abd pain. Antiemetics are helping her nausea. Had some bouts of diarrhea at home. Denies CP, SOB, syncope, or headache. 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) History of bilateral tubal ligation History of arthroscopic knee surgery (2004) Status post open reduction with internal fixation (ORIF) of fracture of ankle (01/2001) Status post right knee replacement (10/09/12) 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) Family History Father CAD (coronary artery disease) Grandfather Lung cancer Grandmother CAD (coronary artery disease) Mother CAD (coronary artery disease) Diabetes mellitus Parkinson's disease Grandfather CAD (coronary artery disease) Social History household members: spouse Smoking Status: Current some day smoker alcohol intake: current Meds Home Medications and Allergies Home Medications Medication Instructions Recorded Confirmed Type omeprazole 40 mg capsule,delayed 40 mg PO QAM PRN Reflux #30 caps 10/22/18 08/03/23 Rx release aspirin 81 mg tablet,delayed 81 mg PO DAILY 03/19/22 08/03/23 History release albuterol sulfate 90 mcg/actuation 2 puff inhalation Q4H PRN 05/06/22 08/03/23 Rx aerosol inhaler (Ventolin HFA) shortness of breath or wheezing #18 grams magnesium oxide 400 mg PO DAILY 06/10/22 08/03/23 History amlodipine 5 mg tablet (Norvasc) 10 mg (2 x 5 mg) PO DAILY #30 tabs 06/11/22 08/03/23 Rx carvedilol 12.5 mg tablet (Coreg) 12.5 mg PO BID #60 tabs 12/09/22 08/03/23 Rx losartan 25 mg tablet 12.5 mg (1/2 x 25 mg) PO BID #30 12/09/22 08/03/23 Rx tabs spironolactone 25 mg tablet 12.5 mg (1/2 x 25 mg) PO DAILY #30 12/09/22 08/03/23 Rx tabs trazodone 100 mg tablet 100 mg PO HS #90 tabs 03/24/23 08/03/23 Rx acyclovir 400 mg tablet 400 mg PO BID #60 tabs 05/19/23 08/03/23 Rx gabapentin 300 mg capsule 600 mg (2 x 300 mg) PO BID #360 05/19/23 08/03/23 Rx caps rosuvastatin 5 mg tablet 2.5 mg PO QPM 05/19/23 08/03/23 History venlafaxine 75 mg tablet 75 mg PO DAILY #90 tabs 06/02/23 08/03/23 Rx oxybutynin chloride 10 mg 10 mg PO QDAY #90 tabs 07/21/23 08/03/23 Rx tablet,extended release 24 hr amoxicillin 875 mg-potassium 1 tab PO TID 4 days #12 tabs 08/04/23 Rx clavulanate 125 mg tablet ondansetron 4 mg disintegrating 4 mg PO Q8H PRN nausea and 08/04/23 Rx tablet vomiting #30 tabs Allergies Allergy/AdvReac Type Severity Reaction Status Date / Time hydrocodone AdvReac Mild DIDN'T Verified 07/15/23 14:29 WORK WELL AND KEPT ME AWAKE Review of Systems Review of Systems Narrative: All other systems reviewed with the patient and are negative unless otherwise stated. Exam Vital Signs (past 8 hours): - 08/03/23 08:04 08/03/23 08:04 08/03/23 08:06 Temperature 98.8 F Pulse Rate 70 72 Respiratory Rate 18 Blood Pressure 183/87 H 174/76 H Pulse Oximetry 96 97 Oxygen Delivery Method Room Air Oxygen Flow Rate 08/03/23 08:06 08/03/23 08:14 08/03/23 08:14 Temperature Pulse Rate 68 74 Respiratory Rate 19 17 Blood Pressure 163/93 H Pulse Oximetry 98 97 Oxygen Delivery Method Oxygen Flow Rate 08/03/23 08:16 08/03/23 08:16 08/03/23 08:30 Temperature Pulse Rate 85 72 Respiratory Rate 24 22 Blood Pressure 160/76 H Pulse Oximetry 97 98 Oxygen Delivery Method Oxygen Flow Rate 08/03/23 08:31 08/03/23 08:31 08/03/23 08:48 Temperature Pulse Rate 72 73 Respiratory Rate 16 Blood Pressure 135/97 H 186/97 H Pulse Oximetry 98 Oxygen Delivery Method Oxygen Flow Rate 08/03/23 08:50 08/03/23 08:50 08/03/23 09:00 Temperature Pulse Rate 68 Respiratory Rate 12 Blood Pressure 186/84 H 85/49 L Pulse Oximetry 97 Oxygen Delivery Method Oxygen Flow Rate 08/03/23 09:00 08/03/23 09:03 08/03/23 09:03 Temperature Pulse Rate 63 58 L Respiratory Rate 21 15 Blood Pressure 129/67 Pulse Oximetry 97 96 Oxygen Delivery Method Oxygen Flow Rate 08/03/23 09:04 08/03/23 09:05 08/03/23 09:05 Temperature Pulse Rate 64 64 Respiratory Rate 13 14 Blood Pressure 140/71 Pulse Oximetry 96 96 Oxygen Delivery Method Oxygen Flow Rate 08/03/23 09:24 08/03/23 09:24 08/03/23 09:25 Temperature Pulse Rate 71 Respiratory Rate Blood Pressure 165/79 H 163/79 H Pulse Oximetry Oxygen Delivery Method Oxygen Flow Rate 08/03/23 09:25 08/03/23 09:30 08/03/23 09:30 Temperature Pulse Rate 72 72 Respiratory Rate 15 15 Blood Pressure 163/81 H Pulse Oximetry 98 92 Oxygen Delivery Method Oxygen Flow Rate 08/03/23 09:35 08/03/23 09:40 08/03/23 09:45 Temperature Pulse Rate 76 75 Respiratory Rate 14 13 Blood Pressure 189/81 H Pulse Oximetry 92 92 Oxygen Delivery Method Oxygen Flow Rate 08/03/23 09:45 08/03/23 09:50 08/03/23 09:55 Temperature Pulse Rate 77 78 79 Respiratory Rate 24 16 15 Blood Pressure Pulse Oximetry 92 92 93 Oxygen Delivery Method Oxygen Flow Rate 08/03/23 10:00 08/03/23 10:00 08/03/23 10:05 Temperature Pulse Rate 78 78 Respiratory Rate 17 14 Blood Pressure 162/71 H Pulse Oximetry 93 94 Oxygen Delivery Method Oxygen Flow Rate 08/03/23 10:10 08/03/23 10:15 08/03/23 10:15 Temperature Pulse Rate 77 81 Respiratory Rate 12 26 H Blood Pressure 178/78 H Pulse Oximetry 94 94 Oxygen Delivery Method Oxygen Flow Rate 08/03/23 10:18 08/03/23 10:25 08/03/23 10:26 Temperature Pulse Rate 99 H 75 79 Respiratory Rate 20 24 Blood Pressure 178/78 H Pulse Oximetry 94 95 Oxygen Delivery Method Oxygen Flow Rate 08/03/23 10:26 08/03/23 10:30 08/03/23 10:35 Temperature Pulse Rate 85 79 Respiratory Rate 23 Blood Pressure 158/71 H 170/78 H Pulse Oximetry 98 Oxygen Delivery Method Oxygen Flow Rate 08/03/23 10:35 08/03/23 10:36 08/03/23 10:36 Temperature Pulse Rate 77 78 Respiratory Rate 17 15 Blood Pressure 170/78 H Pulse Oximetry 99 98 Oxygen Delivery Method Oxygen Flow Rate 08/03/23 10:40 08/03/23 10:45 08/03/23 10:45 Temperature Pulse Rate 75 75 Respiratory Rate 27 H 18 Blood Pressure 192/87 H Pulse Oximetry 96 98 Oxygen Delivery Method Oxygen Flow Rate 08/03/23 10:50 08/03/23 10:55 08/03/23 11:00 Temperature Pulse Rate 83 82 Respiratory Rate 19 14 Blood Pressure 183/82 H Pulse Oximetry 99 99 Oxygen Delivery Method Oxygen Flow Rate 08/03/23 11:00 08/03/23 11:05 08/03/23 11:10 Temperature Pulse Rate 85 81 80 Respiratory Rate 23 21 14 Blood Pressure Pulse Oximetry 99 99 99 Oxygen Delivery Method Oxygen Flow Rate 08/03/23 11:15 08/03/23 11:15 08/03/23 11:20 Temperature Pulse Rate 79 100 H Respiratory Rate 21 23 Blood Pressure 185/82 H Pulse Oximetry 98 95 Oxygen Delivery Method Oxygen Flow Rate 08/03/23 11:25 08/03/23 11:30 08/03/23 11:30 Temperature Pulse Rate 82 81 Respiratory Rate 16 26 H Blood Pressure 178/82 H Pulse Oximetry 96 98 Oxygen Delivery Method Oxygen Flow Rate 08/03/23 11:35 08/03/23 11:45 08/03/23 11:47 Temperature Pulse Rate 88 88 Respiratory Rate 24 Blood Pressure 187/94 H Pulse Oximetry 97 95 Oxygen Delivery Method Oxygen Flow Rate 08/03/23 11:47 08/03/23 11:50 08/03/23 11:52 Temperature Pulse Rate 86 85 Respiratory Rate 14 18 Blood Pressure 185/85 H Pulse Oximetry 97 98 Oxygen Delivery Method Oxygen Flow Rate 08/03/23 11:52 08/03/23 11:54 08/03/23 11:54 Temperature Pulse Rate 83 80 Respiratory Rate 14 15 Blood Pressure 168/89 H Pulse Oximetry 98 91 Oxygen Delivery Method Oxygen Flow Rate 08/03/23 11:55 08/03/23 11:57 08/03/23 11:57 Temperature Pulse Rate 77 74 Respiratory Rate 14 20 Blood Pressure 168/91 H Pulse Oximetry 92 99 Oxygen Delivery Method Oxygen Flow Rate 08/03/23 11:58 08/03/23 11:58 08/03/23 12:00 Temperature Pulse Rate 75 81 Respiratory Rate 14 24 Blood Pressure 180/93 H Pulse Oximetry 99 97 Oxygen Delivery Method Oxygen Flow Rate 08/03/23 12:01 08/03/23 12:01 08/03/23 12:05 Temperature Pulse Rate 98 H 75 Respiratory Rate 27 H 27 H Blood Pressure 183/83 H Pulse Oximetry 96 97 Oxygen Delivery Method Oxygen Flow Rate 08/03/23 12:07 08/03/23 12:07 08/03/23 12:08 Temperature Pulse Rate 74 Respiratory Rate 12 Blood Pressure 181/78 H 172/81 H Pulse Oximetry 97 Oxygen Delivery Method Oxygen Flow Rate 08/03/23 12:08 08/03/23 12:10 08/03/23 12:10 Temperature Pulse Rate 74 74 Respiratory Rate 12 13 Blood Pressure 174/84 H Pulse Oximetry 100 98 Oxygen Delivery Method Oxygen Flow Rate 08/03/23 12:12 08/03/23 12:12 08/03/23 12:14 Temperature Pulse Rate 72 Respiratory Rate 16 Blood Pressure 178/78 H 174/85 H Pulse Oximetry 100 Oxygen Delivery Method Oxygen Flow Rate 08/03/23 12:14 08/03/23 12:15 08/03/23 12:17 Temperature Pulse Rate 73 74 Respiratory Rate 20 25 H Blood Pressure 178/81 H Pulse Oximetry 99 99 Oxygen Delivery Method Oxygen Flow Rate 08/03/23 12:17 08/03/23 12:18 08/03/23 12:18 Temperature Pulse Rate 73 72 Respiratory Rate 28 H 14 Blood Pressure 181/78 H Pulse Oximetry 99 99 Oxygen Delivery Method Oxygen Flow Rate 08/03/23 12:20 08/03/23 12:20 08/03/23 12:22 Temperature Pulse Rate 72 Respiratory Rate 21 Blood Pressure 187/76 H 175/76 H Pulse Oximetry 99 Oxygen Delivery Method Oxygen Flow Rate 08/03/23 12:22 08/03/23 12:25 08/03/23 12:25 Temperature Pulse Rate 71 71 Respiratory Rate 25 H 22 Blood Pressure 184/79 H Pulse Oximetry 98 99 Oxygen Delivery Method Oxygen Flow Rate 08/03/23 12:26 08/03/23 12:26 08/03/23 12:30 Temperature Pulse Rate 71 71 Respiratory Rate 28 H 24 Blood Pressure 175/59 H Pulse Oximetry 99 99 Oxygen Delivery Method Oxygen Flow Rate 08/03/23 12:32 08/03/23 12:32 08/03/23 12:35 Temperature Pulse Rate 62 76 Respiratory Rate 26 H 15 Blood Pressure 151/115 H Pulse Oximetry 98 96 Oxygen Delivery Method Oxygen Flow Rate 08/03/23 12:40 08/03/23 12:41 08/03/23 12:41 Temperature Pulse Rate 72 76 Respiratory Rate 21 21 Blood Pressure 186/84 H Pulse Oximetry 98 98 Oxygen Delivery Method Oxygen Flow Rate 08/03/23 13:01 Temperature 98.0 F Pulse Rate 74 Respiratory Rate 18 Blood Pressure 188/94 H Pulse Oximetry 97 Oxygen Delivery Method Oxygen Flow Rate 0 Oxygen Delivery Method Room Air Oxygen Flow Rate 0 Narrative Exam Narrative: GEN: ill-appearing female, nauseous HEENT: moist mucous membranes, PERRL NECK: trachea midline, no JVD CV: tachycardic, regular rhythm, no murmurs PULM: clear bilaterally ABD: soft, mild lower abdominal tenderness, nondistended, no organomegaly EXT: warm and well perfused with no edema NEURO: awake, alert, oriented, no focal deficits Objective Labs 08/04/23 04:25 08/04/23 04:25 Labs: Laboratory Results - last 24 hr 08/03/23 08/03/23 08:15 10:45 WBC 13.0 H RBC 4.83 Hgb 14.7 Hct 43.3 MCV 89.6 MCH 30.4 MCHC 34.0 RDW 12.9 Plt Count 271 Neut % (Auto) 85.0 H Lymph % (Auto) 7.[address] [place] % (Auto) 5.5 Eos % (Auto) 1.5 L Baso % (Auto) 0.5 Neut # (Auto) 69079 H Lymph # (Auto) [address] [place] # (Auto) 700 Eos # (Auto) 200 Baso # (Auto) 100 PT 11.9 INR 1.0 APTT 29 Sodium 136 L Potassium 3.8 Chloride 102 Carbon Dioxide 27 BUN 12 Creatinine 0.48 L Estimated GFR > 60 BUN/Creatinine Ratio 25.0 H Glucose 137 H Calcium 10.0 Magnesium 1.8 Total Bilirubin 0.6 AST 36 ALT 26 Alkaline Phosphatase 112 Total Creatine Kinase 224 H Troponin I < 0.012 0.015 Total Protein 8.2 Albumin 4.5 Globulin 3.7 Albumin/Globulin Ratio 1.2 Lipase 76 Assessment & Plan Assessment & Plan narrative: # acute diverticulitis -per CT abd -zosyn -NPO # hypertensive urgency -BP up to 200's systolic, patient could not take BP meds at home -labetalol IV PRN -trops neg # intractable nausea vomiting -zofran and reglan IV PRN # CAD -no history of stents, per patient had 2 heart attacks in 2021 -continue home aspirin and statin when able # depression -continue home venlafaxine # insomnia -continue home trazodone # GERD -continue home PPI Code status is full code. COVID negative. DVT prophylaxis with Lovenox. Proxy is . I have reviewed home meds and used all available resources to reconcile the home meds. This patient will be admitted as inpatient and will require less than 2 midnights of hospital time to treat diverticulitis.
[2023-08-03] MEDS: ENOXAPARIN 40 MG/0.4 ML SYRINGE SUBCUT (13:35)
[2023-08-03] MEDS: MAGNESIUM SULFATE 2 GM/50 ML PIGGYBACK IV (13:35)
[2023-08-03] MEDS: METOCLOPRAMIDE 10 MG/2 ML INJ IV ×2 (16:42→21:43)
[2023-08-03] MEDS: PIPERACILLIN/TAZO 3.375 GM in SODIUM CHLORIDE 0.9% 100 ML IV ×2 (16:42→23:40)
[2023-08-03] MEDS: TRAZODONE 50 MG TABLET 100 MG PO (20:19)
[2023-08-03] MEDS: LOSARTAN 25 MG TABLET 12.5 MG PO (22:26)
[2023-08-03] MEDS: ATORVASTATIN 20 MG TABLET 10 MG PO (22:26)
[2023-08-03] MEDS: ACYCLOVIR 400 MG TABLET PO (22:26)
[2023-08-03] MEDS: OXYBUTYNIN 5 MG ER TAB 10 MG PO (22:27)
[2023-08-03] MEDS: GABAPENTIN 300 MG CAPSULE 600 MG PO (22:27)
[2023-08-04 04:33] VITALS: BP 118/45; PULSE 67; RESP 16; TEMP 36.4; O2SAT 95
[2023-08-04 04:55] LABS: Add Manual Diff / Slide Review NO; Basophils Absolute Auto 0 /uL (0-100); Basophils Percent Auto 0.4 % (0-2); Eosinophils Absolute Auto 0 /uL (0-450); Eosinophils Percent Auto 0.3 % (2-4); Hematocrit 35.1 % (36-46); Hemoglobin 12.5 g/dL (12.0-16.0); Lymphocytes Absolute Auto 1200 /uL (1100-4500); Lymphocytes Percent Auto 13.6 % (25-40); Mean Corpuscular HGB Conc 35.5 % (30-36); Mean Corpuscular Hemoglobin 31.6 PG (26-34); Monocytes Absolute Auto 1100 /uL (0-900); Monocytes Percent Auto 12.6 % (3-14); Neutrophils Absolute Auto 6300 /uL (1500-7000); Neutrophils Percent Auto 73.1 % (50-75); Platelet Count 235 X10^3/uL (150-400); Red Blood Cell Count 3.95 X10^6/uL (4.0-5.2); Red Cell Distribution Width 13.1 % (11.6-14.8); White Blood Cell Count 8.6 X10^3/uL (4.5-11.0)
[2023-08-04 05:05] LABS: BUN Creatinine Ratio 15.4 (6-22); Blood Urea Nitrogen 8 mg/dL (7-17); Calcium 8.4 mg/dL (8.4-10.2); Carbon Dioxide 26 mmol/L (22-32); Chloride 102 mmol/L (98-107); Estimated Glomerular Filt Rate > 60 mL/min (>60); Glucose 108 mg/dL (80-110); HEMOLYSIS < 15 (0-50); Potassium 2.8 mmol/L (3.4-5.1); Sodium 133 mmol/L (137-145)
[2023-08-04 05:06] LABS: Magnesium 2.1 mg/dL (1.6-2.3)
[2023-08-04] MEDS: PANTOPRAZOLE DR 40 MG TABLET PO (05:50)
[2023-08-04] MEDS: SODIUM CHLORIDE 0.9% 1,000 ML 125 ML IV (05:51)
[2023-08-04 08:00] VITALS: BP 137/81; PULSE 70; RESP 18; TEMP 36.6; O2SAT 95
[2023-08-04] MEDS: METOCLOPRAMIDE 10 MG/2 ML INJ IV (08:11)
[2023-08-04] MEDS: PIPERACILLIN/TAZO 3.375 GM in SODIUM CHLORIDE 0.9% 100 ML IV (08:11)
[2023-08-04] MEDS: ASPIRIN EC 81 MG TABLET PO (08:18)
[2023-08-04] MEDS: AMLODIPINE 5 MG TABLET 10 MG PO (08:18)
[2023-08-04] MEDS: ACYCLOVIR 400 MG TABLET PO (08:18)
[2023-08-04] MEDS: carvediloL 12.5 MG TABLET PO (08:19)
[2023-08-04] MEDS: ENOXAPARIN 40 MG/0.4 ML SYRINGE SUBCUT (08:19)
[2023-08-04] MEDS: LOSARTAN 25 MG TABLET 12.5 MG PO (08:20)
[2023-08-04] MEDS: GABAPENTIN 300 MG CAPSULE 600 MG PO (08:20)
[2023-08-04] MEDS: OXYBUTYNIN 5 MG ER TAB 10 MG PO (08:21)
[2023-08-04] MEDS: MAGNESIUM OXIDE 400 MG TABLET PO (08:21)
[2023-08-04] MEDS: SPIRONOLACTONE 25 MG TABLET 12.5 MG PO (08:22)
[2023-08-04] MEDS: VENLAFAXINE 37.5 MG TABLET 75 MG PO (08:23)
[2023-08-04] MEDS: POTASSIUM CHLORIDE 20 MEQ TAB 40 MEQ PO ×2 (08:50→11:47)
--- NOTE | 2023-08-04 11:38 | PM.DS.1 ---
History of Present Illness History of Present Illness Chief complaint: V/N/D Narrative: Jodie Rodriguez is a 77yo F with PMH of CAD, GERD, HTN, depression and insomnia who presents with abd pain and NV. Found to have acute diverticulitis in ED. BP very high because she couldn't take her home meds. She states she has crampy lower abd pain. Antiemetics are helping her nausea. Had some bouts of diarrhea at home. Denies CP, SOB, syncope, or headache. Discharge Providers Provider Date of admission: 08/03/23 11:51 Discharge Date: 08/04/23 Primary care physician: Doctor Marina, Discharge provider: Jamie Joseph DO Summary Hospital Course Discharge Diagnosis: # acute diverticulitis -per CT abd -zosyn given -NPO initially, then advanced to regular -sent home on po augmentin 875/125 TID for 4 more days # hypertensive urgency -BP up to 200's systolic, patient could not take BP meds at home -labetalol IV PRN -trops neg -BP improved # intractable nausea vomiting -zofran and reglan IV PRN # CAD -no history of stents, per patient had 2 heart attacks in 2021 -continue home aspirin and statin when able # depression -continue home venlafaxine # insomnia -continue home trazodone # GERD -continue home PPI Hospital Course: Admitted overnight for acute diarrhea, NV from diverticulitis found on CT abd. Started on zosyn. Had very high BP so given IV labetalol. Able to advance diet to regular and her abd pain/NV resolved. BP improved. Discharged home on 4 more days of po augmentin. Exam Vital Signs (past 8 hours): - 08/04/23 04:33 08/04/23 08:00 Temperature 97.5 F L 97.8 F Pulse Rate 67 70 Respiratory Rate 16 18 Blood Pressure 118/45 L 137/81 Pulse Oximetry 95 95 Oxygen Flow Rate 0 Oxygen Delivery Method Room Air Oxygen Flow Rate 0 Narrative Exam Narrative: GEN: NAD HEENT: moist mucous membranes, PERRL NECK: trachea midline, no JVD CV: tachycardic, regular rhythm, no murmurs PULM: clear bilaterally ABD: soft, mild lower abdominal tenderness, nondistended, no organomegaly EXT: warm and well perfused with no edema NEURO: awake, alert, oriented, no focal deficits Objective Labs 08/04/23 04:25 08/04/23 04:25 Labs: Laboratory Results - last 24 hr 08/04/23 04:25 WBC 8.6 RBC 3.95 L Hgb 12.5 Hct 35.1 L MCV 89.0 MCH 31.6 MCHC 35.5 RDW 13.1 Plt Count 235 Neut % (Auto) 73.1 Lymph % (Auto) 13.6 L [place] % (Auto) 12.6 Eos % (Auto) 0.3 L Baso % (Auto) 0.4 Neut # (Auto) 6300 Lymph # (Auto) 1200 [place] # (Auto) 1100 H Eos # (Auto) 0 Baso # (Auto) 0 Sodium 133 L Potassium 2.8 L Chloride 102 Carbon Dioxide 26 BUN 8 Creatinine 0.52 Estimated GFR > 60 BUN/Creatinine Ratio 15.4 Glucose 108 Calcium 8.4 Magnesium 2.1 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) History of bilateral tubal ligation History of arthroscopic knee surgery (2004) Status post open reduction with internal fixation (ORIF) of fracture of ankle (01/2001) Status post right knee replacement (10/09/12) 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) Family History Father CAD (coronary artery disease) Grandfather Lung cancer Grandmother CAD (coronary artery disease) Mother CAD (coronary artery disease) Diabetes mellitus Parkinson's disease Grandfather CAD (coronary artery disease) Social History household members: spouse Smoking Status: Current some day smoker alcohol intake: current Discharge Plan Discharge Plan Patient Disposition: Home Provider Discharge Comment: You were found to have diverticulitis and you improved with antibiotics. You will now be on oral antibiotics for 4 more days. I've also sent nausea medication for you to have in the future if this ever happens again. Discharge orders & Medications Prescriptions: New amoxicillin-pot clavulanate 875-125 mg tablet 1 tab PO TID 4 Days Qty: 12 0RF ondansetron 4 mg tablet,disintegrating 4 mg PO Q8H PRN (Reason: nausea and vomiting) Qty: 30 0RF Continued albuterol sulfate [Ventolin HFA] 90 mcg/actuation HFA aerosol inhaler 2 puff Inhalation Q4H PRN (Reason: shortness of breath or wheezing) Qty: 18 11RF trazodone 100 mg tablet 100 mg PO HS Qty: 90 3RF venlafaxine 75 mg tablet 75 mg PO DAILY Qty: 90 2RF oxybutynin chloride 10 mg tablet extended release 24hr 10 mg PO QDAY Qty: 90 0RF Rx Instructions: PT WILL NEED TO BE SEEN BEFORE NEXT RENEWAL 04/17/23 omeprazole 40 mg capsule,delayed release(DR/EC) 40 mg PO QAM PRN (Reason: Reflux) Qty: 30 3RF aspirin 81 mg tablet,delayed release (DR/EC) 81 mg PO DAILY rosuvastatin 5 mg tablet 2.5 mg PO QPM gabapentin 300 mg capsule 600 mg PO BID Qty: 360 1RF acyclovir 400 mg tablet 400 mg PO BID Qty: 60 1RF carvedilol [Coreg] 12.5 mg Tablet 12.5 mg PO BID Qty: 60 0RF losartan 25 mg Tablet 12.5 mg PO BID Qty: 30 0RF spironolactone 25 mg Tablet 12.5 mg PO DAILY Qty: 30 0RF magnesium oxide 400 mg magnesium Tablet 400 mg PO DAILY amlodipine [Norvasc] 5 mg Tablet 10 mg PO DAILY Qty: 30 0RF Follow up/Referrals: Doctor Marina MD [Primary Care Provider] - Visit Report/Discharge Packet Stand Alone Forms: Patient Portal/API, Stroke Signs & Symptoms Discharge Data Primary Care Provider: Doctor Laina Attending Provider: Jamie Joseph Admit Date/Time: 08/03/23 11:51
[2023-08-04 12:00] VITALS: BP 162/78; PULSE 64; RESP 17; TEMP 36.3; O2SAT 95
--- NOTE | 2023-08-04 13:51 | CM.DANOTE ---
Patient is a 78 yo female who was admitted on 08/03/23 for V/N/D. Pt has [employer] and [employer] for insurance and her PCP is not listed. EMR was reviewed. Per MD, pt with hx of cardiac surgery and admitted for abd pain and acute diverticulitis and hypertensive urgency. Pt's pain seems better controlled and was able to tolerate advancing diet and safe for discharge home with spouse today. SW met briefly bedside right as pt was about to discharge the hospital and confirmed that she resides here in [place] with her spouse, Arnaldo Rodríguez. She indicated, they have known each other for 17 years, and have been for 18 years. At her baseline, she is independent and has worked very hard in recent hx with outpt PT as she had extensive back surgery a couple years ago and had to basically learn to walk all over again and went from needing w/c to FWW all the time to ambulating fairly independently. Pt has very supportive and physically able spouse along with adult Dtr and grandchildren. Pt does not anticipate any needs at d/c other than planning to contact her insurance to contest the OBS status as she feels she should be Inpt Status. Plan: Patient to d/c home today via spouse POV and outpt f/u and no further SW needs at this time. GINGER Ross Discharge Planning/Care Management Advanced directive, confirm from FAMILY Start: 08/03/23 13:29 Freq: Q24H Status: Discharge Protocol: Document 08/03/23 21:00 MS (Rec: 08/04/23 00:48 MS [id number]) Advance Directive, confirm on record Time 00:48 Person contacted none Copy received No Advanced directive available on record No
[2023-08-07 13:38] LABS: Labcorp Creatine Kinase MB 12.2 ng/mL
[2023-08-14 06:10] LABS: CK-BB 0 % (0); CK-MB 0 % (0-3); CK-MM 100 % (97-100); Macro Type 1 0 % (Not Observed); Macro Type 2 0 % (Not Observed)
== END 2023-08-04 13:30 | disposition home or self-care (01) ==
LOC: ED 11:51 → AC 11:51
PROVIDERS: Admitting Provider Student in an Organized Health Care Education/Training Program; Emergency Provider Emergency Medicine; Referring Provider Emergency Medicine; Visit Provider Student in an Organized Health Care Education/Training Program
DX: K57.32 Diverticulitis of large intestine without perforation or abscess without bleeding (principal); I16.0 Hypertensive urgency; I25.2 Old myocardial infarction; I10 Essential (primary) hypertension; K21.9 Gastro-esophageal reflux disease without esophagitis; I25.10 Atherosclerotic heart disease of native coronary artery without angina pectoris; F32.A Depression, unspecified; G47.00 Insomnia, unspecified
CPT/HCPCS: 36415; 71045; 71275; 74174; 80048; 80053; 81003; 82550; 82553; 83690; 83735; 84484; 85025; 85610; 85730; 93005; 93010; 96365; 96366; 96372; 96375; 96376; 99284; 99285; G0378; J1650; J2060; J2405; J2543; J2765; J3475; Q9967

== ENCOUNTER 2023-10-04 12:03 | Emergency (ER) | payer MEDICARE, SELFPAY ==
[2023-08-03 13:07] VITALS: BMI 21.6
[2023-10-04 12:08] VITALS: BP 145/68; PULSE 56; RESP 18; TEMP 36.8; O2SAT 98; BMI 23.0
--- NOTE | 2023-10-04 12:13 | DI.RAD.S_ITS ---
PROCEDURE: XR KNEE RT 3V INDICATIONS: pain TECHNIQUE: 3 views of the knee were acquired. COMPARISON: [facility], , KNEE 1-2 VIEWS LEFT, 04/11/2014, 18:59. FINDINGS: Bones: No fractures or dislocations. No suspicious bony lesions. Total knee prosthesis in good position. Soft tissues: No joint effusion. No suspicious soft tissue calcifications. IMPRESSION: Total knee arthroplasty in good position. No hardware failure. Small joint effusion Dictated by: Noel Oliveira M.D. on 10/04/2023 at 13:08 Approved by: Noel Oliveira M.D. on 10/04/2023 at 13:21
--- NOTE | 2023-10-04 14:25 | ED_ITS ---
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 She reports the pain is for her medial right leg below the knee. She has a history of knee replacement on the right. The pain is worst over the past two days. The pain is aching and throbbing, worse at the end of the day or when she has been very active. She denies any fever, chills, abdominal pain, shortness of breath or dyspnea on exertion. She does not take hormone therapy, no recent travel or immobilization, no history of DVT or PE. She denies any recent new exercise or trauma, although she does admit that she has a large puppy that jumps on her frequently. Tried increasing her gabapentin from 400mg to 600mg before bed, which seems to have helped with the pain. Ibuprofen also helps, at least temporarily. Has not tried ice or heat. Related Data Home Medications Medication Instructions Recorded Confirmed aspirin 81 mg tablet,delayed 81 mg PO DAILY 03/19/22 08/07/23 release magnesium oxide 400 mg PO DAILY 06/10/22 08/07/23 rosuvastatin 5 mg tablet 2.5 mg PO QPM 05/19/23 08/07/23 Previous Rx's Medication Instructions Recorded omeprazole 40 mg capsule,delayed 40 mg PO QAM PRN Reflux #30 caps 10/22/18 release albuterol sulfate 90 mcg/actuation 2 puff inhalation Q4H PRN 05/06/22 aerosol inhaler (Ventolin HFA) shortness of breath or wheezing #18 grams amlodipine 5 mg tablet (Norvasc) 10 mg (2 x 5 mg) PO DAILY #30 tabs 06/11/22 carvedilol 12.5 mg tablet (Coreg) 12.5 mg PO BID #60 tabs 12/09/22 losartan 25 mg tablet 12.5 mg (1/2 x 25 mg) PO BID #30 12/09/22 tabs spironolactone 25 mg tablet 12.5 mg (1/2 x 25 mg) PO DAILY #30 12/09/22 tabs trazodone 100 mg tablet 100 mg PO HS #90 tabs 03/24/23 acyclovir 400 mg tablet 400 mg PO BID #60 tabs 05/19/23 gabapentin 300 mg capsule 600 mg (2 x 300 mg) PO BID #360 05/19/23 caps venlafaxine 75 mg tablet 75 mg PO DAILY #90 tabs 06/02/23 oxybutynin chloride 10 mg 10 mg PO QDAY #90 tabs 07/21/23 tablet,extended release 24 hr ondansetron 4 mg disintegrating 4 mg PO Q8H PRN nausea and 08/04/23 tablet vomiting #30 tabs Allergies Allergy/AdvReac Type Severity Reaction Status Date / Time hydrocodone AdvReac Mild DIDN'T Verified 10/04/23 12:07 WORK WELL AND KEPT ME AWAKE Review of Systems <Elizabeth Pena PA-C - Last Filed: 10/04/23 15:22> Review of Systems ROS Unobtainable: All systems reviewed & are unremarkable except as noted in HPI and below Patient History <Elizabeth Pena PA-C - Last Filed: 10/04/23 15:22> Medical History Heel spur Arthritis of first MTP joint Hx of right bundle branch block Insomnia Allergic rhinitis Postmenopausal GERD (gastroesophageal reflux disease) Anxiety Surgical History Hx of spinal surgery 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) History of bilateral tubal ligation History of arthroscopic knee surgery (2004) Status post open reduction with internal fixation (ORIF) of fracture of ankle (01/2001) Status post right knee replacement (10/09/12) 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) Family History Father CAD (coronary artery disease) Grandfather Lung cancer Grandmother CAD (coronary artery disease) Mother CAD (coronary artery disease) Diabetes mellitus Parkinson's disease Grandfather CAD (coronary artery disease) Social History household members: spouse Smoking Status: Current some day smoker alcohol intake: current Smoking Status: Current some day smoker alcohol intake frequency: 0-2 drinks per day Alcohol type: beer Substance Use Type: marijuana Exam <Elizabeth Pena PA-C - Last Filed: 10/04/23 15:22> Narrative Exam Narrative: GENERAL: 78 year old patient appears stated age. Well-developed patient, in no acute distress. NEURO: AOx3. HEAD: Atraumatic. Normocephalic. EYES: Pupils equal round and reactive. Extraocular motions intact. No scleral icterus. No injection or drainage. ENT: Nose without bleeding or purulent drainage. Airway patent. RESPIRATORY: No increased work of breathing EXTREMITIES: No edema or joint tenderness. Right calf is supple, when compared to left. No erythema or warmth. Distal DP pulse is 2 +, capillary refill 2 seconds, foot is pink and warm. Patient does not think her altered sensation in her feet is worse or better than normal. SKIN: No rash or erythema of visible areas Initial Vital Signs Initial Vital Signs: Vital Signs Temperature 98.2 F 10/04/23 12:08 Pulse Rate 56 L 10/04/23 12:08 Respiratory Rate 18 10/04/23 12:08 Blood Pressure 145/68 H 10/04/23 12:08 Pulse Oximetry 98 10/04/23 12:08 Oxygen Delivery Method Room Air 10/04/23 12:08 <Bindu Sharma MD - Last Filed: 10/04/23 15:44> Initial Vital Signs Initial Vital Signs: Vital Signs Temperature 98.2 F 10/04/23 12:08 Pulse Rate 56 L 10/04/23 12:08 Respiratory Rate 18 10/04/23 12:08 Blood Pressure 145/68 H 10/04/23 12:08 Pulse Oximetry 98 10/04/23 12:08 Oxygen Delivery Method Room Air 10/04/23 12:08 Scores <Elizabeth Pena PA-C - Last Filed: 10/04/23 15:22> Wells' Criteria for DVT Active Cancer (Treatment within 6 months): No Bedridden recently >3 days or major surgery within 4 weeks: No Calf Swelling >3cm compared to other leg: No Collateral (nonvericose) superficial veins present: No Entire leg swollen: No Localized tenderness along the deep vein system: No Pitting edema, confined to symtomatic leg: No Paralysis, paresis, or recent plaster immobilization of ext: No Previously documented DVT: No Alternative dx to DVT as likely or more likely: Yes Freddy criteria for DVT: -2 <Bindu Sharma MD - Last Filed: 10/04/23 15:44> Freddy Criteria for DVT Blaine' criteria for DVT: -2 Course <Elizabeth Pena PA-C - Last Filed: 10/04/23 15:22> Orders Ordered: ED Orders 10/04/23 12:13 XR knee RT 3V Stat Vital Signs Vital signs: Vital Signs - 8 hr 10/04/23 12:08 10/04/23 14:38 Temperature 98.2 F Pulse Rate 56 L 82 Respiratory Rate 18 16 Blood Pressure 145/68 H 158/95 H Pulse Oximetry 98 98 Oxygen Delivery Method Room Air Room Air <Bindu Sharma MD - Last Filed: 10/04/23 15:44> Orders Ordered: ED Orders 10/04/23 12:13 XR knee RT 3V Stat Vital Signs Vital signs: Vital Signs - 8 hr 10/04/23 12:08 10/04/23 14:38 Temperature 98.2 F Pulse Rate 56 L 82 Respiratory Rate 18 16 Blood Pressure 145/68 H 158/95 H Pulse Oximetry 98 98 Oxygen Delivery Method Room Air Room Air MDM - Extremity (Nontraumatic) <Elizabeth Pena PA-C - Last Filed: 10/04/23 15:22> Imaging Data Extremity x-ray #1: Radiologist's Impression: PROCEDURE: XR KNEE RT 3V INDICATIONS: pain TECHNIQUE: 3 views of the knee were acquired. COMPARISON: [facility], , KNEE 1-2 VIEWS LEFT, 04/11/2014, 18:59. FINDINGS: Bones: No fractures or dislocations. No suspicious bony lesions. Total knee prosthesis in good position. Soft tissues: No joint effusion. No suspicious soft tissue calcifications. IMPRESSION: Total knee arthroplasty in good position. No hardware failure. Small joint effusion Dictated by: Noel Oliveira M.D. on 10/04/2023 at 13:08 Approved by: Noel Oliveira M.D. on 10/04/2023 at 13:21 MDM Narrative Medical decision making narrative: Multiple etiologies for patient's symptoms considered including, but not limited to: Displacement of right knee hardware, DVT, cellulitis, change in neuropathic pain Right knee hardware in good position, small effusion noted. Low suspicion for DVT based on Wells criteria, ultrasound not indicated. No rash or skin changes over the painful area. I suggested increasing both the morning and nighttime doses of gabapentin to 600 mg to see if this helps with her pain, try using ice or heat, and follow up with PCP for reassessment. Encouraged continued activity so that she does not become deconditioned or put herself at risk of blood clots. Patient's symptoms improved over duration of stay with above-stated therapies. Findings and discharge diagnosis discussed with patient/family followed by verbalization of understanding Return precautions discussed with patient/family whom verbalize understanding of diagnosis and plan Discharge Plan Departure Patient Disposition: Home Clinical Impression: Pain in right lower leg, Effusion of knee joint right Instructions: Neuropathic Pain Activity Restrictions/Additional Instructions: *You have been diagnosed with suspected neuropathic pain of the right lower leg. There is no evidence of abnormality on your x-ray and your knee replacement hardware is in good position. The radiologist does note a small effusion, which is fluid within the knee joint. This happens as a result of arthritis or injury; it is difficult to know if this is new or chronic for you. If it is new, it could be causing pressure which may be triggering this nerve pain. I do not suspect that you have a clot in the deep veins of your lower leg based on the criteria we used to assess including degree of swelling, tenderness, risk factors. I agree with increasing your gabapentin to 600 mg every night and follow up closely with your primary care for reassessment and further evaluation. You may also want to try heat or ice to see if either of those provides relief. *What to do: *Please continue to take your regular medications as directed. [ ] New medication prescriptions sent to your pharmacy: [ ] [ ] New medication written as a paper prescription [x] No new medications given *Please follow up with your primary care provider in 2-3 days, call for an appointment. Let them know you were seen in the Emergency Department and that we ask that you be seen in follow up. We will electronically transmit a record of today's note if your PCP is in our system *If you do not have a primary care provider please contact the [facility] Resource line at [phone]. They will ask some questions about your medical history and help get you set up with a doctor in the community. *Return to Emergency Department if you should have any new, worsening or concerning symptoms, such as [fever greater than 101 F, shaking chills, worsening pain, persistent vomiting or other concerning symptoms]. Prescriptions: No Action albuterol sulfate [Ventolin HFA] 90 mcg/actuation HFA aerosol inhaler 2 puff Inhalation Q4H PRN (Reason: shortness of breath or wheezing) Qty: 18 1 1RF trazodone 100 mg tablet 100 mg PO HS Qty: 90 3RF venlafaxine 75 mg tablet 75 mg PO DAILY Qty: 90 2RF oxybutynin chloride 10 mg tablet extended release 24hr 10 mg PO QDAY Qty: 90 0RF Rx Instructions: PT WILL NEED TO BE SEEN BEFORE NEXT RENEWAL 04/17/23 omeprazole 40 mg capsule,delayed release(DR/EC) 40 mg PO QAM PRN (Reason: Reflux) Qty: 30 3RF aspirin 81 mg tablet,delayed release (DR/EC) 81 mg PO DAILY rosuvastatin 5 mg tablet 2.5 mg PO QPM gabapentin 300 mg capsule 600 mg PO BID Qty: 360 1RF acyclovir 400 mg tablet 400 mg PO BID Qty: 60 1RF carvedilol [Coreg] 12.5 mg Tablet 12.5 mg PO BID Qty: 60 0RF losartan 25 mg Tablet 12.5 mg PO BID Qty: 30 0RF spironolactone 25 mg Tablet 12.5 mg PO DAILY Qty: 30 0RF ondansetron 4 mg tablet,disintegrating 4 mg PO Q8H PRN (Reason: nausea and vomiting) Qty: 30 0RF magnesium oxide 400 mg magnesium Tablet 400 mg PO DAILY amlodipine [Norvasc] 5 mg Tablet 10 mg PO DAILY Qty: 30 0RF Referrals: Jaky Munson MD [Primary Care Provider] - Stand Alone Forms: Patient Portal/API ED Sign-out <Bindu Sharma MD - Last Filed: 10/04/23 15:44> Cosign ED Attending Cosearlature Attestation: I did not see this patient. I was available all times for consultation.
[2023-10-04 14:38] VITALS: BP 158/95; PULSE 82; RESP 16; O2SAT 98
== END 2023-10-04 14:38 | disposition home or self-care (01) ==
PROVIDERS: Emergency Provider Physician Assistant; PCP Family Medicine
DX: M79.604 Pain in right leg (principal); M25.461 Effusion, right knee; Z79.899 Other long term (current) drug therapy
CPT/HCPCS: 73562; 99281; 99283

== ENCOUNTER → 2024-03-05 13:09 | Outpatient (CLI) | payer MEDICARE, SELFPAY ==
[2023-08-03 13:07] VITALS: BMI 21.6
--- NOTE | 2024-03-05 13:11 | DI.RAD.S_ITS ---
PROCEDURE: XR KNEE LT 1TO2V INDICATIONS: knee pain following knee replacement, asses hardware TECHNIQUE: 2 views of the knee were acquired. COMPARISON: [facility], [place], XR KNEE RT 3V, 10/04/2023, 12:18. [facility], [facility], KNEE 1-2 VIEWS LEFT, 04/11/2014, 18:59. FINDINGS: Bones: Left knee arthroplasty projects in the expected location. Stable appearance. No periprosthetic lucency to suggest loosening or infection. No fractures or dislocations. No suspicious bony lesions. Soft tissues: Small joint effusion. No suspicious soft tissue calcifications. IMPRESSION: Expected appearance of the left knee arthroplasty. Dictated by: Iker Reis M.D. on 03/05/2024 at 16:06 Approved by: Iker Reis M.D. on 03/05/2024 at 16:07
== END ==
PROVIDERS: PCP Family Medicine; Referring Provider Family Medicine; Visit Provider Family Medicine
DX: Z96.659 Presence of unspecified artificial knee joint (principal); Z09 Encounter for follow-up examination after completed treatment for conditions other than malignant neoplasm
CPT/HCPCS: 73560

== ENCOUNTER → 2024-08-24 09:28 | Outpatient (CLI) | payer MEDICARE, SELFPAY ==
[2024-07-28 13:16] VITALS: BMI 21.6
[2024-08-24 10:09] LABS: Estimated Glomerular Filt Rate > 60 mL/min (>60)
--- NOTE | 2024-08-24 10:34 | DI.CT.S_ITS ---
PROCEDURE: CT SHOULDER RIGHT WITH CON INDICATIONS: right shoulder lump TECHNIQUE: Noncontrast 0.75 mm thick sections acquired from the acromioclavicular joint to the inferior scapula, with coronal and sagittal reformatting. For radiation dose reduction, the following was used: automated exposure control, adjustment of mA and/or kV according to patient size. COMPARISON: None. FINDINGS: Image quality: Expected metal streak artifact related to the shoulder arthroplasty that obscures adjacent structures despite the use of artifact reduction techniques. Diagnostic information is obtained. Bones: Postsurgical changes from conventional shoulder arthroplasty. The humeral head component appears to be in appropriate position without signs of loosening. The glenoid component is poorly visualized. Humeral head is high riding with narrowing of the acromial humeral interval to approximately 4 mm. Acromioclavicular joint demonstrates circumscribed lucencies surrounding the joint as well as marginal osteophytes including inferiorly projecting osteophytes at may impinge upon the dorsal supraspinatus. Multilevel degenerative changes are seen in the included spine. There is fusion across the disc spaces at least 2 levels in the thoracic spine. Generalized osteopenia. Included ribs are intact. Soft tissues: Ovoid hypoattenuating lesion is seen in the subcutaneous tissues superior to the acromioclavicular joint measuring approximately 2.3 x 1.8 x 2.1 cm. There is tenting of the overlying skin. This corresponds to the palpable abnormality as indicated by a skin marker. Small moderate amount of fluid is seen in the subacromial/subdeltoid bursa. A moderate glenohumeral effusion is present. There is a 2 mm calcific density in the axillary recess that could represent a loose body. The tendons in ligament surrounding the shoulder are not well evaluated on CT. No disproportionate rotator cuff muscle atrophy. The remaining visualized musculature is normal in bulk. IMPRESSION: 1. Ovoid fluid collection in the subcutaneous tissues superior to the acromioclavicular joint measuring up to 2.3 cm corresponds to the palpable abnormality. Differential considerations include synovial cyst or ganglion cyst versus less likely a skin lesion. 2. Moderate to severe degenerative changes at the acromioclavicular joint with juxta-articular lucencies suspicious for prominent subchondral cystic changes or chronic osseous erosions. An underlying inflammatory arthritis is not excluded. 3. Postsurgical changes from right shoulder arthroplasty. Moderate glenohumeral joint effusion is present, which is nonspecific although particle disease is not excluded. 2 mm calcific density in the axillary recess could represent an intra-articular loose body. 4. Mildly high-riding humeral head with narrowing of the acromial humeral interval. Underlying rotator cuff tendon tearing is not excluded. However, no significant rotator cuff muscle atrophy is seen. 5. Small subacromial/subdeltoid bursal effusion. Approved by: Zackery Castro M.D. on 08/24/2024 at 14:38
== END ==
PROVIDERS: Radiology Diagnostic Radiology; PCP Family Medicine; Referring Provider Family Medicine; Visit Provider Family Medicine
DX: R22.31 Localized swelling, mass and lump, right upper limb (principal); M25.411 Effusion, right shoulder; G62.9 Polyneuropathy, unspecified; Z96.611 Presence of right artificial shoulder joint
CPT/HCPCS: 36415; 73201; 82565; Q9967

== ENCOUNTER → 2024-09-10 13:29 | Outpatient (CLI) | payer MEDICARE, SELFPAY ==
[2024-07-28 13:16] VITALS: BMI 21.6
--- NOTE | 2024-09-10 | PATH_ITS ---
Note [facility] Accession Number: [id number] TESTS RESULT FLAG UNITS REF RANGE LAB Clinician Provided Cytology Information No. of containers..01 Other (Miscellaneous) Source: RIGHT SHOULDER CYST DIAGNOSIS: RIGHT SHOULDER CYST, FINE NEEDLE ASPIRATION. NEGATIVE FOR MALIGNANT CELLS. MACROPHAGES ARE PRESENT, CONSISTENT WITH CYST FLUID CONTENTS. THIS INTERPRETATION INCLUDES EVALUATION OF A CELL BLOCK. Pathologist ICD10: 01 R22.30 Signed out by: Maurice Ruiz MD, Pathologist NPI- [id number] Performed by: Usman Last, [employer] ([facility]) Gross description: 2 CC, YELLOW, CLOUDY RECEIVED: FRESH IN 10 ML SYRINGE.VO /VDU 09/13/2024 0857 Local FLAG LEGEND: L-Low Normal,H-High Normal,LL-Alert Low,HH-Alert High <-Panic Low,>-Panic High,A-Abnormal,AA-Critical Abnormal Performed at: 01 =Z [facility] [address] [place] [address] [address], [place] [address] Mihir Miller MD, Performed at: [address] [facility] [address], [place], [place] [id number] MD Mihir Miller MD Phone: [phone]
--- NOTE | 2024-09-10 13:32 | DI.US.S_ITS ---
PROCEDURE: US ASPIRATION CYST COMPARISON: None. INDICATIONS: right shoulder lump FINDINGS: After discussing the indication, potential complication and alternative with patient, written and oral consent were obtained from the patient for the procedure. Superior right shoulder soft tissue was prepped and draped in standard sterile fashion. Superior right shoulder skin was and asked the size with 1% lidocaine. Under sonographic guidance, a 22 gauge needle was inserted into cystic structure in superior right shoulder soft tissue. Approximately 3 cc of gelatinous yellowish material was aspirated and sent to cytology. The needle is subsequently withdrawn and hemostasis was achieved. Patient tolerated the procedure without complication. IMPRESSION: Successful ultrasound-guided right shoulder soft tissue cyst aspiration. Dictated by: Milo Zaidi M.D. on 09/10/2024 at 16:13 Approved by: Milo Zaidi M.D. on 09/10/2024 at 16:15
== END ==
PROVIDERS: PCP Family Medicine; Referring Provider Family Medicine; Visit Provider Family Medicine
DX: R22.31 Localized swelling, mass and lump, right upper limb (principal)
CPT/HCPCS: 10005

== ENCOUNTER 2025-01-27 12:44 | Inpatient (IN) | payer MEDICARE, SELFPAY ==
[2024-07-28 13:16] VITALS: BMI 21.6
[2025-01-27] VITALS (25 sets, daily range): BP systolic 121–207; BP diastolic 58–93; PULSE 69–86; RESP 11–262; TEMP 36.8–37.1; O2SAT 95–98
--- NOTE | 2025-01-27 12:52 | DI.RAD.S_ITS ---
PROCEDURE: XR CHEST 1V INDICATIONS: Chest Pain TECHNIQUE: One view of the chest was acquired. COMPARISON: [facility], CR, XR CHEST 1V, 06/10/2022, 9:04. [facility], CR, XR CHEST 1V, 12/08/2022, 8:24. [facility], CR, XR CHEST 1V, 08/03/2023, 8:13. (Additional prior imaging is not available for review from the archive at the time of this dictation.) FINDINGS: Surgical changes and devices: Right shoulder arthroplasty hardware is seen. There is partial visualization of thoracolumbar fixation hardware. Lungs and pleura: Lungs are clear, the hyperexpanded. No pleural effusions or pneumothorax. Mediastinum: The cardiac contours are within normal limits. The aorta demonstrates calcification and tortuosity. Bones and chest wall: No suspicious bony lesions. Age-appropriate bony degenerative changes are seen, including involving the left shoulder. Overlying soft tissues appear unremarkable. IMPRESSION: Hyperexpanded lungs, without an acute cardiopulmonary process identified. Postoperative and degenerative changes are seen. Dictated by: Magno Rolon M.D. on 01/27/2025 at 12:50 Approved by: Magno Rolon M.D. on 01/27/2025 at 12:52
--- NOTE | 2025-01-27 12:58 | EKG_ITS ---
[address] [address] Test Date: 2025-01-27 Pat Name: Jodie Rodriguez Department: Room: Gender: Female Pbx Installer: LUCILLE : 1945 Requested By: Order Number: [id number] Reading MD: Nas Mercedes Measurements Intervals [place] Rate: 78 P: 67 LA: 142 QRS: -50 QRSD: 124 T: 37 QT: 404 QTc: 460 Interpretive Statements Sinus rhythm with occasional premature ventricular complexes Biatrial enlargement Right bundle branch block Left anterior fascicular block Bifascicular block Electronically Signed On 01-27-2025 19:02:16 PDT by Nas Mercedes
[2025-01-27 13:07] LABS: Add Manual Diff / Slide Review NO; Basophils Absolute Auto 0 /uL (0-100); Basophils Percent Auto 0.6 % (0-2); Eosinophils Absolute Auto 0 /uL (0-450); Eosinophils Percent Auto 0.1 % (2-4); Hematocrit 43.2 % (36-46); Hemoglobin 14.8 g/dL (12.0-16.0); Lymphocytes Absolute Auto 800 /uL (1100-4500); Lymphocytes Percent Auto 9.8 % (25-40); Mean Corpuscular HGB Conc 34.2 % (30-36); Mean Corpuscular Volume 90.5 fL (80-100); Monocytes Absolute Auto 300 /uL (0-900); Monocytes Percent Auto 3.4 % (3-14); Neutrophils Absolute Auto 6900 /uL (1500-7000); Neutrophils Percent Auto 86.1 % (50-75); Platelet Count 263 X10^3/uL (150-400); Red Blood Cell Count 4.77 X10^6/uL (4.0-5.2); Red Cell Distribution Width 13.3 % (11.6-14.8)
[2025-01-27 13:14] LABS: INR 1.1 (0.9-1.3); Prothrombin Time 11.9 SECONDS (9.4-12.5)
[2025-01-27 13:17] LABS: PTT Partial Thromboplastin Tim 30 SECONDS (25.1-36.5)
[2025-01-27 13:18] LABS: Alanine Aminotransferase 24 IU/L (<35); Albumin 4.9 g/dL (3.5-5.0); Albumin Globulin Ratio 1.4 (1.0-2.8); Alkaline Phosphatase 142 U/L (38-126); Aspartate Aminotransferase 36 IU/L (14-36); BUN Creatinine Ratio 15.5 (6-22); Bilirubin Total 0.8 mg/dL (0.2-1.3); Blood Urea Nitrogen 9 mg/dL (7-17); Calcium 9.3 mg/dL (8.4-10.2); Carbon Dioxide 22 mmol/L (22-32); Chloride 101 mmol/L (98-107); Creatine Kinase 130 U/L (30-135); Estimated Glomerular Filt Rate > 60 mL/min (>60); Globulin 3.6 g/dL (1.7-4.1); Glucose 133 mg/dL (70-99); HEMOLYSIS < 15 (0-50); Lipase 86 U/L (23-300); Magnesium 1.8 mg/dL (1.6-2.3); Potassium 3.9 mmol/L (3.4-5.1); Sodium 136 mmol/L (137-145); Total Protein 8.5 g/dL (6.3-8.2)
[2025-01-27] MEDS: ONDANSETRON 4 MG/2 ML INJ IV (13:24)
[2025-01-27] MEDS: ASPIRIN 81 MG CHEW TAB 324 MG PO (13:25)
[2025-01-27 13:30] LABS: NT-proBNP (BNP-Adult 18+) 739 pg/mL (<450); Troponin I 0.052 ng/mL (0.01-0.034)
--- NOTE | 2025-01-27 13:47 | ED.CHESTPAIN ---
HPI - Chest Pain General Chief Complaint: Chest Pain Stated Complaint: possible heart attack Time Seen by Provider: 01/27/25 13:07 Source: patient Mode of arrival: Family Vehicle History of Present Illness HPI narrative: Patient here for us nausea and vomiting since 5:00 a.m. today. Patient feeling better after Zofran given here. Patient denies denies any chest pain nor shortness of breath. No diaphoresis or sweating. However, patient has history of non-STEMI with nausea and vomiting symptoms 3 years ago February 2022. She had serial troponin studies which elevated and was transferred from this hospital to [facility], underwent cardiac catheterization without any stents placement, however recommended medical management for abnormal vessel findings. Patient has been doing well since then. She never had chest pain with the nausea and vomiting. She was hypertensive at that time. Related Data Home Medications ?Medication ?Instructions ?Recorded ?Confirmed aspirin 81 mg tablet,delayed 81 mg PO DAILY 03/19/22 01/27/25 release magnesium oxide 400 mg PO DAILY 06/10/22 01/27/25 losartan 50 mg tablet 50 mg PO BID 07/23/24 01/27/25 Previous Rx's ?Medication ?Instructions ?Recorded omeprazole 40 mg capsule,delayed 40 mg PO QAM PRN Reflux #30 caps 10/22/18 release albuterol sulfate 90 mcg/actuation 2 puff inhalation Q4H PRN 05/06/22 aerosol inhaler (Ventolin HFA) shortness of breath or wheezing #18 grams Disabled Parking Permit #1 ea 12/11/23 oxybutynin chloride 10 mg 10 mg PO DAILY #90 tabs 01/20/24 tablet,extended release 24 hr diclofenac sodium 1 % topical gel 2 g topical QID #100 grams 03/04/24 (Voltaren Arthritis Pain) acyclovir 400 mg tablet 400 mg PO BID #60 tabs 07/13/24 spironolactone 25 mg tablet 12.5 mg (1/2 x 25 mg) PO DAILY #90 09/09/24 tabs gabapentin 300 mg capsule 900 mg (3 x 300 mg) PO BID #360 10/20/24 caps trazodone 100 mg tablet 100 mg PO ONCE PM #90 tabs 10/20/24 venlafaxine 75 mg tablet 75 mg PO DAILY #90 tabs 11/19/24 amlodipine 5 mg tablet (Norvasc) 10 mg (2 x 5 mg) PO DAILY #180 tabs 01/19/25 lidocaine 5 % topical ointment 1 applic topical DAILY PRN pain 01/20/25 #50 grams aspirin 81 mg tablet,delayed 81 mg PO DAILY #30 tabs 01/29/25 release atorvastatin 20 mg tablet 40 mg (2 x 20 mg) PO BEDTIME #30 01/29/25 tabs carvedilol 25 mg tablet 25 mg PO BID #30 tabs 01/29/25 clopidogrel 75 mg tablet 75 mg PO DAILY #30 tabs 01/29/25 Allergies Allergy/AdvReac Type Severity Reaction Status Date / Time hydrocodone AdvReac Mild DIDN'T Verified 08/13/24 14:30 WORK WELL AND KEPT ME AWAKE Review of Systems Review of Systems Narrative: GENERAL: Negative chills, fatigue, malaise, fever, sweats. HEENT: Negative sinus pain, ear pain, sore throat RESPIRATORY: Negative dyspnea, cough CARDIOVASCULAR: Negative chest pain, palpitations GASTROINTESTINAL: Positive vomiting, nausea, negative abdominal pain : Negative dysuria, frequency, hematuria MUSCULOSKELETAL: Negative muscle or bony pain SKIN: Negative rash, skin lesions NEUROLOGIC: Negative weakness, numbness ROS Unobtainable: All systems reviewed & are unremarkable except as noted in HPI and below Patient History Medical History Heel spur Arthritis of first MTP joint Hx of right bundle branch block Insomnia Allergic rhinitis Postmenopausal GERD (gastroesophageal reflux disease) Anxiety Surgical History Hx of spinal surgery 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) History of bilateral tubal ligation History of arthroscopic knee surgery (2004) Status post open reduction with internal fixation (ORIF) of fracture of ankle (01/2001) Status post right knee replacement (10/09/12) 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 EYES: Pupils equal round ENT: Mucous membranes moist. NECK: Trachea midline. CARDIOVASCULAR: Regular rate and rhythm RESPIRATORY: Clear to auscultation. Breath sounds equal bilaterally. No wheezes, rales, or rhonchi. GASTROINTESTINAL: Abdomen soft, non-tender, no peritoneal signs no guarding or rebound. Bowel sounds are present. EXTREMITIES: No gross deformities. BACK: No flank tenderness. NEURO: AOx4. Clear speech SKIN: Warm and dry PSYCH: Not anxious, is cooperative Initial Vital Signs Initial Vital Signs: Vital Signs Temperature 98.7 F 01/27/25 12:49 Pulse Rate 86 01/27/25 12:49 Respiratory Rate 16 01/27/25 12:49 Blood Pressure 171/81 H 01/27/25 12:49 Pulse Oximetry 96 01/27/25 12:49 Oxygen Delivery Method Room Air 01/27/25 12:49 Course Orders Ordered: Discontinued Medications Acetaminophen (Acetaminophen 325 Mg Tablet) 650 mg PO Q6H PRN PRN Reason: Fever/Mild Pain (1-3) Acyclovir (Acyclovir 400 Mg Tablet) 400 mg PO BID [facility] Last Admin: 01/29/25 08:11 Dose: 400 mg Documented By: Admin: 01/28/25 20:16 Dose: 400 mg Documented By: JOVAN Albuterol (Albuterol 2.5 Mg/3 Ml Neb (Adult)) 2.5 mg INH Q4H PRN PRN Reason: shortness of breath or wheezing Amlodipine Besylate (Amlodipine 5 Mg Tablet) 5 mg PO DAILY [facility] Last Admin: 01/29/25 08:11 Dose: 5 mg Documented By: Admin: 01/28/25 18:16 Dose: 5 mg Documented By: Aspirin (Aspirin 81 Mg Chew Tab) 324 mg PO NOW ONE Stop: 01/27/25 12:53 Last Admin: 01/27/25 13:25 Dose: 324 mg Documented By: ARNOLDO Aspirin (Aspirin Ec 81 Mg Tablet) 81 mg PO DAILY [facility] Last Admin: 01/29/25 08:11 Dose: 81 mg Documented By: Admin: 01/28/25 08:50 Dose: 81 mg Documented By: Atorvastatin Calcium (Atorvastatin 20 Mg Tablet) 40 mg PO BEDTIME [facility] Last Admin: 01/28/25 20:15 Dose: 40 mg Documented By: Admin: 01/27/25 22:17 Dose: 40 mg Documented By: ANTHONY Carvedilol (Carvedilol 12.5 Mg Tablet) 12.5 mg PO BID [facility] Last Admin: 01/28/25 08:49 Dose: 12.5 mg Documented By: Admin: 01/27/25 22:18 Dose: 12.5 mg Documented By: ANTHONY Carvedilol (Carvedilol 12.5 Mg Tablet) 25 mg PO BID [facility] Last Admin: 01/29/25 08:12 Dose: 25 mg Documented By: Admin: 01/28/25 20:14 Dose: 25 mg Documented By: JOVAN Clopidogrel Bisulfate (Clopidogrel 75 Mg Tablet) 75 mg PO DAILY [facility] Last Admin: 01/29/25 08:11 Dose: 75 mg Documented By: Admin: 01/28/25 08:50 Dose: 75 mg Documented By: Gabapentin (Gabapentin 300 Mg Capsule) 300 mg PO NOW ONE Stop: 01/27/25 17:05 Last Admin: 01/27/25 17:45 Dose: 300 mg Documented By: ARNOLDO Gabapentin (Gabapentin 300 Mg Capsule) 900 mg PO BID [facility] Last Admin: 01/29/25 08:11 Dose: 900 mg Documented By: Admin: 01/28/25 20:14 Dose: 900 mg Documented By: Admin: 01/28/25 10:28 Dose: 900 mg Documented By: Heparin Sodium (Porcine) (Heparin 5,000 Unit/Ml Vial) 3,500 unit 60 unit/kg (3500 unit) IV NOW ONE Stop: 01/27/25 14:37 Last Admin: 01/27/25 15:09 Dose: 3,500 unit Documented By: ARNOLDO Heparin Sodium (Porcine) (Heparin 5,000 Unit/Ml Vial) 2,500 unit IV NOW ONE Stop: 01/28/25 05:28 Last Admin: 01/28/25 05:46 Dose: 2,500 unit Documented By: ANTHONY Heparin Sodium/Dextrose (Heparin Drip) 25,000 unit in 500 mls @ 13.063 mls/hr IV CONT [facility]; Protocol Last Admin: 01/29/25 00:49 Dose: 13 units/kg/hr, 14.152 mls/hr Documented By: JOVAN Co-signed By: SHERI Titration: 01/29/25 00:46 Dose: Infused Documented By: JOVAN Co-signed By: SHERI Titration: 01/28/25 05:30 Dose: 13 units/kg/hr, 14.152 mls/hr Documented By: ANTHONY Co-signed By: SHERI Admin: 01/27/25 15:10 Dose: 12 units/kg/hr, 13.063 mls/hr Documented By: ARNOLDO Co-signed By: HERB Naloxone HCl (Naloxone 0.4 Mg/Ml Vial) 0.2 mg IV Q2MIN PRN PRN Reason: Opiate Reversal Non-Formulary Medication (Omeprazole) 40 mg PO QAM PRN PRN Reason: Reflux Ondansetron HCl (Ondansetron 4 Mg/2 Ml Inj) 4 mg IV NOW ONE Stop: 01/27/25 13:20 Last Admin: 01/27/25 13:24 Dose: 4 mg Documented By: ARNOLDO Ondansetron HCl (Ondansetron 4 Mg/2 Ml Inj) 4 mg IV Q8HR PRN PRN Reason: Nausea And Vomiting Oxybutynin Chloride (Oxybutynin 5 Mg Er Tab) 10 mg PO DAILY [facility] Last Admin: 01/29/25 08:12 Dose: 10 mg Documented By: Admin: 01/28/25 10:29 Dose: 10 mg Documented By: Pantoprazole Sodium (Pantoprazole Dr 40 Mg Tablet) 40 mg PO 0700 [facility] Last Admin: 01/29/25 06:23 Dose: 40 mg Documented By: Admin: 01/28/25 06:50 Dose: Not Given Documented By: Admin: 01/28/25 00:29 Dose: 40 mg Documented By: ANTHONY Potassium Chloride (Potassium Chloride 20 Meq Tab) 40 meq PO Q6H [facility] Stop: 01/28/25 15:31 Last Admin: 01/28/25 17:21 Dose: 40 meq Documented By: Admin: 01/28/25 10:28 Dose: 40 meq Documented By: Sodium Chloride (Sodium Chloride 0.9% Flush) 10 ml IV BID [facility] Last Admin: 01/28/25 21:21 Dose: 10 ml Documented By: Admin: 01/28/25 08:51 Dose: 10 ml Documented By: Sodium Chloride (Sodium Chloride 0.9% Flush) 10 ml IV BID [facility] Last Admin: 01/28/25 21:21 Dose: 10 ml Documented By: Admin: 01/28/25 08:19 Dose: 10 ml Documented By: Spironolactone (Spironolactone 25 Mg Tablet) 12.5 mg PO DAILY [facility] Last Admin: 01/29/25 08:12 Dose: 12.5 mg Documented By: Admin: 01/28/25 10:29 Dose: 12.5 mg Documented By: Trazodone HCl (Trazodone 50 Mg Tablet) 100 mg PO BEDTIME [facility] Last Admin: 01/28/25 20:13 Dose: 100 mg Documented By: Admin: 01/27/25 22:18 Dose: 100 mg Documented By: ANTHONY Venlafaxine HCl (Venlafaxine Er 75 Mg Cap) 75 mg PO DAILY [facility] Last Admin: 01/29/25 08:12 Dose: 75 mg Documented By: Vital Signs Vital signs: Vital Signs - 8 hr 01/27/25 12:49 Temperature 98.7 F Pulse Rate 86 Respiratory Rate 16 Blood Pressure 171/81 H Pulse Oximetry 96 Oxygen Delivery Method Room Air MDM - Chest Pain Lab Data 01/29/25 04:34 01/29/25 04:34 Labs: Lab Results 01/27/25 01/27/25 Range/Units 12:56 14:56 WBC 8.0 (4.5-11.0) X10^3/uL RBC 4.77 (4.0-5.2) X10^6/uL Hgb 14.8 (12.0-16.0) g/dL Hct 43.2 (36-46) % MCV 90.5 (80-100) fL MCH 31.0 (26-34) PG MCHC 34.2 (30-36) % RDW 13.3 (11.6-14.8) % Plt Count 263 (150-400) X10^3/uL Neut % (Auto) 86.1 H (50-75) % Lymph % (Auto) 9.8 L (25-40) % Winkler % (Auto) 3.4 (3-14) % Eos % (Auto) 0.1 L (2-4) % Baso % (Auto) 0.6 (0-2) % Neut # (Auto) 6900 (5217-9251) /uL Lymph # (Auto) 800 L (8305-4324) /uL Winkler # (Auto) 300 (0-900) /uL Eos # (Auto) 0 (0-450) /uL Baso # (Auto) 0 (0-100) /uL PT 11.9 (9.4-12.5) SECONDS INR 1.1 (0.9-1.3) APTT 30 (25.1-36.5) SECONDS Sodium 136 L (137-145) mmol/L Potassium 3.9 (3.4-5.1) mmol/L Chloride 101 (98-107) mmol/L Carbon Dioxide 22 (22-32) mmol/L BUN 9 (7-17) mg/dL Creatinine 0.58 (0.52-1.04) mg/dL Estimated GFR > 60 (>60) mL/min BUN/Creatinine Ratio 15.5 (6-22) Glucose 133 H (70-99) mg/dL Calcium 9.3 (8.4-10.2) mg/dL Magnesium 1.8 (1.6-2.3) mg/dL Total Bilirubin 0.8 (0.2-1.3) mg/dL AST 36 (14-36) IU/L ALT 24 (<35) IU/L Alkaline Phosphatase 142 H (38-126) U/L Total Creatine Kinase 130 119 (30-135) U/L Troponin I 0.052 H 0.064 H (0.01-0.034) ng/mL NT-Pro-B Natriuret Pep 739 H (<450) pg/mL Total Protein 8.5 H (6.3-8.2) g/dL Albumin 4.9 (3.5-5.0) g/dL Globulin 3.6 (1.7-4.1) g/dL Albumin/Globulin Ratio 1.4 (1.0-2.8) Lipase 86 (23-300) U/L Imaging Data Chest x-ray: Radiologist's Impression: [address] [address] XRay Report Signed Patient: Jodie Rodriguez MR#: [id number] : 1945 Acct:[id number] Age/Sex: 79 / F Date of Service: 01/27/25 Loc: ED Accession Number: [id number] Procedure: XR chest 1V Ordering Provider: Last Zarate MD PROCEDURE: XR CHEST 1V INDICATIONS: Chest Pain TECHNIQUE: One view of the chest was acquired. COMPARISON: [facility], CR, XR CHEST 1V, 06/10/2022, 9:04. [facility], CR, XR CHEST 1V, 12/08/2022, 8:24. [facility], CR, XR CHEST 1V, 08/03/2023, 8:13. (Additional prior imaging is not available for review from the archive at the time of this dictation.) FINDINGS: Surgical changes and devices: Right shoulder arthroplasty hardware is seen. There is partial visualization of thoracolumbar fixation hardware. Lungs and pleura: Lungs are clear, the hyperexpanded. No pleural effusions or pneumothorax. Mediastinum: The cardiac contours are within normal limits. The aorta demonstrates calcification and tortuosity. Bones and chest wall: No suspicious bony lesions. Age-appropriate bony degenerative changes are seen, including involving the left shoulder. Overlying soft tissues appear unremarkable. IMPRESSION: Hyperexpanded lungs, without an acute cardiopulmonary process identified. Postoperative and degenerative changes are seen. Dictated by: Magno Rolon M.D. on 01/27/2025 at 12:50 Approved by: Magno Rolon M.D. on 01/27/2025 at 12:52 [facility] Narrative Medical decision making narrative: Patient here for us nausea and vomiting since 5:00 a.m. today. Patient feeling better after Zofran given here. Patient denies denies any chest pain nor shortness of breath. No diaphoresis or sweating. However, patient has history of non-STEMI with nausea and vomiting symptoms 3 years ago February 2022. She had serial troponin studies which elevated and was transferred from this hospital to [facility], underwent cardiac catheterization without any stents placement, however recommended medical management for abnormal vessel findings. Patient has been doing well since then. She never had chest pain with the nausea and vomiting. She was hypertensive at that time. After history and exam, CBC CMP troponin x2 EKG chest x-ray Zofran normal saline [facility] Medical records reviewed: Cardiology notes April 05 2024 with [facility] after non-STEMI and heart catheterization Differential considered: Includes but not limited to STEMI non-STEMI angina gastritis Lab Test results independently reviewed as above. Pertinent findings: WBC 8.0 hemoglobin 14.8 INR 1.1 sodium 136 potassium 3.9 BUN 9 creatinine 0.58 GFR greater than 60 troponin 0.052 BNP 739 Repeat troponin 0.06 Independently reviewed EKG sinus rhythm rate 78 occasional PVC right bundle-branch block no ST elevation or depression Imaging studies independently reviewed: Chest x-ray no acute finding Consultations: 2:05 p.m.. Spoke with Cardiology Dr. Zaidi, he does not feel patient needs to be transferred at this time. No heart catheterization at this time. Admit hospitalist here. Start heparin. 4:07 p.m.. Spoke with hospitalist, Dr. Mercedes, he will admit patient Re-evaluations: 4:12 p.m.. Spoke with patient and . They do agree for admission. No transfers indicated at this time for heart catheterization. Cardiology service was contacted. Discussion: Appropriate for admission for non-STEMI. Heparin has been started. Patient is chest pain-free. Cardiology service was contacted. Patient agrees and desires admission. Diagnosis: Non-STEMI Critical Care Time Critical Care Time Attestation: Critical Care Time 35 minutes: Critical care time is separate from other billable procedures. This critical care time includes consultation with family and other consulting doctors, review of records, and interpretation of data from labs, EKGs, imaging, etc. Discharge Plan Departure Patient Disposition: Admitted as Observation Clinical Impression: Non-ST elevated myocardial infarction (non-STEMI) Admit Date/Time: 01/27/25 16:09 Admit Provider: Nas Mercedes
[2025-01-27] MEDS: HEPARIN 5,000 UNIT/ML VIAL 3500 UNIT IV (15:09)
[2025-01-27] MEDS: HEPARIN DRIP 25,000 UNIT/500 ML IV.SOLN 13.063 UNIT IV (15:10)
[2025-01-27 15:20] LABS: Creatine Kinase 119 U/L (30-135)
[2025-01-27 15:33] LABS: Troponin I 0.064 ng/mL (0.01-0.034)
[2025-01-27] MEDS: GABAPENTIN 300 MG CAPSULE PO (17:45)
--- NOTE | 2025-01-27 18:10 | DI.ECHO.S_ITS ---
[facility] : : [address] : : [place] : : [address] : : Phone: [phone] Echocardiogram Report + + :Name: SUN GONZALEZ Study Date: 01/28/2025 Height: 65 in : :[facility] ReadingLocation: Weight: 120 lb : : Gender: Female BSA: 1.6 m2 : :: 1945 Age: 79 yrs BP: 146/67 mmHg: :Reason For Study: POSSIBLE HEART ATTACK : :Ordering Physician: CHRISTINA, : :KEYANNA Beck Performed By: Alexsander Pennington : :Referring: KEYANNA VASQUEZ : + + Interpretation Summary The patient was in atrial fibrillation with heart rates between 58-91 bpm during the exam. The ejection fraction is estimated to be 55-60%. No obvious wall motion abnormality appreciated The right ventricle is normal in size and function. Both atria are normal in size. The IVC is dilated (diameter is greater than 2.1 cm) yet it collapses greater than 50% with a sniff. This suggests a right atrial pressure of 8 mm Hg. No significant valvular abnormality. Procedure: A two-dimensional transthoracic echocardiogram with color flow and Doppler was performed. The study quality was technically adequate. Comparison is made with the echocardiogram of 01/01/2023. The patient was in atrial fibrillation with heart rates between 58-91 bpm during the exam. Left Ventricle: The left ventricle is normal in size. There is normal left ventricular wall thickness. There is no ventricular septal defect visualized. A false chord is noted (normal variant). The ejection fraction is estimated to be 55-60%. Diastolic function could not be accurately assessed due to atrial fibrillation. Right Ventricle: The right ventricle is normal in size and function. Atria: Both atria are normal in size. Right atrial size is normal. There is no Doppler evidence for an interatrial shunt. Mitral Valve: The mitral valve leaflets appear mildly thickened, but open well. The mitral valve leaflets are mildly calcified. There is no mitral regurgitation noted. Aortic Valve: The aortic valve is trileaflet. The aortic valve opens well. There is no aortic valve stenosis. There is trace aortic regurgitation. Tricuspid Valve: The tricuspid valve leaflets are thin and pliable. No tricuspid regurgitation. Pulmonic Valve: The pulmonic valve is not well seen, but is grossly normal. There is no pulmonic valvular regurgitation. Great Vessels: The aortic root is normal size. The ascending aorta could not be visualized. The pulmonary artery is normal size. The IVC is dilated (diameter is greater than 2.1 cm) yet it collapses greater than 50% with a sniff. This suggests a right atrial pressure of 8 mm Hg. Pericardium/ Pleura There is no pericardial effusion. There is no pleural effusion. MMode/2D Measurements & Calculations LVIDd: 5.0 cm LVOT diam: 2.0 cm LVIDs: 3.2 cm Ao root diam: 3.3 cm FS: 35.4 % EPSS: 0.76 cm IVSd: 0.93 cm LVPWd: 0.83 cm LV tenorio. diameter/BSA (cm/m^2): 3.1 LV sys. diameter/BSA (cm/m^2): 2.0 LA A2 area: 15.8 cm2 RA long axis: 3.8 cm LA A4 area: 20.3 cm2 RA area: 13.0 cm2 LA length (vol): 5.4 cm RA vol: 37.3 ml LA vol: 50.2 ml RA : 23.4 ml/m2 LA vol index: 31.5 ml/m2 IVC diam: 2.7 cm RVD1 (basal): 3.7 cm RVD2 (mid): 2.3 cm TAPSE: 2.7 cm Doppler Measurements & Calculations Ao V2 max: 166.6 cm/sec LVOT Max Jon: 120.6 cm/sec Ao V2 mean: 103.9 cm/sec LV V1 max P.8 mmHg Ao max P.1 mmHg LV V1 VTI: 20.0 cm Ao mean P.1 mmHg INGRID(I,D): 2.0 cm2 Ao V2 VTI: 31.2 cm INGRID(V,D): 2.3 cm2 sev ratio: 0.64 INGRID indexed to BSA (cm^2/m^2): 1.3 MV E max jon: 57.9 cm/sec TR max jon: 215.8 cm/sec MV A max jon: 60.1 cm/sec TR max P.6 mmHg MV E/A: 0.96 PA V2 max: 101.7 cm/sec Med Peak E' Jon: 5.7 cm/sec PA V2 mean: 70.2 cm/sec E/E' med: 10.2 PA mean P.2 mmHg Lat Peak E' Jon: 9.3 cm/sec PA pr(Accel): 32.8 mmHg E/E' lat: 6.2 E/e' average: 8.2 MV dec time: 0.27 sec SV(LVOT): 64.0 ml Reading Physician:03:35 PM
--- NOTE | 2025-01-27 18:10 | PM.HP.1 ---
History of Present Illness History of Present Illness Chief complaint: possible heart attack Narrative: She was a pleasant 71-year-old female with acute nausea this morning. She came to the ER and was given Zofran. She had a similar episode 3 years ago was diagnosed with PR and underwent coronary catheterization. She did not require intervention. Today or troponins are minimally elevated. She denies chest pain at rest or with exertion. No recent edema, leg pain, or dyspnea with exertion. She denies other recent abnormal symptoms. No other episodes of nausea recently. She does not see Cardiology on a regular basis. 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 She lives in [place], with her . She was a nonsmoker. 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) Family History Father CAD (coronary artery disease) Grandfather Lung cancer Grandmother CAD (coronary artery disease) Mother CAD (coronary artery disease) Diabetes mellitus Parkinson's disease Grandfather CAD (coronary artery disease) Social History household members: spouse alcohol intake: current Meds Home Medications and Allergies Home Medications ?Medication ?Instructions ?Recorded ?Confirmed ?Type omeprazole 40 mg capsule,delayed 40 mg PO QAM PRN Reflux #30 caps 10/22/18 08/13/24 Rx release aspirin 81 mg tablet,delayed 81 mg PO DAILY 03/19/22 08/13/24 History release albuterol sulfate 90 mcg/actuation 2 puff inhalation Q4H PRN 05/06/22 08/13/24 Rx aerosol inhaler (Ventolin HFA) shortness of breath or wheezing #18 grams magnesium oxide 400 mg PO DAILY 06/10/22 08/13/24 History carvedilol 12.5 mg tablet (Coreg) 12.5 mg PO BID #60 tabs 12/09/22 08/13/24 Rx losartan 25 mg tablet 12.5 mg (1/2 x 25 mg) PO BID #30 12/09/22 08/13/24 Rx tabs rosuvastatin 5 mg tablet 2.5 mg PO QPM 05/19/23 08/13/24 History ondansetron 4 mg disintegrating 4 mg PO Q8H PRN nausea and 08/04/23 08/13/24 Rx tablet vomiting #30 tabs Disabled Parking Permit #1 ea 12/11/23 08/13/24 Rx oxybutynin chloride 10 mg 10 mg PO DAILY #90 tabs 01/20/24 08/13/24 Rx tablet,extended release 24 hr diclofenac sodium 1 % topical gel 2 g topical QID #100 grams 03/04/24 08/13/24 Rx (Voltaren Arthritis Pain) acyclovir 400 mg tablet 400 mg PO BID #60 tabs 07/13/24 08/13/24 Rx losartan 50 mg tablet 50 mg PO BID 07/23/24 08/13/24 History spironolactone 25 mg tablet 12.5 mg (1/2 x 25 mg) PO DAILY #90 09/09/24 Rx tabs gabapentin 300 mg capsule 900 mg (3 x 300 mg) PO BID #360 10/20/24 Rx caps trazodone 100 mg tablet 100 mg PO ONCE PM #90 tabs 10/20/24 Rx venlafaxine 75 mg tablet 75 mg PO DAILY #90 tabs 11/19/24 Rx amlodipine 5 mg tablet (Norvasc) 10 mg (2 x 5 mg) PO DAILY #180 tabs 01/19/25 Rx lidocaine 5 % topical ointment 1 applic topical DAILY PRN pain 01/20/25 Rx #50 grams Allergies Allergy/AdvReac Type Severity Reaction Status Date / Time hydrocodone AdvReac Mild DIDN'T Verified 08/13/24 14:30 WORK WELL AND KEPT ME AWAKE Review of Systems Review of Systems Narrative: All else reviewed and otherwise unremarkable except as noted in the history and physical. Exam Vital Signs (past 8 hours): - 01/27/25 12:49 01/27/25 12:59 01/27/25 13:00 Temperature 98.7 F Pulse Rate 86 85 82 Respiratory Rate 16 12 Blood Pressure 171/81 H Pulse Oximetry 96 98 98 Oxygen Delivery Method Room Air 01/27/25 13:01 01/27/25 13:01 01/27/25 13:30 Temperature Pulse Rate 84 76 Respiratory Rate 11 L 23 Blood Pressure 199/93 H Pulse Oximetry 98 96 Oxygen Delivery Method 01/27/25 13:31 01/27/25 13:31 01/27/25 13:45 Temperature Pulse Rate 77 78 Respiratory Rate 22 262 H Blood Pressure 158/66 H Pulse Oximetry 96 Oxygen Delivery Method 01/27/25 13:45 01/27/25 14:00 01/27/25 14:15 Temperature Pulse Rate 74 76 Respiratory Rate 21 23 Blood Pressure 121/65 Pulse Oximetry Oxygen Delivery Method 01/27/25 14:15 01/27/25 14:30 01/27/25 14:30 Temperature Pulse Rate 75 Respiratory Rate 16 Blood Pressure 138/82 146/71 H Pulse Oximetry Oxygen Delivery Method 01/27/25 14:45 01/27/25 14:45 01/27/25 15:00 Temperature Pulse Rate 76 83 Respiratory Rate 22 21 Blood Pressure 147/79 H Pulse Oximetry Oxygen Delivery Method 01/27/25 15:00 01/27/25 15:15 01/27/25 15:15 Temperature Pulse Rate 78 Respiratory Rate 20 Blood Pressure 151/70 H 135/81 Pulse Oximetry Oxygen Delivery Method 01/27/25 15:30 01/27/25 15:31 01/27/25 15:31 Temperature Pulse Rate 77 77 Respiratory Rate 19 21 Blood Pressure 160/76 H Pulse Oximetry Oxygen Delivery Method 01/27/25 15:46 01/27/25 15:46 01/27/25 16:00 Temperature Pulse Rate 85 86 Respiratory Rate 22 22 Blood Pressure 149/68 H Pulse Oximetry Oxygen Delivery Method 01/27/25 16:27 01/27/25 16:27 01/27/25 16:30 Temperature Pulse Rate 85 79 Respiratory Rate 24 13 Blood Pressure 207/83 H Pulse Oximetry 95 98 Oxygen Delivery Method 01/27/25 16:30 01/27/25 16:45 01/27/25 16:45 Temperature Pulse Rate 77 Respiratory Rate 15 Blood Pressure 161/71 H 149/68 H Pulse Oximetry 98 Oxygen Delivery Method 01/27/25 17:00 01/27/25 17:00 01/27/25 17:30 Temperature Pulse Rate 86 77 Respiratory Rate 30 H 24 Blood Pressure 142/58 H Pulse Oximetry 98 Oxygen Delivery Method Oxygen Delivery Method Room Air Narrative Exam Narrative: NAD, alert and oriented, fluent speech, calm. Normocephalic skull, EOMI, anicteric sclera, symmetric pupils. Oropharynx unremarkable, no droop. Neck supple, midline trachea, no adenopathy. Lungs clear, normal rate and effort. Heart regular, no murmur gallop or rub. Abdomen is soft, non distended and non tender. Extremities are free of edema. Skin is free of rash or lesions. Joints are not swollen or deformed. Judgment appears to be normal. Objective ECG Impression: Intervals [place] Rate: 78 P: 67 MA: 142 QRS: -50 QRSD: 124 T: 37 QT: 404 QTc: 460 Interpretive Statements Sinus rhythm with occasional premature ventricular complexes Biatrial enlargement Right bundle branch block Left anterior fascicular block Imaging Chest x-ray: Radiologist's impression: No acute findings Labs 01/27/25 12:56 01/27/25 12:56 Labs: Laboratory Results - last 24 hr 01/27/25 01/27/25 12:56 14:56 WBC 8.0 RBC 4.77 Hgb 14.8 Hct 43.2 MCV 90.5 MCH 31.0 MCHC 34.2 RDW 13.3 Plt Count 263 Neut % (Auto) 86.1 H Lymph % (Auto) 9.8 L [place] % (Auto) 3.4 Eos % (Auto) 0.1 L Baso % (Auto) 0.6 Neut # (Auto) 6900 Lymph # (Auto) 800 L [place] # (Auto) 300 Eos # (Auto) 0 Baso # (Auto) 0 PT 11.9 INR 1.1 APTT 30 Sodium 136 L Potassium 3.9 Chloride 101 Carbon Dioxide 22 BUN 9 Creatinine 0.58 Estimated GFR > 60 BUN/Creatinine Ratio 15.5 Glucose 133 H Calcium 9.3 Magnesium 1.8 Total Bilirubin 0.8 AST 36 ALT 24 Alkaline Phosphatase 142 H Total Creatine Kinase 130 119 Troponin I 0.052 H 0.064 H NT-Pro-B Natriuret Pep 739 H Total Protein 8.5 H Albumin 4.9 Globulin 3.6 Albumin/Globulin Ratio 1.4 Lipase 86 Assessment & Plan Assessment & Plan narrative: 1. NSTEMI, active. ED doctor discussed with dry room operator who recommended 48 hours of heparin treated Plan: -heparin drip. Beta blockade. Aspirin and Plavix. High dose statin. -echo to assess for wall motion abnormalities. Pulmonary embolism remains in the differential. She was on heparin drip. Full resuscitation. Anticipate 2 midnights, supports inpatient status. Time-Based Coding :: 35 min spent with patient and on the chart (including review of chart, obtaining history, exam, reviewing outside data, placing orders, documenting exam and treatment plan, and counseling patient) on 01/27. Quality MIPS - Admit I confirm the patient?s Advance Care Plan is present, Code status is documented, Surrogate decision maker is in patient?s record [If Yes, STOP here]: Yes MIPS - Meds 'Current medications' to include all prescriptions, [id number] products, herbals, cannabis/cannabidiol products, and vitamin/mineral/dietary (nutritional) supplements. I have utilized all available resources to obtain, update, or review the patient?s current medications. [If Yes, STOP here]: Yes
[2025-01-27 18:49] LABS: Troponin I 0.053 ng/mL (0.01-0.034)
--- NOTE | 2025-01-27 19:33 | PC.NURSE ---
PT ARRIVED FROM ED AT 1800 WITH HEP GTT RUNNING AT 13.1 MLS. R FA AND L AC IV. A/OX4 ON ROOM AIR. NO C/O CHEST PAIN. DR VASQUEZ IN TO SPEAK WITH PATIENT REGARDING POC. LAB BY TO DRAW TROPONIN.
[2025-01-27] MEDS: ATORVASTATIN 20 MG TABLET 40 MG PO (22:17)
[2025-01-27] MEDS: TRAZODONE 50 MG TABLET 100 MG PO (22:18)
[2025-01-27] MEDS: carvediloL 12.5 MG TABLET PO (22:18)
[2025-01-27 22:29] LABS: MRSA (Nasal) PCR NOT DETECTED (Not Detect)
[2025-01-27 22:39] LABS: PTT Partial Thromboplastin Tim 47 SECONDS (25.1-36.5)
[2025-01-28] VITALS (17 sets, daily range): BP systolic 120–192; BP diastolic 58–85; PULSE 50–86; RESP 11–30; TEMP 36.3–37.3; O2SAT 93–98
[2025-01-28] MEDS: PANTOPRAZOLE DR 40 MG TABLET PO (00:29)
[2025-01-28 04:39] LABS: Add Manual Diff / Slide Review NO; Basophils Absolute Auto 100 /uL (0-100); Basophils Percent Auto 1.2 % (0-2); Eosinophils Absolute Auto 100 /uL (0-450); Hematocrit 40.1 % (36-46); Hemoglobin 13.7 g/dL (12.0-16.0); Lymphocytes Absolute Auto 1200 /uL (1100-4500); Lymphocytes Percent Auto 15.8 % (25-40); Mean Corpuscular HGB Conc 34.2 % (30-36); Mean Corpuscular Hemoglobin 30.9 PG (26-34); Mean Corpuscular Volume 90.4 fL (80-100); Monocytes Absolute Auto 900 /uL (0-900); Monocytes Percent Auto 12.8 % (3-14); Neutrophils Absolute Auto 5000 /uL (1500-7000); Neutrophils Percent Auto 68.2 % (50-75); Platelet Count 234 X10^3/uL (150-400); Red Blood Cell Count 4.44 X10^6/uL (4.0-5.2); White Blood Cell Count 7.4 X10^3/uL (4.5-11.0)
[2025-01-28 04:51] LABS: PTT Partial Thromboplastin Tim 44 SECONDS (25.1-36.5)
[2025-01-28 04:53] LABS: BUN Creatinine Ratio 15.4 (6-22); Blood Urea Nitrogen 8 mg/dL (7-17); Calcium 9.1 mg/dL (8.4-10.2); Carbon Dioxide 28 mmol/L (22-32); Chloride 104 mmol/L (98-107); Estimated Glomerular Filt Rate > 60 mL/min (>60); Glucose 107 mg/dL (70-99); HEMOLYSIS < 15 (0-50); Potassium 3.3 mmol/L (3.4-5.1); Sodium 136 mmol/L (137-145)
[2025-01-28] MEDS: HEPARIN 5,000 UNIT/ML VIAL 2500 UNIT IV (05:46)
--- NOTE | 2025-01-28 07:44 | P.PN_ITS ---
Subjective Subjective Interval history: Summary: She was a pleasant 71-year-old female with acute nausea this morning. She came to the ER and was given Zofran. She had a similar episode 3 years ago was diagnosed with [place] and underwent coronary catheterization. She did not require intervention. Today or troponins are minimally elevated. She denies chest pain at rest or with exertion. No recent edema, leg pain, or dyspnea with exertion. She denies other recent abnormal symptoms. No other episodes of nausea recently. She does not see Cardiology on a regular basis. 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 She lives in [place], with her . She was a nonsmoker. S: No chest pain or dyspnea. Less anxiety. Echo was done and result is pending. Exam Vital Signs (past 8 hours): - 01/28/25 00:00 01/28/25 00:00 01/28/25 04:00 Temperature 97.8 F 97.4 F L Pulse Rate 58 L 59 L 51 L Respiratory Rate 18 24 12 Blood Pressure 120/58 L 120/58 L 149/84 H Pulse Oximetry 97 97 95 Oxygen Flow Rate 1 0 1 Oxygen Delivery Method Room Air Oxygen Flow Rate 1 Narrative Exam Narrative: NAD, alert and oriented. Fluent speech. Lungs are clear, normal rate and effort. Heart is regular, no murmur gallop or rub. Abdomen is soft, non distended. Extremities are free of edema. Objective Labs 01/28/25 04:15 01/28/25 04:15 Labs: Laboratory Results - last 24 hr 01/27/25 01/27/25 01/27/25 12:56 14:56 18:13 WBC 8.0 RBC 4.77 Hgb 14.8 Hct 43.2 MCV 90.5 MCH 31.0 MCHC 34.2 RDW 13.3 Plt Count 263 Neut % (Auto) 86.1 H Lymph % (Auto) 9.8 L [place] % (Auto) 3.4 Eos % (Auto) 0.1 L Baso % (Auto) 0.6 Neut # (Auto) 6900 Lymph # (Auto) 800 L [place] # (Auto) 300 Eos # (Auto) 0 Baso # (Auto) 0 PT 11.9 INR 1.1 APTT 30 Sodium 136 L Potassium 3.9 Chloride 101 Carbon Dioxide 22 BUN 9 Creatinine 0.58 Estimated GFR > 60 BUN/Creatinine Ratio 15.5 Glucose 133 H Calcium 9.3 Magnesium 1.8 Total Bilirubin 0.8 AST 36 ALT 24 Alkaline Phosphatase 142 H Total Creatine Kinase 130 119 Troponin I 0.052 H 0.064 H NT-Pro-B Natriuret Pep 739 H Total Protein 8.5 H Albumin 4.9 Globulin 3.6 Albumin/Globulin Ratio 1.4 Lipase 86 Nasal Screen MRSA (PCR) Not detected 01/27/25 01/27/25 01/28/25 18:19 22:05 04:15 WBC 7.4 RBC 4.44 Hgb 13.7 Hct 40.1 MCV 90.4 MCH 30.9 MCHC 34.2 RDW 13.0 Plt Count 234 Neut % (Auto) 68.2 Lymph % (Auto) 15.8 L [place] % (Auto) 12.8 Eos % (Auto) 2.0 Baso % (Auto) 1.2 Neut # (Auto) 5000 Lymph # (Auto) 1200 [place] # (Auto) 900 Eos # (Auto) 100 Baso # (Auto) 100 PT INR APTT 47 H D 44 H Sodium 136 L Potassium 3.3 L Chloride 104 Carbon Dioxide 28 BUN 8 Creatinine 0.52 Estimated GFR > 60 BUN/Creatinine Ratio 15.4 Glucose 107 H Calcium 9.1 Magnesium Total Bilirubin AST ALT Alkaline Phosphatase Total Creatine Kinase Troponin I 0.053 H NT-Pro-B Natriuret Pep Total Protein Albumin Globulin Albumin/Globulin Ratio Lipase Nasal Screen MRSA (PCR) [facility] Medical History Heel spur Arthritis of first MTP joint Hx of right bundle branch block Insomnia Allergic rhinitis Postmenopausal GERD (gastroesophageal reflux disease) Anxiety Surgical History Hx of spinal surgery 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) History of bilateral tubal ligation History of arthroscopic knee surgery (2004) Status post open reduction with internal fixation (ORIF) of fracture of ankle (01/2001) Status post right knee replacement (10/09/12) 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) Family History Father CAD (coronary artery disease) Grandfather Lung cancer Grandmother CAD (coronary artery disease) Mother CAD (coronary artery disease) Diabetes mellitus Parkinson's disease Grandfather CAD (coronary artery disease) Social History household members: spouse Smoking Status: Former smoker alcohol intake: current Assessment & Plan Assessment & Plan narrative: 1. NSTEMI, active. 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 Beta blockade. Aspirin and Plavix. High dose statin. We will run the heparin drip for another 12 hours until tomorrow morning. -echo to assess for wall motion abnormalities. -obtaining old records including coronary angiogram from [facility] 3 years ago. Pulmonary embolism remains in the differential. She was on heparin drip. Full resuscitation. Anticipate 2 midnights, supports inpatient status. ROBINSON is January 29. Her troponins may remained stable and low-level. Time-Based Coding :: [TOTAL MINUTES] spent with patient and on the chart (including review of chart, obtaining history, exam, reviewing outside data, placing orders, documenting exam and treatment plan, and counseling patient) on [DATE]. Quality VTE Deep Vein Thrombosis/Pulmonary Embolism Present on Admission: No
[2025-01-28] MEDS: SODIUM CHLORIDE 0.9% FLUSH 10 ML IV ×4 (08:19→21:21)
[2025-01-28] MEDS: carvediloL 12.5 MG TABLET PO (08:49)
[2025-01-28] MEDS: ASPIRIN EC 81 MG TABLET PO (08:50)
[2025-01-28] MEDS: CLOPIDOGREL 75 MG TABLET PO (08:50)
[2025-01-28] MEDS: GABAPENTIN 300 MG CAPSULE 900 MG PO ×2 (10:28→20:14)
[2025-01-28] MEDS: POTASSIUM CHLORIDE 20 MEQ TAB 40 MEQ PO ×2 (10:28→17:21)
[2025-01-28] MEDS: OXYBUTYNIN 5 MG ER TAB 10 MG PO (10:29)
[2025-01-28] MEDS: SPIRONOLACTONE 25 MG TABLET 12.5 MG PO (10:29)
[2025-01-28 11:04] LABS: PTT Partial Thromboplastin Tim 71 SECONDS (25.1-36.5)
--- NOTE | 2025-01-28 16:16 | CM.DANOTE ---
Initial DCP Assessment Note Pt is a 79 yo female, resident of [place], admitted INPT for close monitoring after NSTEMI. PCP: Dr Munson Payer: MCR/CHRISTOPHER Reviewed chart, pt discussed in multidisciplinary rounds this morning. ROBINSON 01/29. Patient lives independently with spouse and plans to return at DC. Close follow up recommended. No barriers identified at this time to patient's safe discharge home w/family to assist; close outpatient f/u recommended. CM team will plan to follow clinical course closely in case any DC needs or concerns arise. GINGER Stearns Discharge Planning/Care Management CM Discharge Assessment Start: 01/27/25 17:27 Freq: Status: Active Protocol: Document 01/28/25 16:15 SELENA (Rec: 01/28/25 16:16 SELENA [id number]) Discharge Planning Assessment Assigned Discharge GINGER Wylie Hyperbaric Technologist DPOA/Assigned Arnaldo Rodríguez, spouse Designee Name Contact Information [phone] Advance Directives? Yes Advance Directives No on File History Provided By Patient,Family Member,Medical Record Prior Living House Arrangements Household Members spouse Type of Drives own vehicle transporation used prior to admit Independent with ADL Yes 's Is patient alert and Yes oriented? Barriers to No Discharge Comment Home w/family Discharge Plan Home Transportation Spouse to provide transport at d/c Arrangement Referrals Initiated None needed
[2025-01-28 17:33] LABS: PTT Partial Thromboplastin Tim 54 SECONDS (25.1-36.5)
[2025-01-28] MEDS: AMLODIPINE 5 MG TABLET PO (18:16)
[2025-01-28] MEDS: TRAZODONE 50 MG TABLET 100 MG PO (20:13)
[2025-01-28] MEDS: carvediloL 12.5 MG TABLET 25 MG PO (20:14)
[2025-01-28] MEDS: ATORVASTATIN 20 MG TABLET 40 MG PO (20:15)
[2025-01-28] MEDS: ACYCLOVIR 400 MG TABLET PO (20:16)
[2025-01-29] VITALS (7 sets, daily range): BP systolic 111–163; BP diastolic 63–81; PULSE 46–67; RESP 13–30; O2SAT 96–98
[2025-01-29] MEDS: HEPARIN DRIP 25,000 UNIT/500 ML IV.SOLN 14.152 UNIT IV (00:49)
[2025-01-29 04:53] LABS: Add Manual Diff / Slide Review NO; Basophils Absolute Auto 100 /uL (0-100); Basophils Percent Auto 1.2 % (0-2); Eosinophils Absolute Auto 100 /uL (0-450); Eosinophils Percent Auto 2.6 % (2-4); Hematocrit 40.9 % (36-46); Lymphocytes Absolute Auto 1000 /uL (1100-4500); Lymphocytes Percent Auto 20.8 % (25-40); Mean Corpuscular HGB Conc 34.2 % (30-36); Mean Corpuscular Volume 90.5 fL (80-100); Monocytes Absolute Auto 800 /uL (0-900); Monocytes Percent Auto 15.6 % (3-14); Neutrophils Absolute Auto 3000 /uL (1500-7000); Neutrophils Percent Auto 59.8 % (50-75); Platelet Count 226 X10^3/uL (150-400); Red Blood Cell Count 4.52 X10^6/uL (4.0-5.2); Red Cell Distribution Width 13.6 % (11.6-14.8)
[2025-01-29 05:04] LABS: PTT Partial Thromboplastin Tim 63 SECONDS (25.1-36.5)
[2025-01-29 05:08] LABS: BUN Creatinine Ratio 9.2 (6-22); Blood Urea Nitrogen 6 mg/dL (7-17); Calcium 9.2 mg/dL (8.4-10.2); Carbon Dioxide 31 mmol/L (22-32); Chloride 104 mmol/L (98-107); Estimated Glomerular Filt Rate > 60 mL/min (>60); Glucose 103 mg/dL (70-99); HEMOLYSIS < 15 (0-50); Potassium 4.2 mmol/L (3.4-5.1); Sodium 137 mmol/L (137-145)
[2025-01-29] MEDS: PANTOPRAZOLE DR 40 MG TABLET PO (06:23)
[2025-01-29] MEDS: ACYCLOVIR 400 MG TABLET PO (08:11)
[2025-01-29] MEDS: ASPIRIN EC 81 MG TABLET PO (08:11)
[2025-01-29] MEDS: CLOPIDOGREL 75 MG TABLET PO (08:11)
[2025-01-29] MEDS: AMLODIPINE 5 MG TABLET PO (08:11)
[2025-01-29] MEDS: GABAPENTIN 300 MG CAPSULE 900 MG PO (08:11)
[2025-01-29] MEDS: VENLAFAXINE ER 75 MG CAP PO (08:12)
[2025-01-29] MEDS: SPIRONOLACTONE 25 MG TABLET 12.5 MG PO (08:12)
[2025-01-29] MEDS: carvediloL 12.5 MG TABLET 25 MG PO (08:12)
[2025-01-29] MEDS: OXYBUTYNIN 5 MG ER TAB 10 MG PO (08:12)
--- NOTE | 2025-01-29 08:33 | PM.DS.1 ---
History of Present Illness History of Present Illness Chief complaint: possible heart attack Narrative: She was a pleasant 71-year-old female with acute nausea this morning. She came to the ER and was given Zofran. She had a similar episode 3 years ago was diagnosed with [place] and underwent coronary catheterization. She did not require intervention. Today or troponins are minimally elevated. She denies chest pain at rest or with exertion. No recent edema, leg pain, or dyspnea with exertion. She denies other recent abnormal symptoms. No other episodes of nausea recently. She does not see Cardiology on a regular basis. 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 She lives in [place], with her . She was a nonsmoker. Discharge Providers Provider Date of admission: 01/27/25 16:09 Discharge Date: 01/29/25 Primary care physician: Jaky Munson MD Consults: ED provider spoke with Dr. Bob myers of [facility] at the time of ED evaluation. Discharge provider: Nas Mercedes MD Summary Hospital Course Discharge Diagnosis: 1. NSTEMI, active. ED doctor discussed with coatings inspector who recommended 48 hours of heparin treated. Chronic stable medical conditions: Anxiety Hypertension CAD with non critical RCA lesion 3 years ago on angiography Insomnia GERD Hospital Course: She presented with acute nausea and was found to have an elevated troponin. This is consistent with her presenting symptoms 3 years ago when she was sent to PCR her went coronary angiogram revealing nonobstructive CAD and a 30% mid RCA lesion. She would hypertensive urgency at that time and elevated troponins. She was followed by outpatient [facility] in [place]. She was no recent history of exertional dyspnea or chest pain. She had serial enzymes which were minimally elevated and was treated with a heparin drip for 48 hours. She had her beta yaima increased and we would be placed on dual antiplatelet therapy until cardiology follow up. She was felt to be stable for discharge on January 29. ECGs and telemetry indicates sinus rhythm throughout her stay. Her echo reads her rhythm is atrial fibrillation. Status at Discharge Cognitive/behavioral status at discharge: oriented Functional status at discharge: independent ambulation Overall status at discharge: patient is back to baseline Time Spent with Patient Time spent: Greater than 30 minutes Exam Vital Signs (past 8 hours): - 01/29/25 02:00 01/29/25 03:27 01/29/25 03:27 Pulse Rate 46 L 56 L Respiratory Rate 30 H 13 Blood Pressure 163/68 H Pulse Oximetry 96 98 Oxygen Delivery Method 01/29/25 03:31 01/29/25 03:31 01/29/25 04:00 Pulse Rate 56 L 50 L Respiratory Rate 21 16 Blood Pressure 124/63 Pulse Oximetry 98 98 Oxygen Delivery Method 01/29/25 07:00 01/29/25 08:12 Pulse Rate 60 Respiratory Rate Blood Pressure 124/63 Pulse Oximetry Oxygen Delivery Method Room Air Oxygen Delivery Method Room Air Oxygen Flow Rate 2 Narrative Exam Narrative: NAD, alert and oriented. Fluent speech. Lungs are clear, normal rate and effort. Heart is regular, no murmur gallop or rub. Abdomen is soft, non distended. Extremities are free of edema. Objective ECG Impression: Intervals [place] Rate: 78 P: 67 NE: 142 QRS: -50 QRSD: 124 T: 37 QT: 404 QTc: 460 Interpretive Statements Sinus rhythm with occasional premature ventricular complexes Biatrial enlargement Right bundle branch block Left anterior fascicular block Bifascicular block Imaging Chest x-ray: Radiologist's impression: Hyperexpanded lungs, without an acute cardiopulmonary process identified. Postoperative and degenerative changes are seen. Echo: Radiologist's impression: Interpretation Summary The patient was in atrial fibrillation with heart rates between 58-91 bpm during the exam. The ejection fraction is estimated to be 55-60%. No obvious wall motion abnormality appreciated The right ventricle is normal in size and function. Both atria are normal in size. The IVC is dilated (diameter is greater than 2.1 cm) yet it collapses greater than 50% with a sniff. This suggests a right atrial pressure of 8 mm Hg. No significant valvular abnormality. Labs 01/29/25 04:34 01/29/25 04:34 Labs: Laboratory Results - last 24 hr 01/28/25 01/28/25 01/29/25 10:47 17:05 04:34 WBC 5.0 RBC 4.52 Hgb 14.0 Hct 40.9 MCV 90.5 MCH 31.0 MCHC 34.2 RDW 13.6 Plt Count 226 Neut % (Auto) 59.8 Lymph % (Auto) 20.8 L [place] % (Auto) 15.6 H Eos % (Auto) 2.6 Baso % (Auto) 1.2 Neut # (Auto) 3000 Lymph # (Auto) 1000 L [place] # (Auto) 800 Eos # (Auto) 100 Baso # (Auto) 100 APTT 71 H D 54 H D 63 H D Sodium 137 Potassium 4.2 Chloride 104 Carbon Dioxide 31 BUN 6 L Creatinine 0.65 Estimated GFR > 60 BUN/Creatinine Ratio 9.2 Glucose 103 H Calcium 9.2 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) History of bilateral tubal ligation History of arthroscopic knee surgery (2004) Status post open reduction with internal fixation (ORIF) of fracture of ankle (01/2001) Status post right knee replacement (10/09/12) 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) Family History Father CAD (coronary artery disease) Grandfather Lung cancer Grandmother CAD (coronary artery disease) Mother CAD (coronary artery disease) Diabetes mellitus Parkinson's disease Grandfather CAD (coronary artery disease) Social History household members: spouse Smoking Status: Former smoker alcohol intake: current Discharge Assessment & Plan Assessment and Plan Assessment: 1. NSTEMI, active. ED doctor discussed with coatings inspector who recommended 48 hours of heparin treated. Plan of Treatment: Stable for discharge on dual antiplatelet therapy, have changed her to atorvastatin 40 daily, and increased her beta blockade. She was asked to follow up with Cardiology in the next 2 weeks for further discussion of risk stratification given her history of the right coronary artery stenosis. Discharge Plan Discharge Plan Patient Disposition: Home Provider Discharge Comment: Stable for discharge home on medical therapy with close cardiology follow up. Discharge orders & Medications Prescriptions: New aspirin 81 mg Tablet,Delayed Release (Dr/Ec) 81 mg PO DAILY Qty: 30 3RF atorvastatin 20 mg Tablet 40 mg PO BEDTIME Qty: 30 2RF carvedilol 25 mg tablet 25 mg PO BID Qty: 30 3RF Rx Instructions: must administer with a meal/food clopidogrel 75 mg Tablet 75 mg PO DAILY Qty: 30 2RF Continued diclofenac sodium [Voltaren Arthritis Pain] 1 % gel 2 g topical QID Qty: 100 0RF Rx Instructions: apply to single elbow, wrist or hand; for hand includes palm/fingers/back of hand losartan 50 mg tablet 50 mg PO BID albuterol sulfate [Ventolin HFA] 90 mcg/actuation HFA aerosol inhaler 2 puff Inhalation Q4H PRN (Reason: shortness of breath or wheezing) Qty: 18 11RF (DME) Disabled Parking Permit See Rx Instructions .ROUTE .MEDSUPPLY Qty: 1 0RF Rx Instructions: I find this person to be disabled oxybutynin chloride 10 mg tablet extended release 24hr 10 mg PO DAILY Qty: 90 4RF acyclovir 400 mg tablet 400 mg PO BID Qty: 60 0RF spironolactone 25 mg tablet 12.5 mg PO DAILY Qty: 90 3RF gabapentin 300 mg capsule 900 mg PO BID Qty: 360 1RF trazodone 100 mg tablet 100 mg PO ONCE PM Qty: 90 2RF venlafaxine 75 mg tablet 75 mg PO DAILY Qty: 90 0RF amlodipine [Norvasc] 5 mg tablet 10 mg PO DAILY Qty: 180 3RF lidocaine 5 % ointment 1 applic topical DAILY PRN (Reason: pain ) Qty: 50 0RF omeprazole 40 mg capsule,delayed release(DR/EC) 40 mg PO QAM PRN (Reason: Reflux) Qty: 30 3RF aspirin 81 mg tablet,delayed release (DR/EC) 81 mg PO DAILY magnesium oxide 400 mg magnesium Tablet 400 mg PO DAILY Discontinued rosuvastatin 5 mg tablet 2.5 mg PO QPM carvedilol [Coreg] 12.5 mg Tablet 12.5 mg PO BID Qty: 60 0RF Follow up/Referrals: Jaky Munson MD [Primary Care Provider, Family Practice] Diet/Activity/Treatments Diet: Low-cholesterol Activity: As tolerated. Visit Report/Discharge Packet Instructions: DI for Heart Attack Stand Alone Forms: Patient Portal/API Discharge Data Primary Care Provider: Jaky Munson Quality VTE Deep Vein Thrombosis/Pulmonary Embolism Present on Admission: No
== END 2025-01-29 09:16 | disposition home or self-care (01) | DRG 282 ==
LOC: ED 14:57 → ICU 01-28 05:13 → AC 01-28 11:32 → ICU 01-28 11:32
PROVIDERS: Internal Medicine; Admitting Provider Hospitalist; Emergency Provider Emergency Medicine; PCP Family Medicine; Referring Provider Emergency Medicine; Visit Provider Hospitalist
DX: I21.4 Non-ST elevation (NSTEMI) myocardial infarction (principal); I25.2 Old myocardial infarction; I25.10 Atherosclerotic heart disease of native coronary artery without angina pectoris; I10 Essential (primary) hypertension; I48.91 Unspecified atrial fibrillation; M19.079 Primary osteoarthritis, unspecified ankle and foot; K21.9 Gastro-esophageal reflux disease without esophagitis; F41.9 Anxiety disorder, unspecified; G47.00 Insomnia, unspecified; Z98.61 Coronary angioplasty status; Z87.891 Personal history of nicotine dependence
CPT/HCPCS: 36415; 71045; 80048; 80053; 82550; 83690; 83735; 83880; 84484; 85025; 85610; 85730; 87797; 93005; 93306; 96365; 96366; 96375; 99284; 99291; J1644; J2405

== ENCOUNTER → 2025-03-20 09:29 | Outpatient (CLI) | payer MEDICARE, SELFPAY ==
--- NOTE | 2025-03-20 09:32 | DI.MRI.S_ITS ---
PROCEDURE: MR LUMBAR SPINE WO CON INDICATIONS: footweakness, loss of ambulation, bilat neuropathy TECHNIQUE: Noncontrast sagittal T1 spin echo and T2 fast echo, sagittal STIR, and axial T2 fast spin echo through the lumbar spine. In cases with scoliosis, additional coronal T2 fast spin echo may be performed. COMPARISON: [facility], CT, CT LUMBAR SPINE WITHOUT CONTRAST, 06/28/2021, 13:56. FINDINGS: Image quality: Extensive metal artifact is seen related to the spinal fixation hardware including areas of signal void, signal pile-up, inhomogeneous fat suppression, and geometric distortion despite the use of metal artifact reduction techniques. Additionally, axial images are degraded by patient motion and respiration. Some diagnostic information is obtained. Alignment and Curvature: There is minimal curvature of the upper lumbar spine. Mild retrolisthesis T11 on T12 and T12 on L1. Trace anterolisthesis of L3 on L4 and mild anterolisthesis of L4 on L5. Overall alignment appears improved when compared to the CT from 06/28/2021. Bone Marrow: Extensive spinal fixation hardware extending from the included lower thoracic spine through the sacrum with associated metal artifact that obscures surrounding structures. Bilateral pedicle screws are seen at all levels except L2. Multiple disc spacers are seen including at L3-4, L4-5, and L5-S1. No obvious marrow edema or marrow replacing mass, although evaluation is compromised due to the extent of metal artifact. Spinal Cord: Conus medullaris terminates at approximately the L1 level and is not well evaluated. Paraspinous Soft Tissues: No paravertebral masses. There is fatty infiltration of the paraspinous musculature. There appears to be a fluid collection in the posterior soft tissues estimated at 9.1 x 1.8 x 4.5 cm, likely postoperative seroma. T12-L1: Postsurgical changes. Neural foramina are not well evaluated but do not appear significantly narrowed. No significant spinal canal narrowing identified. L1-L2: Postsurgical changes. Neural foramina are not well evaluated but do not appear significantly narrowed. Suspected mild posterior disc bulging without significant spinal canal narrowing. L2-L3: Postsurgical changes. Neural foramina are not well evaluated but do not appear significantly narrowed. Suspected narrowing of the central spinal canal best seen on sagittal T2-weighted images likely moderate or severe. L3-L4: Postsurgical changes. Neural foramina are not well evaluated but there may be mild narrowing of the right neural foramen. Central spinal canal appears narrowed, likely moderate or severe and best seen on angled axial T2 sequence. L4-L5: Postsurgical changes. Neural foramina are not well evaluated but appear mildly narrowed. There is suspected moderate narrowing of the central spinal canal. L5-S1: Postsurgical changes. There appears to be mild neural foraminal narrowing bilaterally. No significant spinal canal stenosis. IMPRESSION: 1. Extensive postsurgical changes from posterior fixation with metal hardware extending from the thoracic spine through the sacrum sacroiliac joints. Associated extensive metal artifact obscures surrounding structures. 2. Suspected moderate or severe spinal canal narrowing at L2-3 and L3-4. Moderate spinal canal narrowing at the L4-5 level. 3. Neural foramina are poorly evaluated due to metal artifact, but no definite high-grade neural foraminal narrowing is seen. 4. Circumscribed fluid collection is seen in the posterior soft tissues, likely a postoperative seroma. Approved by: Zackery Castro M.D. on 03/21/2025 at 13:28
--- NOTE | 2025-03-20 09:32 | DI.RAD.S_ITS ---
PROCEDURE: XR HIP W PEL IF DONE RT 2V INDICATIONS: assess for R hip arthritis TECHNIQUE: AP pelvis with lateral view(s) of the right hip(s). COMPARISON: [facility], PELVIS W/LAT HIP (LT) (PNL), 01/18/2015, 11:20. FINDINGS: Bones: No fractures or dislocations. Pelvic ring appears intact. No suspicious bony lesions. Lumbosacral fusion. Hardware is intact without hardware fracture or periprosthetic lucency to suggest loosening. Alignment is stable. Severe right and moderate left degenerative narrowing at the hip joint. Subchondral sclerosis and periarticular osteophytes are prominent on the right. No definitive erosion. Soft tissues: The visualized bowel gas pattern is normal. No suspicious soft tissue calcifications. IMPRESSION: Significant right hip arthritic change. Dictated by: Mae Alonso M.D. on 03/20/2025 at 22:02 Approved by: Mae Alonso M.D. on 03/20/2025 at 22:03
== END ==
PROVIDERS: PCP Family Medicine; Referring Provider Family Medicine; Visit Provider Family Medicine
DX: M54.31 Sciatica, right side (principal); M25.551 Pain in right hip; G62.9 Polyneuropathy, unspecified; R53.1 Weakness; Z98.1 Arthrodesis status
CPT/HCPCS: 72148; 73502

== ENCOUNTER 2025-05-20 11:04 | Emergency (ER) | payer MEDICARE, SELFPAY ==
[2025-05-20] VITALS (63 sets, daily range): BP systolic 138–220; BP diastolic 62–130; PULSE 68–94; RESP 14–39; TEMP 36.4; O2SAT 91–98
--- NOTE | 2025-05-20 11:12 | DI.RAD.S_ITS ---
PROCEDURE: XR CHEST 1V INDICATIONS: Chest Pain TECHNIQUE: One view of the chest was acquired. COMPARISON: [facility], CR, XR CHEST 1V, 04/07/2025, 8:04. [facility], CR, XR CHEST 1V, 01/27/2025, 12:56. FINDINGS: Surgical changes and devices: Right shoulder arthroplasty. Thoracolumbar fixation hardware. Lungs and pleura: Lungs are clear. No pleural effusions or pneumothorax. Mediastinum: Mediastinal contours appear normal. Heart size is normal. Bones and chest wall: No suspicious bony lesions. Overlying soft tissues appear unremarkable. IMPRESSION: No acute cardiopulmonary abnormality is seen. Dictated by: Asim Poon M.D. on 05/20/2025 at 12:54 Approved by: Asim Poon M.D. on 05/20/2025 at 12:55
--- NOTE | 2025-05-20 11:15 | EKG_ITS ---
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
[2025-05-20] MEDS: ONDANSETRON 4 MG/2 ML INJ IV ×2 (11:38→16:07)
[2025-05-20 11:47] LABS: INR 1.0 (0.9-1.3); Prothrombin Time 11.4 SECONDS (9.4-12.5)
[2025-05-20 11:50] LABS: PTT Partial Thromboplastin Tim 29 SECONDS (25.1-36.5)
[2025-05-20 11:51] LABS: Add Manual Diff / Slide Review NO; Hematocrit 46.1 % (36-46); Hemoglobin 15.9 g/dL (12.0-16.0); Lymphocytes Absolute Auto 800 /uL (1100-4500); Mean Corpuscular HGB Conc 34.5 % (30-36); Mean Corpuscular Hemoglobin 31.9 PG (26-34); Mean Corpuscular Volume 92.5 fL (80-100); Platelet Count 297 X10^3/uL (150-400)
[2025-05-20 11:53] LABS: Alanine Aminotransferase 21 IU/L (<35); Albumin 4.9 g/dL (3.5-5.0); Albumin Globulin Ratio 1.3 (1.0-2.8); Alkaline Phosphatase 138 U/L (38-126); Blood Urea Nitrogen 14 mg/dL (7-17); Calcium 9.3 mg/dL (8.4-10.2); Carbon Dioxide 23 mmol/L (22-32); Chloride 102 mmol/L (98-107); Creatine Kinase 81 U/L (30-135); Estimated Glomerular Filt Rate > 60 mL/min (>60); Globulin 3.8 g/dL (1.7-4.1); Glucose 113 mg/dL (70-99); HEMOLYSIS 39 (0-50); Lipase 112 U/L (23-300); Magnesium 1.9 mg/dL (1.6-2.3); Potassium 4.2 mmol/L (3.4-5.1); Sodium 136 mmol/L (137-145); Total Protein 8.7 g/dL (6.3-8.2)
--- NOTE | 2025-05-20 11:55 | ED_ITS ---
HPI - General Adult <Last Zarate MD - Last Filed: 05/24/25 07:42> General Chief complaint: Hypertension Stated complaint: having a heart attack per patient Time Seen by Provider: 05/20/25 11:43 Source: patient Mode of arrival: Ambulatory History of Present Illness HPI narrative: Patient brought here by for complaints of epigastric pain nausea vomiting sweating. Patient has history of a non-STEMI with these symptoms. No chest pain. Patient seen by me January 2025 admitted here for non-STEMI. Her last heart catheterization was many years ago with [facility]. Patient currently seeing cardiology services with [facility] cardiology. Seen 9 days ago in the office with Dr. Trinh. No changes in her medications. Blood pressure noted on arrival.Patient seen again here April 07 for non-STEMI and transferred to [facility] Related Data Home Medications ?Medication ?Instructions ?Recorded ?Confirmed magnesium oxide 400 mg PO DAILY 06/10/22 losartan 50 mg tablet 50 mg PO BID 07/23/24 amiodarone 100 mg tablet 400 mg PO DAILY 04/14/25 amlodipine 5 mg tablet 5 mg PO DAILY 04/14/2505/23 carvedilol 12.5 mg tablet (Coreg) 6.25 mg PO BID 04/1405/23/25 Previous Rx's ?Medication ?Instructions ?Recorded omeprazole 40 mg capsule,delayed 40 mg PO QAM PRN Refl ux #30 caps 10/22/18 release albuterol sulfate 90 mcg/actuation 2 puff inhalation Q 4H PRN 05/06/22 aerosol inhaler (Ventolin HFA) shortness of breath or wheezing #18 grams Disabled Parking Permit #1 ea 12/11/23 diclofenac sodium 1 % topical gel 2 g topical QID #100 grams 03/04/24 (Voltaren Arthritis Pain) acyclovir 400 mg tablet 400 mg PO BID #60 tabs 07/13 spironolactone 25 mg tablet 12.5 mg (1/2 x 25 mg) PO D AILY #90 09/09/24 tabs lidocaine 5 % topical ointment 1 applic topical DAILY PRN pain 01/20/25 #50 grams aspirin 81 mg tablet,delayed 81 mg PO DAILY #30 tabs 0 01/29/25 release clopidogrel 75 mg tablet 75 mg PO DAILY #30 tabs 03/18 venlafaxine 75 mg tablet 75 mg PO DAILY #90 tabs 02/22 02/16 venlafaxine 37.5 mg 37.5 mg PO DAILY #60 caps capsule,extended release 24 hr trazodone 100 mg tablet 100 mg PO ONCE PM #90 tabs 0 04/04/25 ramelteon 8 mg tablet 8 mg PO BEDTIME PRN sleep #3 0 tabs 04/14/25 rosuvastatin 5 mg tablet 2.5 mg (1/2 x 5 mg) PO DAILY #60 04/14/25 tabs oxybutynin chloride 10 mg 10 mg PO DAILY #90 tabs 04/25 01/16 tablet,extended release 24 hr empagliflozin 10 mg tablet 10 mg PO DAILY #90 tabs (Jardiance) cyclobenzaprine 5 mg tablet 5 mg PO TID PRN muscle spa sm #90 05/23/25 tabs gabapentin 300 mg capsule 900 mg (3 x 300 mg) PO BID # 360 05/23/25 caps oxycodone 5 mg tablet 5 mg PO DAILY PRN pain #30 t abs 05/23/25 Allergies Allergy/AdvReac Type Severity Reaction Status Date / Time hydrocodone AdvReac Mild DIDN'T Verified 05/23/25 15:35 WORK WELL AND KEPT ME AWAKE Review of Systems <Last Zarate MD - Last Filed: 05/24/25 07:42> Review of Systems Narrative: GENERAL: Negative chills, fatigue, malaise, fever, sweats. HEENT: Negative sinus pain, ear pain, sore throat RESPIRATORY: Negative dyspnea, cough CARDIOVASCULAR: Positive chest pain, palpitations GASTROINTESTINAL: Positive vomiting, nausea, abdominal pain : Negative dysuria, frequency, hematuria MUSCULOSKELETAL: Negative muscle or bony pain SKIN: Negative rash, skin lesions NEUROLOGIC: Negative weakness, numbness ROS Unobtainable: All systems reviewed & are unremarkable except as noted in HPI and below Patient History <Last Zarate MD - Last Filed: 05/24/25 07:42> Medical History (Updated 05/23/25 @ 19:24 by Jaky Munson MD) Hip arthritis Renal mass of unknown nature HFrEF (heart failure with reduced ejection fraction) Weakness Peripheral neuropathy Heel spur Arthritis of first MTP joint Hx of right bundle branch block Insomnia Allergic rhinitis Postmenopausal GERD (gastroesophageal reflux disease) Anxiety Surgical History (Updated 03/14/25 @ 14:30 by Jaky Munson MD) History of lumbar spinal fusion Hx of spinal surgery 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) History of bilateral tubal ligation History of arthroscopic knee surgery (2004) Status post open reduction with internal fixation (ORIF) of fracture of ankle (01/2001) Status post right knee replacement (10/09/12) 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) Family History Father CAD (coronary artery disease) Grandfather Lung cancer Grandmother CAD (coronary artery disease) Mother CAD (coronary artery disease) Diabetes mellitus Parkinson's disease Grandfather CAD (coronary artery disease) Social History household members: spouse alcohol intake: current Smoking Status: Unknown if ever smoked tobacco type: cigarettes alcohol intake frequency: 0-2 drinks per day Alcohol type: beer Exam <Last Zarate MD - Last Filed: 05/24/25 07:42> Narrative Exam Narrative: GENERAL: in no distress, not toxic not dyspneic HEAD: Normocephalic. EYES: Pupils equal round ENT: Mucous membranes moist. NECK: Trachea midline. CARDIOVASCULAR: Regular rate and rhythm RESPIRATORY: Clear to auscultation. Breath sounds equal bilaterally. No wheezes, rales, or rhonchi. GASTROINTESTINAL: Abdomen soft, non-tender EXTREMITIES: No gross deformities. BACK: No flank tenderness. NEURO: AOx4. Clear speech SKIN: Warm and dry PSYCH: Not anxious, is cooperative Initial Vital Signs Initial Vital Signs: Vital Signs Temperature 97.6 F 05/20/25 11:09 Pulse Rate 94 H 05/20/25 11:09 Respiratory Rate 16 05/20/25 11:09 Blood Pressure 212/124 H 05/20/25 11:09 Pulse Oximetry 94 05/20/25 11:09 Oxygen Delivery Method Room Air 05/20/25 11:09 <Kathy Chapman MD - Last Filed: 05/21/25 16:11> Initial Vital Signs Initial Vital Signs: Vital Signs Temperature 97.6 F 05/20/25 11:09 Pulse Rate 94 H 05/20/25 11:09 Respiratory Rate 16 05/20/25 11:09 Blood Pressure 212/124 H 05/20/25 11:09 Pulse Oximetry 94 05/20/25 11:09 Oxygen Delivery Method Room Air 05/20/25 11:09 Course <Last Zarate MD - Last Filed: 05/24/25 07:42> Orders Ordered: Discontinued Medications Amlodipine Besylate (Amlodipine 5 Mg Tablet) 5 mg PO NOW ONE Stop: 05/20/25 15:29 Last Admin: 05/20/25 15:58 Dose: 5 mg Documented By: RAINA Aspirin (Aspirin 81 Mg Chew Tab) 324 mg PO NOW ONE Stop: 05/20/25 11:13 Last Admin: 05/20/25 12:29 Dose: 324 mg Documented By: HERB Carvedilol (Carvedilol 3.125 Mg Tablet) 6.25 mg PO NOW ONE Stop: 05/20/25 15:29 Last Admin: 05/20/25 16:00 Dose: 6.25 mg Documented By: RAINA Droperidol (Droperidol 2.5 Mg/Ml Vial) 0.625 mg IV NOW ONE Stop: 05/20/25 17:32 Last Admin: 05/20/25 17:41 Dose: 0.625 mg Documented By: HERB Hydralazine HCl (Hydralazine 20 Mg/Ml Vial) 10 mg IV Q6HR PRN PRN Reason: Hypertension Last Admin: 05/20/25 14:11 Dose: 10 mg Documented By: HERB Sodium Chloride (Normal Saline 0.9%) 1,000 mls @ 1,000 mls/hr IV BOLUS ONE Stop: 05/20/25 12:54 Last Infusion: 05/20/25 13:41 Dose: Infused Documented By: Admin: 05/20/25 12:29 Dose: 1,000 mls/hr Documented By: HERB Heparin Sodium/Dextrose (Heparin Drip) 25,000 unit in 500 mls @ 13.063 mls/hr IV CONT [place]; Protocol Last Titration: 05/20/25 18:13 Dose: 14 units/kg/hr, 15.241 mls/hr Documented By: HERB Co-signed By: RAINA Admin: 05/20/25 14:24 Dose: 12 units/kg/hr, 13.063 mls/hr Documented By: HERB Co-signed By: ARNOLDO Labetalol HCl (Labetalol 20 Mg/4 Ml Syringe) 10 mg IV NOW ONE Stop: 05/20/25 16:06 Last Admin: 05/20/25 16:12 Dose: 10 mg Documented By: HERB Metoclopramide HCl (Metoclopramide 10 Mg/2 Ml Inj) 10 mg IV NOW ONE Stop: 05/20/25 20:13 Last Admin: 05/20/25 20:21 Dose: 10 mg Documented By: HERB Metoprolol Tartrate (Metoprolol Ir 25 Mg Tablet) 25 mg PO NOW ONE Stop: 05/20/25 12:02 Last Admin: 05/20/25 12:29 Dose: 25 mg Documented By: HERB Ondansetron HCl (Ondansetron 4 Mg/2 Ml Inj) 4 mg IV NOW PRN PRN Reason: Nausea And Vomiting Last Admin: 05/20/25 11:38 Dose: 4 mg Documented By: HERB Ondansetron HCl (Ondansetron 4 Mg Odt) 4 mg PO NOW PRN PRN Reason: Nausea And Vomiting Ondansetron HCl (Ondansetron 4 Mg/2 Ml Inj) 4 mg IV NOW ONE Stop: 05/20/25 15:49 Last Admin: 05/20/25 16:07 Dose: 4 mg Documented By: HERB Vital Signs Vital signs: Vital Signs - 8 hr 05/20/25 11:09 05/20/25 12:23 05/20/25 12:24 Temperature 97.6 F Pulse Rate 94 H 71 70 Respiratory Rate 16 Blood Pressure 212/124 H Pulse Oximetry 94 95 91 Oxygen Delivery Method Room Air 05/20/25 12:24 05/20/25 12:38 05/20/25 13:00 Temperature Pulse Rate 74 72 Respiratory Rate Blood Pressure 220/103 H Pulse Oximetry 96 95 Oxygen Delivery Method 05/20/25 13:17 05/20/25 13:17 05/20/25 13:39 Temperature Pulse Rate 74 73 Respiratory Rate Blood Pressure 184/88 H Pulse Oximetry 94 98 Oxygen Delivery Method 05/20/25 13:40 05/20/25 13:40 05/20/25 14:09 Temperature Pulse Rate 73 78 Respiratory Rate Blood Pressure 206/112 H Pulse Oximetry 96 96 Oxygen Delivery Method 05/20/25 14:11 05/20/25 16:00 Temperature Pulse Rate 75 78 Respiratory Rate Blood Pressure 206/112 H 195/110 H Pulse Oximetry Oxygen Delivery Method <Kathy Chapman MD - Last Filed: 05/21/25 16:11> Orders Ordered: Discontinued Medications Amlodipine Besylate (Amlodipine 5 Mg Tablet) 5 mg PO NOW ONE Stop: 05/20/25 15:29 Last Admin: 05/20/25 15:58 Dose: 5 mg Documented By: RAINA Aspirin (Aspirin 81 Mg Chew Tab) 324 mg PO NOW ONE Stop: 05/20/25 11:13 Last Admin: 05/20/25 12:29 Dose: 324 mg Documented By: HERB Carvedilol (Carvedilol 3.125 Mg Tablet) 6.25 mg PO NOW ONE Stop: 05/20/25 15:29 Last Admin: 05/20/25 16:00 Dose: 6.25 mg Documented By: RAINA Droperidol (Droperidol 2.5 Mg/Ml Vial) 0.625 mg IV NOW ONE Stop: 05/20/25 17:32 Last Admin: 05/20/25 17:41 Dose: 0.625 mg Documented By: HERB Hydralazine HCl (Hydralazine 20 Mg/Ml Vial) 10 mg IV Q6HR PRN PRN Reason: Hypertension Last Admin: 05/20/25 14:11 Dose: 10 mg Documented By: HERB Sodium Chloride (Normal Saline 0.9%) 1,000 mls @ 1,000 mls/hr IV BOLUS ONE Stop: 05/20/25 12:54 Last Infusion: 05/20/25 13:41 Dose: Infused Documented By: Admin: 05/20/25 12:29 Dose: 1,000 mls/hr Documented By: HERB Heparin Sodium/Dextrose (Heparin Drip) 25,000 unit in 500 mls @ 13.063 mls/hr IV CONT [place]; Protocol Last Titration: 05/20/25 18:13 Dose: 14 units/kg/hr, 15.241 mls/hr Documented By: HERB Co-signed By: RAINA Admin: 05/20/25 14:24 Dose: 12 units/kg/hr, 13.063 mls/hr Documented By: HERB Co-signed By: ARNOLDO Labetalol HCl (Labetalol 20 Mg/4 Ml Syringe) 10 mg IV NOW ONE Stop: 05/20/25 16:06 Last Admin: 05/20/25 16:12 Dose: 10 mg Documented By: HERB Metoclopramide HCl (Metoclopramide 10 Mg/2 Ml Inj) 10 mg IV NOW ONE Stop: 05/20/25 20:13 Last Admin: 05/20/25 20:21 Dose: 10 mg Documented By: HERB Metoprolol Tartrate (Metoprolol Ir 25 Mg Tablet) 25 mg PO NOW ONE Stop: 05/20/25 12:02 Last Admin: 05/20/25 12:29 Dose: 25 mg Documented By: HERB Ondansetron HCl (Ondansetron 4 Mg/2 Ml Inj) 4 mg IV NOW PRN PRN Reason: Nausea And Vomiting Last Admin: 05/20/25 11:38 Dose: 4 mg Documented By: HERB Ondansetron HCl (Ondansetron 4 Mg Odt) 4 mg PO NOW PRN PRN Reason: Nausea And Vomiting Ondansetron HCl (Ondansetron 4 Mg/2 Ml Inj) 4 mg IV NOW ONE Stop: 05/20/25 15:49 Last Admin: 05/20/25 16:07 Dose: 4 mg Documented By: HERB Vital Signs Vital signs: Vital Signs - 8 hr 05/20/25 11:09 05/20/25 12:23 05/20/25 12:24 Temperature 97.6 F Pulse Rate 94 H 71 70 Respiratory Rate 16 Blood Pressure 212/124 H Pulse Oximetry 94 95 91 Oxygen Delivery Method Room Air 05/20/25 12:24 05/20/25 12:38 05/20/25 13:00 Temperature Pulse Rate 74 72 Respiratory Rate Blood Pressure 220/103 H Pulse Oximetry 96 95 Oxygen Delivery Method 05/20/25 13:17 05/20/25 13:17 05/20/25 13:39 Temperature Pulse Rate 74 73 Respiratory Rate Blood Pressure 184/88 H Pulse Oximetry 94 98 Oxygen Delivery Method 05/20/25 13:40 05/20/25 13:40 05/20/25 14:09 Temperature Pulse Rate 73 78 Respiratory Rate Blood Pressure 206/112 H Pulse Oximetry 96 96 Oxygen Delivery Method 05/20/25 14:11 05/20/25 16:00 Temperature Pulse Rate 75 78 Respiratory Rate Blood Pressure 206/112 H 195/110 H Pulse Oximetry Oxygen Delivery Method Medical Decision Making <Last Zarate MD - Last Filed: 05/24/25 07:42> Lab Data 05/20/25 11:27 05/20/25 11:27 Labs: Lab Results 05/20/25 05/20/25 05/20/25 Range/Units 11:27 16:24 17:29 WBC 9.7 (4.5-11.0) X10^3/uL RBC 4.98 (4.0-5.2) X10^6/uL Hgb 15.9 (12.0-16.0) g/dL Hct 46.1 H (36-46) % MCV 92.5 (80-100) fL MCH 31.9 (26-34) PG MCHC 34.5 (30-36) % RDW 14.4 (11.6-14.8) % Plt Count 297 (150-400) X10^3/uL Neut % (Auto) 83.4 H (50-75) % Lymph % (Auto) 8.5 L (25-40) % [place] % (Auto) 6.5 (3-14) % Eos % (Auto) 0.8 L (2-4) % Baso % (Auto) 0.8 (0-2) % Neut # (Auto) 8100 H (0035-6837) /uL Lymph # (Auto) 800 L (0478-4841) /uL [place] # (Auto) 600 (0-900) /uL Eos # (Auto) 100 (0-450) /uL Baso # (Auto) 100 (0-100) /uL PT 11.4 (9.4-12.5) SECONDS INR 1.0 (0.9-1.3) APTT 29 31 (25.1-36.5) SECONDS Sodium 136 L (137-145) mmol/L Potassium 4.2 (3.4-5.1) mmol/L Chloride 102 (98-107) mmol/L Carbon Dioxide 23 (22-32) mmol/L BUN 14 (7-17) mg/dL Creatinine 0.69 (0.52-1.04) mg/dL Estimated GFR > 60 (>60) mL/min BUN/Creatinine Ratio 20.3 (6-22) Glucose 113 H (70-99) mg/dL Calcium 9.3 (8.4-10.2) mg/dL Magnesium 1.9 (1.6-2.3) mg/dL Total Bilirubin 0.7 (0.2-1.3) mg/dL AST 37 H (14-36) IU/L ALT 21 (<35) IU/L Alkaline Phosphatase 138 H (38-126) U/L Total Creatine Kinase 81 99 (30-135) U/L Troponin I 0.077 H 0.250 H* (0.01-0.034) ng/mL NT-Pro-B Natriuret Pep 4130 H (<450) pg/mL Total Protein 8.7 H (6.3-8.2) g/dL Albumin 4.9 (3.5-5.0) g/dL Globulin 3.8 (1.7-4.1) g/dL Albumin/Globulin Ratio 1.3 (1.0-2.8) Lipase 112 (23-300) U/L Imaging Data Chest x-ray: Radiologist's Impression: [address] [id number] XRay Report Signed Patient: Jodie Rodriguez MR#: [id number] : 1945 Acct:[id number] Age/Sex: 79 / F Date of Service: 05/20/25 Loc: ED Accession Number: [id number] Procedure: XR chest 1V Ordering Provider: Last Zarate MD PROCEDURE: XR CHEST 1V INDICATIONS: Chest Pain TECHNIQUE: One view of the chest was acquired. COMPARISON: [facility], CR, XR CHEST 1V, 04/07/2025, 8:04. [facility], CR, XR CHEST 1V, 01/27/2025, 12:56. FINDINGS: Surgical changes and devices: Right shoulder arthroplasty. Thoracolumbar fixation hardware. Lungs and pleura: Lungs are clear. No pleural effusions or pneumothorax. Mediastinum: Mediastinal contours appear normal. Heart size is normal. Bones and chest wall: No suspicious bony lesions. Overlying soft tissues appear unremarkable. IMPRESSION: No acute cardiopulmonary abnormality is seen. Dictated by: Asim Poon M.D. on 05/20/2025 at 12:54 Approved by: Asim Poon M.D. on 05/20/2025 at 12:55 CT angio chest abdomen and pelvis: Radiologist's Impression: [address] [address] [address] Scan Report Signed Patient: Jodie Rodriguez MR#: [id number] : 1945 Acct:[id number] Age/Sex: 79 / F Date of Service: 05/20/25 Loc: ED Accession Number: [id number] Procedure: CT angio chest abdomen pelvis Ordering Provider: Last Zarate MD PROCEDURE: CT ANGIO CHEST ABDOMEN PELVIS INDICATIONS: Chest pain abdominal pain, aortic syndrome TECHNIQUE: Precontrast 5 mm thick sections acquired from the lung apices to the iliac crests. After the administration of intravenous contrast, 2.5 mm thick sections again acquired from the lung apices to the iliac crests. Maximum intensity projection (MIP) oblique sagittal and coronal reformats were then acquired. For radiation dose reduction, the following was used: automated exposure control. COMPARISON: [facility], CT, CT ANGIO CHEST ABDOMEN PELVIS, 06/10/2022, 11:21. [facility], US, US ABDOMEN LIMITED, 04/07/2025, 9:10. [facility], CT, CT ABDOMEN ADRENAL PROTOCOL, 04/09/2025, 14:25. [facility], CT, CT ANGIO CHEST ABDOMEN PELVIS, 08/03/2023, 8:40. FINDINGS: Image quality: Diagnostic. AORTA and its attachments: Ascending and descending thoracic aorta and abdominal aorta are of normal caliber without aneurysm or dissection or significant stenosis. Normal variant 4 vessel arch anatomy. Great vessel origins are widely patent. SMA, celiac, and GERMÁN are widely patent. Bilateral common iliacs and external iliacs are widely patent. Common femorals are widely patent. Pulmonary tree: No acute pulmonary emboli. CHEST: Lower Neck: No enlarged lymph nodes. Thyroid: No thyroid nodules which require sonographic evaluation. Axillae: No enlarged lymph nodes. Chest Wall: Unremarkable. Lungs and Pleura: No pneumothorax or pleural effusions. No consolidation or suspicious nodules. Large bullous lesion adjacent to the right heart border. Heart: Heart size is normal. No pericardial effusion. Thoracic Vessels: Pulmonary arteries demonstrate normal size. Mediastinum and Radha: No enlarged lymph nodes. Esophagus: No wall thickening. Large diffuse fecal load. hiatal hernia. ABDOMEN: Liver: No solid mass. Gallbladder: No radiopaque gallstones or wall thickening. Biliary ducts: No biliary dilation. Pancreas: No ductal dilation. Spleen: Size is within normal limits. Adrenal Glands: No adrenal nodules. Kidneys and Ureters: No hydronephrosis. No solid mass. Question possible 2 cm posterior right middle pole renal cell carcinoma. Stomach and Bowel: Normal colonic caliber, without significant wall thickening. Large diffuse fecal load. Peritoneum: No abnormal intraperitoneal fluid. No free air. Ventral Wall: No hernia. Abdominal Nodes: No retroperitoneal or mesenteric adenopathy by size criteria. Vessels: Inferior vena cava is normal in size. PELVIS: Pelvic Organs: Unremarkable. Bladder: Unremarkable. Pelvic Nodes: No enlarged lymph nodes. Miscellaneous: No inguinal hernias are seen. Bones: Extensive metal artifact from thoracolumbar fusion hardware. IMPRESSION: 1. Unremarkable aorta. 2. No acute process in the chest, abdomen, and pelvis. 3. Large diffuse fecal load. 4. Possible 2 cm posterior right middle pole renal cell carcinoma. This has been previously commented on Dictated by: Jamison Costa M.D. on 05/20/2025 at 14:47 Approved by: Jamison Costa M.D. on 05/20/2025 at 15:00 [facility] [place] Narrative Medical decision making narrative: Patient brought here by for complaints of epigastric pain nausea vomiting sweating. Patient has history of a non-STEMI with these symptoms. No chest pain. Patient seen by me January 2025 admitted here for non-STEMI. Her last heart catheterization was many years ago with [facility]. Patient currently seeing cardiology services with [facility] cardiology. Seen 9 days ago in the office with Dr. Trinh. No changes in her medications. Blood pressure noted on arrival. Patient seen again here April 07 for non- STEMI and transferred to [facility]. MDM After history and exam, CBC CMP troponin EKG chest x-ray CT chest abdomen pelvis angiogram normal saline Zofran Differential considered: Includes but not limited to STEMI non-STEMI aortic dissection or aneurysm angina Medical records reviewed: January 2025 discharge summary from this hospital, ER visit, April 07, 2025 patient is seen here for the same and transferred to [facility]. Lab Test results independently reviewed as above. Pertinent findings: WBC 9.7 hemoglobin 15.9 INR 1.0 sodium 136 potassium 4.2 BUN 14 creatinine 0.69 Independently reviewed EKG normal sinus rhythm rate 68 left bundle branch block Imaging studies independently reviewed: Chest x-ray no acute finding, CT angio chest abdomen pelvis no acute finding Consultations: 1:38 p.m.. I spoke with cardiology dr womack, start heparin transfer to [facility] 4:[address] Driver, [facility], [facility] will accept patient. Re-evaluations: 1:38 p.m.. Updated patient and family needs to be transferred for non-STEMI Discussion: Appropriate for higher level of care transfer. Patient has remained stable. Chest pain-free. Diagnosis: Non-STEMI 3:[address] Zarate: Sign-out to Dr. Ramirez. Patient accepted to [facility] <Kathy Chapman MD - Last Filed: 05/21/25 16:11> Lab Data Labs: Lab Results 05/20/25 05/20/25 05/20/25 Range/Units 11:27 16:24 17:29 WBC 9.7 (4.5-11.0) X10^3/uL RBC 4.98 (4.0-5.2) X10^6/uL Hgb 15.9 (12.0-16.0) g/dL Hct 46.1 H (36-46) % MCV 92.5 (80-100) fL MCH 31.9 (26-34) PG MCHC 34.5 (30-36) % RDW 14.4 (11.6-14.8) % Plt Count 297 (150-400) X10^3/uL Neut % (Auto) 83.4 H (50-75) % Lymph % (Auto) 8.5 L (25-40) % [place] % (Auto) 6.5 (3-14) % Eos % (Auto) 0.8 L (2-4) % Baso % (Auto) 0.8 (0-2) % Neut # (Auto) 8100 H (2858-7676) /uL Lymph # (Auto) 800 L (8679-4040) /uL [place] # (Auto) 600 (0-900) /uL Eos # (Auto) 100 (0-450) /uL Baso # (Auto) 100 (0-100) /uL PT 11.4 (9.4-12.5) SECONDS INR 1.0 (0.9-1.3) APTT 29 31 (25.1-36.5) SECONDS Sodium 136 L (137-145) mmol/L Potassium 4.2 (3.4-5.1) mmol/L Chloride 102 (98-107) mmol/L Carbon Dioxide 23 (22-32) mmol/L BUN 14 (7-17) mg/dL Creatinine 0.69 (0.52-1.04) mg/dL Estimated GFR > 60 (>60) mL/min BUN/Creatinine Ratio 20.3 (6-22) Glucose 113 H (70-99) mg/dL Calcium 9.3 (8.4-10.2) mg/dL Magnesium 1.9 (1.6-2.3) mg/dL Total Bilirubin 0.7 (0.2-1.3) mg/dL AST 37 H (14-36) IU/L ALT 21 (<35) IU/L Alkaline Phosphatase 138 H (38-126) U/L Total Creatine Kinase 81 99 (30-135) U/L Troponin I 0.077 H 0.250 H* (0.01-0.034) ng/mL NT-Pro-B Natriuret Pep 4130 H (<450) pg/mL Total Protein 8.7 H (6.3-8.2) g/dL Albumin 4.9 (3.5-5.0) g/dL Globulin 3.8 (1.7-4.1) g/dL Albumin/Globulin Ratio 1.3 (1.0-2.8) Lipase 112 (23-300) U/L [facility] [place] Narrative Medical decision making narrative: Patient brought here by for complaints of epigastric pain nausea vomiting sweating. Patient has history of a non-STEMI with these symptoms. No chest pain. Patient seen by me January 2025 admitted here for non-STEMI. Her last heart catheterization was many years ago with [facility]. Patient currently seeing cardiology services with [facility] cardiology. Seen 9 days ago in the office with Dr. Trinh. No changes in her medications. Blood pressure noted on arrival. Patient seen again here April 07 for non- STEMI and transferred to [facility]. MDM After history and exam, CBC CMP troponin EKG chest x-ray CT chest abdomen pelvis angiogram normal saline Zofran Differential considered: Includes but not limited to STEMI non-STEMI aortic dissection or aneurysm angina Medical records reviewed: January 2025 discharge summary from this hospital, ER visit, April 07, 2025 patient is seen here for the same and transferred to [facility]. Lab Test results independently reviewed as above. Pertinent findings: WBC 9.7 hemoglobin 15.9 INR 1.0 sodium 136 potassium 4.2 BUN 14 creatinine 0.69 Independently reviewed EKG normal sinus rhythm rate 68 left bundle branch block Imaging studies independently reviewed: Chest x-ray no acute finding, CT angio chest abdomen pelvis no acute finding Consultations: 1:38 p.m.. I spoke with cardiology dr womack, daniela heparin transfer to [facility] 4:[address] Driver, [facility], she will accept patient. Re-evaluations: 1:38 p.m.. Updated patient and family needs to be transferred for non-STEMI Discussion: Appropriate for higher level of care transfer. Patient has remained stable. Chest pain-free. Diagnosis: Non-STEMI 3:[address] Zarate: Sign-out to Dr. Ramirez. Patient accepted to [facility]: Patient had persistent nausea throughout my shift. She was given additional Zofran, Inapsine, Reglan. Medical transport available and the patient transferred to [facility] without further incident Critical Care Time <Last Zarate MD - Last Filed: 05/24/25 07:42> Critical Care Time Attestation: Critical Care Time 35 minutes: Critical care time is separate from other billable procedures. This critical care time includes consultation with family and other consulting doctors, review of records, and interpretation of data from labs, EKGs, imaging, etc. Discharge Plan Departure Patient Disposition: [facility] Clinical Impression: Non-ST elevated myocardial infarction (non-STEMI) Prescriptions: No Action diclofenac sodium [Voltaren Arthritis Pain] 1 % gel 2 g topical QID Qty: 100 0RF Rx Instructions: apply to single elbow, wrist or hand; for hand includes palm/fingers/back of hand losartan 50 mg tablet 50 mg PO BID venlafaxine 37.5 mg capsule,extended release 24hr 37.5 mg PO DAILY Qty: 60 0RF Rx Instructions: for dose adjustment amlodipine 5 mg tablet 5 mg PO DAILY rosuvastatin 5 mg tablet 2.5 mg PO DAILY Qty: 60 2RF amiodarone 100 mg tablet 400 mg PO DAILY carvedilol [Coreg] 12.5 mg tablet 6.25 mg PO BID Rx Instructions: must administer with a meal/food ramelteon 8 mg tablet 8 mg PO BEDTIME PRN (Reason: sleep) Qty: 30 0RF cyclobenzaprine 5 mg tablet 5 mg PO TID PRN (Reason: muscle spasm) Qty: 90 2RF Rx Instructions: ok to increase to 10mg three times daily gabapentin 300 mg capsule 900 mg PO BID Qty: 360 0RF Rx Instructions: ok to increase to 3 times chun if needig more coverage oxycodone 5 mg tablet 5 mg PO DAILY PRN (Reason: pain) Qty: 30 0RF Rx Instructions: to last 30 days albuterol sulfate [Ventolin HFA] 90 mcg/actuation HFA aerosol inhaler 2 puff Inhalation Q4H PRN (Reason: shortness of breath or wheezing) Qty: 18 11RF (DME) Disabled Parking Permit See Rx Instructions .ROUTE .MEDSUPPLY Qty: 1 0RF Rx Instructions: I find this person to be disabled acyclovir 400 mg tablet 400 mg PO BID Qty: 60 0RF spironolactone 25 mg tablet 12.5 mg PO DAILY Qty: 90 3RF lidocaine 5 % ointment 1 applic topical DAILY PRN (Reason: pain ) Qty: 50 0RF venlafaxine 75 mg tablet 75 mg PO DAILY Qty: 90 0RF trazodone 100 mg tablet 100 mg PO ONCE PM Qty: 90 2RF oxybutynin chloride 10 mg tablet extended release 24hr 10 mg PO DAILY Qty: 90 0RF Jardiance 10 mg tablet 10 mg PO DAILY Qty: 90 0RF omeprazole 40 mg capsule,delayed release(DR/EC) 40 mg PO QAM PRN (Reason: Reflux) Qty: 30 3RF magnesium oxide 400 mg magnesium Tablet 400 mg PO DAILY aspirin 81 mg Tablet,Delayed Release (Dr/Ec) 81 mg PO DAILY Qty: 30 3RF clopidogrel 75 mg Tablet 75 mg PO DAILY Qty: 30 2RF Referrals: Jaky Munson MD [Primary Care Provider, Family Practice]
[2025-05-20 12:03] LABS: NT-proBNP (BNP-Adult 18+) 4130 pg/mL (<450); Troponin I 0.077 ng/mL (0.01-0.034)
[2025-05-20] MEDS: ASPIRIN 81 MG CHEW TAB 324 MG PO (12:29)
[2025-05-20] MEDS: SODIUM CHLORIDE 0.9% 1,000 ML 1000 ML IV (12:29)
[2025-05-20] MEDS: METOPROLOL IR 25 MG TABLET PO (12:29)
[2025-05-20] MEDS: hydrALAZINE 20 MG/ML VIAL 10 MG IV (14:11)
[2025-05-20] MEDS: HEPARIN DRIP 25,000 UNIT/500 ML IV.SOLN 13.063 UNIT IV (14:24)
[2025-05-20] MEDS: LABETALOL 20 MG/4 ML SYRINGE 10 MG IV (16:12)
--- NOTE | 2025-05-20 16:38 | PC.NURSE ---
Pt accidentally pulled out IV in left arm. bleeding controlled
[2025-05-20 16:43] LABS: Creatine Kinase 99 U/L (30-135)
[2025-05-20 17:06] LABS: Troponin I 0.250 ng/mL (0.01-0.034)
[2025-05-20] MEDS: droPERidol 2.5 MG/ML VIAL 0.625 MG IV (17:41)
[2025-05-20 18:02] LABS: PTT Partial Thromboplastin Tim 31 SECONDS (25.1-36.5)
--- NOTE | 2025-05-20 18:20 | PC.NURSE ---
Patient was standing up unassisted and pulled out IV from left AC where heparin was running, this RN placed new IV into left AC. Educated the patient that she needs to call before she stands up. This RN and GENETIC COUNSELLOR Padmaja placed purewick for patients safety
[2025-05-20] MEDS: METOCLOPRAMIDE 10 MG/2 ML INJ IV (20:21)
== END 2025-05-20 23:02 | disposition short-term general hospital (02) ==
PROVIDERS: Emergency Provider Emergency Medicine; PCP Family Medicine
DX: I21.4 Non-ST elevation (NSTEMI) myocardial infarction (principal); R07.9 Chest pain, unspecified; I25.2 Old myocardial infarction
CPT/HCPCS: 36415; 71045; 71275; 74174; 80053; 82550; 83690; 83735; 83880; 84484; 85025; 85610; 85730; 93005; 93010; 96361; 96365; 96366; 96375; 96376; 99284; 99291; J0360; J1644; J1790; J2405; J2765; Q9967

== ENCOUNTER 2025-06-07 11:30 | Inpatient (IN) | payer MEDICARE, SELFPAY ==
[2025-06-07] VITALS (13 sets, daily range): BP systolic 117–169; BP diastolic 67–92; PULSE 60–76; RESP 18–35; TEMP 36.8–37.1; O2SAT 95–98; BMI 19.4
--- NOTE | 2025-06-07 11:51 | DI.RAD.S_ITS ---
PROCEDURE: XR CHEST 1V INDICATIONS: Chest Pain TECHNIQUE: One view of the chest was acquired. COMPARISON: [facility], CR, XR CHEST 1V, 05/20/2025, 11:23. FINDINGS: Mild bilateral perihilar and lower lobe peribronchial thickening with patchy lower lobe opacities left greater than right, some of which may be related expiratory result; however, bronchitis, bronchopneumonia, viral infection, asthma or other process should be considered. Moderate calcifications of the aortic arch and descending aorta. Degenerative changes of the left shoulder and right shoulder arthroplasty. Pedicle screws and posterior fixation rods lower thoracic, upper lumbar spine. Cardiopericardial silhouette and pulmonary vasculature within normal limits. No pneumothorax, no pleural effusion, no lobar consolidation IMPRESSION: Peribronchial thickening and patchy opacities as discussed above some of which may be chronic. If symptoms persist or worsen, CT chest could be performed. Dictated by: Remy Lezama M.D. on 06/07/2025 at 13:05 Approved by: Remy Lezama M.D. on 06/07/2025 at 13:09
--- NOTE | 2025-06-07 12:02 | EKG_ITS ---
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
[2025-06-07] MEDS: ASPIRIN 81 MG CHEW TAB 324 MG PO (12:17)
[2025-06-07 12:26] LABS: Add Manual Diff / Slide Review NO; Hematocrit 44.0 % (36-46); Hemoglobin 14.7 g/dL (12.0-16.0); Lymphocytes Absolute Auto 500 /uL (1100-4500); Mean Corpuscular HGB Conc 33.3 % (30-36); Mean Corpuscular Hemoglobin 30.8 PG (26-34); Mean Corpuscular Volume 92.4 fL (80-100); Platelet Count 300 X10^3/uL (150-400)
[2025-06-07 12:35] LABS: INR 1.1 (0.9-1.3); Prothrombin Time 11.9 SECONDS (9.4-12.5)
[2025-06-07 12:38] LABS: Alanine Aminotransferase 32 IU/L (<35); Albumin 4.4 g/dL (3.5-5.0); Albumin Globulin Ratio 1.3 (1.0-2.8); Alkaline Phosphatase 137 U/L (38-126); Blood Urea Nitrogen 14 mg/dL (7-17); Calcium 9.1 mg/dL (8.4-10.2); Carbon Dioxide 27 mmol/L (22-32); Chloride 103 mmol/L (98-107); Creatine Kinase 65 U/L (30-135); Estimated Glomerular Filt Rate > 60 mL/min (>60); Globulin 3.4 g/dL (1.7-4.1); Glucose 98 mg/dL (70-99); HEMOLYSIS < 15 (0-50); Lipase 99 U/L (23-300); Magnesium 1.9 mg/dL (1.6-2.3); PTT Partial Thromboplastin Tim 27 SECONDS (25.1-36.5); Potassium 4.4 mmol/L (3.4-5.1); Sodium 137 mmol/L (137-145); Total Protein 7.8 g/dL (6.3-8.2)
[2025-06-07 12:50] LABS: NT-proBNP (BNP-Adult 18+) 4730 pg/mL (<450)
[2025-06-07 12:54] LABS: Troponin I 0.162 ng/mL (0.01-0.034)
--- NOTE | 2025-06-07 13:07 | ED.GENADULT ---
HPI - General Adult General Chief complaint: Hypertension Stated complaint: Symptoms of a heart attack, sent from PCP Time Seen by Provider: 06/07/25 12:22 Source: patient Mode of arrival: Wheelchair History of Present Illness HPI narrative: Patient is a 71-year-old female history of NSTEMI, recently had events May 20 where she was then transferred to [facility] for 2 days and discharged. Per patient she reports that she is not stentable. Today she presents with nausea vomiting diarrhea. She says this is how she presents for her heart attacks. She does not have any chest pain or shortness of breath. She appears well but this is what happened to her last time. She actually had a cardiac event in March as well where she had troponin going up as high as 5.2 at that time she was transferred to [facility]. Related Data Home Medications ?Medication ?Instructions ?Recorded ?Confirmed magnesium oxide 400 mg PO DAILY 06/10/22 06/02/25 losartan 50 mg tablet 50 mg PO BID 07/23/24 06/02/25 amiodarone 100 mg tablet 400 mg PO DAILY 04/14/25 06/02/25 amlodipine 5 mg tablet 5 mg PO DAILY 04/14/25 06/02/25 carvedilol 12.5 mg tablet (Coreg) 6.25 mg PO BID 04/14/25 06/02/25 Previous Rx's ?Medication ?Instructions ?Recorded omeprazole 40 mg capsule,delayed 40 mg PO QAM PRN Reflux #30 caps 10/22/18 release albuterol sulfate 90 mcg/actuation 2 puff inhalation Q4H PRN 05/06/22 aerosol inhaler (Ventolin HFA) shortness of breath or wheezing #18 grams Disabled Parking Permit #1 ea 12/11/23 diclofenac sodium 1 % topical gel 2 g topical QID #100 grams 03/04/24 (Voltaren Arthritis Pain) spironolactone 25 mg tablet 12.5 mg (1/2 x 25 mg) PO DAILY #90 09/09/24 tabs lidocaine 5 % topical ointment 1 applic topical DAILY PRN pain 01/20/25 #50 grams aspirin 81 mg tablet,delayed 81 mg PO DAILY #30 tabs 01/29/25 release clopidogrel 75 mg tablet 75 mg PO DAILY #30 tabs 01/29/25 venlafaxine 75 mg tablet 75 mg PO DAILY #90 tabs 03/09/25 venlafaxine 37.5 mg 37.5 mg PO DAILY #60 caps 03/14/25 capsule,extended release 24 hr trazodone 100 mg tablet 100 mg PO ONCE PM #90 tabs 04/04/25 rosuvastatin 5 mg tablet 2.5 mg (1/2 x 5 mg) PO DAILY #60 04/14/25 tabs oxybutynin chloride 10 mg 10 mg PO DAILY #90 tabs 05/09/25 tablet,extended release 24 hr empagliflozin 10 mg tablet 10 mg PO DAILY #90 tabs 05/10/25 (Jardiance) cyclobenzaprine 5 mg tablet 5 mg PO TID PRN muscle spasm #90 05/23/25 tabs gabapentin 300 mg capsule 900 mg (3 x 300 mg) PO BID #360 05/23/25 caps oxycodone 5 mg tablet 5 mg PO DAILY PRN pain #30 tabs 05/23/25 acyclovir 400 mg tablet 400 mg PO BID #60 tabs 06/06/25 ramelteon 8 mg tablet 8 mg PO BEDTIME PRN sleep #30 tabs 06/06/25 Allergies Allergy/AdvReac Type Severity Reaction Status Date / Time hydrocodone AdvReac Mild DIDN'T Verified 06/02/25 10:34 WORK WELL AND KEPT ME AWAKE Patient History Medical History Hip arthritis Renal mass of unknown nature HFrEF (heart failure with reduced ejection fraction) Weakness Peripheral neuropathy Heel spur Arthritis of first MTP joint Hx of right bundle branch block Insomnia Allergic rhinitis Postmenopausal GERD (gastroesophageal reflux disease) Anxiety Surgical History History of lumbar spinal fusion Hx of spinal surgery 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) History of bilateral tubal ligation History of arthroscopic knee surgery (2004) Status post open reduction with internal fixation (ORIF) of fracture of ankle (01/2001) Status post right knee replacement (10/09/12) 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) Family History Father CAD (coronary artery disease) Grandfather Lung cancer Grandmother CAD (coronary artery disease) Mother CAD (coronary artery disease) Diabetes mellitus Parkinson's disease Grandfather CAD (coronary artery disease) Social History household members: spouse Smoking Status: Current every day smoker alcohol intake: current Smoking Status: Current every day smoker tobacco type: cigarettes and vaping alcohol intake frequency: 0-2 drinks per day Alcohol type: beer Exam Initial Vital Signs Initial Vital Signs: Vital Signs Temperature 98.7 F 06/07/25 11:47 Pulse Rate 74 06/07/25 11:47 Respiratory Rate 18 06/07/25 11:47 Blood Pressure 141/71 H 06/07/25 11:47 Pulse Oximetry 95 06/07/25 11:47 Oxygen Delivery Method Room Air 06/07/25 11:47 GENERAL: Alert well-appearing 79-year-old female and in no acute distress. HEENT: Head atraumatic,EOMI, pupils reactive, face symmetric, moist mucous membrane CARDIOVASCULAR: Regular rate and rhythm without murmurs, rubs or gallops. RESPIRATORY: Breath sounds equal bilaterally, no wheezes rales or rhonchi. ABDOMEN: Soft, nontender. Normoactive bowel sounds all 4 quadrants. No guarding or rebound. EXTREMITIES: Normal range of motion, no clubbing or edema. Neurovascularly intact NEUROLOGICAL: Alert and oriented x4.Normal gait and speech. Cranial nerves II through XII grossly intact. SKIN: Warm, dry, no laceration, no petechiae, no rashes or lesions. Course Orders Ordered: ED Orders 06/07/25 11:51 XR chest 1V Stat EKG-12 Lead Stat 06/07/25 12:16 Complete Blood Count AUTO DIFF Stat Comprehensive Metabolic Panel Stat Lipase Stat Magnesium Stat NT-proBNP (BNP-Adult 18+) Stat PTT Partial Thromboplastin Richy Stat Prothrombin Time INR Stat Troponin & CK Cardiac Panel Stat 06/07/25 14:19 Trop I [Troponin I] Stat Heparin Sodium/Dextrose (Heparin Drip) 25,000 unit in 500 mls @ 12.737 mls/hr IV CONT [place]; Protocol Last Admin: 06/07/25 14:04 Dose: 12 units/kg/hr, 12.737 mls/hr Documented By: RAINA Co-signed By: RAINA(2) Discontinued Medications Aspirin (Aspirin 81 Mg Chew Tab) 324 mg PO NOW ONE Stop: 06/07/25 11:51 Last Admin: 06/07/25 12:17 Dose: 324 mg Documented By: TAJ Heparin Sodium (Porcine) (Heparin 5,000 Unit/Ml Vial) 3,000 unit 60 unit/kg (3000 unit) IV NOW ONE Stop: 06/07/25 13:12 Last Admin: 06/07/25 14:03 Dose: 3,000 unit Documented By: RAINA Vital Signs Vital signs: Vital Signs - 8 hr 06/07/25 11:47 Temperature 98.7 F Pulse Rate 74 Respiratory Rate 18 Blood Pressure 141/71 H Pulse Oximetry 95 Oxygen Delivery Method Room Air Medical Decision Making Lab Data 06/07/25 12:16 06/07/25 12:16 Labs: Lab Results 06/07/25 06/07/25 Range/Units 12:16 14:19 WBC 12.9 H (4.5-11.0) X10^3/uL RBC 4.76 (4.0-5.2) X10^6/uL Hgb 14.7 (12.0-16.0) g/dL Hct 44.0 (36-46) % MCV 92.4 (80-100) fL MCH 30.8 (26-34) PG MCHC 33.3 (30-36) % RDW 13.8 (11.6-14.8) % Plt Count 300 (150-400) X10^3/uL Neut % (Auto) 91.5 H (50-75) % Lymph % (Auto) 3.8 L (25-40) % [place] % (Auto) 4.1 (3-14) % Eos % (Auto) 0.1 L (2-4) % Baso % (Auto) 0.5 (0-2) % Neut # (Auto) 04756 H (7900-6765) /uL Lymph # (Auto) 500 L (9392-1066) /uL [place] # (Auto) 500 (0-900) /uL Eos # (Auto) 0 (0-450) /uL Baso # (Auto) 100 (0-100) /uL PT 11.9 (9.4-12.5) SECONDS INR 1.1 (0.9-1.3) APTT 27 (25.1-36.5) SECONDS Sodium 137 (137-145) mmol/L Potassium 4.4 (3.4-5.1) mmol/L Chloride 103 (98-107) mmol/L Carbon Dioxide 27 (22-32) mmol/L BUN 14 (7-17) mg/dL Creatinine 0.74 (0.52-1.04) mg/dL Estimated GFR > 60 (>60) mL/min BUN/Creatinine Ratio 18.9 (6-22) Glucose 98 (70-99) mg/dL Calcium 9.1 (8.4-10.2) mg/dL Magnesium 1.9 (1.6-2.3) mg/dL Total Bilirubin 0.6 (0.2-1.3) mg/dL AST 41 H (14-36) IU/L ALT 32 (<35) IU/L Alkaline Phosphatase 137 H (38-126) U/L Total Creatine Kinase 65 (30-135) U/L Troponin I 0.162 H* 0.202 H* (0.01-0.034) ng/mL NT-Pro-B Natriuret Pep 4730 H (<450) pg/mL Total Protein 7.8 (6.3-8.2) g/dL Albumin 4.4 (3.5-5.0) g/dL Globulin 3.4 (1.7-4.1) g/dL Albumin/Globulin Ratio 1.3 (1.0-2.8) Lipase 99 (23-300) U/L Imaging Data Chest x-ray: Radiologist's Impression: PROCEDURE: XR CHEST 1V INDICATIONS: Chest Pain TECHNIQUE: One view of the chest was acquired. COMPARISON: [facility], , XR CHEST 1V, 05/20/2025, 11:23. FINDINGS: Mild bilateral perihilar and lower lobe peribronchial thickening with patchy lower lobe opacities left greater than right, some of which may be related expiratory result; however, bronchitis, bronchopneumonia, viral infection, asthma or other process should be considered. Moderate calcifications of the aortic arch and descending aorta. Degenerative changes of the left shoulder and right shoulder arthroplasty. Pedicle screws and posterior fixation rods lower thoracic, upper lumbar spine. Cardiopericardial silhouette and pulmonary vasculature within normal limits. No pneumothorax, no pleural effusion, no lobar consolidation IMPRESSION: Peribronchial thickening and patchy opacities as discussed above some of which may be chronic. If symptoms persist or worsen, CT chest could be performed. Dictated by: Remy eLzama M.D. on 06/07/2025 at 13:05 Approved by: Remy Lezama M.D. on 06/07/2025 at 13:09 ECG Data Attestation: I personally reviewed and interpreted this ECG as follows: Prior ECG tracings: available for review Interpretation: Sinus rhythm rate 73 AL interval 166 QRS 150 QTC is 513 left bundle-branch block noted similar to previous EKGs no significant ST depression or elevation. No Sgarbossa criteria MDM Narrative Medical decision making narrative: MDM CC: Nausea vomiting Complicating co-morbidities: Coronary artery disease hypertension hyperlipidemia cardiomyopathy Data collected from: [ ] Medical records reviewed: Previous ED visits Differential considered: Acute coronary syndrome Exam documented above, pertinent findings include: Alert well-appearing 79-year-old female abdomen is soft nontender breath sounds clear Lab Test results independently reviewed as above. Pertinent findings: Troponin 0.165-->0.202 BNP 4730 CBC mild leukocytosis 12.9 hemoglobin 14.7 hematocrit 44 platelets 300 CMP electrolytes within normal limits creatinine 0.7 Independently reviewed EKG as above Left bundle-branch block sinus rhythm no Sgarbossa criteria similar to previous EKGs Imaging studies independently reviewed: Chest x-ray peribronchial thickening patchy opacities maybe chronic, she had a chest abdomen pelvis May 20 Consultations: 1500 DR. 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 Okay to keep here Dr. Mercedes, accepts patient Treatments: Aspirin heparin drip Re-evaluations: Patient would like to eat, Discussion: Patient is 79-year-old female history of coronary artery disease history of 2 NSTEMI presenting today with nausea vomiting. She is having a little bit of chest pain. She is overall hungry it appears well. She has troponins that are rising. No EKGs changes. Discharge Plan Departure Patient Disposition: Admitted As Inpatient Clinical Impression: Acute non-ST elevation myocardial infarction (NSTEMI)
[2025-06-07] MEDS: HEPARIN 5,000 UNIT/ML VIAL 3000 UNIT IV (14:03)
[2025-06-07] MEDS: HEPARIN DRIP 25,000 UNIT/500 ML IV.SOLN 12.737 UNIT IV (14:04)
[2025-06-07 14:55] LABS: Troponin I 0.202 ng/mL (0.01-0.034)
--- NOTE | 2025-06-07 16:23 | EKG_ITS ---
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
--- NOTE | 2025-06-07 16:37 | PM.HP.1 ---
History of Present Illness History of Present Illness Date Patient Seen: 06/07/25 Time Patient Seen: 18:06 Chief complaint: Symptoms of a heart attack, sent from PCP Narrative: From ED doctor: Patient is a 71-year-old female history of NSTEMI, recently had events May 20 where she was then transferred to [facility] stayed for 2 days and discharged. Per patient she reports that she is not stentable. Today she presents with nausea vomiting diarrhea. She says this is how she presents for her heart attacks. She does not have any chest pain or shortness of breath. She appears well but this is what happened to her last time. She actually had a cardiac event in March as well where she had troponin going up as high as 5.2 at that time she was transferred to [facility]. S: She developed acute nausea and vomiting this morning followed by diarrhea. She would epigastric abdominal pain which is reminiscent of previous heart attacks. She came to the ER and was found to have elevated troponin. She was discussed with Cardiology, Dr. Barron. Apparently she has nonobstructive coronary artery disease noted on angiogram in the past in his primarily managed with medical therapy. She also has a stress cardiomyopathy history. Her echo has been normal in the past and has had LV depression down to 30% with episodes of stress cardiomyopathy. She denies recent chest pain, exertional chest pain, or dyspnea. No recent leg edema. No fevers, chills, or URI symptoms. [facility] Medical History Hip arthritis Renal mass of unknown nature HFrEF (heart failure with reduced ejection fraction) Weakness Peripheral neuropathy Heel spur Arthritis of first MTP joint Hx of right bundle branch block Insomnia Allergic rhinitis Postmenopausal GERD (gastroesophageal reflux disease) Anxiety Surgical History History of lumbar spinal fusion Hx of spinal surgery 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) History of bilateral tubal ligation History of arthroscopic knee surgery (2004) Status post open reduction with internal fixation (ORIF) of fracture of ankle (01/2001) Status post right knee replacement (10/09/12) 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) Family History Father CAD (coronary artery disease) Grandfather Lung cancer Grandmother CAD (coronary artery disease) Mother CAD (coronary artery disease) Diabetes mellitus Parkinson's disease Grandfather CAD (coronary artery disease) Social History household members: spouse alcohol intake: current Meds Home Medications and Allergies Home Medications ?Medication ?Instructions ?Recorded ?Confirmed ?Type omeprazole 40 mg capsule,delayed 40 mg PO QAM PRN Reflux #30 caps 10/22/18 06/07/25 Rx release albuterol sulfate 90 mcg/actuation 2 puff inhalation Q4H PRN 05/06/22 06/07/25 Rx aerosol inhaler (Ventolin HFA) shortness of breath or wheezing #18 grams magnesium oxide 400 mg PO DAILY 06/10/22 06/07/25 History Disabled Parking Permit #1 ea 12/11/23 06/07/25 Rx diclofenac sodium 1 % topical gel 2 g topical QID #100 grams 03/04/24 06/07/25 Rx (Voltaren Arthritis Pain) losartan 50 mg tablet 50 mg PO BID 07/23/24 06/07/25 History spironolactone 25 mg tablet 12.5 mg (1/2 x 25 mg) PO DAILY #90 09/09/24 06/07/25 Rx tabs lidocaine 5 % topical ointment 1 applic topical DAILY PRN pain 01/20/25 06/07/25 Rx #50 grams aspirin 81 mg tablet,delayed 81 mg PO DAILY #30 tabs 01/29/25 06/07/25 Rx release clopidogrel 75 mg tablet 75 mg PO DAILY #30 tabs 01/29/25 06/07/25 Rx venlafaxine 75 mg tablet 75 mg PO DAILY #90 tabs 03/09/25 06/07/25 Rx venlafaxine 37.5 mg 37.5 mg PO DAILY #60 caps 03/14/25 06/07/25 Rx capsule,extended release 24 hr trazodone 100 mg tablet 100 mg PO ONCE PM #90 tabs 04/04/25 06/07/25 Rx amiodarone 100 mg tablet 400 mg PO DAILY 04/14/25 06/07/25 History amlodipine 5 mg tablet 5 mg PO DAILY 04/14/25 06/07/25 History carvedilol 12.5 mg tablet (Coreg) 6.25 mg PO BID 04/14/25 06/07/25 History rosuvastatin 5 mg tablet 2.5 mg (1/2 x 5 mg) PO DAILY #60 04/14/25 06/07/25 Rx tabs oxybutynin chloride 10 mg 10 mg PO DAILY #90 tabs 05/09/25 06/07/25 Rx tablet,extended release 24 hr empagliflozin 10 mg tablet 10 mg PO DAILY #90 tabs 05/10/25 06/07/25 Rx (Jardiance) cyclobenzaprine 5 mg tablet 5 mg PO TID PRN muscle spasm #90 05/23/25 06/07/25 Rx tabs gabapentin 300 mg capsule 900 mg (3 x 300 mg) PO BID #360 05/23/25 06/07/25 Rx caps oxycodone 5 mg tablet 5 mg PO DAILY PRN pain #30 tabs 05/23/25 06/07/25 Rx acyclovir 400 mg tablet 400 mg PO BID #60 tabs 06/06/25 06/07/25 Rx Allergies Allergy/AdvReac Type Severity Reaction Status Date / Time hydrocodone AdvReac Mild DIDN'T Verified 06/07/25 17:24 WORK WELL AND KEPT ME AWAKE Review of Systems Review of Systems Narrative: All else reviewed and otherwise unremarkable except as noted in the history and physical. Exam Vital Signs (past 8 hours): - 06/07/25 11:47 06/07/25 13:06 06/07/25 13:06 Temperature 98.7 F Pulse Rate 74 69 Respiratory Rate 18 Blood Pressure 141/71 H 134/79 Pulse Oximetry 95 98 Oxygen Delivery Method Room Air 06/07/25 13:30 06/07/25 13:30 06/07/25 14:00 Temperature Pulse Rate 71 69 Respiratory Rate 26 H 28 H Blood Pressure 137/80 Pulse Oximetry 95 98 Oxygen Delivery Method 06/07/25 14:00 06/07/25 14:30 06/07/25 14:31 Temperature Pulse Rate 72 76 Respiratory Rate 34 H 34 H Blood Pressure 144/79 H Pulse Oximetry 96 96 Oxygen Delivery Method 06/07/25 14:31 06/07/25 15:00 06/07/25 15:00 Temperature Pulse Rate 71 Respiratory Rate 23 Blood Pressure 117/67 128/77 Pulse Oximetry 97 Oxygen Delivery Method 06/07/25 15:30 06/07/25 15:30 Temperature Pulse Rate 70 Respiratory Rate 33 H Blood Pressure 133/69 Pulse Oximetry 98 Oxygen Delivery Method Room Air Oxygen Delivery Method Room Air Narrative Exam Narrative: NAD, alert and oriented, fluent speech, calm. Frail. Normocephalic skull, EOMI, anicteric sclera, symmetric pupils. Oropharynx unremarkable, no droop. Neck supple, midline trachea, no adenopathy. Lungs clear, normal rate and effort. Heart regular, no murmur gallop or rub. Abdomen is soft, non distended and non tender. Extremities are free of edema. Skin is free of rash or lesions. Joints are not swollen or deformed. Judgment appears to be normal. Objective ECG Impression: ntervals [place] Rate: 73 P: 81 WV: 166 QRS: -54 QRSD: 150 T: 106 QT: 466 QTc: 513 Interpretive Statements Normal sinus rhythm Right atrial enlargement Left axis deviation Left bundle branch block NO SIGNIFICANT CHANGE FROM PRIOR TRACING Imaging Chest x-ray: Radiologist's impression: Peribronchial thickening and patchy opacities as discussed above some of which may be chronic. If symptoms persist or worsen, CT chest could be performed. Labs 06/07/25 12:16 06/07/25 12:16 Labs: Laboratory Results - last 24 hr 06/07/25 06/07/25 12:16 14:19 WBC 12.9 H RBC 4.76 Hgb 14.7 Hct 44.0 MCV 92.4 MCH 30.8 MCHC 33.3 RDW 13.8 Plt Count 300 Neut % (Auto) 91.5 H Lymph % (Auto) 3.8 L [place] % (Auto) 4.1 Eos % (Auto) 0.1 L Baso % (Auto) 0.5 Neut # (Auto) 22532 H Lymph # (Auto) 500 L [place] # (Auto) 500 Eos # (Auto) 0 Baso # (Auto) 100 PT 11.9 INR 1.1 APTT 27 Sodium 137 Potassium 4.4 Chloride 103 Carbon Dioxide 27 BUN 14 Creatinine 0.74 Estimated GFR > 60 BUN/Creatinine Ratio 18.9 Glucose 98 Calcium 9.1 Magnesium 1.9 Total Bilirubin 0.6 AST 41 H ALT 32 Alkaline Phosphatase 137 H Total Creatine Kinase 65 Troponin I 0.162 H* 0.202 H* NT-Pro-B Natriuret Pep 4730 H Total Protein 7.8 Albumin 4.4 Globulin 3.4 Albumin/Globulin Ratio 1.3 Lipase 99 Assessment & Plan Assessment & Plan narrative: 1. NSTEMI. Active. 2. History of stress cardiomyopathy with an EF of 30% in March of 2025. 3. Nonobstructive CAD, stable. 4. History of NSVT. PLAN: -medical treatment for NSTEMI with heparin for 48 hours, continue beta blockade, and statin. Resume BIJAN inhibitor. -cardiology consultation. -repeat echo on June 08. -trend troponins. -continue carvedilol, and Plavix which are chronic medications. Anticipate 2 midnights in the hospital, supports inpatient status. Full resuscitation. Time-Based Coding :: 35 min spent with patient and on the chart (including review of chart, obtaining history, exam, reviewing outside data, placing orders, documenting exam and treatment plan, and counseling patient) on 06/07. Quality MIPS - Admit I confirm the patient?s Advance Care Plan is present, Code status is documented, Surrogate decision maker is in patient?s record [If Yes, STOP here]: Yes MIPS - Meds 'Current medications' to include all prescriptions, [id number] products, herbals, cannabis/cannabidiol products, and vitamin/mineral/dietary (nutritional) supplements. I have utilized all available resources to obtain, update, or review the patient?s current medications. [If Yes, STOP here]: Yes
[2025-06-07] MEDS: GABAPENTIN 300 MG CAPSULE 900 MG PO ×2 (17:42→20:32)
[2025-06-07] MEDS: VENLAFAXINE 37.5 MG TABLET 75 MG PO (17:42)
[2025-06-07] MEDS: PANTOPRAZOLE DR 40 MG TABLET PO (17:43)
[2025-06-07] MEDS: VENLAFAXINE ER 37.5 MG CAP PO (18:32)
[2025-06-07] MEDS: ONDANSETRON 4 MG/2 ML INJ IV (18:35)
[2025-06-07] MEDS: LOSARTAN 50 MG TABLET PO (20:32)
[2025-06-07 20:34] LABS: PTT Partial Thromboplastin Tim 49 SECONDS (25.1-36.5)
[2025-06-07] MEDS: FAMOTIDINE 20 MG TABLET PO (22:54)
[2025-06-08] VITALS: BP 121/96; PULSE 62; RESP 18; TEMP 36.2; O2SAT 95
[2025-06-08 02:27] LABS: PTT Partial Thromboplastin Tim 47 SECONDS (25.1-36.5)
[2025-06-08 04:00] VITALS: BP 134/101; PULSE 68; RESP 18; TEMP 36.2; O2SAT 93
[2025-06-08 08:25] LABS: PTT Partial Thromboplastin Tim 37 SECONDS (25.1-36.5)
--- NOTE | 2025-06-08 08:28 | PM.PN.1 ---
Subjective Subjective Interval history: S: She was feeling better today, no chest pain or dyspnea. Echo is being performed this morning. She does have a history of stress cardiomyopathy. ECHO: The left ventricle is normal in size and wall thickness. The ejection fraction is estimated to be 50-55%. There is a moderate dyssynchrony along the septal segments with hypokinesis of the segments. This is new since prior study. Grade I diastolic dysfunction with normal left atrial pressure. The right ventricle is normal in size and function. The right ventricular systolic pressure is estimated to be at least 41 mmHg based on an estimated right atrial pressure of 8 mm Hg. The left atrium is mildly dilated. There is mild mitral regurgitation. The aortic root is normal size. There is a small pericardial effusion noted. There are no echocardiographic or Doppler indications for cardiac tamponade. O: NAD, alert and oriented. Fluent speech. Lungs are clear, normal rate and effort. Heart is regular, no murmur gallop or rub. Abdomen is soft, non distended. Extremities are free of edema. ECG Impression: ntervals [place] Rate: 73 P: 81 [place]: 166 QRS: -54 QRSD: 150 T: 106 QT: 466 QTc: 513 Interpretive Statements Normal sinus rhythm Right atrial enlargement Left axis deviation Left bundle branch block NO SIGNIFICANT CHANGE FROM PRIOR TRACING Imaging Chest x-ray: Radiologist's impression: Peribronchial thickening and patchy opacities as discussed above some of which may be chronic. If symptoms persist or worsen, CT chest could be performed. A/P: 1. NSTEMI. Active. 2. History of stress cardiomyopathy with an EF of 30% in March of 2025. 3. Nonobstructive CAD, stable. 4. History of NSVT. PLAN: -medical treatment for NSTEMI with heparin for 48 hours, continue beta blockade, and statin. Resume BIJNA inhibitor. -she was a pending new appointment on June [address] Meyers of [facility], we will consult with him by phone today to see what he recommends. -trend troponins. -continue carvedilol, and Plavix which are chronic medications. Anticipate 2 midnights in the hospital, supports inpatient status. Full resuscitation. Exam Vital Signs (past 8 hours): - 06/08/25 04:00 Temperature 97.1 F L Pulse Rate 68 Respiratory Rate 18 Blood Pressure 134/101 H Pulse Oximetry 93 Oxygen Flow Rate 0 Oxygen Delivery Method Room Air Oxygen Flow Rate 0 Objective Labs 06/07/25 12:16 06/07/25 12:16 Labs: Laboratory Results - last 24 hr 06/07/25 06/07/25 06/07/25 12:16 14:19 20:18 WBC 12.9 H RBC 4.76 Hgb 14.7 Hct 44.0 MCV 92.4 MCH 30.8 MCHC 33.3 RDW 13.8 Plt Count 300 Neut % (Auto) 91.5 H Lymph % (Auto) 3.8 L [place] % (Auto) 4.1 Eos % (Auto) 0.1 L Baso % (Auto) 0.5 Neut # (Auto) 16380 H Lymph # (Auto) 500 L [place] # (Auto) 500 Eos # (Auto) 0 Baso # (Auto) 100 PT 11.9 INR 1.1 APTT 27 49 H D Sodium 137 Potassium 4.4 Chloride 103 Carbon Dioxide 27 BUN 14 Creatinine 0.74 Estimated GFR > 60 BUN/Creatinine Ratio 18.9 Glucose 98 Calcium 9.1 Magnesium 1.9 Total Bilirubin 0.6 AST 41 H ALT 32 Alkaline Phosphatase 137 H Total Creatine Kinase 65 Troponin I 0.162 H* 0.202 H* NT-Pro-B Natriuret Pep 4730 H Total Protein 7.8 Albumin 4.4 Globulin 3.4 Albumin/Globulin Ratio 1.3 Lipase 99 06/08/25 02:10 WBC RBC Hgb Hct MCV MCH MCHC RDW Plt Count Neut % (Auto) Lymph % (Auto) [place] % (Auto) Eos % (Auto) Baso % (Auto) Neut # (Auto) Lymph # (Auto) [place] # (Auto) Eos # (Auto) Baso # (Auto) PT INR APTT 47 H Sodium Potassium Chloride Carbon Dioxide BUN Creatinine Estimated GFR BUN/Creatinine Ratio Glucose Calcium Magnesium Total Bilirubin AST ALT Alkaline Phosphatase Total Creatine Kinase Troponin I NT-Pro-B Natriuret Pep Total Protein Albumin Globulin Albumin/Globulin Ratio Lipase PFSH Medical History Hip arthritis Renal mass of unknown nature HFrEF (heart failure with reduced ejection fraction) Weakness Peripheral neuropathy Heel spur Arthritis of first MTP joint Hx of right bundle branch block Insomnia Allergic rhinitis Postmenopausal GERD (gastroesophageal reflux disease) Anxiety Surgical History History of lumbar spinal fusion Hx of spinal surgery 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) History of bilateral tubal ligation History of arthroscopic knee surgery (2004) Status post open reduction with internal fixation (ORIF) of fracture of ankle (01/2001) Status post right knee replacement (10/09/12) 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) Family History Father CAD (coronary artery disease) Grandfather Lung cancer Grandmother CAD (coronary artery disease) Mother CAD (coronary artery disease) Diabetes mellitus Parkinson's disease Grandfather CAD (coronary artery disease) Social History household members: spouse Smoking Status: Current every day smoker alcohol intake: current Assessment & Plan Time-Based Coding :: [TOTAL MINUTES] spent with patient and on the chart (including review of chart, obtaining history, exam, reviewing outside data, placing orders, documenting exam and treatment plan, and counseling patient) on [DATE].
--- NOTE | 2025-06-08 08:32 | DI.ECHO.S_ITS ---
[facility] : : [address] : : [place] : : [id number] : : Phone: [phone] Echocardiogram Report + + :Name: SUN GONZALEZ Study Date: 06/08/2025 Height: 65 in : :[facility] ReadingLocation: Weight: 117 lb : : Gender: Female BSA: 1.6 m2 : :: 1945 Age: 79 yrs BP: 134/100 mmHg: :Reason For Study: NSTEMI : :Ordering Physician: CHRISTINA, : :KEYANNA Beck Performed By: Jose Miguel Rehman : :Referring: KEYANNA VASQUEZ : + + Interpretation Summary The left ventricle is normal in size and wall thickness. The ejection fraction is estimated to be 50-55%. There is a moderate dyssynchrony along the septal segments with hypokinesis of the segments. This is new since prior study. Grade I diastolic dysfunction with normal left atrial pressure. The right ventricle is normal in size and function. The right ventricular systolic pressure is estimated to be at least 41 mmHg based on an estimated right atrial pressure of 8 mm Hg. The left atrium is mildly dilated. There is mild mitral regurgitation. The aortic root is normal size. There is a small pericardial effusion noted. There are no echocardiographic or Doppler indications for cardiac tamponade. Procedure: A two-dimensional transthoracic echocardiogram with color flow and Doppler was performed. The study quality was technically adequate. Comparison is made with the echocardiogram of 01/01/2023. The heart rate ranged between 60-69 bpm during the study. Left Ventricle: The left ventricle is normal in size and wall thickness. Left ventricular systolic function is normal. The ejection fraction is estimated to be 50-55%. There is a moderate dyssynchrony along the septal segments with hypokinesis of the segments. This is new since prior study. Grade I diastolic dysfunction with normal left atrial pressure. Right Ventricle: The right ventricle is normal in size and function. Atria: The left atrium is mildly dilated. The right atrium is normal in size. There is no Doppler evidence for an interatrial shunt. Mitral Valve: The mitral valve leaflets appear to open well. There is no mitral valve stenosis. There is mild mitral regurgitation. Aortic Valve: The aortic valve is trileaflet. The aortic valve opens well. There is no aortic valve stenosis. No aortic regurgitation is present. Tricuspid Valve: The tricuspid valve leaflets are thin and pliable. There is mild tricuspid regurgitation. The right ventricular systolic pressure is estimated to be at least 41 mmHg based on an estimated right atrial pressure of 8 mm Hg. Pulmonic Valve: The pulmonic valve is not well seen, but is grossly normal. There is trace pulmonic regurgitation. Great Vessels: The aortic root is normal size. The ascending aorta is normal in size. The aortic arch could not be visualized. The IVC is dilated (diameter is greater than 2.1 cm) yet it collapses greater than 50% with a sniff. This suggests a right atrial pressure of 8 mm Hg. Pericardium/ Pleura There is a small pericardial effusion noted. There are no echocardiographic or Doppler indications for cardiac tamponade. MMode/2D Measurements & Calculations LVIDd: 5.4 cm LVOT diam: 2.0 cm LVIDs: 3.2 cm Ao root diam: 3.2 cm FS: 40.3 % asc Aorta Diam: 3.1 cm EPSS: 0.41 cm IVSd: 0.95 cm LVPWd: 0.94 cm LV tenorio. diameter/BSA (cm/m^2): 3.4 LV sys. diameter/BSA (cm/m^2): 2.0 LA A2 area: 17.5 cm2 RA long axis: 4.6 cm LA A4 area: 21.6 cm2 RA area: 11.2 cm2 LA length (vol): 5.9 cm RA vol: 23.5 ml LA vol: 54.7 ml RA : 14.9 ml/m2 LA vol index: 34.7 ml/m2 RVD1 (basal): 3.8 cm RVD2 (mid): 2.8 cm TAPSE: 2.7 cm Doppler Measurements & Calculations Ao V2 max: 126.0 cm/sec LVOT Max Jon: 116.5 cm/sec Ao V2 mean: 88.0 cm/sec LV V1 max P.4 mmHg Ao max P.4 mmHg LV V1 VTI: 19.3 cm Ao mean P.5 mmHg INGRID(I,D): 2.9 cm2 Ao V2 VTI: 20.6 cm INGRID(V,D): 2.9 cm2 sev ratio: 0.94 INGRID indexed to BSA (cm^2/m^2): 1.8 MV E max jon: 76.4 cm/sec TR max jon: 286.4 cm/sec MV A max jon: 124.7 cm/sec TR max P.8 mmHg MV E/A: 0.61 Med Peak E' Jon: 4.5 cm/sec E/E' med: 17.0 Lat Peak E' Jon: 5.6 cm/sec E/E' lat: 13.7 E/e' average: 15.4 MV dec time: 0.18 sec SV(OT): 60.0 ml Reading Physician:12:30 PM
[2025-06-08] MEDS: ASPIRIN EC 81 MG TABLET PO (09:43)
[2025-06-08] MEDS: AMIODARONE 200 MG TABLET 400 MG PO (09:43)
[2025-06-08] MEDS: LOSARTAN 50 MG TABLET PO ×2 (09:44→20:16)
[2025-06-08] MEDS: VENLAFAXINE 37.5 MG TABLET 75 MG PO (09:44)
[2025-06-08] MEDS: GABAPENTIN 300 MG CAPSULE 900 MG PO ×2 (09:44→14:01)
[2025-06-08] MEDS: CLOPIDOGREL 75 MG TABLET PO (09:44)
[2025-06-08] MEDS: VENLAFAXINE ER 37.5 MG CAP PO (09:44)
[2025-06-08] MEDS: SPIRONOLACTONE 25 MG TABLET 12.5 MG PO (09:54)
[2025-06-08] MEDS: MAGNESIUM OXIDE 400 MG TABLET PO (09:54)
[2025-06-08] MEDS: oxyBUTYnin ER 5 MG TABLET 10 MG PO (09:55)
[2025-06-08 12:05] VITALS: BP 149/85; PULSE 62; RESP 17; TEMP 37.1; O2SAT 93
[2025-06-08 14:55] LABS: PTT Partial Thromboplastin Tim 38 SECONDS (25.1-36.5)
--- NOTE | 2025-06-08 15:05 | CM.IDA ---
Initial DCP Assessment Patient is 79 y/o female who presented to ED yesterday due to concern for NSTEMI. Patient's PCP is Dr. Munson, patient sees Plaster Caster Dr. Meyers and has scheduled appt for 06/27/25, patient has Medicare and [facility] insurance. EARTH SCIENCE TEACHER enters room to meet with patient, patient presents as A/Ox4, she states she is feeling better and has a lot more energy than yesterday. Patient endorses that she resides with her spouse in [place] and is independent with ADLs but her spouse assists with cleaning and they often order out food as patient does not cook anymore. Patient endorses they have a hired limehouse worker as well. Patient endorses she uses a FWW at baseline due to concern for pain during mobility. Patient has good support from her daughter who resides in [facility]. Patient denies any DCP needs at this time, patient has good outpatient follow up. Plan: DCP to f/u with plan of care, no needs at this time, patient to f/u with outpatient team upon d/c. ANETTE Peña Discharge Planning/Care Management CM Discharge Assessment Start: 06/07/25 16:49 Freq: Status: Active Protocol: Document 06/08/25 15:00 LN (Rec: 06/08/25 15:04 LN [id number]) Discharge Planning Assessment Assigned Discharge ANETTE Alexander Salesperson Yard Goods Provider Dr. Munson Insurance AARP MCR,Medicare DPOA/Assigned Arnaldo Rodríguez/Spouse Designee Name Contact Information [phone] Advance Directives? Yes Advance Directives No on File History Provided By Patient,Medical Record Has Patient been No admitted in last 30 days? Prior Living House Arrangements Household Members spouse Type of Relies on Others transporation used prior to admit Comment Patient's spouse started becoming the primary ambulette driver in the last year. Independent with ADL Yes 's Is patient alert and Yes oriented? Needs Assistance Home Chores / Shopping With Comment Home w/family Discharge Plan Home Transportation Spouse to provide transport at d/c Arrangement Referrals Initiated None needed Document 06/08/25 15:04 LN (Rec: 06/08/25 15:04 LN [id number]) Discharge Planning Assessment Assigned Discharge ANETTE Alexander Salesperson Yard Goods Provider Dr. Munson Insurance AARP MCR,Medicare DPOA/Assigned Arnaldo Rodríguez/Spouse Designee Name Contact Information [phone] Advance Directives? Yes Advance Directives No on File History Provided By Patient,Medical Record Has Patient been No admitted in last 30 days? Prior Living House Arrangements Household Members spouse Type of Relies on Others transporation used prior to admit Comment Patient's spouse started becoming the primary ambulette driver in the last year. Independent with ADL Yes 's Is patient alert and Yes oriented? Needs Assistance Home Chores / Shopping With Comment Home w/family Discharge Plan Home Transportation Spouse to provide transport at d/c Arrangement Referrals Initiated None needed
[2025-06-08] MEDS: HEPARIN 5,000 UNIT/ML VIAL 1325 UNIT IV (16:25)
[2025-06-08] MEDS: DICLOFENAC 1% GEL 100 GM 2 APPLIC TOP ×2 (16:35→20:14)
[2025-06-08 20:11] VITALS: BP 143/75; PULSE 50
[2025-06-08 20:16] VITALS: BP 143/75; PULSE 50
[2025-06-08] MEDS: ATORVASTATIN 20 MG TABLET 5 MG PO (20:16)
--- NOTE | 2025-06-08 22:59 | PC.NURSE ---
Multi Skilled Operator called lab at approximately 2100 as PTT not drawn at 2000 as ordered. Lab drawn and sent at 0. As no result by 2244 lab called. Sample missing. Lab attempting to find at this time.
[2025-06-08 23:37] LABS: PTT Partial Thromboplastin Tim 60 SECONDS (25.1-36.5)
[2025-06-09] VITALS: BP 126/67; PULSE 58; RESP 16; TEMP 36.3; O2SAT 94
[2025-06-09] MEDS: HEPARIN DRIP 25,000 UNIT/500 ML IV.SOLN 14.86 UNIT IV (01:35)
[2025-06-09 05:35] LABS: PTT Partial Thromboplastin Tim 57 SECONDS (25.1-36.5)
[2025-06-09] MEDS: VENLAFAXINE ER 37.5 MG CAP PO (08:40)
[2025-06-09] MEDS: VENLAFAXINE 37.5 MG TABLET 75 MG PO (08:40)
[2025-06-09] MEDS: ASPIRIN EC 81 MG TABLET PO (08:40)
[2025-06-09 08:41] VITALS: BP 126/67; PULSE 60
[2025-06-09] MEDS: LOSARTAN 50 MG TABLET PO (08:41)
[2025-06-09] MEDS: SPIRONOLACTONE 25 MG TABLET 12.5 MG PO (08:42)
[2025-06-09] MEDS: ACYCLOVIR 400 MG TABLET PO (08:42)
[2025-06-09] MEDS: AMIODARONE 200 MG TABLET 400 MG PO (08:43)
[2025-06-09] MEDS: GABAPENTIN 300 MG CAPSULE 900 MG PO (08:43)
[2025-06-09] MEDS: oxyBUTYnin ER 5 MG TABLET 10 MG PO (08:43)
[2025-06-09] MEDS: CLOPIDOGREL 75 MG TABLET PO (08:43)
[2025-06-09] MEDS: FAMOTIDINE 20 MG TABLET PO (08:44)
[2025-06-09] MEDS: MAGNESIUM OXIDE 400 MG TABLET PO (08:44)
--- NOTE | 2025-06-09 09:43 | P.DS_ITS ---
History of Present Illness History of Present Illness Chief complaint: Symptoms of a heart attack, sent from PCP Narrative: From ED doctor: Patient is a 71-year-old female history of NSTEMI, recently had events May 20 where she was then transferred to [facility] for 2 days and discharged. Per patient she reports that she is not stentable. Today she presents with nausea vomiting diarrhea. She says this is how she presents for her heart attacks. She does not have any chest pain or shortness of breath. She appears well but this is what happened to her last time. She actually had a cardiac event in March as well where she had troponin going up as high as 5.2 at that time she was transferred to [facility]. S: She developed acute nausea and vomiting this morning followed by diarrhea. She would epigastric abdominal pain which is reminiscent of previous heart attacks. She came to the ER and was found to have elevated troponin. She was discussed with Cardiology, Dr. Barron. Apparently she has nonobstructive coronary artery disease noted on angiogram in the past in his primarily managed with medical therapy. She also has a stress cardiomyopathy history. Her echo has been normal in the past and has had LV depression down to 30% with episodes of stress cardiomyopathy. She denies recent chest pain, exertional chest pain, or dyspnea. No recent leg edema. No fevers, chills, or URI symptoms. Discharge Providers Provider Date of admission: 06/07/25 15:40 Discharge Date: 06/09/25 Primary care physician: Jaky Munson MD Consults: Discussed with her protocol officer at [facility]iology, Dr. Meyers. Discharge provider: Nas Mercedes MD Summary Hospital Course Discharge Diagnosis: 1. NSTEMI. Active. 2. History of stress cardiomyopathy with an EF of 30% in March of 2025. 3. Nonobstructive CAD, stable. 4. History of NSVT. Hospital Course: She was admitted with acute nausea and vomiting which she stated was her equivalent for previous MT. She did have elevated troponins. She was history of known nonobstructive CAD and stress cardiomyopathy. She was heparinized for 48 hours and treated with dual antiplatelet therapy as well as beta yaima and atorvastatin. She improved rapidly and felt well for the last 24 hours of her stay. She had no chest pain before, or during her stay. She was discussed with her protocol officer in the day of discharge we will have expedited follow up mid next week. Echo did reveal some dyssynchrony, these results were shared with and reviewed by her protocol officer, Dr. Meyers. Status at Discharge Cognitive/behavioral status at discharge: oriented Functional status at discharge: independent ambulation Overall status at discharge: patient is back to baseline Time Spent with Patient Time spent: Greater than 30 minutes Exam Vital Signs (past 8 hours): - 06/09/25 08:41 06/09/25 08:41 Pulse Rate 60 60 Blood Pressure 126/67 126/67 Oxygen Delivery Method Room Air Oxygen Flow Rate 0 Narrative Exam Narrative: NAD, alert and oriented. Fluent speech. Lungs are clear, normal rate and effort. Heart is regular, no murmur gallop or rub. Abdomen is soft, non distended. Extremities are free of edema. Objective ECG Impression: Normal sinus rhythm Right atrial enlargement Left bundle branch block NO SIGNIFICANT CHANGE FROM PRIOR TRACING Imaging Multiple studies:: Radiologist's impression: Chest x-ray: Peribronchial thickening and patchy opacities as discussed above some of which may be chronic. If symptoms persist or worsen, CT chest could be performed. Echo: The left ventricle is normal in size and wall thickness. The ejection fraction is estimated to be 50-55%. There is a moderate dyssynchrony along the septal segments with hypokinesis of the segments. This is new since prior study. Grade I diastolic dysfunction with normal left atrial pressure. The right ventricle is normal in size and function. The right ventricular systolic pressure is estimated to be at least 41 mmHg based on an estimated right atrial pressure of 8 mm Hg. The left atrium is mildly dilated. There is mild mitral regurgitation. The aortic root is normal size. There is a small pericardial effusion noted. There are no echocardiographic or Doppler indications for cardiac tamponade. Labs 06/07/25 12:16 06/07/25 12:16 Labs: Laboratory Results - last 24 hr 06/08/25 06/08/25 06/09/25 14:22 23:20 05:16 APTT 38 H 60 H D 57 H PFSH Medical History Hip arthritis Renal mass of unknown nature HFrEF (heart failure with reduced ejection fraction) Weakness Peripheral neuropathy Heel spur Arthritis of first MTP joint Hx of right bundle branch block Insomnia Allergic rhinitis Postmenopausal GERD (gastroesophageal reflux disease) Anxiety Surgical History History of lumbar spinal fusion Hx of spinal surgery 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) History of bilateral tubal ligation History of arthroscopic knee surgery (2004) Status post open reduction with internal fixation (ORIF) of fracture of ankle (01/2001) Status post right knee replacement (10/09/12) 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) Family History Father CAD (coronary artery disease) Grandfather Lung cancer Grandmother CAD (coronary artery disease) Mother CAD (coronary artery disease) Diabetes mellitus Parkinson's disease Grandfather CAD (coronary artery disease) Social History household members: spouse Smoking Status: Current every day smoker alcohol intake: current Discharge Assessment & Plan Assessment and Plan Assessment: 1. NSTEMI. Active. Plan of Treatment: Discharge home on dual antiplatelet therapy with close follow up with Cardiology. Dr. Meyers. Discharge Plan Discharge Plan Patient Disposition: Home Provider Discharge Comment: Stable for discharge, discussed with her protocol officer, Dr. Meyers. Cardiology will see next week. Discharge orders & Medications Prescriptions: Continued diclofenac sodium [Voltaren Arthritis Pain] 1 % gel 2 g topical QID Qty: 100 0RF Rx Instructions: apply to single elbow, wrist or hand; for hand includes palm/fingers/back of hand losartan 50 mg tablet 50 mg PO BID venlafaxine 37.5 mg capsule,extended release 24hr 37.5 mg PO DAILY Qty: 60 0RF Rx Instructions: for dose adjustment amlodipine 5 mg tablet 5 mg PO DAILY rosuvastatin 5 mg tablet 2.5 mg PO DAILY Qty: 60 2RF amiodarone 100 mg tablet 400 mg PO DAILY carvedilol [Coreg] 12.5 mg tablet 6.25 mg PO BID Rx Instructions: must administer with a meal/food cyclobenzaprine 5 mg tablet 5 mg PO TID PRN (Reason: muscle spasm) Qty: 90 2RF Rx Instructions: ok to increase to 10mg three times daily gabapentin 300 mg capsule 900 mg PO BID Qty: 360 0RF Rx Instructions: ok to increase to 3 times chun if needig more coverage oxycodone 5 mg tablet 5 mg PO DAILY PRN (Reason: pain) Qty: 30 0RF Rx Instructions: to last 30 days albuterol sulfate [Ventolin HFA] 90 mcg/actuation HFA aerosol inhaler 2 puff Inhalation Q4H PRN (Reason: shortness of breath or wheezing) Qty: 18 11RF (DME) Disabled Parking Permit See Rx Instructions .ROUTE .MEDSUPPLY Qty: 1 0RF Rx Instructions: I find this person to be disabled spironolactone 25 mg tablet 12.5 mg PO DAILY Qty: 90 3RF lidocaine 5 % ointment 1 applic topical DAILY PRN (Reason: pain ) Qty: 50 0RF venlafaxine 75 mg tablet 75 mg PO DAILY Qty: 90 0RF trazodone 100 mg tablet 100 mg PO ONCE PM Qty: 90 2RF oxybutynin chloride 10 mg tablet extended release 24hr 10 mg PO DAILY Qty: 90 0RF Jardiance 10 mg tablet 10 mg PO DAILY Qty: 90 0RF acyclovir 400 mg tablet 400 mg PO BID Qty: 60 0RF omeprazole 40 mg capsule,delayed release(DR/EC) 40 mg PO QAM PRN (Reason: Reflux) Qty: 30 3RF clopidogrel 75 mg Tablet 75 mg PO DAILY Qty: 30 2RF magnesium oxide 400 mg magnesium Tablet 400 mg PO DAILY aspirin 81 mg Tablet,Delayed Release (Dr/Ec) 81 mg PO DAILY Qty: 30 3RF Follow up/Referrals: Jaky Munson MD [Primary Care Provider, Family Practice] Discharge Health Status Multidrug resistant organism: No MDRO Diet/Activity/Treatments Diet: Low-cholesterol Activity: As tolerated. Visit Report/Discharge Packet Instructions: DI for Chest Pain Stand Alone Forms: Patient Portal/API Discharge Data Primary Care Provider: Jaky Munson
--- NOTE | 2025-06-09 10:53 | CM.DPC ---
DCP Discharge Home Per MD, pt is medically stable to discharge home today with ongoing outpt f/u with her [employer] [employer], tolerating PO meds. No identified barriers to discharge. Per RN, will provide dc instructions and no concerns noted. Family to provide transport home today. GINGER Ross
--- NOTE | 2025-06-09 11:58 | PC.NURSE ---
No belongings in drawer, safe, or pharmacy. All PIVS and tele removed; pt tolerated well. Provided discharge education to pt and pt family; pt and family stated all questions answered. All belongings with patient. Pt escorted out via WC; swapped hospital WC for pt's home WC; pt escorted via WC with pt spouse and friend to cafeteria.
== END 2025-06-09 11:55 | disposition home or self-care (01) | DRG 281 ==
LOC: ED 15:23 → AC 15:41
PROVIDERS: Admitting Provider Hospitalist; Emergency Provider Emergency Medicine; PCP Family Medicine; Visit Provider Hospitalist
DX: I21.4 Non-ST elevation (NSTEMI) myocardial infarction (principal); I51.81 Takotsubo syndrome; I25.10 Atherosclerotic heart disease of native coronary artery without angina pectoris; F17.200 Nicotine dependence, unspecified, uncomplicated; F41.9 Anxiety disorder, unspecified; K21.9 Gastro-esophageal reflux disease without esophagitis; I25.2 Old myocardial infarction; Z86.79 Personal history of other diseases of the circulatory system
CPT/HCPCS: 36415; 71045; 80053; 82550; 83690; 83735; 83880; 84484; 85025; 85610; 85730; 93005; 93010; 93306; 96374; 99284; 99285; A9270; J1644; J2405

== ENCOUNTER 2025-08-11 14:45 | Emergency (ER) | payer MEDICARE, SELFPAY ==
[2025-06-07 17:28] VITALS: BMI 19.4
[2025-08-11] VITALS (23 sets, daily range): BP systolic 110–207; BP diastolic 51–118; PULSE 28–97; RESP 9–32; TEMP 36.6; O2SAT 89–98; BMI 19.8
--- OUTSIDE RECORDS SUMMARY | 2025-08-11 14:48 | XMS_ITS | Clinical Summary ---
Author Organization [facility] Address [address] [place] [address] Care Team Providers Care Obstetrics Gynecology Md Name Role Phone Susie Hayes Primary Care Provider [phone] Allergies Active Allergy Reactions Criticality Noted Date Comments Hydrocodone-Acetaminophen GI:Nausea/vomiting Medications TraZODone HCl 100 MG Oral Tab 1 TABLET AT BEDTIME Active Venlafaxine HCl ER (EFFEXOR XR) 150 MG Oral CAPSULE SR 24 HR None Entered Active Multiple Vitamins-Calcium (ONE-A-DAY WOMENS FORMULA OR) None Entered Activ e CALCIUM-VITAMIN D OR None Entered Active Oxybutynin Chloride ER 10 MG Oral TABLET SR 24 HRIndications:Urg e incontinence Take 1 tablet (10 mg) by mouth daily. (please schedule an appointment) 30 tablet 0 5 Active Active Problems Problem Noted Date Diagnosed Date Urge incontinence 03/07/2014 Anxiety 03/07/2014 Social History Tobacco Use Types Packs/Day Years Used Date Smoking Tobacco: Former Smokeless Tobacco: Former Quit: 08/25/1973 Alcohol Use Standard Drinks/Week Comments Yes 5.8 (1 standard drink = 0.6 oz p ure alcohol) Comments Unknown Sex and Gender Information Value Date Recorded Sex Assigned at Not on file Legal Sex Female 8:59 AM PDT Gender Identity Not on file Sexual Orientation Not on file Last Filed Vital Signs Vital Sign Reading Time Taken Comments Blood Pressure 142/85 03/07/2014 9:06 AM PDT Pulse 87 03/07/2014 9:06 AM PDT Temperature - - Respiratory Rate - - Oxygen Saturation - - Inhaled Oxygen Concentration - - Weight 78 kg (171 lb 14.4 oz) 03/07/2014 9:06 AM PDT Height 170.2 cm (5' 7) 03/07/2014 9:06 AM PDT Body Mass Index 26.92 03/07/2014 9:06 AM PDT Plan of Treatment Not on file Insurance [facility] [id number] MEDICARE Care Teams Obstetrics Gynecology Md Relationship Specialty Start Date End Date Susie Hayes ARNP [address] [place] [address], [address] [place] [phone] PCP - General Internal Medicine 03/07/14
--- NOTE | 2025-08-11 14:52 | EKG_ITS ---
[address] [address] Test Date: 2025-08-11 Pat Name: Jodie Rodriguez Department: Room: Gender: Female Health And Nutrition Specialist: LUCILLE : 1945 Requested By: Order Number: [id number] Reading MD: Gil Leal MD Measurements Intervals [place] Rate: 71 P: 77 [place]: 186 QRS: -78 QRSD: 178 T: 92 QT: 476 QTc: 517 Interpretive Statements Normal sinus rhythm Biatrial enlargement Left bundle branch block NO SIGNIFICANT CHANGE FROM PRIOR TRACING Electronically Signed On 08-12-2025 7:22:28 PST by Gil Leal MD
--- NOTE | 2025-08-11 14:52 | DI.RAD.S_ITS ---
PROCEDURE: XR CHEST 1V INDICATIONS: Chest Pain TECHNIQUE: One view of the chest was acquired. COMPARISON: [facility], CT, CT ANGIO CHEST ABDOMEN PELVIS, 05/20/2025, 14:05. [facility], CR, XR CHEST 1V, 05/20/2025, 11:23. [facility], CR, XR CHEST 1V, 06/07/2025, 12:11. FINDINGS: Surgical changes and devices: Right shoulder arthroplasty hardware is seen. Thoracolumbar fixation hardware is partially seen. Lungs and pleura: Lungs are clear, yet hyperexpanded. No pleural effusions or pneumothorax. Mediastinum: The cardiac contours are within normal limits. The aorta demonstrates calcification and tortuosity. Bones and chest wall: No suspicious bony lesions. Age-appropriate bony degenerative changes are seen. Overlying soft tissues appear unremarkable. IMPRESSION: Hyperexpanded lungs, without an acute cardiopulmonary process identified. Postoperative and degenerative changes are seen. Dictated by: Magno Rolon M.D. on 08/11/2025 at 14:37 Approved by: Magno Rolon M.D. on 08/11/2025 at 14:38
--- NOTE | 2025-08-11 15:19 | ED.CHESTPAIN ---
HPI - Chest Pain General Chief Complaint: Chest Pain Stated Complaint: heart attack? vomiting, high bp Time Seen by Provider: 08/11/25 14:54 Source: patient Mode of arrival: Wheelchair History of Present Illness HPI narrative: Patient is a 80-year-old female history of coronary artery disease that according to her is not stentable has frequent NSTEMI secondary to stress reaction presenting to day with nausea which is typically how she presents. She reports that today she was having some pharmacy issues she got really stress she has thrown up more than 5 times. She denies any hematemesis though it like she had threw up some black she says she just put on chapstick. No significant abdominal pain she is not having chest pain she typically does not have chest pain she is not short of breath. Still slightly nauseous feeling better. She recently got established with Cardiology Dr. Viera she saw him about a month ago who agreed with the Jayla gonzalez assessment that no procedure was indicated Related Data Home Medications ?Medication ?Instructions ?Recorded ?Confirmed magnesium oxide 400 mg PO DAILY 06/10/22 07/27/25 losartan 50 mg tablet 50 mg PO BID 07/23/24 07/27/25 amiodarone 100 mg tablet 400 mg PO DAILY 04/14/25 07/27/25 amlodipine 5 mg tablet 5 mg PO DAILY 04/14/25 07/27/25 Previous Rx's ?Medication ?Instructions ?Recorded omeprazole 40 mg capsule,delayed 40 mg PO QAM PRN Reflux #30 caps 10/22/18 release albuterol sulfate 90 mcg/actuation 2 puff inhalation Q4H PRN 05/06/22 aerosol inhaler (Ventolin HFA) shortness of breath or wheezing #18 grams Disabled Parking Permit #1 ea 12/11/23 diclofenac sodium 1 % topical gel 2 g topical QID #100 grams 03/04/24 (Voltaren Arthritis Pain) spironolactone 25 mg tablet 12.5 mg (1/2 x 25 mg) PO DAILY #90 09/09/24 tabs lidocaine 5 % topical ointment 1 applic topical DAILY PRN pain 01/20/25 #50 grams aspirin 81 mg tablet,delayed 81 mg PO DAILY #30 tabs 01/29/25 release trazodone 100 mg tablet 100 mg PO ONCE PM #90 tabs 04/04/25 rosuvastatin 5 mg tablet 2.5 mg (1/2 x 5 mg) PO DAILY #60 04/14/25 tabs oxybutynin chloride 10 mg 10 mg PO DAILY #90 tabs 05/09/25 tablet,extended release 24 hr clopidogrel 75 mg tablet 75 mg PO DAILY #30 tabs 06/09/25 venlafaxine 75 mg tablet 75 mg PO DAILY #90 tabs 06/13/25 tizanidine 2 mg tablet 2 mg PO Q8H PRN muscle spasticity 06/23/25 #30 tabs gabapentin 300 mg capsule 900 mg (3 x 300 mg) PO BID #360 07/06/25 caps carvedilol 12.5 mg tablet (Coreg) 6.25 mg (1/2 x 12.5 mg) PO BID #60 07/25/25 tabs oxycodone 5 mg tablet 5 mg PO DAILY PRN pain #35 tabs 07/27/25 empagliflozin 10 mg tablet 10 mg PO DAILY #90 tabs 07/28/25 (Jardiance) ramelteon 8 mg tablet 8 mg PO BEDTIME PRN sleep #30 tabs 07/28/25 acyclovir 400 mg tablet 400 mg PO BID #60 tabs 07/29/25 venlafaxine 37.5 mg 37.5 mg PO DAILY #60 caps 08/11/25 capsule,extended release 24 hr Allergies Allergy/AdvReac Type Severity Reaction Status Date / Time hydrocodone AdvReac Mild DIDN'T Verified 07/27/25 14:43 WORK WELL AND KEPT ME AWAKE Patient History Medical History Right hip pain Osteoarthritis of right hip Hip arthritis Renal mass of unknown nature HFrEF (heart failure with reduced ejection fraction) Weakness Peripheral neuropathy Heel spur Arthritis of first MTP joint Hx of right bundle branch block Insomnia Allergic rhinitis Postmenopausal GERD (gastroesophageal reflux disease) Anxiety Surgical History History of lumbar spinal fusion Hx of spinal surgery 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) History of bilateral tubal ligation History of arthroscopic knee surgery (2004) Status post open reduction with internal fixation (ORIF) of fracture of ankle (01/2001) Status post right knee replacement (10/09/12) 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) Family History Father CAD (coronary artery disease) Grandfather Lung cancer Grandmother CAD (coronary artery disease) Mother CAD (coronary artery disease) Diabetes mellitus Parkinson's disease Grandfather CAD (coronary artery disease) Social History household members: spouse alcohol intake: current tobacco type: cigarettes and vaping alcohol intake frequency: 0-2 drinks per day Alcohol type: beer Exam Initial Vital Signs Initial Vital Signs: Vital Signs Temperature 97.8 F 08/11/25 14:45 Pulse Rate 75 08/11/25 14:45 Respiratory Rate 20 08/11/25 14:45 Blood Pressure 188/116 H 08/11/25 14:45 Pulse Oximetry 95 08/11/25 14:45 Oxygen Delivery Method Room Air 08/11/25 14:45 GENERAL: Alert pleasant 80-year-old female and in no acute distress. HEENT: Head atraumatic,EOMI, pupils reactive, face symmetric, moist mucous membranes CARDIOVASCULAR: Regular rate and rhythm without murmurs, rubs or gallops. RESPIRATORY: Breath sounds equal bilaterally, no wheezes rales or rhonchi. ABDOMEN: Soft, nontender. Normoactive bowel sounds all 4 quadrants. No guarding or rebound. EXTREMITIES: Normal range of motion, no clubbing or edema. Neurovascularly intact NEUROLOGICAL: Alert and oriented x4.Normal gait and speech. Cranial nerves II through XII grossly intact. SKIN: Warm, dry, no laceration, no petechiae, no rashes or lesions. Course Orders Ordered: ED Orders 08/11/25 14:52 XR chest 1V Stat EKG-12 Lead Stat 08/11/25 15:09 Complete Blood Count AUTO DIFF Stat Comprehensive Metabolic Panel Stat Lactate (Lactic Acid) Stat Lipase Stat Magnesium Stat NT-proBNP (BNP-Adult 18+) Stat PTT Partial Thromboplastin Richy Stat Prothrombin Time INR Stat Troponin & CK Cardiac Panel Stat 08/11/25 15:34 CT angio Abd/Pel GI Bleed Stat 08/11/25 15:41 Urinalysis and Microscopic Stat 08/11/25 17:00 Trop I [Troponin I] Stat 08/11/25 17:52 EKG-12 Lead Stat 08/11/25 17:58 CBC Auto Diff [Complete Blood Count AUTO DIFF] Stat CMP [Comprehensive Metabolic Panel] Stat Troponin & CK Cardiac Panel Stat Dopamine HCl/Dextrose (Dopamine 400 Mg-D5w 250 Ml) 400 mg in 250 mls @ 2.024 mls/hr IV TITRATE [place]; Protocol Last Titration: 08/11/25 19:28 Dose: 18 mcg/kg/min, 36.434 mls/hr Epinephrine HCl 4 mg/ Dextrose 250 mls @ 40.483 mls/hr IV TITRATE [place]; Protocol Last Titration: 08/11/25 19:28 Dose: 0.45 mcg/kg/min, 91.086 mls/hr Discontinued Medications Aspirin (Aspirin 81 Mg Chew Tab) 324 mg PO NOW ONE Stop: 08/11/25 14:53 Last Admin: 08/11/25 15:40 Dose: Not Given Documented By: RAINA Atropine Sulfate (Atropine 1 Mg/10 Ml Syringe) 0.5 mg IV NOW ONE Stop: 08/11/25 17:58 Last Admin: 08/11/25 17:58 Dose: 0.5 mg Documented By: ARNOLDO Atropine Sulfate (Atropine 1 Mg/10 Ml Syringe) 0.5 mg IV NOW ONE Stop: 08/11/25 18:05 Last Admin: 08/11/25 18:06 Dose: 0.5 mg Documented By: ARNOLDO Atropine Sulfate (Atropine 1 Mg/10 Ml Syringe) 0.5 mg IV NOW ONE Stop: 08/11/25 18:16 Last Admin: 08/11/25 18:16 Dose: 0.5 mg Atropine Sulfate (Atropine 1 Mg/10 Ml Syringe) 1 mg IV NOW ONE Stop: 08/11/25 18:19 Last Admin: 08/11/25 18:19 Dose: 1 mg Sodium Chloride 9 ml/ (Epinephrine HCl 0.1 mg) 0 ml IV NOW ONE Stop: 08/11/25 18:21 Last Admin: 08/11/25 18:22 Dose: 0.01 ml Sodium Chloride (Normal Saline 0.9%) 500 mls @ 1,000 mls/hr IV BOLUS ONE Stop: 08/11/25 15:52 Last Admin: 08/11/25 15:32 Dose: 1,000 mls/hr Documented By: RAINA Sodium Chloride (Normal Saline 0.9%) 1,000 mls @ 1,000 mls/hr IV BOLUS ONE Stop: 08/11/25 19:15 Last Admin: 08/11/25 18:17 Dose: 1,000 mls/hr Ondansetron HCl (Ondansetron 4 Mg/2 Ml Inj) 4 mg IV NOW ONE Stop: 08/11/25 15:24 Last Admin: 08/11/25 15:29 Dose: 4 mg Documented By: RAINA Pantoprazole Sodium (Pantoprazole 40 Mg Vial) 80 mg IV NOW ONE Stop: 08/11/25 15:35 Last Admin: 08/11/25 15:37 Dose: 80 mg Documented By: RAINA Vital Signs Vital signs: Vital Signs - 8 hr 08/11/25 14:45 08/11/25 14:50 08/11/25 15:09 Temperature 97.8 F Pulse Rate 75 76 71 Respiratory Rate 20 12 11 L Blood Pressure 188/116 H 203/118 H 207/103 H Pulse Oximetry 95 94 96 Oxygen Delivery Method Room Air Oxygen Flow Rate 08/11/25 16:29 08/11/25 17:49 08/11/25 18:00 Temperature Pulse Rate 73 97 H 52 L Respiratory Rate 9 L 25 H 13 Blood Pressure 205/103 H Pulse Oximetry 95 98 92 Oxygen Delivery Method Oxygen Flow Rate 08/11/25 18:01 08/11/25 18:01 08/11/25 18:06 Temperature Pulse Rate 53 L Respiratory Rate 15 Blood Pressure 162/74 H 158/69 H Pulse Oximetry 93 Oxygen Delivery Method Oxygen Flow Rate 08/11/25 18:06 08/11/25 18:10 08/11/25 18:10 Temperature Pulse Rate 54 L 55 L Respiratory Rate 16 16 Blood Pressure 157/71 H Pulse Oximetry 91 91 Oxygen Delivery Method Oxygen Flow Rate 08/11/25 18:16 08/11/25 18:16 08/11/25 18:20 Temperature Pulse Rate 28 L Respiratory Rate 15 Blood Pressure 143/63 H 110/51 L Pulse Oximetry 94 Oxygen Delivery Method Oxygen Flow Rate 08/11/25 18:20 08/11/25 18:25 08/11/25 18:25 Temperature Pulse Rate 41 L 51 L Respiratory Rate 28 H 28 H Blood Pressure 142/64 H Pulse Oximetry 94 93 Oxygen Delivery Method Oxygen Flow Rate 08/11/25 18:30 08/11/25 18:30 08/11/25 18:35 Temperature Pulse Rate 44 L Respiratory Rate 23 Blood Pressure 117/57 L 135/61 Pulse Oximetry 91 Oxygen Delivery Method Oxygen Flow Rate 08/11/25 18:35 08/11/25 18:40 08/11/25 18:40 Temperature Pulse Rate 45 L 48 L Respiratory Rate 31 H 25 H Blood Pressure 126/58 L Pulse Oximetry 94 90 L Oxygen Delivery Method Oxygen Flow Rate 08/11/25 18:45 08/11/25 18:45 08/11/25 18:50 Temperature Pulse Rate 57 L 36 L Respiratory Rate 24 25 H Blood Pressure 137/62 Pulse Oximetry 89 L 93 Oxygen Delivery Method Nasal Cannula Oxygen Flow Rate 08/11/25 18:50 08/11/25 18:55 08/11/25 18:55 Temperature Pulse Rate 37 L Respiratory Rate 28 H Blood Pressure 136/60 134/61 Pulse Oximetry 94 Oxygen Delivery Method Oxygen Flow Rate 08/11/25 19:00 08/11/25 19:00 08/11/25 19:05 Temperature Pulse Rate 40 L Respiratory Rate 28 H Blood Pressure 140/63 139/63 Pulse Oximetry 93 Oxygen Delivery Method Nasal Cannula Oxygen Flow Rate 2 08/11/25 19:05 08/11/25 19:10 08/11/25 19:10 Temperature Pulse Rate 40 L 38 L Respiratory Rate 31 H 29 H Blood Pressure 139/63 Pulse Oximetry 94 93 Oxygen Delivery Method Oxygen Flow Rate 08/11/25 19:15 08/11/25 19:15 08/11/25 19:20 Temperature Pulse Rate 40 L Respiratory Rate 31 H Blood Pressure 144/64 H 149/65 H Pulse Oximetry 93 Oxygen Delivery Method Oxygen Flow Rate 08/11/25 19:20 Temperature Pulse Rate 40 L Respiratory Rate 32 H Blood Pressure Pulse Oximetry 94 Oxygen Delivery Method Oxygen Flow Rate MDM - Chest Pain Lab Data 08/11/25 17:58 08/11/25 15:09 Labs: Lab Results 08/11/25 08/11/25 08/11/25 Range/Units 15:09 15:41 17:00 WBC 19.2 H (4.5-11.0) X10^3/uL RBC 4.99 (4.0-5.2) X10^6/uL Hgb 15.5 (12.0-16.0) g/dL Hct 45.5 (36-46) % MCV 91.1 (80-100) fL MCH 31.1 (26-34) PG MCHC 34.1 (30-36) % RDW 14.2 (11.6-14.8) % Plt Count 387 (150-400) X10^3/uL Neut % (Auto) 91.4 H (50-75) % Lymph % (Auto) 4.1 L (25-40) % Steele % (Auto) 4.1 (3-14) % Eos % (Auto) 0.1 L (2-4) % Baso % (Auto) 0.3 (0-2) % Neut # (Auto) 29663 H (5368-4865) /uL Lymph # (Auto) 800 L (2065-4292) /uL Steele # (Auto) 800 (0-900) /uL Eos # (Auto) 0 (0-450) /uL Baso # (Auto) 100 (0-100) /uL PT 11.7 (9.4-12.5) SECONDS INR 1.0 (0.9-1.3) APTT 27 (25.1-36.5) SECONDS Sodium 135 L (137-145) mmol/L Potassium 4.1 (3.4-5.1) mmol/L Chloride 102 (98-107) mmol/L Carbon Dioxide 20 L (22-32) mmol/L BUN 16 (7-17) mg/dL Creatinine 0.68 (0.52-1.04) mg/dL Estimated GFR > 60 (>60) mL/min BUN/Creatinine Ratio 23.5 H (6-22) Glucose 117 H (70-99) mg/dL Lactate 1.3 (0.7-2.1) mmol/L Calcium 9.6 (8.4-10.2) mg/dL Magnesium 1.9 (1.6-2.3) mg/dL Total Bilirubin 0.7 (0.2-1.3) mg/dL AST 47 H (14-36) IU/L ALT 55 H (<35) IU/L Alkaline Phosphatase 161 H (38-126) U/L Total Creatine Kinase 78 (30-135) U/L Troponin I 0.098 H 0.194 H* (0.01-0.034) ng/mL NT-Pro-B Natriuret Pep 2810 H (<450) pg/mL Total Protein 8.1 (6.3-8.2) g/dL Albumin 4.6 (3.5-5.0) g/dL Globulin 3.5 (1.7-4.1) g/dL Albumin/Globulin Ratio 1.3 (1.0-2.8) Lipase 98 (23-300) U/L Urine Color Yellow Urine Appearance Clear Urine pH 6.5 (4.5-8.0) Ur Specific Burt 1.020 (1.000-1.035) Urine Protein 1+ H (Negative) Urine Glucose (UA) 3+ H (Negative) g/dL Urine Ketones 1+ H (NEGATIVE) Urine Occult Blood Negative (Negative) Urine Nitrate Negative (Negative) Urine Bilirubin Negative (NEGATIVE) Urine Urobilinogen 1.0 (0.2) E.U./dL Ur Leukocyte Esterase Negative (NEGATIVE) Urine RBC 0-1/hpf (0-5/HPF) Urine WBC 0-1/hpf (0-5/HPF) Ur Squamous Epith Cells 1-5 /hpf (0-5/HPF) Urine Bacteria None seen (None) Ur Culture Indicated? Cult not indicated Vol Urine Centrifuged 10ml (spun) 18/ Range/Units 17:58 WBC 22.7 H (4.5-11.0) X10^3/uL RBC 5.12 (4.0-5.2) X10^6/uL Hgb 15.9 (12.0-16.0) g/dL Hct 47.5 H (36-46) % MCV 92.8 (80-100) fL MCH 31.2 (26-34) PG MCHC 33.6 (30-36) % RDW 14.1 (11.6-14.8) % Plt Count 412 H (150-400) X10^3/uL Neut % (Auto) 92.6 H (50-75) % Lymph % (Auto) 4.3 L (25-40) % Steele % (Auto) 2.6 L (3-14) % Eos % (Auto) 0.1 L (2-4) % Baso % (Auto) 0.4 (0-2) % Neut # (Auto) 75518 H (3085-4970) /uL Lymph # (Auto) 1000 L (5074-8911) /uL Steele # (Auto) 600 (0-900) /uL Eos # (Auto) 0 (0-450) /uL Baso # (Auto) 100 (0-100) /uL PT (9.4-12.5) SECONDS INR (0.9-1.3) APTT (25.1-36.5) SECONDS Sodium (137-145) mmol/L Potassium (3.4-5.1) mmol/L Chloride (98-107) mmol/L Carbon Dioxide (22-32) mmol/L BUN (7-17) mg/dL Creatinine (0.52-1.04) mg/dL Estimated GFR (>60) mL/min BUN/Creatinine Ratio (6-22) Glucose (70-99) mg/dL Lactate (0.7-2.1) mmol/L Calcium (8.4-10.2) mg/dL Magnesium (1.6-2.3) mg/dL Total Bilirubin (0.2-1.3) mg/dL AST (14-36) IU/L ALT (<35) IU/L Alkaline Phosphatase (38-126) U/L Total Creatine Kinase (30-135) U/L Troponin I (0.01-0.034) ng/mL NT-Pro-B Natriuret Pep (<450) pg/mL Total Protein (6.3-8.2) g/dL Albumin (3.5-5.0) g/dL Globulin (1.7-4.1) g/dL Albumin/Globulin Ratio (1.0-2.8) Lipase (23-300) U/L Urine Color Urine Appearance Urine pH (4.5-8.0) Ur Specific Burt (1.000-1.035) Urine Protein (Negative) Urine Glucose (UA) (Negative) g/dL Urine Ketones (NEGATIVE) Urine Occult Blood (Negative) Urine Nitrate (Negative) Urine Bilirubin (NEGATIVE) Urine Urobilinogen (0.2) E.U./dL Ur Leukocyte Esterase (NEGATIVE) Urine RBC (0-5/HPF) Urine WBC (0-5/HPF) Ur Squamous Epith Cells (0-5/HPF) Urine Bacteria (None) Ur Culture Indicated? Vol Urine Centrifuged Urine Dip Bedside Urine Glucose 500 mg/dl Bedside Urine Bilirubin - Negative Bedside Urine Ketone + 15 Urine Specific Burt 1.015 Bedside Urine Occult Blood +/- Bedside Urine pH 6.0 Bedside Urine Protein + 30 Bedside Urine Urobilinogen - Negative Bedside Urine Nitrite - Negative Bedside Urine Leukocytes - Negative Esterase Imaging Data Chest x-ray: Radiologist's Impression: PROCEDURE: XR CHEST 1V INDICATIONS: Chest Pain TECHNIQUE: One view of the chest was acquired. COMPARISON: [facility], CT, CT ANGIO CHEST ABDOMEN PELVIS, 05/20/2025, 14:05. [facility], CR, XR CHEST 1V, 05/20/2025, 11:23. [facility], CR, XR CHEST 1V, 06/07/2025, 12:11. FINDINGS: Surgical changes and devices: Right shoulder arthroplasty hardware is seen. Thoracolumbar fixation hardware is partially seen. Lungs and pleura: Lungs are clear, yet hyperexpanded. No pleural effusions or pneumothorax. Mediastinum: The cardiac contours are within normal limits. The aorta demonstrates calcification and tortuosity. Bones and chest wall: No suspicious bony lesions. Age-appropriate bony degenerative changes are seen. Overlying soft tissues appear unremarkable. IMPRESSION: Hyperexpanded lungs, without an acute cardiopulmonary process identified. Postoperative and degenerative changes are seen. Dictated by: Magno Rolon M.D. on 08/11/2025 at 14:37 CT scan - abdomen/pelvis: Radiologist's Impression: PROCEDURE: CT ANGIO ABD/PEL GI BLEED INDICATIONS: Vomiting blood, chest pain TECHNIQUE: After the administration of intravenous contrast, 2.5 mm thick sections acquired from the diaphragm to the symphysis. 10 mm maximum-intensity projection (MIP) reformats were then acquired. For radiation dose reduction, the following was used: automated exposure control. COMPARISON: None. FINDINGS: Quality: Diagnostic. Lower Chest: Large bulus in the right middle lobe.. Abdomen: Liver: Unremarkable. Gallbladder and bile ducts: Unremarkable. Pancreas: Unremarkable. Spleen: Unremarkable. Adrenal Glands: Unremarkable. Kidneys and Ureters: Unremarkable. Stomach: Unremarkable. Bowel: Rectal wall thickening with diverticulosis. Perirectal stranding. . Peritoneum: No free fluid. No free air. Pelvis: Reproductive: Calcified uterine fibroid. Bladder: Unremarkable. Other: Lymphatic: No adenopathy. Vasculature: No aortic aneurysm. Severe atherosclerosis. No extraluminal contrast blush identified. No pooling of contrast identified. Abdominal wall: Intact. Bones: No aggressive osseous lesion. Bilateral hip arthropathy, severe on the right with large right effusion. Extensive posterior spinal fusion the thoracic and lumbar spine. IMPRESSION: Marked wall thickening and perirectal inflammation. No evidence of active hemorrhage. Dictated by: Segundo Ragsdale M.D. on 08/11/2025 at 16:32 Approved by: Segundo Ragsdale M.D. on 08/11/2025 at 16:45 ECG Data Attestation: I personally reviewed and interpreted this ECG as follows: Prior ECG tracings: available for review Interpretation: Sinus rhythm rate 71 TN interval 186 QRS 178 lb bundle-branch block noted no Sgarbossa criteria similar to previous EKGs EKGs 2. AV lorrie block possible third-degree I do not see a dropped beat rate 49 3rd EKGs third-degree heart block MDM Narrative Medical decision making narrative: MDM CC: Nausea Complicating co-morbidities: Coronary artery disease Data collected from: Patient Medical records reviewed: Previous admission Differential considered: NSTEMI GI bleed Exam documented above, pertinent findings include: Patient appears to have black on her lips she denies vomiting and hematemesis abdomen is soft nontender awake alert range Lab Test results independently reviewed as above. Pertinent findings: Troponin 0.098-->0.194--> CBC leukocytosis 19.2 hemoglobin 15.5 45.5, repeat hemoglobin 15.9 and hematocrit 47 point CMP no significant electrolyte abnormalities no JANENE glucose 117 Urinalysis negative Independently reviewed EKG as above EKGs 1. Sinus rhythm EKGs 2. Bradycardia EKGs 3. Third-degree heart block Imaging studies independently reviewed: Chest x-ray no acute Consultations: Dr. Jules, cardiology recommends transferring to [facility] Dr. Viera updated on patient's symptoms test results agrees needs to be transferred over to [facility] however unfortunately EP not available moderate Dr. Lezama, BENY hooper at [facility] kindly accepts patient Treatments: Atropine multiple doses Dopamine, epinephrine Re-evaluations: Patient was in hallway up to restroom when suddenly she passed out. Found to be in heart block with a heart rate in the 20s. She was given a 0.5 mg of atropine she ultimately need a 2 doses of that heart rate did improve. Discussion: Patient 80-year-old presenting today with nausea which is typically how her NSTEMI he is present. It did look like she had black around her lips there was concern for possible GI bleeding. CT angio does not show any active bleeding she is not anemic on repeat testing. She does ultimately have a positive troponin. However she passed out it appears that she is in a third-degree heart block. She was given multiple doses of atropine ultimately started on dopamine drip and required an epinephrine drip as well Tried to send her to [facility] unfortunately the conversion worker Not able to help tomorrow and recommended transfer to another facility. Patient is a full code Critical Care Time Critical Care Time Critical Care Time: Yes Total Critical Care Time: 60 Attestation: The high probability of a clinically significant, sudden or life threatening deterioration of the [cardiovascular] system(s) required my full and direct attention, intervention and personal management. The aggregate critical care time was 60 minutes. This time is in addition to time spent performing reported procedures but includes the following: [x] Data Review and interpretation [x] Patient assessment and monitoring of vital signs [x] Documentation [x] Medication orders and management Discharge Plan Departure Patient Disposition: [facility] Clinical Impression: Third degree heart block Prescriptions: No Action tizanidine 2 mg tablet 2 mg PO Q8H PRN (Reason: muscle spasticity) Qty: 30 0RF diclofenac sodium [Voltaren Arthritis Pain] 1 % gel 2 g topical QID Qty: 100 0RF Rx Instructions: apply to single elbow, wrist or hand; for hand includes palm/fingers/back of hand losartan 50 mg tablet 50 mg PO BID amlodipine 5 mg tablet 5 mg PO DAILY rosuvastatin 5 mg tablet 2.5 mg PO DAILY Qty: 60 2RF amiodarone 100 mg tablet 400 mg PO DAILY oxycodone 5 mg tablet 5 mg PO DAILY PRN (Reason: pain) Qty: 35 0RF Rx Instructions: to last 30 days albuterol sulfate [Ventolin HFA] 90 mcg/actuation HFA aerosol inhaler 2 puff Inhalation Q4H PRN (Reason: shortness of breath or wheezing) Qty: 18 11RF (DME) Disabled Parking Permit See Rx Instructions .ROUTE .MEDSUPPLY Qty: 1 0RF Rx Instructions: I find this person to be disabled spironolactone 25 mg tablet 12.5 mg PO DAILY Qty: 90 3RF lidocaine 5 % ointment 1 applic topical DAILY PRN (Reason: pain ) Qty: 50 0RF trazodone 100 mg tablet 100 mg PO ONCE PM Qty: 90 2RF oxybutynin chloride 10 mg tablet extended release 24hr 10 mg PO DAILY Qty: 90 0RF venlafaxine 75 mg tablet 75 mg PO DAILY Qty: 90 0RF gabapentin 300 mg capsule 900 mg PO BID Qty: 360 0RF Rx Instructions: ok to increase to 3 times chun if needig more coverage carvedilol [Coreg] 12.5 mg tablet 6.25 mg PO BID Qty: 60 0RF Rx Instructions: must administer with a meal/food ramelteon 8 mg tablet 8 mg PO BEDTIME PRN (Reason: sleep) Qty: 30 0RF Jardiance 10 mg tablet 10 mg PO DAILY Qty: 90 0RF acyclovir 400 mg tablet 400 mg PO BID Qty: 60 0RF venlafaxine 37.5 mg capsule,extended release 24hr 37.5 mg PO DAILY Qty: 60 0RF Rx Instructions: for dose adjustment omeprazole 40 mg capsule,delayed release(DR/EC) 40 mg PO QAM PRN (Reason: Reflux) Qty: 30 3RF clopidogrel 75 mg Tablet 75 mg PO DAILY Qty: 30 2RF magnesium oxide 400 mg magnesium Tablet 400 mg PO DAILY aspirin 81 mg Tablet,Delayed Release (Dr/Ec) 81 mg PO DAILY Qty: 30 3RF Referrals: Jaky Munson MD [Primary Care Provider, Family Practice]
[2025-08-11 15:23] LABS: Add Manual Diff / Slide Review NO; Hematocrit 45.5 % (36-46); Hemoglobin 15.5 g/dL (12.0-16.0); Lymphocytes Absolute Auto 800 /uL (1100-4500); Mean Corpuscular HGB Conc 34.1 % (30-36); Mean Corpuscular Hemoglobin 31.1 PG (26-34); Mean Corpuscular Volume 91.1 fL (80-100); Platelet Count 387 X10^3/uL (150-400)
[2025-08-11 15:27] LABS: INR 1.0 (0.9-1.3); Prothrombin Time 11.7 SECONDS (9.4-12.5)
[2025-08-11] MEDS: ONDANSETRON 4 MG/2 ML INJ IV (15:29)
[2025-08-11 15:30] LABS: PTT Partial Thromboplastin Tim 27 SECONDS (25.1-36.5)
[2025-08-11 15:31] LABS: Alanine Aminotransferase 55 IU/L (<35); Albumin 4.6 g/dL (3.5-5.0); Albumin Globulin Ratio 1.3 (1.0-2.8); Alkaline Phosphatase 161 U/L (38-126); Blood Urea Nitrogen 16 mg/dL (7-17); Calcium 9.6 mg/dL (8.4-10.2); Carbon Dioxide 20 mmol/L (22-32); Chloride 102 mmol/L (98-107); Creatine Kinase 78 U/L (30-135); Estimated Glomerular Filt Rate > 60 mL/min (>60); Globulin 3.5 g/dL (1.7-4.1); Glucose 117 mg/dL (70-99); HEMOLYSIS < 15 (0-50); Lipase 98 U/L (23-300); Magnesium 1.9 mg/dL (1.6-2.3); Potassium 4.1 mmol/L (3.4-5.1); Sodium 135 mmol/L (137-145); Total Protein 8.1 g/dL (6.3-8.2)
[2025-08-11] MEDS: SODIUM CHLORIDE 0.9% 500 ML 1000 ML IV (15:32)
--- NOTE | 2025-08-11 15:34 | DI.CT.S_ITS ---
PROCEDURE: CT ANGIO ABD/PEL GI BLEED INDICATIONS: Vomiting blood, chest pain TECHNIQUE: After the administration of intravenous contrast, 2.5 mm thick sections acquired from the diaphragm to the symphysis. 10 mm maximum-intensity projection (MIP) reformats were then acquired. For radiation dose reduction, the following was used: automated exposure control. COMPARISON: None. FINDINGS: Quality: Diagnostic. Lower Chest: Large bulus in the right middle lobe.. Abdomen: Liver: Unremarkable. Gallbladder and bile ducts: Unremarkable. Pancreas: Unremarkable. Spleen: Unremarkable. Adrenal Glands: Unremarkable. Kidneys and Ureters: Unremarkable. Stomach: Unremarkable. Bowel: Rectal wall thickening with diverticulosis. Perirectal stranding. . Peritoneum: No free fluid. No free air. Pelvis: Reproductive: Calcified uterine fibroid. Bladder: Unremarkable. Other: Lymphatic: No adenopathy. Vasculature: No aortic aneurysm. Severe atherosclerosis. No extraluminal contrast blush identified. No pooling of contrast identified. Abdominal wall: Intact. Bones: No aggressive osseous lesion. Bilateral hip arthropathy, severe on the right with large right effusion. Extensive posterior spinal fusion the thoracic and lumbar spine. IMPRESSION: Marked wall thickening and perirectal inflammation. No evidence of active hemorrhage. Dictated by: Segundo Ragsdale M.D. on 08/11/2025 at 16:32 Approved by: Segundo Ragsdale M.D. on 08/11/2025 at 16:45
[2025-08-11] MEDS: PANTOPRAZOLE 40 MG VIAL 80 MG IV (15:37)
[2025-08-11 15:43] LABS: NT-proBNP (BNP-Adult 18+) 2810 pg/mL (<450); Troponin I 0.098 ng/mL (0.01-0.034)
[2025-08-11 16:03] LABS: Lactate (Lactic Acid) 1.3 mmol/L (0.7-2.1)
[2025-08-11 16:50] LABS: Appearance Urine UA CLEAR; Bilirubin Urine UA NEGATIVE (NEGATIVE); Color Urine UA YELLOW; Glucose Urine UA 3+ g/dL (Negative); Ketones Urine UA 1+ (NEGATIVE); Leukocyte Esterase Urine UA NEGATIVE (NEGATIVE); Nitrite Urine UA NEGATIVE (Negative); Occult Blood Urine UA NEGATIVE (Negative); Protein Urine UA 1+ (Negative); Specific Gravity Urine UA 1.020 (1.000-1.035); Urobilinogen Urine UA 1.0 E.U./dL (0.2)
[2025-08-11 16:57] LABS: pH Urine UA 6.5 (4.5-8.0)
[2025-08-11 16:58] LABS: Culture Indicated Urine Cult Not Indicated
[2025-08-11 17:29] LABS: Troponin I 0.194 ng/mL (0.01-0.034)
--- NOTE | 2025-08-11 17:52 | EKG_ITS ---
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
[2025-08-11] MEDS: ATROPINE 1 MG/10 ML SYRINGE 0.5 MG IV ×3 (17:58→18:16)
[2025-08-11 18:05] LABS: Hematocrit 47.5 % (36-46); Hemoglobin 15.9 g/dL (12.0-16.0); Mean Corpuscular Hemoglobin 31.2 PG (26-34); Mean Corpuscular Volume 92.8 fL (80-100)
[2025-08-11 18:06] LABS: Add Manual Diff / Slide Review NO; Lymphocytes Absolute Auto 1000 /uL (1100-4500); Mean Corpuscular HGB Conc 33.6 % (30-36); Platelet Count 412 X10^3/uL (150-400)
[2025-08-11] MEDS: SODIUM CHLORIDE 0.9% 1,000 ML 1000 ML IV (18:17)
[2025-08-11] MEDS: ATROPINE 1 MG/10 ML SYRINGE IV (18:19)
[2025-08-11] MEDS: SODIUM CHLORIDE 0.9% FLUSH 9 ML, EPINEPHrine 0.1 MG IV (18:22)
--- NOTE | 2025-08-11 18:30 | EKG_ITS ---
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
[2025-08-11] MEDS: EPINEPHrine 4 MG in DEXTROSE 5% IN WATER 246 ML 40.483 MG IV (18:31)
[2025-08-11 19:47] LABS: Alanine Aminotransferase 55 IU/L (<35); Albumin 4.7 g/dL (3.5-5.0); Albumin Globulin Ratio 1.3 (1.0-2.8); Alkaline Phosphatase 162 U/L (38-126); Blood Urea Nitrogen 16 mg/dL (7-17); Calcium 9.1 mg/dL (8.4-10.2); Carbon Dioxide 15 mmol/L (22-32); Chloride 105 mmol/L (98-107); Creatine Kinase 96 U/L (30-135); Estimated Glomerular Filt Rate > 60 mL/min (>60); Globulin 3.5 g/dL (1.7-4.1); Glucose 144 mg/dL (70-99); HEMOLYSIS < 15 (0-50); Potassium 3.4 mmol/L (3.4-5.1); Sodium 136 mmol/L (137-145); Total Protein 8.2 g/dL (6.3-8.2)
[2025-08-11 20:03] LABS: Troponin I 0.406 ng/mL (0.01-0.034)
== END 2025-08-11 19:46 | disposition short-term general hospital (02) ==
PROVIDERS: Emergency Provider Emergency Medicine; PCP Family Medicine
DX: I44.2 Atrioventricular block, complete (principal); R11.2 Nausea with vomiting, unspecified; I10 Essential (primary) hypertension; Z86.79 Personal history of other diseases of the circulatory system
CPT/HCPCS: 36415; 71045; 74174; 80053; 81001; 81003; 82550; 83605; 83690; 83735; 83880; 84484; 85025; 85610; 85730; 93005; 93010; 96361; 96365; 96367; 96368; 96374; 96375; 99285; J0165; J0461; J2405; J2470; J7030; J7040; J7060